=== PATIENT | female | born 1955 | race African-American/Black ===

== ENCOUNTER 2017-07-12 23:35 | Inpatient (IN) | payer OTHER, SELFPAY ==
--- OUTSIDE RECORDS SUMMARY | 2017-07-12 23:37 | XMS REPORT | Clinical Summary ---
:1955 Author Organization [facility] Address [address] [place] [address] Phone Care Team Providers Name Role Phone Unavailable Primary Care Provider Unavailable Allergies Active Allergy Reactions Severity Noted Date Comments Lisinopril High 04/11/2017 Pt with history of lisinopril causing angioedema Current Medications Prescription Sig. Disp. Refills Start End Status Date Date tolterodine (DETROL) 2 Take 2 mg by Active MG tablet mouth 2 (two) times daily. albuterol HFA (VENTOLIN Inhale 1 puff by Active HFA) 90 mcg/actuation mouth via inhaler inhaler every 6 (six) hours as needed for Wheezing. amitriptyline (ELAVIL) Take 10 mg by Active 10 MG tablet mouth nightly. estradiol (ESTRACE) 2 Take 2 mg by Active MG tablet mouth daily. famotidine (PEPCID) 20 Take 20 mg by Active MG tablet mouth daily. cetirizine (ZYRTEC) 5 Take 5 mg by Active MG tablet mouth daily. medroxyPROGESTERone Take 2.5 mg by Active (PROVERA) 2.5 MG tablet mouth 3 (three) times daily. umeclidinium-vilanterol Inhale 1 puff by Active (ANORO ELLIPTA) 62.5-25 mouth via mcg/actuation DsDv inhaler daily. furosemide (LASIX) 40 Take 40 mg by Active MG tablet mouth daily. oxyCODONE (ROXICODONE) Take 30 mg by Active 30 MG immediate release mouth every 6 tablet (six) hours as needed for Pain. predniSONE (DELTASONE) Take 10 mg by Active 10 MG tablet mouth daily. pantoprazole (PROTONIX) Take 40 mg by Active 40 MG tablet mouth daily. aspirin 81 MG EC tablet Take 1 tablet 30 tablet 1 04/18/19 Active (81 mg total) by 18 019 mouth daily. atorvastatin (LIPITOR) Take 1 tablet 30 tablet 0 04/18/19 Active 40 MG tablet (40 mg total) by 18 019 mouth daily. clopidogrel (PLAVIX) 75 Take 1 tablet 30 tablet 0 04/18/19 Active mg tablet (75 mg total) by 18 019 mouth daily. ipratropium-albuterol Take 3 mLs by 300 mL 0 04/17/19 Active (DUO-NEB) 0.5 mg-3 nebulization 18 019 mg(2.5 mg base)/3 mL every 4 (four) nebulizer solution hours as needed for Wheezing or Shortness of Breath for up to 360 days. isosorbide mononitrate Take 1 tablet 30 tablet 0 04/18/19 Active (IMDUR) 30 MG 24 hr (30 mg total) by 18 019 tablet mouth daily. metoprolol (LOPRESSOR) Take 1 tablet 60 tablet 0 04/17/19 Active 25 MG tablet (25 mg total) by 18 019 mouth 2 (two) times daily. nitroglycerin Put 1 pill under 90 tablet 0 04/17/19 Active (NITROSTAT) 0.4 MG SL tongue every 18 019 tablet 5min as needed for chest pain.. amLODIPine (NORVASC) 10 Take 1 tablet 0 04/18/19 Active MG tablet (10 mg total) by 18 019 mouth daily. amLODIPine (NORVASC) 10 Take 10 mg by Discontinued MG tablet mouth daily. 018 Active Problems Problem Noted Date Essential hypertension 04/26/2017 Other hyperlipidemia 04/26/2017 Tobacco use 04/26/2017 COPD (chronic obstructive pulmonary disease) ([facility]) 04/26/2017 MALU on CPAP 04/26/2017 Chronic diastolic CHF (congestive heart failure) ([facility]) 04/26/2017 NSTEMI (non-ST elevated myocardial infarction) ([facility]) 04/12/2017 Resolved Problems Problem Noted Date Resolved Date Chest pain 04/11/2017 04/26/2017 Encounters Date Type Specialty Care Team Description 04/26/2017 Office Visit Cardiology Alexander Olivier NP Tobacco use;MALU on CPAP;Chronic diastolic CHF (congestive heart failure) ([facility]) 04/13/2017 Orders Only General Internal Medicine 04/11/2017 - Hospital Encounter Cardiology Leon, Unstable angina 04/17/2017 joan Barreto ([facility]) (Primary Dx) Chip Davila MD 04/11/2017 Procedure Pass 04/11/2017 Surgery Andrea Sosa L CATH & PCI MD Von after 07/11/2016 Immunizations Name Dates Previously Given Next Due Influenza Three-TIV PF 5+ YR 04/12/2017 Pneumococcal Polysaccharide (Pneumovax) 04/12/2017 Social History Tobacco Use Types Packs/Day Years Used Date Current Every Day Smoker Cigarettes 0.25 40 Started: 04/12/1976 Smokeless Tobacco: Never Used Tobacco Cessation: Ready to Quit: Yes; Counseling Given: Yes Sex Assigned at Date Recorded Not on file Last Filed Vital Signs Vital Sign Reading Time Taken Blood Pressure 132/67 04/26/2017 11:10 AM SKEIN INSPECTOR Pulse 93 04/26/2017 11:10 AM SKEIN INSPECTOR Temperature 36.9 C (98.5 F) 04/17/2017 11:00 AM SKEIN INSPECTOR Respiratory Rate 16 04/26/2017 11:10 AM SKEIN INSPECTOR Oxygen Saturation 91% 04/26/2017 11:10 AM SKEIN INSPECTOR Inhaled Oxygen Concentration - - Weight 96.8 kg (213 lb 4.8 oz) 04/26/2017 11:10 AM SKEIN INSPECTOR Height 162.6 cm (5' 4") 04/26/2017 11:10 AM SKEIN INSPECTOR Body Mass Index 36.61 04/26/2017 11:10 AM SKEIN INSPECTOR Plan of Treatment Health Maintenance Due Date Last Done Comments INFLUENZA VACCINE 01/07/2018 04/12/2017 Procedures Procedure Name Priority Date/Time Associated Diagnosis Comments L CATH & PCI 04/11/2017 8:35 PM SKEIN INSPECTOR stemi after 07/11/2016 Results VASCULAR DIAGRAM -SCAN (05/04/2017 1:57 PM)Only the most recent of3 resultswithin the time period is included.B N P (04/26/2017 12:33 PM)Only the most recent of2 resultswithin the time period is included. Component Value Ref Range BNP 98 0 - 100 pg/mL Specimen Performing Laboratory Blood [facility] [address] [place] [address] Magnesium (04/26/2017 12:33 PM)Only the most recent of2 resultswithin the time period is included. Component Value Ref Range Magnesium 1.8 1.6 - 2.6 mg/dL Specimen Performing Laboratory Blood [address] [address] Basic Metabolic Panel (04/26/2017 12:33 PM)Only the most recent of7 resultswithin the time period is included. Component Value Ref Range Sodium 144 136 - 145 meq/L Potassium 3.7 3.5 - 5.1 meq/L Chloride 105 98 - 107 meq/L CO2 32 (H) 22 - 29 meq/L BUN 8 7 - 21 mg/dL Creatinine 0.72 0.57 - 1.25 mg/dL Glucose 92 70 - 105 mg/dL Calcium 8.9 8.4 - 10.2 mg/dL EGFR 99Comment: ESTIMATED GFR IS NOT ACCURATE mL/min/1.73 sq m CREATININE CLEARANCE IN PREDICTING GLOMERULAR FILTRATION RATE. ESTIMATED GFR IS NOT APPLICABLE FOR DIALYSIS PATIENTS. Specimen Performing Laboratory Blood [address] [address] RHYTHM STRIP - SCAN (04/18/2017 11:10 AM)CBC with platelet count + automated diff (04/17/2017 5:36 AM)Only the most recent of6 resultswithin the time period is included. Component Value Ref Range WBC 4.1 3.5 - 10.5 K/L RBC 6.01 (H) 3.93 - 5.22 M/L Hemoglobin 13.5 11.2 - 15.7 GM/DL Hematocrit 47.0 (H) 34.1 - 44.9 % MCV 78.2 (L) 79.4 - 94.8 fL MCH 22.5 (L) 25.6 - 32.2 pg MCHC 28.7 (L) 32.2 - 35.5 GM/DL RDW 22.9 (H) 11.7 - 14.4 % Platelets 208 150 - 450 K/CU MM MPV 9.1 (L) 9.4 - 12.3 fL nRBC 0 0 - 0 /100 WBC % Neutros 50 % % Lymphs 37 % % Monos 10 % % Eos 1 % % Baso 1 % # Neutros 2.08 1.56 - 6.13 K/L # Lymphs 1.55 1.18 - 3.74 K/L # Monos 0.42 (H) 0.24 - 0.36 K/L # Eos 0.06 0.04 - 0.36 K/L # Baso 0.02 0.01 - 0.08 K/L Immature Granulocytes-Relative 0 0 - 1 % Specimen Performing Laboratory Blood [facility] [address] [address] CBC with platelet count + automated diff (04/17/2017 5:36 AM)Only the most recent of6 resultswithin the time period is included. Specimen Performing Laboratory Blood Narrative The following orders were created for panel order CBC with platelet count + automated diff. Procedure Abnormality Status --------- ------ CBC with platelet count ...[[id number]]AbnormalFinal result Please view results for these tests on the individual orders. ECHOCARDIOGRAM REPORT - SCAN (04/16/2017 3:50 PM)CT chest without IV contrast ( 04/13/2017 9:29 PM) Specimen Performing Laboratory [facility] Narrative FINAL REPORT CT, CHEST, WITHOUT CONTRAST INDICATION: dyspnea, cough COMPARISON: None TECHNIQUE:Noncontrast axially oriented images were obtained from the thoracic inlet through the lung bases.Coronal and sagittal reformats were provided. DOSE REDUCTION: Dose modulation, iterative reconstruction, and/or weight-based adjustment of the mA/kV was utilized to reduce the radiation dose to as low as reasonably achievable. FINDINGS: Lungs and Pleura: Small consolidation in the right base posteriorly. Subsegmental atelectasis noted bilaterally in the bases. No effusion or pneumothorax. Central airways: Patent. Mediastinum: No adenopathy. Heart and pericardium: Normal cardiac size. No pericardial effusion. Great vessels: Normal calibers. Included upper abdomen: Prior partial gastric bypass. Postcholecystectomy. Regional skeletal structures: Intact. Additional findings: None. IMPRESSION: Right basilar consolidation concerning for pneumonia. Signed: JR Suazo Robert MD Report Verified Date/Time:04/13/2017 23:31:59 Reading Location: [facility] C0[facility] CT Body Reading Room Procedure Note Interface, External Ris In - 04/13/2017 11:34 PM SKEIN INSPECTOR FINAL REPORT CT, CHEST, WITHOUT CONTRAST INDICATION: dyspnea, cough COMPARISON: None TECHNIQUE: Noncontrast axially oriented images were obtained from the thoracic inlet through the lung bases. Coronal and sagittal reformats were provided. DOSE REDUCTION: Dose modulation, iterative reconstruction, and/or weight-based adjustment of the mA/kV was utilized to reduce the radiation dose to as low as reasonably achievable. FINDINGS: Lungs and Pleura: Small consolidation in the right base posteriorly. Subsegmental atelectasis noted bilaterally in the bases. No effusion or pneumothorax. Central airways: Patent. Mediastinum: No adenopathy. Heart and pericardium: Normal cardiac size. No pericardial effusion. Great vessels: Normal calibers. Included upper abdomen: Prior partial gastric bypass. Postcholecystectomy. Regional skeletal structures: Intact. Additional findings: None. IMPRESSION: Right basilar consolidation concerning for pneumonia. Signed: JR Suazo Robert MD Report Verified Date/Time: 04/13/2017 23:31:59 Reading Location: [facility] B1 C013Y CT Body Reading Room IAC CATH REPORT - SCAN (04/13/2017 8:30 PM)aPTT (04/13/2017 11:58 AM)Only the most recent of4 resultswithin the time period is included. Component Value Ref Range PTT 53.5 (H) 22.5 - 36.0 seconds Specimen Performing Laboratory Blood - Line, [place] [address] PERIPHERAL VASCULAR REPORT - SCAN (04/13/2017 10:50 AM)Venous doppler legs bilateral (04/13/2017 8:10 AM) Component Value Ref Range Ejection Fraction Specimen Performing Laboratory [facility] ECHO HEARTLAB MKCKESSON CPACS Impressions Right Impression 1. There is no deep venous obstruction in the common femoral, profunda femoral, femoral, popliteal, posterior tibial or peroneal veins. 2. There is no superficial venous obstruction in the great saphenous vein. Left Impression 1. There is no deep venous obstruction in the common femoral, profunda femoral, femoral, popliteal, posterior tibial or peroneal veins. 2. There is no superficial venous obstruction in the great saphenous vein. Conclusions Summary Venous duplex imaging and compression of the bilateral lower extremities were performed. The veins were adequately visualized. The bilateral venous systems were patent and compressible with no evidence of thrombus. The venous Doppler waveforms were phasic with respiration . Signature Velocities are measured in cm/s ; Diameters are measured in cm Narrative [facility] - Lower Extremities DVT Study Demographics Patient Name BARBY, Date of Study2017 LUNA [id number] Age62 Visit Number [id number] Gender Female Accession Number [id number] Date of Birth1955 ReferringChip Davila MD Room [id number] Physician SonographerEnzo GudinoInterpreting Lindsay Ovalles RVTPchel ALLEN, RPVI Procedure Type of Study: Veins: Lower Extremities DVT Study, VENOUS DOPPLER LEG, BILATERAL. Indications for Study:Edema. Patient Status:Routine. Study Location:Vascular Lab. Technical Quality:Adequate visualization. Risk Factors History of Disease +---------+----+ + !Diagnosis!Date!Comments ! +---------+----+ + !Other!!Smoker, Colon Cancer, Heart Cath 05/09/17, Morbid Obesity ! +---------+----+ + Procedure Note Interface, External Ris In - 04/13/2017 10:26 AM SKEIN INSPECTOR PV LAB - Lower Extremities DVT Study Demographics Patient Name BARBY, Date of Study 04/13/2017 LUNA Age 62 Visit Number [id number] Gender Female Accession Number [id number] Date of 1955 Referring Chip Davila MD Room Number [id number] Physician Retail Field Representative Enzo Gudino Interpreting Lindsay Ovalles T Physician , RPVI Procedure Type of Study: Veins: Lower Extremities DVT Study, VENOUS DOPPLER LEG, BILATERAL. Indications for Study:Edema. Patient Status:Routine. Study Location:Vascular Lab. Technical Quality:Adequate visualization. Risk Factors History of Disease +---------+----+ + !Diagnosis!Date!Comments ! +---------+----+ + !Other ! !Smoker, Colon Cancer, Heart Cath 05/09/17, Morbid Obesity ! +---------+----+ + Impressions Right Impression 1. There is no deep venous obstruction in the common femoral, profunda femoral, femoral, popliteal, posterior tibial or peroneal veins. 2. There is no superficial venous obstruction in the great saphenous vein. Left Impression 1. There is no deep venous obstruction in the common femoral, profunda femoral, femoral, popliteal, posterior tibial or peroneal veins. 2. There is no superficial venous obstruction in the great saphenous vein. Conclusions Summary Venous duplex imaging and compression of the bilateral lower extremities were performed. The veins were adequately visualized. The bilateral venous systems were patent and compressible with no evidence of thrombus. The venous Doppler waveforms were phasic with respiration . Signature Velocities are measured in cm/s ; Diameters are measured in cm ECG 12 lead (04/13/2017 7:41 AM) Specimen Performing Laboratory [facility] Narrative Ventricular Rate 77 BPM Atrial Rate 77 BPM P-R Interval 164 ms QRS Duration 82 ms Q-T Interval 400 ms QTC Calculation(Bazett) 452 ms P Mead 58 degrees R Mead 73 degrees T Mead 53 degrees Normal sinus rhythm Normal ECG No previous ECGs available Confirmed by MD JOSE, PITER Scales ([id number]) on 04/14/2017 6:05:11 PM Procedure Note Interface, External Ris In - 04/14/2017 6:05 PM SKEIN INSPECTOR Ventricular Rate 77 BPM Atrial Rate 77 BPM P-R Interval 164 ms QRS Duration 82 ms Q-T Interval 400 ms QTC Calculation(Bazett) 452 ms P Mead 58 degrees R Mead 73 degrees T Mead 53 degrees Normal sinus rhythm Normal ECG No previous ECGs available Confirmed by MD JOSE, PITER Scales ([id number]) on 04/14/2017 6:05:11 PM Troponin I (04/12/2017 9:09 AM)Only the most recent of2 resultswithin the time period is included. Component Value Ref Range Troponin I 2.70 (HH) 0.00 - 0.03 ng/mL Specimen Performing Laboratory Blood - Line, [place] [address] Narrative Troponin I (TnI) levels must be interpreted in the context of the presenting symptoms and the clinical findings. Elevated TnI levels indicate myocardial damage, but are not specific for ischemic heart disease. Elevated TnI levels are seen in patients with other cardiac conditions (including myocarditis and congestive heart failure), and slight TnI elevations occur in patients with other conditions, including sepsis, renal failure, acidosis, acute neurological disease, and persistent tachyarrhythmia. Creatine Kinase (CK), Total and MB (04/12/2017 9:09 AM)Only the most recent of2 resultswithin the time period is included. Component Value Ref Range Total CK 208 (H) 29 - 200 U/L CK-MB 22.0 (H) 0.0 - 6.6 ng/mL MB Relative Index 10.6 % Specimen Performing Laboratory Blood - Line, Venous [address] [address] Narrative CK-MB Reference Range: <6.7Normal 6.7-10.0Borderline >10.0 Abnormal Transthoracic 2D echo w/ doppler (cw/pw/color) (04/12/2017 8:17 AM) Component Value Ref Range Ejection Fraction Specimen Performing Laboratory [facility] ECHO HEARTLAB MKCKESSON CPACS Narrative Transthoracic Echocardiography Report (TTE) Demographics Patient Name BARBY,Date of Study 2017 LUNA [id number] Female Visit Number [id number] Black [id number] Room Number [id number] Number Date of Birth4Referring Physician Evelin De Jesus MD Age62 year(s)Retail Field Representative [facility] AnalystAlex Yolanda Interpreting Soy Kimbrough, Physician Procedure Type of Study TTE procedure:2DECHO W DOPPLER(CW/PW/COLOR) (MARIBEL) Indications:Acute Chest Pain/ Suspected CAD. Clinical History Cancer HGB 14.8 HCT 51.5 % Contrast Medium: Definity. Amount - 3 ml Height: 64 inches Weight: 97.52 kg (215 lbs) BSA: 2.02 m^2 BMI: 36.9 kg/m^2 HR: 71 bpm BP: 109/61 mmHg Summary LV endocardium is adequately visualized with IV ultrasound enhancing agent. The left ventricle is chamber size (by PSLAX dimension) is normal (female - LVIDd 3.8-5.2cm) . No evidence of LV hypertrophy. All of the LV segments contract normally . Global LV systolic function normal . Estimated LVEF by qualitative assessment is normal (55-60%) . Grade 1 diastolic dysfunction (impaired relaxation and low-normal LA pressure). Normal right ventricle structure and function. Estimated peak systolic PA pressure is 30-35 mmHg . The estimated RA pressure by IVC dynamics 5-10mmHg . No evidence of pericardial effusion. Signature Findings Left Ventricle LV endocardium is adequately visualized with IV ultrasound enhancing agent. The left ventricle is chamber size (by PSLAX dimension) is normal (female - LVIDd 3.8-5.2cm) . No evidence of LV hypertrophy. All of the LV segments contract normally . Global LV systolic function normal . Estimated LVEF by qualitative assessment is normal (55-60%) . Grade 1 diastolic dysfunction (impaired relaxation and low-normal LA pressure). Left AtriumLA size is normal . Right VentricleNormal right ventricle structure and function. Right Atrium Normal right atrium. Aortic Valve Normal AoV structure. Mitral Valve Normal MV structure. Tricuspid ValveA trace of tricuspid regurgitation. Estimated peak systolic PA pressure is 30-35 mmHg . Pulmonic Valve Normal PV structure and function by limited views and Doppler. AortaAortic root size (SInus of Valsalva diameter) is normal . PericardiumNo evidence of pericardial effusion. IVC/SVC/PA/PV/PleuralThe estimated RA pressure by IVC dynamics 5-10mmHg . Chambers/Structures Left Atrium LA Dimension: 3.08 cm LA Area: 19.9 cm^2 LA Volume: 53.58 ml LA Vol. Index: 27 ml/m^2 Left Ventricle LVIDd: 4.9 cm LV Septum Diastolic: 1.11 cm LV PW Diastolic: 1.08 cm LVOT Diameter: 2.31 cm Aorta Ao Root S of Abril.: 3.65 cm Doppler/Quantitative Measurements LVOT Peak Velocity: 1.13 m/s Peak Gradient: 5.09 mmHg Mean Velocity: 0.67 m/s Mean Gradient: 2.18 mmHg LVOT Diameter: 2.31 cmLVOT VTI: 21.74 cm LVOT Area: 4.19 cm^2LVOT SV:91.07 ml LVOT CO: 6.47 l/min LVOT CI: 3.2 l/min/m^2 Procedure Note Interface, External Ris In - 04/16/2017 3:03 PM SKEIN INSPECTOR Transthoracic Echocardiography Report (TTE) Demographics Patient Name HUGGINS, Date of Study 04/12/2017 LUNA Gender Female Visit Number [id number] Race Black Room Number 1422 Number Date of 1955 Referring Physician Evelin De Jesus MD Age 62 year(s) Retail Field Representative Vincent Lambert RCS Inspector Repairer [place] Andrez Kimbrough Physician Procedure Type of Study TTE procedure:2DECHO W DOPPLER(CW/PW/COLOR) (MARIBEL) Indications:Acute Chest Pain/ Suspected CAD. Clinical History Cancer HGB 14.8 HCT 51.5 % Contrast Medium: Definity. Amount - 3 ml Height: 64 inches Weight: 97.52 kg (215 lbs) BSA: 2.02 m^2 BMI: 36.9 kg/m^2 HR: 71 bpm BP: 109/61 mmHg Summary LV endocardium is adequately visualized with IV ultrasound enhancing agent. The left ventricle is chamber size (by PSLAX dimension) is normal (female - LVIDd 3.8-5.2cm) . No evidence of LV hypertrophy. All of the LV segments contract normally . Global LV systolic function normal . Estimated LVEF by qualitative assessment is normal (55-60%) . Grade 1 diastolic dysfunction (impaired relaxation and low-normal LA pressure). Normal right ventricle structure and function. Estimated peak systolic PA pressure is 30-35 mmHg . The estimated RA pressure by IVC dynamics 5-10mmHg . No evidence of pericardial effusion. Signature Findings Left Ventricle LV endocardium is adequately visualized with IV ultrasound enhancing agent. The left ventricle is chamber size (by PSLAX dimension) is normal (female - LVIDd 3.8-5.2cm) . No evidence of LV hypertrophy. All of the LV segments contract normally . Global LV systolic function normal . Estimated LVEF by qualitative assessment is normal (55-60%) . Grade 1 diastolic dysfunction (impaired relaxation and low-normal LA pressure). Left Atrium LA size is normal . Right Ventricle Normal right ventricle structure and function. Right Atrium Normal right atrium. Aortic Valve Normal AoV structure. Mitral Valve Normal MV structure. Tricuspid Valve A trace of tricuspid regurgitation. Estimated peak systolic PA pressure is 30-35 mmHg . Pulmonic Valve Normal PV structure and function by limited views and Doppler. Aorta Aortic root size (SInus of Valsalva diameter) is normal . Pericardium No evidence of pericardial effusion. IVC/SVC/PA/PV/Pleural The estimated RA pressure by IVC dynamics 5-10mmHg . Chambers/Structures Left Atrium LA Dimension: 3.08 cm LA Area: 19.9 cm^2 LA Volume: 53.58 ml LA Vol. Index: 27 ml/m^2 Left Ventricle LVIDd: 4.9 cm LV Septum Diastolic: 1.11 cm LV PW Diastolic: 1.08 cm LVOT Diameter: 2.31 cm Aorta Ao Root S of Abril.: 3.65 cm Doppler/Quantitative Measurements LVOT Peak Velocity: 1.13 m/s Peak Gradient: 5.09 mmHg Mean Velocity: 0.67 m/s Mean Gradient: 2.18 mmHg LVOT Diameter: 2.31 cm LVOT VTI: 21.74 cm LVOT Area: 4.19 cm^2 LVOT SV:91.07 ml LVOT CO: 6.47 l/min LVOT CI: 3.2 l/min/m^2 XR chest 1 view portable / bedside (04/12/2017 1:46 AM) Specimen Performing Laboratory [facility] Narrative FINAL REPORT History: Chest pain. Comparison: None. Findings: A single view of the chest is submitted. The cardiomediastinal contours are unremarkable. There are diffuse interstitial opacities, centered on the perihilar lungs and suggest of overt pulmonary edema. Atypical pneumonitis is an alternative consideration. There is no focal consolidation, pneumothorax, large pleural effusion or acute bony abnormality. Signed: Manjit Santiago MD Report Verified Date/Time:04/12/2017 02:30:28 Reading Location: [address] Reading Room Procedure Note Interface, External Ris In - 04/12/2017 2:32 AM SKEIN INSPECTOR FINAL REPORT History: Chest pain. Comparison: None. Findings: A single view of the chest is submitted. The cardiomediastinal contours are unremarkable. There are diffuse interstitial opacities, centered on the perihilar lungs and suggest of overt pulmonary edema. Atypical pneumonitis is an alternative consideration. There is no focal consolidation, pneumothorax, large pleural effusion or acute bony abnormality. Signed: Manjit Santiago MD Report Verified Date/Time: 04/12/2017 02:30:28 Reading Location: [address] Reading Room Prothrombin time/INR (04/12/2017 1:18 AM) Component Value Ref Range Protime 16.7 (H) 11.7 - 14.7 seconds INR 1.4 <=5.9 Specimen Performing Laboratory Blood [address] [address] Narrative RECOMMENDED COUMADIN/WARFARIN INR THERAPY RANGES STANDARD DOSE: 2.0 - 3.0 Includes: PROPHYLAXIS for venous thrombosis, systemic embolization; TREATMENT for venous thrombosis and/or pulmonary embolus. HIGH RISK: Target INR is 2.5-3.5 for patients with mechanical heart valves. D-dimer (04/12/2017 1:18 AM) Component Value Ref Range D-Dimer, Quant <0.27 <0.50 MG/L FEU Specimen Performing Laboratory Blood [address] [address] Narrative Intended Use: The D-Dimer Assay can be used to aid in the diagnosis of Deep Vein Thrombosis (DVT) and Pulmonary Embolism Disease (PED). In patients with low pre-test probability, various studies concerning STA Liatest D-dimer test have reported that with a cutoff value of 0.50 MG/L FEU, the Negative Predictive Value (NPV) regarding the exclusion of thrombosis is within 95-100% range. Phosphorus (04/12/2017 1:18 AM) Component Value Ref Range Phosphorus 3.8 2.3 - 4.7 mg/dL Specimen Performing Laboratory Blood [address] [address] Hepatic function panel (04/12/2017 1:18 AM) Component Value Ref Range Protein, Total 7.0 6.0 - 8.3 gm/dL Albumin 3.6 3.5 - 5.0 g/dL Total Bilirubin 0.5 0.2 - 1.2 mg/dL Bilirubin, Direct 0.2 0.1 - 0.5 mg/dL Alkaline Phosphatase 94 40 - 150 U/L AST 45 (H) 5 - 34 U/L ALT 24 6 - 55 U/L Specimen Performing Laboratory Blood [address] [address] POC ACTIVATED CLOTTING TIME (04/12/2017 12:29 AM)Only the most recent of2 resultswithin the time period is included. Component Value Ref Range Activated Clotting Time 411Comment: TESTED AT [address] sec [address] Specimen Performing Laboratory Blood [facility] [address] [address] after 07/11/2016
--- OUTSIDE RECORDS SUMMARY | 2017-07-12 23:38 | XMS REPORT ---
:1955 [facility] Address [address] [place] [address] Care Team Providers Name Role Phone [facility] Unavailable Unavailable GLADYS ALVARENGA Unavailable Unavailable Problems This patient has no known problems. Allergies, Adverse Reactions, Alerts This patient has no known allergies or adverse reactions. Medications This patient has no known medications. Results Test Description Test Time Test Comments Text Results Atomic Results Result Comments B-TYPE NATRIURETIC FACTOR (BNP) 2017-04-26 13:02:00 Test Item Value Reference Range Comments B-TYPE NATRIURETIC PEPTIDE (BEAKER) (test wnsa=113) 98 pg/mL 0-100 [id number] 12:55:00 Test Item Value Reference Range Comments MAGNESIUM (BEAKER) (test nflu=218) 1.8 mg/dL 1.6-2.6 BASIC METABOLIC [id number] 12:55:00 Test Item Value Reference Range Comments SODIUM (BEAKER) (test 144 meq/L 136-145 tbjz=614) POTASSIUM (BEAKER) (test 3.7 meq/L 3.5-5.1 zyzh=098) CHLORIDE (BEAKER) (test 105 meq/L 98-107 dmfv=855) CO2 (BEAKER) (test 32 meq/L 22-29 tkij=612) BLOOD UREA NITROGEN 8 mg/dL 7-21 (BEAKER) (test ccbd=967) CREATININE (BEAKER) (test 0.72 mg/dL 0.57-1.25 rsyf=137) GLUCOSE RANDOM (BEAKER) 92 mg/dL 70-105 (test dtta=259) CALCIUM (BEAKER) (test 8.9 mg/dL 8.4-10.2 hskp=851) EGFR (BEAKER) (test 99 mL/min/1.73 sq m ESTIMATED GFR IS NOT oxyw=6805) ACCURATE CREATININE CLEARANCE IN PREDICTING GLOMERULAR FILTRATION RATE. ESTIMATED GFR IS NOT APPLICABLE FOR DIALYSIS PATIENTS. CBC W/PLT COUNT & AUTO [id number] 07:45:00 Test Item Value Reference Range Comments WHITE BLOOD CELL COUNT (BEAKER) (test iswt=417) 4.1 K/ L 3.5-10.5 RED BLOOD CELL COUNT (BEAKER) (test urmn=572) 6.01 M/ L 3.93-5.22 HEMOGLOBIN (BEAKER) (test xfqd=180) 13.5 GM/DL 11.2-15.7 HEMATOCRIT (BEAKER) (test dfde=764) 47.0 % 34.1-44.9 MEAN CORPUSCULAR VOLUME (BEAKER) (test vele=381) 78.2 fL 79.4-94.8 MEAN CORPUSCULAR HEMOGLOBIN (BEAKER) (test 22.5 pg 25.6-32.2 ktcf=982) MEAN CORPUSCULAR HEMOGLOBIN CONC (BEAKER) (test 28.7 GM/DL 32.2-35.5 izco=107) RED CELL DISTRIBUTION WIDTH (BEAKER) (test 22.9 % 11.7-14.4 ltrm=206) PLATELET COUNT (BEAKER) (test bmla=038) 208 K/CU MM 150-450 MEAN PLATELET VOLUME (BEAKER) (test ndwy=691) 9.1 fL 9.4-12.3 NUCLEATED RED BLOOD CELLS (BEAKER) (test 0 /100 WBC 0-0 gvbj=558) NEUTROPHILS RELATIVE PERCENT (BEAKER) (test 50 % uvez=974) LYMPHOCYTES RELATIVE PERCENT (BEAKER) (test 37 % htqg=730) MONOCYTES RELATIVE PERCENT (BEAKER) (test 10 % gmfe=430) EOSINOPHILS RELATIVE PERCENT (BEAKER) (test 1 % ulqf=982) BASOPHILS RELATIVE PERCENT (BEAKER) (test 1 % svay=864) NEUTROPHILS ABSOLUTE COUNT (BEAKER) (test 2.08 K/ L 1.56-6.13 pazl=024) LYMPHOCYTES ABSOLUTE COUNT (BEAKER) (test 1.55 K/ L 1.18-3.74 rbwg=691) MONOCYTES ABSOLUTE COUNT (BEAKER) (test 0.42 K/ L 0.24-0.36 zmiv=494) EOSINOPHILS ABSOLUTE COUNT (BEAKER) (test 0.06 K/ L 0.04-0.36 cnkv=783) BASOPHILS ABSOLUTE COUNT (BEAKER) (test 0.02 K/ L 0.01-0.08 mlpt=531) IMMATURE GRANULOCYTES-RELATIVE PERCENT (BEAKER) 0 % 0-1 (test bnyr=7854) BASIC METABOLIC [id number] 07:02:00 Test Item Value Reference Range Comments SODIUM (BEAKER) (test 139 meq/L 136-145 kpqe=598) POTASSIUM (BEAKER) (test 3.9 meq/L 3.5-5.1 asha=397) CHLORIDE (BEAKER) (test 101 meq/L 98-107 bmpw=161) CO2 (BEAKER) (test 33 meq/L 22-29 xcem=891) BLOOD UREA NITROGEN 9 mg/dL 7-21 (BEAKER) (test eevn=958) CREATININE (BEAKER) (test 0.67 mg/dL 0.57-1.25 lunv=357) GLUCOSE RANDOM (BEAKER) 83 mg/dL 70-105 (test hnvp=654) CALCIUM (BEAKER) (test 9.1 mg/dL 8.4-10.2 yxgb=174) EGFR (BEAKER) (test 108 mL/min/1.73 sq m ESTIMATED GFR IS NOT hwsw=3638) ACCURATE CREATININE CLEARANCE IN PREDICTING GLOMERULAR FILTRATION RATE. ESTIMATED GFR IS NOT APPLICABLE FOR DIALYSIS PATIENTS. CBC W/PLT COUNT & AUTO [id number] 05:11:00 Test Item Value Reference Range Comments WHITE BLOOD CELL COUNT (BEAKER) (test gwye=196) 4.7 K/ L 3.5-10.5 RED BLOOD CELL COUNT (BEAKER) (test vyvn=752) 6.26 M/ L 3.93-5.22 HEMOGLOBIN (BEAKER) (test hwac=408) 13.9 GM/DL 11.2-15.7 HEMATOCRIT (BEAKER) (test fdfl=540) 49.0 % 34.1-44.9 MEAN CORPUSCULAR VOLUME (BEAKER) (test gzel=933) 78.3 fL 79.4-94.8 MEAN CORPUSCULAR HEMOGLOBIN (BEAKER) (test 22.2 pg 25.6-32.2 yula=361) MEAN CORPUSCULAR HEMOGLOBIN CONC (BEAKER) (test 28.4 GM/DL 32.2-35.5 fexw=275) RED CELL DISTRIBUTION WIDTH (BEAKER) (test 22.7 % 11.7-14.4 ajci=666) PLATELET COUNT (BEAKER) (test fhlt=466) 218 K/CU MM 150-450 MEAN PLATELET VOLUME (BEAKER) (test isns=858) 8.9 fL 9.4-12.3 NUCLEATED RED BLOOD CELLS (BEAKER) (test 0 /100 WBC 0-0 zpft=588) NEUTROPHILS RELATIVE PERCENT (BEAKER) (test 61 % jnaa=390) LYMPHOCYTES RELATIVE PERCENT (BEAKER) (test 27 % swut=111) MONOCYTES RELATIVE PERCENT (BEAKER) (test 12 % mgep=641) EOSINOPHILS RELATIVE PERCENT (BEAKER) (test 1 % rtkg=025) BASOPHILS RELATIVE PERCENT (BEAKER) (test 0 % lzgw=727) NEUTROPHILS ABSOLUTE COUNT (BEAKER) (test 2.82 K/ L 1.56-6.13 wvno=021) LYMPHOCYTES ABSOLUTE COUNT (BEAKER) (test 1.23 K/ L 1.18-3.74 psat=332) MONOCYTES ABSOLUTE COUNT (BEAKER) (test 0.54 K/ L 0.24-0.36 cvwq=814) EOSINOPHILS ABSOLUTE COUNT (BEAKER) (test 0.04 K/ L 0.04-0.36 ecpu=047) BASOPHILS ABSOLUTE COUNT (BEAKER) (test 0.01 K/ L 0.01-0.08 queh=432) IMMATURE GRANULOCYTES-RELATIVE PERCENT (BEAKER) 0 % 0-1 (test hjsk=5418) BASIC METABOLIC [id number] 12:19:00 Test Item Value Reference Range Comments SODIUM (BEAKER) (test 145 meq/L 136-145 This is a corrected kcei=005) result. Previous result was 142 meq/L on 04/15/2017 at 1015 [employer] POTASSIUM (BEAKER) (test 3.8 meq/L 3.5-5.1 Specimen moderately piys=404) hemolyzedThis is a corrected result. Previous result was 3.7 meq/L on 04/15/2017 at 1015 [employer] CHLORIDE (BEAKER) (test 113 meq/L 98-107 This is a corrected mtmq=826) result. Previous result was 111 meq/L on 04/15/2017 at 1015 R[employer] TE[employer] CO2 (BEAKER) (test 23 meq/L 22-29 psbe=296) BLOOD UREA NITROGEN 8 mg/dL 7-21 (BEAKER) (test dxey=635) CREATININE (BEAKER) 0.51 mg/dL 0.57-1.25 Specimen moderately (test ukrr=003) hemolyzed GLUCOSE RANDOM (BEAKER) 63 mg/dL 70-105 (test vmdu=887) CALCIUM (BEAKER) (test 6.7 mg/dL 8.4-10.2 rhpn=621) EGFR (BEAKER) (test 148 mL/min/1.73 sq ESTIMATED GFR IS NOT wxnd=9510) m ACCURATE CREATININE CLEARANCE IN PREDICTING GLOMERULAR FILTRATION RATE. ESTIMATED GFR IS NOT APPLICABLE FOR DIALYSIS PATIENTS. CBC W/PLT COUNT & AUTO [id number] 08:12:00 Test Item Value Reference Range Comments WHITE BLOOD CELL COUNT (BEAKER) (test hcrh=614) 4.2 K/ L 3.5-10.5 RED BLOOD CELL COUNT (BEAKER) (test yvqu=657) 6.16 M/ L 3.93-5.22 HEMOGLOBIN (BEAKER) (test qevy=879) 13.7 GM/DL 11.2-15.7 HEMATOCRIT (BEAKER) (test yxju=365) 48.6 % 34.1-44.9 MEAN CORPUSCULAR VOLUME (BEAKER) (test mudq=708) 78.9 fL 79.4-94.8 MEAN CORPUSCULAR HEMOGLOBIN (BEAKER) (test 22.2 pg 25.6-32.2 ubmr=007) MEAN CORPUSCULAR HEMOGLOBIN CONC (BEAKER) (test 28.2 GM/DL 32.2-35.5 gfay=933) RED CELL DISTRIBUTION WIDTH (BEAKER) (test 23.3 % 11.7-14.4 dbem=746) PLATELET COUNT (BEAKER) (test fazu=083) 278 K/CU MM 150-450 MEAN PLATELET VOLUME (BEAKER) (test cnpz=795) 9.4 fL 9.4-12.3 NUCLEATED RED BLOOD CELLS (BEAKER) (test 0 /100 WBC 0-0 rcjx=412) NEUTROPHILS RELATIVE PERCENT (BEAKER) (test 56 % dvpg=963) LYMPHOCYTES RELATIVE PERCENT (BEAKER) (test 30 % dxud=030) MONOCYTES RELATIVE PERCENT (BEAKER) (test 13 % edrh=246) EOSINOPHILS RELATIVE PERCENT (BEAKER) (test 1 % imdb=452) BASOPHILS RELATIVE PERCENT (BEAKER) (test 1 % fejd=029) NEUTROPHILS ABSOLUTE COUNT (BEAKER) (test 2.37 K/ L 1.56-6.13 qqdb=793) LYMPHOCYTES ABSOLUTE COUNT (BEAKER) (test 1.26 K/ L 1.18-3.74 fsnj=795) MONOCYTES ABSOLUTE COUNT (BEAKER) (test 0.53 K/ L 0.24-0.36 alwc=365) EOSINOPHILS ABSOLUTE COUNT (BEAKER) (test 0.03 K/ L 0.04-0.36 lupe=953) BASOPHILS ABSOLUTE COUNT (BEAKER) (test 0.02 K/ L 0.01-0.08 tsoa=898) IMMATURE GRANULOCYTES-RELATIVE PERCENT (BEAKER) 0 % 0-1 (test fjud=0886) BASIC METABOLIC [id number] 10:54:00 Test Item Value Reference Range Comments SODIUM (BEAKER) (test 141 meq/L 136-145 ukxw=673) POTASSIUM (BEAKER) (test 3.7 meq/L 3.5-5.1 gulq=379) CHLORIDE (BEAKER) (test 99 meq/L 98-107 wdtq=703) CO2 (BEAKER) (test 36 meq/L 22-29 wipf=572) BLOOD UREA NITROGEN 12 mg/dL 7-21 (BEAKER) (test wsyk=220) CREATININE (BEAKER) (test 0.68 mg/dL 0.57-1.25 vwrs=905) GLUCOSE RANDOM (BEAKER) 96 mg/dL 70-105 (test qryl=685) CALCIUM (BEAKER) (test 8.6 mg/dL 8.4-10.2 eeek=170) EGFR (BEAKER) (test 106 mL/min/1.73 sq m ESTIMATED GFR IS NOT ergy=6437) ACCURATE CREATININE CLEARANCE IN PREDICTING GLOMERULAR FILTRATION RATE. ESTIMATED GFR IS NOT APPLICABLE FOR DIALYSIS PATIENTS. CBC W/PLT COUNT & AUTO [id number] 06:13:00 Test Item Value Reference Range Comments WHITE BLOOD CELL COUNT (BEAKER) (test rrjs=943) 4.5 K/ L 3.5-10.5 RED BLOOD CELL COUNT (BEAKER) (test rfcj=028) 6.02 M/ L 3.93-5.22 HEMOGLOBIN (BEAKER) (test cavo=122) 13.5 GM/DL 11.2-15.7 HEMATOCRIT (BEAKER) (test gxrs=510) 47.6 % 34.1-44.9 MEAN CORPUSCULAR VOLUME (BEAKER) (test yepo=741) 79.1 fL 79.4-94.8 MEAN CORPUSCULAR HEMOGLOBIN (BEAKER) (test 22.4 pg 25.6-32.2 eeaw=886) MEAN CORPUSCULAR HEMOGLOBIN CONC (BEAKER) (test 28.4 GM/DL 32.2-35.5 anox=658) RED CELL DISTRIBUTION WIDTH (BEAKER) (test 23.6 % 11.7-14.4 jsoa=940) PLATELET COUNT (BEAKER) (test fylk=783) 334 K/CU MM 150-450 MEAN PLATELET VOLUME (BEAKER) (test xtnc=424) 9.3 fL 9.4-12.3 NUCLEATED RED BLOOD CELLS (BEAKER) (test 0 /100 WBC 0-0 mpup=642) NEUTROPHILS RELATIVE PERCENT (BEAKER) (test 45 % bcvj=504) LYMPHOCYTES RELATIVE PERCENT (BEAKER) (test 41 % gind=341) MONOCYTES RELATIVE PERCENT (BEAKER) (test 13 % gfgh=723) EOSINOPHILS RELATIVE PERCENT (BEAKER) (test 1 % ciok=540) BASOPHILS RELATIVE PERCENT (BEAKER) (test 0 % jdtn=427) NEUTROPHILS ABSOLUTE COUNT (BEAKER) (test 2.05 K/ L 1.56-6.13 lvtv=870) LYMPHOCYTES ABSOLUTE COUNT (BEAKER) (test 1.85 K/ L 1.18-3.74 dpsx=713) MONOCYTES ABSOLUTE COUNT (BEAKER) (test 0.58 K/ L 0.24-0.36 hruc=850) EOSINOPHILS ABSOLUTE COUNT (BEAKER) (test 0.03 K/ L 0.04-0.36 sbdq=883) BASOPHILS ABSOLUTE COUNT (BEAKER) (test 0.02 K/ L 0.01-0.08 upmq=755) IMMATURE GRANULOCYTES-RELATIVE PERCENT (BEAKER) 0 % 0-1 (test rldp=3494) CT, CHEST, WITHOUT [id number] 23:31:00FINAL REPORT CT, CHEST, WITHOUT CONTRAST INDICATION: dyspnea, cough COMPARISON: None TECHNIQUE: Noncontrast axially oriented images were obtained from the thoracic inlet throughthe lung bases. Coronal and sagittal reformats were provided. DOSE REDUCTION: Dose modulation, iterative reconstruction, and/or weight-based adjustment of the mA/kV was utilized to reduce the radiation dose to as low as reasonably achievable. FINDINGS: Lungs and Pleura: Small consolidation in the right base posteriorly. Subsegmental atelectasis noted bilaterally in the bases. No effusion or pneumothorax.Central airways: Patent.Mediastinum: No adenopathy.Heart and pericardium: Normal cardiac size. No pericardial effusion.Great vessels: Normal calibers. Included upper abdomen: Prior partial gastric bypass. Postcholecystectomy.Regional skeletal structures: Intact. Additional findings: None. IMPRESSION: Right basilar consolidation concerning for pneumonia. Signed: JR Suazo Robert MDReport Verified Date/Time: 04/13/2017 23:31:59 Reading Location: [facility] C013Y CT Body Reading Room [id number] 12:35:00 Test Item Value Reference Range Comments PARTIAL THROMBOPLASTIN TIME (BEAKER) (test 53.5 seconds 22.5-36.0 hcay=562) BASIC METABOLIC [id number] 09:04:00 Test Item Value Reference Range Comments SODIUM (BEAKER) (test 141 meq/L 136-145 bkgk=594) POTASSIUM (BEAKER) (test 4.0 meq/L 3.5-5.1 khxx=290) CHLORIDE (BEAKER) (test 99 meq/L 98-107 ugyp=664) CO2 (BEAKER) (test 36 meq/L 22-29 bzbi=645) BLOOD UREA NITROGEN 15 mg/dL 7-21 (BEAKER) (test czpy=513) CREATININE (BEAKER) (test 0.67 mg/dL 0.57-1.25 nhic=540) GLUCOSE RANDOM (BEAKER) 93 mg/dL 70-105 (test kvbx=390) CALCIUM (BEAKER) (test 8.4 mg/dL 8.4-10.2 ytna=561) EGFR (BEAKER) (test 108 mL/min/1.73 sq m ESTIMATED GFR IS NOT sqre=3102) ACCURATE CREATININE CLEARANCE IN PREDICTING GLOMERULAR FILTRATION RATE. ESTIMATED GFR IS NOT APPLICABLE FOR DIALYSIS PATIENTS. Redraw, morning specimen was hemolizedBASIC METABOLIC [id number] 08:01:00 Test Item Value Reference Range Comments SODIUM (BEAKER) (test 143 meq/L 136-145 hzza=769) POTASSIUM (BEAKER) (test 4.2 meq/L 3.5-5.1 Specimen slightly ctet=746) hemolyzed CHLORIDE (BEAKER) (test 101 meq/L 98-107 azxl=164) CO2 (BEAKER) (test 36 meq/L 22-29 txcu=186) BLOOD UREA NITROGEN 16 mg/dL 7-21 (BEAKER) (test cjpn=005) CREATININE (BEAKER) (test 0.68 mg/dL 0.57-1.25 Specimen slightly ojph=725) hemolyzed GLUCOSE RANDOM (BEAKER) 85 mg/dL 70-105 (test qspn=727) CALCIUM (BEAKER) (test 8.7 mg/dL 8.4-10.2 gvbq=090) EGFR (BEAKER) (test 106 mL/min/1.73 sq m ESTIMATED GFR IS NOT vxga=6065) ACCURATE CREATININE CLEARANCE IN PREDICTING GLOMERULAR FILTRATION RATE. ESTIMATED GFR IS NOT APPLICABLE FOR DIALYSIS PATIENTS. CBC W/PLT COUNT & AUTO [id number] 06:14:00 Test Item Value Reference Range Comments WHITE BLOOD CELL COUNT (BEAKER) (test rfxn=018) 5.0 K/ L 3.5-10.5 RED BLOOD CELL COUNT (BEAKER) (test vbaj=875) 6.01 M/ L 3.93-5.22 HEMOGLOBIN (BEAKER) (test qrtj=231) 13.4 GM/DL 11.2-15.7 HEMATOCRIT (BEAKER) (test ojun=135) 47.7 % 34.1-44.9 MEAN CORPUSCULAR VOLUME (BEAKER) (test vjxj=729) 79.4 fL 79.4-94.8 MEAN CORPUSCULAR HEMOGLOBIN (BEAKER) (test 22.3 pg 25.6-32.2 qcon=471) MEAN CORPUSCULAR HEMOGLOBIN CONC (BEAKER) (test 28.1 GM/DL 32.2-35.5 hdmc=424) RED CELL DISTRIBUTION WIDTH (BEAKER) (test 23.0 % 11.7-14.4 rqhj=265) PLATELET COUNT (BEAKER) (test jlms=595) 259 K/CU MM 150-450 MEAN PLATELET VOLUME (BEAKER) (test fdrj=365) 8.8 fL 9.4-12.3 NUCLEATED RED BLOOD CELLS (BEAKER) (test 0 /100 WBC 0-0 lxcr=031) NEUTROPHILS RELATIVE PERCENT (BEAKER) (test 50 % ooru=794) LYMPHOCYTES RELATIVE PERCENT (BEAKER) (test 36 % zefu=625) MONOCYTES RELATIVE PERCENT (BEAKER) (test 13 % lyow=163) EOSINOPHILS RELATIVE PERCENT (BEAKER) (test 0 % razm=693) BASOPHILS RELATIVE PERCENT (BEAKER) (test 0 % fvts=632) NEUTROPHILS ABSOLUTE COUNT (BEAKER) (test 2.47 K/ L 1.56-6.13 azjq=736) LYMPHOCYTES ABSOLUTE COUNT (BEAKER) (test 1.80 K/ L 1.18-3.74 ofkl=092) MONOCYTES ABSOLUTE COUNT (BEAKER) (test 0.64 K/ L 0.24-0.36 idtm=948) EOSINOPHILS ABSOLUTE COUNT (BEAKER) (test 0.01 K/ L 0.04-0.36 dvkd=829) BASOPHILS ABSOLUTE COUNT (BEAKER) (test 0.02 K/ L 0.01-0.08 qpat=693) IMMATURE GRANULOCYTES-RELATIVE PERCENT (BEAKER) 0 % 0-1 (test cmfu=5873) [id number] 04:50:00 Test Item Value Reference Range Comments PARTIAL THROMBOPLASTIN TIME (BEAKER) (test 42.9 seconds 22.5-36.0 jemt=145) TROPONIN [id number] 10:24:00 Test Item Value Reference Range Comments TROPONIN I (BEAKER) (test tvwq=479) 2.70 ng/mL 0.00-0.03 Troponin I (TnI) levels must be interpreted [...] failure, acidosis, acute neurological disease, and persistent tachyarrhythmia.CREATINE KINASE (CK), TOTAL AND [id number] 10:16:00 Test Item Value Reference Range Comments CREATINE KINASE TOTAL (BEAKER) (test mbda=898) 208 U/L 29-200 CREATINE KINASE-MB (BEAKER) (test utrh=677) 22.0 ng/mL 0.0-6.6 CREATINE KINASE-MB INDEX (BEAKER) (test fqye=718) 10.6 % CK-MB Reference Range:<6.7 Normal6.7-10.0 Borderline>10.0 [id number] 09:44:00 Test Item Value Reference Range Comments PARTIAL THROMBOPLASTIN TIME (BEAKER) (test 24.6 seconds 22.5-36.0 eqpf=482) TROPONIN [id number] 02:33:00 Test Item Value Reference Range Comments TROPONIN I (BEAKER) (test sdwp=444) 1.03 ng/mL 0.00-0.03 Troponin I (TnI) levels must be interpreted [...] failure, acidosis, acute neurological disease, and persistent tachyarrhythmia.RAD, CHEST, 1 VIEW, NON [id number] 02:30:00Reason for exam:->chest painShould this be performed at the bedside?- >YesFINAL REPORT History: Chest pain. Comparison: None. Findings: A single view of the chest is submitted. The cardiomediastinal contours are unremarkable. There are diffuse interstitial opacities, centered on the perihilar lungs and suggest of overt pulmonary edema. Atypical pneumonitis is an alternative consideration. There is no focal consolidation, pneumothorax, large pleural effusion or acute bony abnormality. Signed: Jus Santiago MDReport Verified Date/Time: 04/12/201702:30:28 Reading Location: [address] Reading Room -[id number] 02:14:00 Test Item Value Reference Range Comments D-DIMER QUANTITATIVE (BEAKER) (test mwka=068) < MG/L FEU <0.50 Intended Use: The D-Dimer Assay can be used to aid in the diagnosis of Deep Vein Thrombosis (DVT) and Pulmonary Embolism Disease (PED).In patients with low pre-test probability, various studies concerning STA Liatest D-dimer test have reported that with a cutoff value of 0.50 MG/L FEU, the Negative Predictive Value (NPV) regarding the exclusion of thrombosis is within 95-100% range.[id number] 02:13:00 Test Item Value Reference Range Comments PARTIAL THROMBOPLASTIN TIME (BEAKER) (test > seconds 22.5-36.0 beox=811) CREATINE KINASE (CK), TOTAL AND [id number] 02:12:00 Test Item Value Reference Range Comments CREATINE KINASE TOTAL (BEAKER) (test cfeb=273) 161 U/L 29-200 CREATINE KINASE-MB (BEAKER) (test nybc=850) 17.1 ng/mL 0.0-6.6 CREATINE KINASE-MB INDEX (BEAKER) (test seee=856) 10.6 % CK-MB Reference Range:<6.7 Normal6.7-10.0 Borderline>10.0 AbnormalB-TYPE NATRIURETIC FACTOR (BNP)[id number] 02:09:00 Test Item Value Reference Range Comments B-TYPE NATRIURETIC PEPTIDE (BEAKER) (test glip=557) 88 pg/mL 0-100 CBC W/PLT COUNT & AUTO [id number] 02:08:00 Test Item Value Reference Range Comments WHITE BLOOD CELL COUNT (BEAKER) (test fkrb=762) 3.5 K/ L 3.5-10.5 RED BLOOD CELL COUNT (BEAKER) (test hxgi=957) 6.62 M/ L 3.93-5.22 HEMOGLOBIN (BEAKER) (test mgec=506) 14.8 GM/DL 11.2-15.7 HEMATOCRIT (BEAKER) (test tzdc=540) 51.5 % 34.1-44.9 MEAN CORPUSCULAR VOLUME (BEAKER) (test ootg=913) 77.8 fL 79.4-94.8 MEAN CORPUSCULAR HEMOGLOBIN (BEAKER) (test 22.4 pg 25.6-32.2 ronr=406) MEAN CORPUSCULAR HEMOGLOBIN CONC (BEAKER) (test 28.7 GM/DL 32.2-35.5 vosl=964) RED CELL DISTRIBUTION WIDTH (BEAKER) (test 23.4 % 11.7-14.4 tlkf=421) PLATELET COUNT (BEAKER) (test xgds=288) 242 K/CU MM 150-450 MEAN PLATELET VOLUME (BEAKER) (test aphh=072) 8.5 fL 9.4-12.3 NUCLEATED RED BLOOD CELLS (BEAKER) (test 0 /100 WBC 0-0 auce=373) NEUTROPHILS RELATIVE PERCENT (BEAKER) (test 82 % gryf=899) LYMPHOCYTES RELATIVE PERCENT (BEAKER) (test 15 % awyz=139) MONOCYTES RELATIVE PERCENT (BEAKER) (test 2 % kese=248) EOSINOPHILS RELATIVE PERCENT (BEAKER) (test 0 % wkvq=555) BASOPHILS RELATIVE PERCENT (BEAKER) (test 0 % hteq=527) NEUTROPHILS ABSOLUTE COUNT (BEAKER) (test 2.85 K/ L 1.56-6.13 fjwn=770) LYMPHOCYTES ABSOLUTE COUNT (BEAKER) (test 0.53 K/ L 1.18-3.74 nlaf=709) MONOCYTES ABSOLUTE COUNT (BEAKER) (test 0.08 K/ L 0.24-0.36 ytdb=634) EOSINOPHILS ABSOLUTE COUNT (BEAKER) (test 0.00 K/ L 0.04-0.36 unfy=612) BASOPHILS ABSOLUTE COUNT (BEAKER) (test 0.01 K/ L 0.01-0.08 ztyu=552) IMMATURE GRANULOCYTES-RELATIVE PERCENT (BEAKER) 0 % 0-1 (test qorn=9428) [id number] 02:05:00 Test Item Value Reference Range Comments PHOSPHORUS (BEAKER) (test aamw=639) 3.8 mg/dL 2.3-4.7 [id number] 02:05:00 Test Item Value Reference Range Comments MAGNESIUM (BEAKER) (test itzk=313) 2.3 mg/dL 1.6-2.6 BASIC METABOLIC [id number] 02:05:00 Test Item Value Reference Range Comments SODIUM (BEAKER) (test 136 meq/L 136-145 bjpg=121) POTASSIUM (BEAKER) (test 4.2 meq/L 3.5-5.1 nxwy=274) CHLORIDE (BEAKER) (test 94 meq/L 98-107 imxg=942) CO2 (BEAKER) (test 34 meq/L 22-29 tcqq=259) BLOOD UREA NITROGEN 8 mg/dL 7-21 (BEAKER) (test jwec=780) CREATININE (BEAKER) (test 0.64 mg/dL 0.57-1.25 pdkx=730) GLUCOSE RANDOM (BEAKER) 141 mg/dL 70-105 (test ehio=668) CALCIUM (BEAKER) (test 8.9 mg/dL 8.4-10.2 vlnc=245) EGFR (BEAKER) (test 114 mL/min/1.73 sq m ESTIMATED GFR IS NOT gedy=5240) ACCURATE CREATININE CLEARANCE IN PREDICTING GLOMERULAR FILTRATION RATE. ESTIMATED GFR IS NOT APPLICABLE FOR DIALYSIS PATIENTS. HEPATIC FUNCTION [id number] 02:05:00 Test Item Value Reference Range Comments TOTAL PROTEIN (BEAKER) (test eilk=776) 7.0 gm/dL 6.0-8.3 ALBUMIN (BEAKER) (test rfsb=1782) 3.6 g/dL 3.5-5.0 BILIRUBIN TOTAL (BEAKER) (test vvie=978) 0.5 mg/dL 0.2-1.2 BILIRUBIN DIRECT (BEAKER) (test tmjr=850) 0.2 mg/dL 0.1-0.5 ALKALINE PHOSPHATASE (BEAKER) (test wuei=577) 94 U/L 40-150 AST (SGOT) (BEAKER) (test rlzw=390) 45 U/L 5-34 ALT (SGPT) (BEAKER) (test pyql=056) 24 U/L 6-55 PROTHROMBIN [id number] 01:37:00 Test Item Value Reference Range Comments PROTIME (BEAKER) (test jrkd=790) 16.7 seconds 11.7-14.7 INR (BEAKER) (test qtkl=854) 1.4 <=5.9 RECOMMENDED COUMADIN/WARFARIN INR THERAPY RANGESSTANDARD DOSE: 2.0 - 3.0 Includes: PROPHYLAXIS forvenous thrombosis, systemic embolization; TREATMENT for venous thrombosis and/or pulmonary embolus.HIGH RISK: Target INR is 2.5-3.5 for patients with mechanical heart valves.[id number] 00:57:00 Test Item Value Reference Range Comments ACTIVATED CLOTTING TIME 411 sec TESTED AT [facility] [address] (BEAKER) (test qkce=621) [facility] [id number] 00:57:00 Test Item Value Reference Range Comments ACTIVATED CLOTTING TIME 769 sec TESTED AT [place] [id number] [address]IC[address]) (test fugv=672) [place] [id number]
[2017-07-13 00:56] LABS: Absolute Lymphocytes (CBC) 1.7 K/uL (0.7-4.9); Absolute Monocytes 0.5 K/uL (0.1-1.3); Absolute Neutrophil 3.5 K/uL (1.8-8.0); Basophils % 0.8 % (0-1.3); Eosinophils % 0.4 % (0-4.4); Hematocrit 36.3 % (36.0-45.0); Lymphocytes % 29.2 % (15.3-44.8); MCH 24.7 pg (27.0-35.0); MPV 7.8 fL (7.6-11.3); Monocytes % 9.2 % (3.3-12.3); RBC Red Blood Cell Count 4.54 M/uL (3.86-4.86)
[2017-07-13] MEDS ORDERED: NA CHLORIDE 0.9% 1,000 ML ONE ×2 (00:58→03:13)
[2017-07-13 01:04] LABS: Potassium 3.6 mEq/L (3.6-5.0)
[2017-07-13 01:10] LABS: Albumin 3.2 g/dL (3.2-5.5); Bilirubin Direct 0.1 mg/dL (0-0.2); Bilirubin Total 0.6 mg/dL (0.3-1.2); Protein, Total 5.7 g/dL (6.0-8.3)
[2017-07-13] MEDS ORDERED: FENTANYL CITR 100 MCG/2 ML ONE (01:55)
[2017-07-13] MEDS ORDERED: OCTREOTIDE ACETATE 100 MCG/ML ONE (03:13)
[2017-07-13 03:14] LABS: Protime INR 1.2
[2017-07-13 03:16] LABS: Absolute Lymphocytes (CBC) 1.9 K/uL (0.7-4.9); Absolute Monocytes 0.5 K/uL (0.1-1.3); Absolute Neutrophil 3.1 K/uL (1.8-8.0); Basophils % 0.8 % (0-1.3); Eosinophils % 0.4 % (0-4.4); Hematocrit 30.4 % (36.0-45.0); Lymphocytes % 34.1 % (15.3-44.8); MCH 25.1 pg (27.0-35.0); MCV 80.8 fL (80-100); Monocytes % 9.4 % (3.3-12.3); RBC Red Blood Cell Count 3.77 M/uL (3.86-4.86)
--- NOTE | 2017-07-13 03:36 | ER ---
Nurse's Notes [facility] Name: Iman Huggins Age: 62 yrs Sex: Female : 1955 Arrival Date: 07/12/2017 Time: 23:35 Bed 8 Private MD: Beto Redmond Diagnosis: Gastrointestinal hemorrhage, unspecified Presentation: 07/12 23:47 Presenting complaint: Patient states: Rectal bleeding, bright red that began today, has lp1 colonoscopy by Dr. Wallace on Sunday; mid abdominal pain. Transition of care: patient was not received from another setting of care. Onset of symptoms was July 12, 2017. Care prior to arrival: None. 23:47 Method Of Arrival: Wheelchair lp1 23:47 Acuity: RAD 3 lp1 Historical: - Allergies: 23:55 Lisinopril; lp1 23:55 ARB-Angiotensin Receptor Antagonist; lp1 23:55 ANGEL Inhibitors; lp1 - Home Meds: 23:55 albuterol sulfate 90 mcg/actuation inhalation HFAA 2 puffs three times a day [Active]; lp1 amitriptyline 10 mg Oral tab nightly [Active]; Anoro Ellipta 62.5-25 mcg/actuation inhalation dsdv 1 puff once daily [Active]; Zyrtec 5mg Oral once daily [Active]; estradiol 2 mg Oral tab once daily [Active]; Pepcid 20 mg Oral tab once daily [Active]; Lasix 40 mg Oral tab once daily [Active]; medroxyprogesterone 2.5 mg Oral tab Every 3 days [Active]; oxycodone 30 mg Oral tab every 6 hours for Pain, for back pain [Active]; prednisone 10 mg Oral tab once daily [Active]; Detrol 2 mg Oral tab daily [Active]; Norvasc 10 mg Oral tab 1 tab once daily [Active]; aspirin 81 mg Oral TbEC 1 tab once daily [Active]; Lipitor 40 mg Oral tab 1 tab once daily [Active]; nitroglycerin 0.4 mg SL subl [Active]; - PMHx: 23:55 chronic back pain; COPD; Hypertension; Myocardial infarction; lp1 - PSHx: 23:55 None; lp1 - Immunization history:: Adult Immunizations up to date. - Social history:: Smoking status: Patient uses tobacco products, smokes one-half pack cigarettes per day. Screenin:56 Abuse screen: Denies threats or abuse. Denies injuries from another. Nutritional lp1 screening: No deficits noted. Tuberculosis screening: No symptoms or risk factors identified. 07/13 00:58 Fall Risk IV access (20 points). tl2 Assessment: 07/12 23:50 General: Appears in no apparent distress. uncomfortable, Behavior is calm, cooperative, tl2 appropriate for age. General: Pt reports having a colonoscopy 2 days ago. Pain: Complains of pain in abdomen. Neuro: Level of Consciousness is awake, alert, obeys commands, Oriented to person, place, time, situation. Cardiovascular: Denies chest pain. Respiratory: Airway is patent Respiratory effort is even, unlabored, Respiratory pattern is regular, symmetrical. GI: Bowel sounds present X 4 quads. Abd is soft and non tender Reports bloody stool. : No signs and/or symptoms were reported regarding the genitourinary system. Derm: Skin is normal. 07/13 01:43 Reassessment: Pt had an episode of bright red bloody stool. Denies dizziness but tl2 reports LLQ pain, MD notified. see MAR. 02:31 Reassessment: Patient appears in no apparent distress at this time. Patient and/or tl2 family updated on plan of care and expected duration. Pain level reassessed. Patient is alert, oriented x 3, equal unlabored respirations, skin warm/dry/pink. 03:28 Reassessment: Patient appears in no apparent distress at this time. Patient and/or tl2 family updated on plan of care and expected duration. Pain level reassessed. Patient is alert, oriented x 3, equal unlabored respirations, skin warm/dry/pink. 03:50 Reassessment: Pt c/o heartburn, notified, new order see MAR. tl2 04:10 Reassessment: Reassessment: Pt BP started to decrease, 78/51. ordered to bolus blood tl2 transfusion and to give 2 units now. Will start tap water enema after start of transfusion. Reassessment: See transfusion documentation for vitals. 05:10 Reassessment: 1 Liter tap water enema administered, contents started to clear slightly. tl2 Day surgery called to transport pt. Vital Signs: 07/12 23:48 BP 90 / 59; Pulse 97; Resp 18; Temp 98.3; Pulse Ox 90% on R/A; Weight 95.25 kg; Height tl2 5 ft. 4 in. (162.56 cm); Pain 8; 07/13 00:58 BP 96 / 85; Pulse 81; Resp 18; Pulse Ox 99% on 2 lpm NC; tl2 01:43 BP 105 / 68; Pulse 87; Resp 18; Pulse Ox 97% on 2 lpm NC; tl2 02:31 BP 97 / 61; Pulse 87; Resp 18; Pulse Ox 91% on R/A; tl2 03:28 BP 94 / 67; Pulse 94; Resp 18; Pulse Ox 93% on R/A; tl2 07/12 23:48 Body Mass Index 36.04 (95.25 kg, 162.56 cm) tl2 07/12 23:48 Patient states hx of COPD, normal O2 tl2 ED Course: 23:35 Patient arrived in ED. am2 23:37 Beto Redmond MD is Private Physician. am2 23:41 Mary Merino RN is Primary Nurse. tl2 23:43 Cal Sotelo MD is Attending Physician. gs 23:48 Triage completed. lp1 23:48 Arm band placed on right wrist. lp1 07/13 00:39 Inserted 18 gauge 10 cm midline to left upper basilic vein on first attempt. Line with fc good blood return and flushes well. 00:44 CT Stone Protocol In Process Unspecified. EDMS 00:58 Patient has correct armband on for positive identification. Placed in gown. Bed in low tl2 position. Call light in reach. Side rails up X2. Adult w/ patient. 03:34 Jerel Wallace MD is Hospitalizing Provider. gs 04:40 Inserted 18 gauge 10 cm midline to right upper basilic vein on first attempt. Line with fc good blood return and flushes well. 05:42 No provider procedures requiring assistance completed. Patient admitted, IV remains in tl2 place. Administered Medications: 00:59 Drug: NS 0.9% 1000 ml Route: IV; Rate: 1 bolus; Site: left upper arm; tl2 03:01 Follow up: IV Status: Completed infusion; IV Intake: 1000ml tl2 03:01 Drug: NS 0.9% 1000 ml Route: IV; Rate: 125 ml/hr; Site: left upper arm; tl2 05:40 Follow up: IV Status: Order to discontinue infusion tl2 03:01 Drug: Octreotide 50 mcg Route: IV; Rate: bolus; Infused Over: 3 mins; Site: left upper tl2 arm; 05:40 Follow up: IV Status: Completed infusion tl2 04:50 Drug: CarafATE 1 grams Route: PO; tl2 05:41 Follow up: Response: No adverse reaction tl2 Medication: 04:18 Blood products: PRBCs X 1 unit given. See transfusion record. tl2 05:05 Blood products: PRBCs X 1 unit given. See transfusion record transfusion continued upon tl2 transfer to surgery. Intake: 03:01 IV: 1000ml; Total: 1000ml. tl2 Outcome: 03:35 Decision to Hospitalize by Provider. gs 05:42 Admitted to OR accompanied by nurse, family with patient, via stretcher, with oxygen, tl2 with chart, Report called to URSULA Stevenson RN 05:42 Condition: stable 05:42 Discharge instructions given to patient, family, Instructed on the need for admit. 05:44 Patient left the ED. tl2 Signatures: Dispatcher [employer] EDMS Ashli Molina RN RN Naty Good RN RN lp1 Mary Merino RN RN tl2 Hemalatha Fernandez Gregory, MD MD Corrections: (The following items were deleted from the chart) 07/12 23:50 23:48 Pulse 97bpm; Resp 18bpm; Pulse Ox 90% RA; 95.25 kg; Height 5 ft. 4 in.; BMI: lp1 36.0; Pain 8/10; Patient states hx of COPD, normal O2; lp1 07/13 00:58 07/12 23:50 BP 96 / 85; Pulse 81bpm; Resp 18bpm; Pulse Ox 99% 2 lpm Nasal Cannula; tl2 tl2 07/13 00:59 0405 23:48 BP 90 / 59; Pulse 97bpm; Resp 18bpm; Pulse Ox 90% RA; 95.25 kg; Height 5 tl2 ft. 4 in.; BMI: 36.0; Pain 8/10; Patient states hx of COPD, normal O2; lp1
--- NOTE | 2017-07-13 03:36 | EDPHYS ---
Physician Documentation [facility] Name: Iman Huggins Age: 62 yrs Sex: Female : 1955 Arrival Date: 07/12/2017 Time: 23:35 Bed 8 Private MD: Beto Redmond ED Physician Cal Sotelo HPI: 07/13 03:31 This 62 yrs old Black Female presents to ER via Wheelchair with complaints of Bloody gs Stools. 03:31 The patient presents to the emergency department with rectal bleeding, a moderate gs amount, dark red blood with bowel movement in toilet bowl, 2 times since symptom onset. Onset: The symptoms/episode began/occurred yesterday. Abdominal pain: none is appreciated. Modifying factors: The symptoms are alleviated by nothing, the symptoms are aggravated by nothing. Associated signs and symptoms: Pertinent negatives: chest pain, constipation, fever, syncope. Severity of symptoms: At their worst the symptoms were moderate in the emergency department the symptoms are unchanged. The patient has been recently seen by a physician: Dr. pappas. Historical: - Allergies: 07/12 23:55 Lisinopril; lp1 23:55 ARB-Angiotensin Receptor Antagonist; lp1 23:55 ANGEL Inhibitors; lp1 - Home Meds: 23:55 albuterol sulfate 90 mcg/actuation inhalation HFAA 2 puffs three times a day [Active]; lp1 amitriptyline 10 mg Oral tab nightly [Active]; Anoro Ellipta 62.5-25 mcg/actuation inhalation dsdv 1 puff once daily [Active]; Zyrtec 5mg Oral once daily [Active]; estradiol 2 mg Oral tab once daily [Active]; Pepcid 20 mg Oral tab once daily [Active]; Lasix 40 mg Oral tab once daily [Active]; medroxyprogesterone 2.5 mg Oral tab Every 3 days [Active]; oxycodone 30 mg Oral tab every 6 hours for Pain, for back pain [Active]; prednisone 10 mg Oral tab once daily [Active]; Detrol 2 mg Oral tab daily [Active]; Norvasc 10 mg Oral tab 1 tab once daily [Active]; aspirin 81 mg Oral TbEC 1 tab once daily [Active]; Lipitor 40 mg Oral tab 1 tab once daily [Active]; nitroglycerin 0.4 mg SL subl [Active]; - PMHx: 23:55 chronic back pain; COPD; Hypertension; Myocardial infarction; lp1 - PSHx: 23:55 None; lp1 - Immunization history:: Adult Immunizations up to date. - Social history:: Smoking status: Patient uses tobacco products, smokes one-half pack cigarettes per day. ROS: 07/13 03:31 All other systems are negative. gs Exam: 03:31 Head/Face: Normocephalic, atraumatic. Eyes: Pupils equal round and reactive to light, gs extra-ocular motions intact. Lids and lashes normal. Conjunctiva and sclera are non-icteric and not injected. Cornea within normal limits. Periorbital areas with no swelling, redness, or edema. ENT: Nares patent. No nasal discharge, no septal abnormalities noted. Tympanic membranes are normal and external auditory canals are clear. Oropharynx with no redness, swelling, or masses, exudates, or evidence of obstruction, uvula midline. Mucous membranes moist. Neck: Trachea midline, no thyromegaly or masses palpated, and no cervical lymphadenopathy. Supple, full range of motion without nuchal rigidity, or vertebral point tenderness. No Meningismus. Chest/axilla: Normal chest wall appearance and motion. Nontender with no deformity. No lesions are appreciated. Cardiovascular: Regular rate and rhythm with a normal S1 and S2. No gallops, murmurs, or rubs. Normal PMI, no JVD. No pulse deficits. Respiratory: Lungs have equal breath sounds bilaterally, clear to auscultation and percussion. No rales, rhonchi or wheezes noted. No increased work of breathing, no retractions or nasal flaring. Abdomen/GI: Soft, non-tender, with normal bowel sounds. No distension or tympany. No guarding or rebound. No evidence of tenderness throughout. Skin: Warm, dry with normal turgor. Normal color with no rashes, no lesions, and no evidence of cellulitis. MS/ Extremity: Pulses equal, no cyanosis. Neurovascular intact. Full, normal range of motion. Neuro: Awake and alert, GCS 15, oriented to person, place, time, and situation. Cranial nerves II-XII grossly intact. Motor strength 5/5 in all extremities. Sensory grossly intact. Cerebellar exam normal. Normal gait. 03:31 Constitutional: The patient appears alert, awake. 03:31 ECG was reviewed by the Attending Physician. 03:31 Abdomen/GI: Rectal exam: Stool: grossly bloody. Vital Signs: 07/12 23:48 BP 90 / 59; Pulse 97; Resp 18; Temp 98.3; Pulse Ox 90% on R/A; Weight 95.25 kg; Height tl2 5 ft. 4 in. (162.56 cm); Pain 8/10; 07/13 00:58 BP 96 / 85; Pulse 81; Resp 18; Pulse Ox 99% on 2 lpm NC; tl2 01:43 BP 105 / 68; Pulse 87; Resp 18; Pulse Ox 97% on 2 lpm NC; tl2 02:31 BP 97 / 61; Pulse 87; Resp 18; Pulse Ox 91% on R/A; tl2 03:28 BP 94 / 67; Pulse 94; Resp 18; Pulse Ox 93% on R/A; tl2 07/12 23:48 Body Mass Index 36.04 (95.25 kg, 162.56 cm) tl2 07/12 23:48 Patient states hx of COPD, normal O2 tl2 MDM: 23:56 Patient medically screened. 07/13 03:31 Differential diagnosis: gastritis, diverticulitis, hemorrhoids, hemorrhagic shock. Data reviewed: vital signs, nurses notes. Physician consultation: Jerel Pappas MD regarding need to come to ED to see patient, need to evaluate the patient as soon as possible, and will see patient in ED, in OR. 04 00:01 Order name: Basic Metabolic Panel; Complete Time: 01:28 07/13 00:01 Order name: CBC with Diff 07/13 00:01 Order name: Hepatic Function; Complete Time: 01:28 07/13 00:01 Order name: Lipase; Complete Time: 01:28 07/13 00:01 Order name: Urine Microscopic Only 07/13 00:01 Order name: Type And Screen 07/13 00:01 Order name: CT Stone Protocol 07/13 00:57 Order name: CBC Smear Scan EDWA 07/13 01:40 Order name: PT-INR; Complete Time: 03:35 07/13 02:40 Order name: CBC with Diff; Complete Time: 03:35 07/13 03:16 Order name: Packed RBC Leukored -1 [facility] 07/13 00:01 Order name: IV Saline Lock; Complete Time: 00:37 04 00:01 Order name: Labs collected and sent; Complete Time: 00:37 04 00:01 Order name: Oxygen; Complete Time: 00:36 04 00:39 Order name: EKG; Complete Time: 00:52 04 00:39 Order name: EKG; Complete Time: 00:52 04 00:39 Order name: EKG - Nurse/Tech; Complete Time: 00:59 07/13 05:41 Order name: Misc. Order: Tap water enema until clear before transport to surgery; tl2 Complete Time: 05:41 EC:31 Rate is 74 beats/min. Rhythm is regular. SC interval is normal. QRS interval is normal. gs QT interval is normal. T waves are Normal. No ST changes noted. Clinical impression: Normal ECG. Interpreted by me. Administered Medications: 00:59 Drug: NS 0.9% 1000 ml Route: IV; Rate: 1 bolus; Site: left upper arm; tl2 03:01 Follow up: IV Status: Completed infusion; IV Intake: 1000ml tl2 03:01 Drug: NS 0.9% 1000 ml Route: IV; Rate: 125 ml/hr; Site: left upper arm; tl2 05:40 Follow up: IV Status: Order to discontinue infusion tl2 03:01 Drug: Octreotide 50 mcg Route: IV; Rate: bolus; Infused Over: 3 mins; Site: left upper tl2 arm; 05:40 Follow up: IV Status: Completed infusion tl2 04:50 Drug: CarafATE 1 grams Route: PO; tl2 05:41 Follow up: Response: No adverse reaction tl2 Disposition: 07/13/17 03:35 Hospitalization ordered by Jerel Pappas for Inpatient Admission. Preliminary diagnosis is Gastrointestinal hemorrhage, unspecified. - Bed requested for Intensive Care Unit. - Status is Inpatient Admission. tl2 - Condition is Stable. - Problem is new. - Symptoms have improved. UTI on Admission? No Critical care time excluding procedures: 03:31 Critical care time: Bedside Care: 10 minutes, Consultation: 10 minutes, Family Intervention: 10 minutes. Total time: 30 minutes Signatures: Dispatcher [facility]HoRo[facility] HospitalNaty Dupont RN RN lp1 Mary Merino, RN RN tl2 Cal Sotelo MD MD gs
[2017-07-13 04:13] LABS: Anisocytosis 1+; Blood Morphology Comment NOTED (NOT SEEN); Hypochromasia 2+; Platelet Estimate ADEQ; Target Cells 1+; Urine White Blood Cell Casts OK
[2017-07-13] MEDS ORDERED: NA CHLORIDE 0.9% 250 ML ONE (04:30)
[2017-07-13] MEDS ORDERED: LIDOCAINE 1% MPF 5 ML VIAL ONE ×2 (04:50→05:23)
[2017-07-13] MEDS ORDERED: SUCRALFATE 1GM/10ML UCUP ONE (05:02)
[2017-07-13] MEDS ORDERED: PROPOFOL 200 MG/20 ML VIAL IV ONE (05:23)
[2017-07-13] MEDS: Ringers Lactate 1,000 ML IV ONE ×2 (05:35→06:22)
--- NOTE | 2017-07-13 06:31 | EKG ---
Test Date: 2017-07-13 Test Time: 00:50:25 Health Promotion Educator: JOSE JUAN MEASUREMENT RESULTS: Intervals: Rate: 78 IL: 144 QRSD: 66 QT: 408 QTc: 465 [place]: P: 35 IL: 144 QRS: 67 T: 60 INTERPRETIVE STATEMENTS: Normal sinus rhythm Normal ECG Compared to ECG 04/11/2017 22:31:20 Atrial premature complex(es) no longer present ST (T wave) deviation no longer present Myocardial infarct finding no longer present Electronically Signed On 07-13-17 06:30:49 CDT by Prashanth Jean
[2017-07-13] MEDS ORDERED: NA CHLORIDE 0.9% 500 ML ONE ×2 (06:33→07:08)
--- NOTE | 2017-07-13 06:41 | ENDO RPT ---
[address], [address] COLONOSCOPY PROCEDURE REPORT EXAM DATE: 07/13/2017 PATIENT NAME: Iman Huggins MR #: [id number] BIRTHDATE: 1955 ATTENDING: Jerel Wallace Dr STATUS: outpatient DIRECTOR WORKERS COMPENSATION: Ania Walters RN and Cristel Jones RN INDICATIONS: The patient is a 62 yr old Female here for a colonoscopy due to hematochezia and anemia PROCEDURE PERFORMED: Colonoscopy MEDICATIONS: Per Anesthesia. ESTIMATED BLOOD LOSS: None CONSENT: The patient understands the risks and benefits of the procedure and understands that these risks include, but are not limited to: sedation, allergic reaction, infection, perforation and/or bleeding. Alternative means of evaluation and treatment include, among others: physical exam, x-rays, and/or surgical intervention. The patient elects to proceed with this endoscopic procedure. DESCRIPTION OF PROCEDURE: During intra-op preparation period all mechanical medical equipment was checked for proper function. Hand hygiene and appropriate measures for infection prevention was taken. Procedure, possible complications, alternatives including, but not limited to possibility of bleeding, perforation, tear, infection, sepsis, need for surgery, need for blood transfusion, were explained to the patient. After the risks, benefits and alternatives of the procedure were thoroughly explained, Informed consent was verified, confirmed and timeout was successfully executed by the treatment team. The patient was placed in the left lateral position. A digital rectal exam was performed and revealed external hemorrhoids. After appropriate level of anesthesia, the scope was passed. The [id number] ([id number]) endoscope was introduced through the anus and advanced to the ascending colon. The quality of the prep was poor. The instrument was then slowly withdrawn as the colon was fully examined. Scope withdrawal time was 30 minutes. blood with blood clots throughout the colon. Unable to visualize bleeding site, on ASA qd. Retroflexion was not performed. The scope was then completely withdrawn from the patient and the procedure terminated. ADVERSE EVENTS: There were no complications. IMPRESSIONS: 1. Diverticula in the transverse colon 3. Unable to visualize bleeding site, on ASA qd RECOMMENDATIONS: 1. avoid NSAIDS (no ASA for 2 weeks) 2. transfuse with Platelets now and continue PRBC and other blood products as needed 3. monitor labs 4. ICU monitoring 5. surgery consult RECALL: Return later today and/or tomorrow for Colonoscopy. Jerel Wallace Dr eSigned: Jerel Wallace Dr 07/13/2017 6:40 AM cc: Beto Rdemond CPT CODES: ICD9 CODES: PATIENT NAME: Iman Huggins MR#: [id number]
[2017-07-13] MEDS ORDERED: ALBUMIN HUM 5% 250 ML IV ONE (06:48)
[2017-07-13] MEDS ORDERED: OCTREOTIDE ACETATE 100 MCG/ML IV ONE ×2 (07:08→07:29)
[2017-07-13] MEDS ORDERED: MEPERIDINE HCL 25 MG/0.5 ML ONE (07:28)
[2017-07-13] MEDS ORDERED: NA CHLORIDE 0.9% 1,000 ML IV SCH ×2 (08:00)
[2017-07-13] MEDS ORDERED: OCTREOTIDE 500 MCG in NA CHLORIDE 0.9% 500 ML IV SCH (08:00)
[2017-07-13] MEDS: OCTREOTIDE 500 MCG in NA CHLORIDE 0.9% 500 ML IV SCH ×2 (08:35→18:47)
--- NOTE | 2017-07-13 08:50 | RAD REPORT ---
EXAM DESCRIPTION: CT - Stone Protocol - 07/13/2017 6:13 am CLINICAL HISTORY: Flank pain. COMPARISON: 12/02/2013 TECHNIQUE: Axial images were obtained without oral or IV contrast. Lack of contrast limits solid org an and vascular assessment. The [id number] spans the entirety of the system partially obscuring uppermost abdomen and lung bases. Coronal reformatted images were obtained and reviewed. All CT scans are performed using dose optimization technique as appropriate and may include automated exposure control or mA/KV adjustment according to patient size. FINDINGS: The lower lung vargas are clear. Postsurgical changes about the stomach noted. Cholecystec laquita clips seen. Imaged portions of the liver and spleen show no suspicious findings on non-contrast imaging. The panc reas demonstrates no focal mass or biliary dilatation. Area of nodularity in the right adrenal gland appear stable, likely a benign adenoma. No pathologic lymphadenopathy in the abdomen or pelvis. No urinary tract stones or obstructive uropathy. Bilateral renal cysts are present, largest on the ri ght measuring 5.5 cm. No bowel obstruction, free air, free fluid or abscess. Postsurgical changes are present of a previous right hemicolectomy. No significant bony abnormality. IMPRESSION: No urinary tract stones or obstructive uropathy. Evidence of previous right hemicolectomy.
[2017-07-13] MEDS ORDERED: HYDROMORPHONE HCL 1 MG/ML INJ IV PRN (10:19)
[2017-07-13] MEDS ORDERED: MORPHINE 2 MG/ML SYR IV PRN (10:41)
[2017-07-13] MEDS ORDERED: NA CHLORIDE 0.9% 250 ML IV SCH (11:00)
[2017-07-13] MEDS: Ringers Lactate 1,000 ML IV SCH ×3 (11:00→21:00)
[2017-07-13 11:14] LABS: Absolute Lymphocytes (CBC) 1.9 K/uL (0.7-4.9); Absolute Monocytes 0.6 K/uL (0.1-1.3); Absolute Neutrophil 4.9 K/uL (1.8-8.0); Basophils % 0.2 % (0-1.3); Eosinophils % 0.6 % (0-4.4); Hematocrit 32.9 % (36.0-45.0); Lymphocytes % 25.1 % (15.3-44.8); MCH 26.8 pg (27.0-35.0); MCV 83.9 fL (80-100); MPV 8.1 fL (7.6-11.3); Monocytes % 8.4 % (3.3-12.3); RBC Red Blood Cell Count 3.92 M/uL (3.86-4.86)
[2017-07-13] MEDS: PANTOPRAZOLE 40 MG INJ IVP SCH (11:48)
[2017-07-13] MEDS: SODIUM CHLORIDE 0.9% 10ML INJ IV PRN (11:48)
[2017-07-13] MEDS ORDERED: MORPHINE 4 MG/ML SYR IV PRN (12:38)
--- NOTE | 2017-07-13 14:18 | RAD REPORT ---
EXAM DESCRIPTION: NM - GI Blood Loss Imaging - 07/13/2017 1:37 pm CLINICAL HISTORY: GI bleed. COMPARISON: None. TECHNIQUE: 26.7 millicuries technetium labeled red blood cells were administered intravenously. Imag es of the abdomen and pelvis were obtained for 10 minutes. After this the patient refused to continue with the exam. FINDINGS: No abnormal radiotracer activity is visualized within bowel during the 10 minutes of the e xamination. IMPRESSION: A GI bleed is not visualized within the 10 minutes of this examination. However, the exa mination is considered incomplete as at least 60 minutes of imaging of the abdomen and pelvis was not obtained
[2017-07-13] MEDS ORDERED: OXYCODONE HCL 30 MG PO PRN (14:46)
[2017-07-13] MEDS ORDERED: HOME MED 1 EA UNK (Albuterol Sulfate [Proair Hfa] 2 PUFF) IH PRN (14:46)
--- NOTE | 2017-07-13 14:58 | P.HP ---
Certification for Inpatient Patient admitted to: Inpatient With expected LOS: >2 Midnights Patient will require the following post-hospital care: None Practitioner: I am a practitioner with admitting privileges, knowledge of patient current condition, hospital course, and medical plan of care. Services: Services provided to patient in accordance with Admission requirements found in Title 42 Section 412.3 of the Code of Federal Regulations Patient History Date of Service: 07/13/17 Primary Care Provider: Nyla Reason for admission: Lower GI bleed History of Present Illness: Patient is an office patient of [facility]. She has not been seen in a year. She had a colonoscopy early this week with Dr. Mon. She started have claudia bleeding and abdominal pain. The patient came to the er. She was having claudia blood. She has not had an fevers or chills, no chest pain. She has been having chronic back pain. The patient just got back from a bleeding scan. She refused after 10min due to her back pain. However no signs of active bleeding were shown on the scan we got. She has recieved 1 unit of prbc Allergies ANGEL Inhibitors Allergy (Severe, Verified 07/13/17 08:14) Anaphylaxis lisinopril Adverse Reaction (Severe, Verified 07/13/17 08:14) Anaphylaxis ARB-Angiotensin Receptor Ant Allergy (Uncoded 07/13/17 08:14) Unknown Home Medications: Albuterol Sulfate [Proair Hfa] 2 puff IH BID PRN 05/06/16 Amitriptyline [Elavil*] 10 mg PO BEDTIME 05/06/16 Amlodipine [Norvasc*] 10 mg PO DAILY 05/06/16 Estradiol 2 mg PO DAILY 05/06/16 Medroxyprogesterone Acetate 2.5 mg PO EVERY 3RD DAY 05/06/16 Oxycodone HCl 30 mg PO QID PRN 05/06/16 Solifenacin [Vesicare*] 5 mg PO DAILY 05/06/16 Umeclidinium Brm/Vilanterol Tr [Anoro Ellipta 62.5-25 Mcg INH] 1 puff IH DAILY 05/06/16 Cetirizine HCl [Zyrtec*] 5 mg PO DAILY #30 tablet 05/09/16 Prednisone [Deltasone*] 10 mg PO DAILY #21 tab 07/25/16 Albuterol Sulfate [Albuterol Sulfate 0.083% Neb Soln] 2.5 mg NEB Q6HR PRN Famotidine [Pepcid*] 20 mg PO DAILY 07/13/17 - Past Medical/Surgical History Has patient received pneumonia vaccine in the past: Yes Diabetic: No -: chronic back pain -: copd -: htn -: mi -: 02 at 3l nc prn night time -: GERD -: Cholecystectomy -: Colectomy 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, 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, 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 -: Cancer Sister -: Heart disease, Hypertension, Lung disease, GI disease, Diabetes, Stroke, Kidney disease - Social History Smoking Status: Current every day smoker Alcohol use: No CD- Drugs: No Caffeine use: Yes Place of Residence: Home Review of Systems 10-point ROS is otherwise unremarkable Gastrointestinal: Abdominal Pain, Hematochezia Musculoskeletal: Back Pain Physical Examination - Vital Signs Temperature: 98.5 F Blood Pressure: 113/73 Pulse: 76 Respirations: 16 Pulse Ox (%): 95 - Physical Exam General: Alert, In no apparent distress HEENT: Atraumatic, PERRLA, Mucous membr. moist/pink, EOMI, Sclerae nonicteric Neck: Supple, 2+ carotid pulse no bruit, No LAD, Without JVD or thyroid abnormality Respiratory: Clear to auscultation bilaterally, Normal air movement Cardiovascular: Regular rate/rhythm, Normal S1 S2 Gastrointestinal: Normal bowel sounds, No tenderness Musculoskeletal: No tenderness Integumentary: No rashes Neurological: Normal gait, Normal speech, Normal strength at 5/5 x4 extr, Normal tone, Normal affect Lymphatics: No axilla or inguinal lymphadenopathy - Studies Laboratory Data (last 24 hrs) 07/13/17 02:55: WBC 5.6, Hgb 9.4 L, Hct 30.4 L D, Plt Count 187 07/13/17 00:39: PT 14.2 H, INR 1.20 07/13/17 00:35: WBC 5.8, Hgb 11.2 L, Hct 36.3, Plt Count 199 07/13/17 00:35: Sodium 141, Potassium 3.6, BUN 17, Creatinine 0.98, Glucose 109 , Total Bilirubin 0.6, AST 15, ALT 12, Alkaline Phosphatase 49, Lipase 14 L Assessment and Plan - Problems (Diagnosis) (1) Lower GI bleed Current Visit: Yes Status: Acute Plan: She is currently stable. Will hold the transfusions. Will continue to monitor her hb. (2) COPD (chronic obstructive pulmonary disease) Onset Date: 05/08/16 Current Visit: No Status: Chronic Plan: She is stable. Will continue her home medications. Qualifiers: COPD type: chronic bronchitis Chronic bronchitis type: unspecified Qualified Code(s): J42 - Unspecified chronic bronchitis (3) HTN (hypertension) Onset Date: 05/08/16 Current Visit: No Status: Chronic Plan: Hold bp medications. Will continue to monitor and adjust as necessary Qualifiers: Hypertension type: essential hypertension Discharge Plan: Home Plan to discharge in: Greater than 2 days - Advance Directives Does patient have a Living Will: No Does patient have a Durable POA for Healthcare: No - Code Status/Comfort Care Code Status Assessed: No Code Status: Full Code Physician Review: Patient Assessed, Agree with Above Assessment and Plan Critical Care: No Time Spent Managing Pts Care (In Minutes): 55
[2017-07-13] MEDS: OXYCODONE HCL 5 MG TAB PO PRN ×2 (15:32→20:54)
[2017-07-13 15:45] LABS: Protime INR 1.2
[2017-07-13 17:50] LABS: Urine Appearance CLEAR; Urine Bilirubin NEGATIVE (NEG); Urine Blood 1+ (NEG); Urine Color YELLOW; Urine Glucose NEGATIVE (NEG); Urine Protein NEGATIVE (NEG); Urine Urobilinogen 0.2 mg/dL (0.2-1.0); Urine pH 6.5 (5.0-7.0)
[2017-07-13 17:54] LABS: Urine Microscopic Reflex ORDER UMIC
[2017-07-13 18:15] LABS: Urine Bacteria <20 /HPF (<20)
[2017-07-13 18:16] LABS: Urine Culture Reflex Order NOT NEEDED; Urine Mucus NS /HPF (NONE SEEN)
[2017-07-13] MEDS: AMITRIPTYLINE 10 MG TAB PO SCH (20:54)
[2017-07-14] MEDS: OXYCODONE HCL 5 MG TAB PO PRN ×5 (02:15→22:24)
[2017-07-14] MEDS: Ringers Lactate 1,000 ML IV SCH ×5 (03:19→22:25)
[2017-07-14 05:55] LABS: Absolute Monocytes 0.6 K/uL (0.1-1.3); Absolute Neutrophil 3.3 K/uL (1.8-8.0); Basophils % 0.9 % (0-1.3); Eosinophils % 3.8 % (0-4.4); Hematocrit 33.6 % (36.0-45.0); Lymphocytes % 32.7 % (15.3-44.8); MCH 26.6 pg (27.0-35.0); MCV 84.5 fL (80-100); MPV 7.8 fL (7.6-11.3); Monocytes % 9.5 % (3.3-12.3); RBC Red Blood Cell Count 3.98 M/uL (3.86-4.86)
[2017-07-14] MEDS: OCTREOTIDE 500 MCG in NA CHLORIDE 0.9% 500 ML IV SCH ×2 (06:02→15:28)
[2017-07-14] MEDS ORDERED: HOME MED 1 EA UNK (Umeclidinium Brm/Vilanterol Tr [Anoro Ellipta 62.5-25 Mcg Inh] 1 PUFF) IH SCH (09:00)
[2017-07-14] MEDS: PANTOPRAZOLE 40 MG INJ IVP SCH (09:29)
[2017-07-14] MEDS: CETIRIZINE HCL 5 MG TABLET PO SCH (09:29)
--- NOTE | 2017-07-14 09:35 | P.PN ---
Subjective Date of Service: 07/14/17 Primary Care Provider: Nyla Chief Complaint: Lower GI bleed, hematochezia Subjective: Improving (Decreased hematochezia with only occasional smear noted by RNs overnight. Limited 10 minutes (of 60 minute) bleeding scan yesterday was negative. She feels much better, easily sleeping since restarted on her po Oxycontin (chronic back pain). Tolerated ice chips and sips of water overnight. ) Review of Systems 10-point ROS is otherwise unremarkable Gastrointestinal: Hematochezia (improved) Musculoskeletal: Back Pain (improved on Oxycontin) Physical Examination - Vital Signs Temperature: 98.3 F Blood Pressure: 108/79 Pulse: 80 Respirations: 17 Pulse Ox (%): 100 - Physical Exam General: Alert, In no apparent distress, Oriented x3, Cooperative HEENT: Atraumatic, Normocephalic, PERRLA, EOMI Neck: Supple Respiratory: Normal air movement Cardiovascular: Normal pulses Gastrointestinal: Soft and benign, No tenderness, No rebound, No guarding Neurological: Normal speech Assessment And Plan - Current Problems (Diagnosis) (1) Hematochezia Current Visit: Yes Status: Acute Comment: Improved with much less, only smears as per RNs. Hgb stable overnight. (2) Anemia, posthemorrhagic, acute Current Visit: Yes Status: Acute (3) Hypotension Current Visit: Yes Status: Acute (4) Respiratory distress Onset Date: 05/08/16 Current Visit: No Status: Acute (5) COPD (chronic obstructive pulmonary disease) Onset Date: 05/08/16 Current Visit: No Status: Chronic Qualifiers: COPD type: chronic bronchitis Chronic bronchitis type: unspecified Qualified Code(s): J42 - Unspecified chronic bronchitis (6) Chronic pain disorder Onset Date: 05/08/16 Current Visit: No Status: Chronic (7) GERD (gastroesophageal reflux disease) Onset Date: 05/08/16 Current Visit: No Status: Chronic Qualifiers: Esophagitis presence: esophagitis presence not specified Qualified Code(s) : K21.9 - Gastro-esophageal reflux disease without esophagitis (8) HTN (hypertension) Onset Date: 05/08/16 Current Visit: No Status: Chronic Qualifiers: Hypertension type: essential hypertension (9) History of colon cancer Current Visit: No Status: Chronic (10) Tobacco abuse Onset Date: 01/30/17 Current Visit: No Status: Chronic - Plan REC: 1) continue IVFs, IV Octreotide 2) continue serial H&Hs and transfuse prn 3) colonoscopy tomorrow 4) clear liquids Physician Review: Patient Assessed, Agree with Above Assessment and Plan
[2017-07-14 10:17] LABS: A1c Component 0.44 mg/dL; Hemoglobin A1c 5.7 % (4-6.0)
[2017-07-14] MEDS: METOCLOPRAMIDE 10 MG/2mL INJ IV SCH ×3 (11:02→17:16)
[2017-07-14 11:03] LABS: Hematocrit 31.2 % (36.0-45.0)
--- NOTE | 2017-07-14 11:51 | P.PN ---
Subjective Date of Service: 07/14/17 Primary Care Provider: Nyla Chief Complaint: Lower GI bleed, hematochezia Subjective: No new changes (HB is stable at approx 10 range) Review of Systems 10-point ROS is otherwise unremarkable Musculoskeletal: Back Pain (chronic pain) Physical Examination - Vital Signs Temperature: 98.3 F Blood Pressure: 114/72 Pulse: 78 Respirations: 14 Pulse Ox (%): 99 - Physical Exam General: Alert, In no apparent distress HEENT: Atraumatic, PERRLA, EOMI Neck: Supple, JVD not distended Respiratory: Clear to auscultation bilaterally, Normal air movement Cardiovascular: Regular rate/rhythm, Normal S1 S2 Gastrointestinal: Normal bowel sounds, No tenderness Musculoskeletal: No tenderness Integumentary: No rashes Neurological: Normal speech, Normal tone, Normal affect Lymphatics: No axilla or inguinal lymphadenopathy Assessment & Plan - Problems (Diagnosis) (1) Lower GI bleed Current Visit: Yes Status: Acute Plan: She is stable. Possible scope this admission. If she stays stable we can transfer out of the icu (2) COPD (chronic obstructive pulmonary disease) Onset Date: 05/08/16 Current Visit: No Status: Chronic Plan: She is stable. Will continue her home medications. Qualifiers: COPD type: chronic bronchitis Chronic bronchitis type: unspecified Qualified Code(s): J42 - Unspecified chronic bronchitis (3) HTN (hypertension) Onset Date: 05/08/16 Current Visit: No Status: Chronic Plan: Hold bp medications. Will continue to monitor and adjust as necessary Qualifiers: Hypertension type: essential hypertension Discharge Plan: Home Plan to discharge in: Greater than 2 days - Code Status/Comfort Care Code Status Assessed: No Code Status: Full Code Physician Review: Patient Assessed, Agree with Above Assessment and Plan Critical Care: Yes Time Spent Managing Pts Care (In Minutes): 20
[2017-07-14] MEDS ORDERED: MAGNESIUM CITRATE 300 ML BOT PO SCH (13:00)
[2017-07-14] MEDS ORDERED: GOLYTELY 4000 ML PO SCH (14:00)
[2017-07-14 17:33] LABS: Hematocrit 30.9 % (36.0-45.0)
[2017-07-14] MEDS: AMITRIPTYLINE 10 MG TAB PO SCH (21:02)
[2017-07-15 00:15] LABS: Hematocrit 32.6 % (36.0-45.0)
[2017-07-15] MEDS: Ringers Lactate 1,000 ML IV SCH ×4 (03:00→21:06)
[2017-07-15] MEDS: OCTREOTIDE 500 MCG in NA CHLORIDE 0.9% 500 ML IV SCH ×3 (03:29→20:00)
[2017-07-15 05:37] LABS: Absolute Lymphocytes (CBC) 1.3 K/uL (0.7-4.9); Absolute Monocytes 0.5 K/uL (0.1-1.3); Absolute Neutrophil 3.7 K/uL (1.8-8.0); Basophils % 0.3 % (0-1.3); Eosinophils % 2.6 % (0-4.4); Hematocrit 29.3 % (36.0-45.0); Lymphocytes % 22.3 % (15.3-44.8); MCH 27.1 pg (27.0-35.0); MCV 84.1 fL (80-100); Monocytes % 9.4 % (3.3-12.3); RBC Red Blood Cell Count 3.49 M/uL (3.86-4.86)
[2017-07-15] MEDS: OXYCODONE HCL 5 MG TAB PO PRN ×4 (05:39→23:20)
[2017-07-15 06:02] LABS: Protime INR 1.09
[2017-07-15 06:07] LABS: BUN Blood Urea Nitrogen 6 mg/dL (6-20); Bicarbonate 37 mEq/L (21-31); Glomerular Filtration Rate > 90 mL/min (=/>90); Glucose Level 93 mg/dL (65-120); Magnesium 2.1 mg/dL (1.8-2.5); Phosphorus 2.8 mg/dL (2.5-4.3); Potassium 3.9 mEq/L (3.6-5.0); Sodium Level 139 mEq/L (135-145)
[2017-07-15] MEDS: PANTOPRAZOLE 40 MG INJ IVP SCH (08:12)
[2017-07-15] MEDS: CETIRIZINE HCL 5 MG TABLET PO SCH ×2 (09:00→13:04)
[2017-07-15] MEDS ORDERED: PROPOFOL 200 MG/20 ML VIAL IV ONE ×2 (11:10→12:00)
--- NOTE | 2017-07-15 11:27 | P.PN ---
Subjective Date of Service: 07/15/17 Primary Care Provider: Nyla Chief Complaint: Lower GI bleed, hematochezia Subjective: No new changes (Patient in endoscopy. Had some blood with zeus prep. However HB is stable) Review of Systems 10-point ROS is otherwise unremarkable Physical Examination - Vital Signs Temperature: 98.3 F Blood Pressure: 126/80 Pulse: 71 Respirations: 16 Pulse Ox (%): 90 - Physical Exam General: Alert, In no apparent distress HEENT: Atraumatic, PERRLA, EOMI Neck: Supple, JVD not distended Respiratory: Clear to auscultation bilaterally, Normal air movement Cardiovascular: Regular rate/rhythm, Normal S1 S2 Gastrointestinal: Normal bowel sounds, No tenderness Musculoskeletal: No tenderness Integumentary: No rashes Neurological: Normal speech, Normal tone, Normal affect Lymphatics: No axilla or inguinal lymphadenopathy Assessment & Plan - Problems (Diagnosis) (1) Lower GI bleed Current Visit: Yes Status: Acute Plan: She is stable. Possible scope this admission. If she stays stable we can transfer out of the icu (2) COPD (chronic obstructive pulmonary disease) Onset Date: 05/08/16 Current Visit: No Status: Chronic Plan: She is stable. Will continue her home medications. Qualifiers: COPD type: chronic bronchitis Chronic bronchitis type: unspecified Qualified Code(s): J42 - Unspecified chronic bronchitis (3) HTN (hypertension) Onset Date: 05/08/16 Current Visit: No Status: Chronic Plan: Hold bp medications. Will continue to monitor and adjust as necessary Qualifiers: Hypertension type: essential hypertension Discharge Plan: Home Plan to discharge in: 24 Hours - Code Status/Comfort Care Code Status Assessed: No Code Status: Full Code Physician Review: Patient Assessed, Agree with Above Assessment and Plan Critical Care: No Time Spent Managing Pts Care (In Minutes): 20
--- NOTE | 2017-07-15 12:22 | ENDO RPT ---
[address], [address] COLONOSCOPY PROCEDURE REPORT EXAM DATE: 07/15/2017 PATIENT NAME: Iman Huggins MR #: [id number] BIRTHDATE: 1955 ATTENDING: Jerel Wallace Dr STATUS: inpatient - 7 ETL DATABASE DEVELOPER: Natasha Kendrick RN and Maddison Garg INDICATIONS: The patient is a 62 yr old Female here for a colonoscopy due to hematochezia, anemia, and LLQ abdominal pain PROCEDURE PERFORMED: Colonoscopy for control of bleeding, Colon w/ endoclip, and Colonoscopy with directed submucosal injection(s) any substance MEDICATIONS: Per Anesthesia. ESTIMATED BLOOD LOSS: None CONSENT: The patient understands the risks and benefits of the procedure and understands that these risks include, but are not limited to: sedation, allergic reaction, infection, perforation and/or bleeding. Alternative means of evaluation and treatment include, among others: physical exam, x-rays, and/or surgical intervention. The patient elects to proceed with this endoscopic procedure. DESCRIPTION OF PROCEDURE: During intra-op preparation period all mechanical medical equipment was checked for proper function. Hand hygiene and appropriate measures for infection prevention was taken. Procedure, possible complications, alternatives including, but not limited to possibility of bleeding, perforation, tear, infection, sepsis, need for surgery, need for blood transfusion, were explained to the patient. After the risks, benefits and alternatives of the procedure were thoroughly explained, Informed consent was verified, confirmed and timeout was successfully executed by the treatment team. The patient was placed in the left lateral position. A digital rectal exam was performed and revealed external hemorrhoids. After appropriate level of anesthesia, the scope was passed. The EC-3890Li ([id number]) and EC-3890Li ([id number]) endoscope was introduced through the anus and advanced to the ileum. The quality of the prep was fair. The instrument was then slowly withdrawn as the colon was fully examined. Scope withdrawal time was 12 minutes. COLON FINDINGS: Two oozing post-polypectomy sites measuring 5-7 mm in size were found in the ascending colon. Complete hemostasis was achieved by placing three [place] Resolution hemoclips on the bleeding site(s). Submucosal injection of 4ml of epinephrine 1:10,000 was performed around the bleeding site with complete hemostasis achieved. Moderate patchy fresh heme was present throughout the entire examined colon. Moderate sized internal and external hemorrhoids were found. Retroflexed views revealed medium hemorrhoids. The scope was then completely withdrawn from the patient and the procedure terminated. ADVERSE EVENTS: There were no complications. IMPRESSIONS: 1. Two post-polypectomy sites measuring 5-7 mm in size in the ascending colon; Complete hemostasis was achieved by placing three hemoclips on the bleeding site(s); Submucosal injection of 4ml of epinephrine 1:10,000 was performed around the bleeding sites 2. Moderate patchy fresh heme throughout the entire examined colon 3. Moderate sized internal and external hemorrhoids 4. Intubation to anastomosis in the ascending colon / ileum RECOMMENDATIONS: 1. avoid NSAIDS for 2 weeks 3. Clear liquid diet RECALL: Return in 1 year(s) for Colonoscopy. Jerel Wallace Dr eSigned: Jerel Wallace Dr 07/15/2017 12:22 PM cc: Beto Redmond CPT CODES: ICD9 CODES: 1. 455.5 External hemorrhoids with other complication 2. 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 564.9 Unspecified functional disorder of intestine PATIENT NAME: Iman Huggins MR#: [id number]
[2017-07-15] MEDS ORDERED: EPINEPHRINE/PF 1 MG/ML AMP ONE (12:27)
[2017-07-15 16:48] LABS: Hematocrit 29.9 % (36.0-45.0)
--- NOTE | 2017-07-15 17:18 | CON ---
Date of Consultation: 07/13/2017 Reason For Consultation: Hematochezia with hypotension. History Of Present Illness: The patient is a 62-year-old female with history of cor onary artery disease status post myocardial infarction, hypertension, COPD, chronic back pain, on chr onic pain medication. The patient came to the hospital due to lower GI bleeding with hematochezia. The patient had a colonoscopy on July 05, 2017, had 2 polyps removed at that time from what appears to be the ascending colon. The patient started bleeding and had a call back from the surgery center on July 09, 2017 with no complaints at that time. The patient came to the hospital approximately on July 12 or due to hematochezia. In the emergency room, she was noted to have low blood pressur e as well. The patient was given IV fluids, packed RBCs. Initially, the patient states she may have had an aspirin, though somewhat confused, later said no she did not, asked her , he said he d id not think she had any aspirin since her procedure either. The patient got 1 unit of packed RBCs i n the ER and was sent to the ICU. The patient also reports some lower abdominal pain in the left gre ater than right lower quadrant areas and chronic back pain for which she takes oxycodone, I believe, OxyContin. The patient is somewhat anxious about getting her pain medicine for back pain too though her blood pressure is low. Past Medical History: Significant for coronary artery disease, status post myocardial infarction, hy pertension, COPD, chronic back pain, on chronic opioids, oxycodone or OxyContin. She appears to have obstructive sleep apnea, she is on O2 at night, gastric reflux disease. She had a cholecystectomy a nd partial colectomy colectomy in the past. Social History: , 3 children. Looks like occasional tobacco. Occasional alcohol. Family History: Mother with cancer. Sister with heart disease, hypertension, lung disease, GI disea se, stroke, kidney disease. Social History: Positive for tobacco. No regular alcohol, maybe occasional. Positive caffeine. Li ves at home with . Review of Systems: The patient has hematochezia, hypotension, weakness, lower abdominal pain left lower quadrant and rig ht lower quadrant, chronic back pain. She denies any hematemesis, coffee-grounds emesis, melena, hem optysis, hematuria, dysuria, polyuria, polydipsia, depression, anxiety, chest pain, shortness of janes th, seizure, syncope, muscle aches, joint aches. Physical Examination: Vital Signs: The patient is 5 foot 4, 231 pounds. BMI of 40 kg/m2. She has temperature 98.5 degree s Fahrenheit, pulse at rest 79, respirations 17, blood pressure 131/65, O2 saturation 99% on room air . General: She is an obese female, lying in bed, in mild distress with hematochezia, mildly diaphoreti c. HEENT: Normocephalic, atraumatic. Anicteric. Pupils equal, round, and reactive to light. Extraocu lar movements are clear. Neck: Supple. No masses. Respirations: Clear to auscultations bilaterally. Cardiac: Regular rate and rhythm. No gallops or rubs. Gastrointestinal: Positive bowel sounds. Slightly hyperactive, soft, nondistended, obese. No perit mcgee or Segovia sign. No rebound. Extremities: No clubbing, cyanosis. Some mild lower extremity edema. Neuro: Alert and oriented x3. Able to move all extremities well. Laboratory Data: The patient has a white count of 5.6, hemoglobin 9.4 down from 14.9 yesterday. Hem atocrit of 30.4, MCV of 80.8, platelet count of 187, polys of 55%, lymphocytes 34%, monocytes 9%, eos inophils 0.4%. PT of 14.2, INR of 1.2. PTT 25.6. She has a sodium 141, potassium 3.6, chloride 103 , bicarb 34, BUN of 17, creatinine of 1.0, glucose 109, hemoglobin A1c of 5.7, calcium 8.7, total rhina irubin 0.6, direct bilirubin 0.1, AST 15, ALT of 12, alkaline phosphatase 49, troponin of 0.16, , total protein 5.7, albumin 3.2, triglycerides 156, cholesterol 95, LDL 36, HDL 28. Lipase of 14. UA revealed 1+ blood, 5-10 rbc's, 10-20 squamous epithelial cells, otherwise negative. Chest CT was show mild COPD, otherwise negative. Impression: Hematochezia with hypotension and weakness, presyncope. Colonoscopy on July 05, 2017 w ith colon polyps removed from ascending colon. Initially thought the patient may have been on aspiri n, but upon asking again she and denied any further aspirin or blood thinners of any type tho ugh somewhat unclear. The patient probably has a post polypectomy bleed approximately 8 days out fro m colonoscopy for unclear reasons. Recommendation: 1.Resuscitation with IV fluids and packed RBCs. 2.Platelet transfusion now in light of possible aspirin though history unclear and FFP if needed. 3.Colonoscopy urgently. 4.Start IV octreotide. 5.Serial H and H and transfuse p.r.n. 6.Keep patient n.p.o. ANDREW/ARIELLE Voice ID: [id number] Report ID: [id number]
[2017-07-15 17:37] LABS: Protime INR 1.1
[2017-07-15] MEDS: AMITRIPTYLINE 10 MG TAB PO SCH (21:04)
[2017-07-15 22:08] LABS: Hematocrit 29.4 % (36.0-45.0)
[2017-07-16] MEDS: OCTREOTIDE 500 MCG in NA CHLORIDE 0.9% 500 ML IV SCH ×3 (02:48→16:00)
[2017-07-16 05:09] LABS: Absolute Monocytes 0.6 K/uL (0.1-1.3); Absolute Neutrophil 3.9 K/uL (1.8-8.0); Basophils % 0.4 % (0-1.3); Eosinophils % 2.2 % (0-4.4); Hematocrit 30.2 % (36.0-45.0); Lymphocytes % 17.3 % (15.3-44.8); MCH 26.8 pg (27.0-35.0); MCV 85.2 fL (80-100); MPV 7.8 fL (7.6-11.3); Monocytes % 9.9 % (3.3-12.3); RBC Red Blood Cell Count 3.54 M/uL (3.86-4.86)
[2017-07-16 05:23] LABS: Bicarbonate 37 mEq/L (21-31); Glomerular Filtration Rate > 90 mL/min (=/>90); Glucose Level 105 mg/dL (65-120); Potassium 3.5 mEq/L (3.6-5.0); Sodium Level 140 mEq/L (135-145)
[2017-07-16 05:30] LABS: BUN Blood Urea Nitrogen < 5 mg/dL (6-20)
[2017-07-16] MEDS: OXYCODONE HCL 5 MG TAB PO PRN (05:32)
[2017-07-16 05:37] LABS: Protime INR 1.11
[2017-07-16] MEDS: Ringers Lactate 1,000 ML IV SCH ×3 (05:38→18:14)
[2017-07-16 05:40] VITALS: BMI 39.9
[2017-07-16] MEDS: SODIUM CHLORIDE 0.9% 10ML INJ IV PRN (09:50)
[2017-07-16] MEDS: PANTOPRAZOLE 40 MG INJ IVP SCH (09:50)
[2017-07-16] MEDS: CETIRIZINE HCL 5 MG TABLET PO SCH (09:50)
[2017-07-16] MEDS: OXYCODONE *CR* 20 MG TAB PO SCH ×2 (10:55→23:12)
--- NOTE | 2017-07-16 16:15 | P.PN ---
Subjective Date of Service: 07/16/17 Primary Care Provider: Nyla Chief Complaint: Lower GI bleed, hematochezia Subjective: No new changes Review of Systems 10-point ROS is otherwise unremarkable Gastrointestinal: Melena (coffee ground stools this morning) Physical Examination - Vital Signs Temperature: 98.6 F Blood Pressure: 115/63 Pulse: 73 Respirations: 18 Pulse Ox (%): 94 - Physical Exam General: Alert, In no apparent distress HEENT: Atraumatic, PERRLA, EOMI Neck: Supple, JVD not distended Respiratory: Clear to auscultation bilaterally, Normal air movement Cardiovascular: Regular rate/rhythm, Normal S1 S2 Gastrointestinal: Normal bowel sounds, No tenderness Musculoskeletal: No tenderness Integumentary: No rashes Neurological: Normal speech, Normal tone, Normal affect Lymphatics: No axilla or inguinal lymphadenopathy Assessment & Plan - Problems (Diagnosis) (1) Lower GI bleed Onset Date: 07/16/17 Current Visit: Yes Status: Acute Plan: She is stable.Will monitor her hct. Advance the diet as tolerated. (2) COPD (chronic obstructive pulmonary disease) Onset Date: 05/08/16 Current Visit: No Status: Chronic Plan: She is stable. Will continue her home medications. Qualifiers: COPD type: chronic bronchitis Chronic bronchitis type: unspecified Qualified Code(s): J42 - Unspecified chronic bronchitis (3) HTN (hypertension) Onset Date: 07/16/17 Current Visit: Yes Status: Chronic Plan: Hold bp medications. Will continue to monitor and adjust as necessary Qualifiers: Hypertension type: essential hypertension Discharge Plan: Home Plan to discharge in: 48 Hours - Code Status/Comfort Care Code Status Assessed: No Code Status: Full Code Physician Review: Patient Assessed, Agree with Above Assessment and Plan Critical Care: No Time Spent Managing Pts Care (In Minutes): 25
[2017-07-16] MEDS: AMITRIPTYLINE 10 MG TAB PO SCH (21:02)
[2017-07-16] MEDS: ALBUTEROL 2.5 MG/3 ML NEB SOL NEB PRN (21:40)
[2017-07-17] MEDS ORDERED: OCTREOTIDE ACETATE 500 MCG/ML ONE (02:23)
[2017-07-17] MEDS ORDERED: NA CHLORIDE 0.9% 500 ML ONE (02:27)
[2017-07-17] MEDS: OCTREOTIDE 500 MCG in NA CHLORIDE 0.9% 500 ML IV SCH ×3 (02:43→22:00)
[2017-07-17] MEDS: Ringers Lactate 1,000 ML IV SCH ×4 (02:51→20:42)
[2017-07-17 05:53] LABS: Absolute Lymphocytes (CBC) 1.3 K/uL (0.7-4.9); Absolute Monocytes 0.5 K/uL (0.1-1.3); Absolute Neutrophil 3.5 K/uL (1.8-8.0); Basophils % 0.5 % (0-1.3); Eosinophils % 2.6 % (0-4.4); Hematocrit 28.9 % (36.0-45.0); MCH 26.8 pg (27.0-35.0); MCV 85.3 fL (80-100); MPV 7.8 fL (7.6-11.3); Monocytes % 8.8 % (3.3-12.3); RBC Red Blood Cell Count 3.39 M/uL (3.86-4.86)
[2017-07-17 06:06] LABS: Glomerular Filtration Rate > 90 mL/min (=/>90); Glucose Level 94 mg/dL (65-120); Potassium 3.7 mEq/L (3.6-5.0); Sodium Level 139 mEq/L (135-145)
[2017-07-17 06:08] LABS: BUN Blood Urea Nitrogen < 5 mg/dL (6-20)
[2017-07-17 06:32] LABS: Bicarbonate 37 mEq/L (21-31)
[2017-07-17] MEDS: OXYCODONE *CR* 20 MG TAB PO SCH ×2 (09:55→20:40)
[2017-07-17] MEDS: CETIRIZINE HCL 5 MG TABLET PO SCH (09:55)
[2017-07-17] MEDS: PANTOPRAZOLE 40 MG INJ IVP SCH (09:57)
[2017-07-17] MEDS ORDERED: Ringers Lactate 1,000 ML IV SCH (13:00)
--- NOTE | 2017-07-17 13:03 | P.PN ---
Subjective Date of Service: 07/17/17 Primary Care Provider: Nyla Chief Complaint: Lower GI bleed, hematochezia Subjective: Improving (Improving. No blood noted today, with minimal stool. Her abdominal pain has largely resolved. She is tolerating GI soft diet. Of note ~ 1 liter of blood / fluid suctioned out of colon 2 days ago. Hgb 9.1. Still on IVFs and IV Octreotide.) Review of Systems 10-point ROS is otherwise unremarkable General: Weakness (Improved) Gastrointestinal: Hematochezia (Improved) Physical Examination - Vital Signs Temperature: 98.9 F Blood Pressure: 139/71 Pulse: 81 Respirations: 16 Pulse Ox (%): 94 - Physical Exam General: Alert, In no apparent distress, Oriented x3, Cooperative HEENT: Atraumatic, Normocephalic, PERRLA, EOMI Neck: Supple Respiratory: Normal air movement Cardiovascular: Normal pulses Gastrointestinal: Soft and benign, No tenderness, No rebound, No guarding Neurological: Normal speech, Normal strength at 5/5 x4 extr Assessment And Plan - Current Problems (Diagnosis) (1) Hematochezia Current Visit: Yes Status: Acute Comment: Improved with much less. Hgb stable. (2) Anemia, posthemorrhagic, acute Current Visit: Yes Status: Acute (3) Hypotension Current Visit: Yes Status: Acute (4) Respiratory distress Onset Date: 05/08/16 Current Visit: No Status: Acute (5) COPD (chronic obstructive pulmonary disease) Onset Date: 05/08/16 Current Visit: No Status: Chronic Qualifiers: COPD type: chronic bronchitis Chronic bronchitis type: unspecified Qualified Code(s): J42 - Unspecified chronic bronchitis (6) Chronic pain disorder Onset Date: 05/08/16 Current Visit: No Status: Chronic (7) GERD (gastroesophageal reflux disease) Onset Date: 05/08/16 Current Visit: No Status: Chronic Qualifiers: Esophagitis presence: esophagitis presence not specified Qualified Code(s) : K21.9 - Gastro-esophageal reflux disease without esophagitis (8) HTN (hypertension) Onset Date: 07/16/17 Current Visit: Yes Status: Chronic Qualifiers: Hypertension type: essential hypertension (9) History of colon cancer Current Visit: No Status: Chronic (10) Tobacco abuse Onset Date: 05/08/16 Current Visit: No Status: Chronic - Plan REC: 1) decrease IVFs & start wean-off of IV Octreotide 2) continue serial H&Hs and transfuse prn 3) continue GI soft diet 4) discharge tomorrow Physician Review: Patient Assessed, Agree with Above Assessment and Plan
--- NOTE | 2017-07-17 16:24 | P.PN ---
Subjective Date of Service: 07/17/17 Primary Care Provider: Nyla Chief Complaint: Lower GI bleed, hematochezia Subjective: No new changes Review of Systems 10-point ROS is otherwise unremarkable Physical Examination - Vital Signs Temperature: 98.4 F Blood Pressure: 105/54 Pulse: 80 Respirations: 16 Pulse Ox (%): 95 - Physical Exam General: Alert, In no apparent distress HEENT: Atraumatic, PERRLA, EOMI Neck: Supple, JVD not distended Respiratory: Clear to auscultation bilaterally, Normal air movement Cardiovascular: Regular rate/rhythm, Normal S1 S2 Gastrointestinal: Normal bowel sounds, No tenderness Musculoskeletal: No tenderness Integumentary: No rashes Neurological: Normal speech, Normal tone, Normal affect Lymphatics: No axilla or inguinal lymphadenopathy Assessment & Plan - Problems (Diagnosis) (1) Lower GI bleed Onset Date: 07/16/17 Current Visit: Yes Status: Acute Plan: She is stable.Will monitor her hct. Advance the diet as tolerated. (2) COPD (chronic obstructive pulmonary disease) Onset Date: 05/08/16 Current Visit: No Status: Chronic Plan: She is stable. Will continue her home medications. Qualifiers: COPD type: chronic bronchitis Chronic bronchitis type: unspecified Qualified Code(s): J42 - Unspecified chronic bronchitis (3) HTN (hypertension) Onset Date: 07/16/17 Current Visit: Yes Status: Chronic Plan: Hold bp medications. Will continue to monitor and adjust as necessary Qualifiers: Hypertension type: essential hypertension Discharge Plan: Home Plan to discharge in: 24 Hours - Code Status/Comfort Care Code Status Assessed: No Code Status: Full Code Physician Review: Patient Assessed, Agree with Above Assessment and Plan Critical Care: No Time Spent Managing Pts Care (In Minutes): 25
[2017-07-17] MEDS: AMITRIPTYLINE 10 MG TAB PO SCH (20:40)
[2017-07-17] MEDS: ALBUTEROL 2.5 MG/3 ML NEB SOL NEB PRN ×2 (21:02→21:08)
[2017-07-18 07:22] LABS: BUN Blood Urea Nitrogen 5 mg/dL (6-20); Bicarbonate 40 mEq/L (21-31); Glomerular Filtration Rate > 90 mL/min (=/>90); Glucose Level 109 mg/dL (65-120); Potassium 3.9 mEq/L (3.6-5.0); Sodium Level 140 mEq/L (135-145)
[2017-07-18 07:26] LABS: Absolute Lymphocytes (CBC) 1.2 K/uL (0.7-4.9); Absolute Monocytes 0.5 K/uL (0.1-1.3); Absolute Neutrophil 3.2 K/uL (1.8-8.0); Basophils % 0.4 % (0-1.3); Eosinophils % 3.6 % (0-4.4); Hematocrit 29.6 % (36.0-45.0); Lymphocytes % 22.9 % (15.3-44.8); MCH 26.9 pg (27.0-35.0); MCV 85.9 fL (80-100); Monocytes % 10.2 % (3.3-12.3); RBC Red Blood Cell Count 3.44 M/uL (3.86-4.86)
[2017-07-18] MEDS: OCTREOTIDE 500 MCG in NA CHLORIDE 0.9% 500 ML IV SCH (07:48)
[2017-07-18] MEDS: OXYCODONE *CR* 20 MG TAB PO SCH (08:40)
[2017-07-18] MEDS: CETIRIZINE HCL 5 MG TABLET PO SCH (08:42)
[2017-07-18] MEDS: PANTOPRAZOLE 40 MG INJ IVP SCH (08:42)
--- NOTE | 2017-07-18 08:51 | P.DS ---
Admission Date: 07/13/17 Discharge Date: 07/18/17 Primary Care Provider: Nyla Disposition: ROUTINE DISCHARGE Discharge Condition: GOOD Reason for Admission: Lower GI bleed, hematochezia - Problems (1) Lower GI bleed Onset Date: 07/16/17 Current Visit: Yes Status: Acute (2) COPD (chronic obstructive pulmonary disease) Onset Date: 05/08/16 Current Visit: No Status: Chronic Qualifiers: COPD type: chronic bronchitis Chronic bronchitis type: unspecified Qualified Code(s): J42 - Unspecified chronic bronchitis (3) HTN (hypertension) Onset Date: 07/16/17 Current Visit: Yes Status: Chronic Qualifiers: Hypertension type: essential hypertension Brief History of Present Illness: Patient is an office patient of [employer]. She has not been seen in a year. She had a colonoscopy early this week with Dr. Mon. She started have claudia bleeding and abdominal pain. The patient came to the er. She was having claudia blood. She has not had an fevers or chills, no chest pain. She has been having chronic back pain. The patient just got back from a bleeding scan. She refused after 10min due to her back pain. However no signs of active bleeding were shown on the scan we got. She has recieved 1 unit of prbc Hospital Course: Patient was admitted after a lower gi Bleed. After 1 unit she stopped bleeding. Had some oozing found on colonoscopy. The patient has been doing. well. She has no blood. Hb is remaining stable. Will discharge her home if ok with Dr. Mon Vital Signs/Physical Exam: Temp Pulse Resp BP Pulse Ox 97.9 F 72 18 113/71 97 07/18/17 04:00 07/18/17 04:00 07/18/17 04:00 07/18/17 04:00 07/18/17 04:00 General: Alert, In no apparent distress HEENT: Atraumatic, PERRLA, EOMI Neck: Supple, JVD not distended Respiratory: Clear to auscultation bilaterally, Normal air movement Cardiovascular: Regular rate/rhythm, Normal S1 S2 Gastrointestinal: Normal bowel sounds, No tenderness Musculoskeletal: No tenderness Integumentary: No rashes Neurological: Normal speech, Normal tone, Normal affect Lymphatics: No axilla or inguinal lymphadenopathy Laboratory Data at Discharge: WBC 5.0 K/uL (4.3-10.9) 07/18/17 06:20 Hgb 9.3 g/dL (12.0-15.0) L 07/18/17 06:20 Hct 29.6 % (36.0-45.0) L 07/18/17 06:20 Plt Count 130 K/uL (152-406) L 07/18/17 06:20 PT 13.1 SECONDS (9.5-12.5) H 07/16/17 03:30 INR 1.11 07/16/17 03:30 APTT 28.5 SECONDS (24.3-36.9) 07/16/17 03:30 Sodium 140 mEq/L (135-145) 07/18/17 06:20 Potassium 3.9 mEq/L (3.6-5.0) 07/18/17 06:20 BUN 5 mg/dL (6-20) L 07/18/17 06:20 Creatinine 0.54 mg/dL (0.44-1.00) 07/18/17 06:20 Glucose 109 mg/dL (65-120) 07/18/17 06:20 Phosphorus 2.8 mg/dL (2.5-4.3) 07/15/17 04:30 Magnesium 2.0 mg/dL (1.8-2.5) 07/16/17 03:30 Total Bilirubin 0.6 mg/dL (0.3-1.2) 07/13/17 00:35 AST 15 IU/L (10-42) 07/13/17 00:35 ALT 12 IU/L (10-60) 07/13/17 00:35 Alkaline Phosphatase 49 IU/L (42-121) 07/13/17 00:35 Triglycerides 156 mg/dL (35-160) 07/14/17 05:09 Cholesterol 95 mg/dL (<200) 07/14/17 05:09 HDL Cholesterol 28 mg/dL (29-89) L 07/14/17 05:09 Cholesterol/HDL Ratio 3.39 07/14/17 05:09 Lipase 14 U/L (22-51) L 07/13/17 00:35 Home Medications: Albuterol Sulfate [Proair Hfa] 2 puff IH BID PRN 05/06/16 Amitriptyline [Elavil*] 10 mg PO BEDTIME 05/06/16 Amlodipine [Norvasc*] 10 mg PO DAILY 05/06/16 Estradiol 2 mg PO DAILY 05/06/16 Medroxyprogesterone Acetate 2.5 mg PO EVERY 3RD DAY 05/06/16 Oxycodone HCl 30 mg PO QID PRN 05/06/16 Solifenacin [Vesicare*] 5 mg PO DAILY 05/06/16 Umeclidinium Brm/Vilanterol Tr [Anoro Ellipta 62.5-25 Mcg INH] 1 puff IH DAILY 05/06/16 Cetirizine HCl [Zyrtec*] 5 mg PO DAILY #30 tablet 05/09/16 Albuterol Sulfate [Albuterol Sulfate 0.083% Neb Soln] 2.5 mg NEB Q6HR PRN Famotidine [Pepcid*] 20 mg PO DAILY 07/13/17
[2017-07-18] MEDS: Ringers Lactate 1,000 ML IV SCH (11:00)
--- NOTE | 2017-07-18 11:36 | P.PN ---
Subjective Date of Service: 07/18/17 Primary Care Provider: Nyla Chief Complaint: Lower GI bleed, hematochezia Subjective: Improving (Feels much better. No abdominal pain, hematochezia. Tolerating GI soft diet well. IV Octreotide weaned down.) Review of Systems Unremarkable Physical Examination - Vital Signs Temperature: 98.9 F Blood Pressure: 122/63 Pulse: 72 Respirations: 14 Pulse Ox (%): 99 - Physical Exam General: Alert, In no apparent distress, Oriented x3, Cooperative HEENT: Atraumatic, Normocephalic, PERRLA, EOMI Neck: Supple Respiratory: Normal air movement Cardiovascular: Normal pulses Gastrointestinal: Soft and benign, No tenderness, No rebound, No guarding Neurological: Normal speech, Normal strength at 5/5 x4 extr Assessment And Plan - Current Problems (Diagnosis) (1) Hematochezia Current Visit: Yes Status: Acute Comment: None now. Hgb stable at ~9.3. (2) Anemia, posthemorrhagic, acute Current Visit: Yes Status: Acute (3) Hypotension Current Visit: Yes Status: Acute (4) Respiratory distress Onset Date: 05/08/16 Current Visit: No Status: Acute (5) COPD (chronic obstructive pulmonary disease) Onset Date: 05/08/16 Current Visit: No Status: Chronic Qualifiers: COPD type: chronic bronchitis Chronic bronchitis type: unspecified Qualified Code(s): J42 - Unspecified chronic bronchitis (6) Chronic pain disorder Onset Date: 05/08/16 Current Visit: No Status: Chronic (7) GERD (gastroesophageal reflux disease) Onset Date: 05/08/16 Current Visit: No Status: Chronic Qualifiers: Esophagitis presence: esophagitis presence not specified Qualified Code(s) : K21.9 - Gastro-esophageal reflux disease without esophagitis (8) HTN (hypertension) Onset Date: 07/16/17 Current Visit: Yes Status: Chronic Qualifiers: Hypertension type: essential hypertension (9) History of colon cancer Current Visit: No Status: Chronic (10) Tobacco abuse Onset Date: 05/08/16 Current Visit: No Status: Chronic - Plan REC: 1) wean-off of IV Octreotide 2) continue GI soft diet 3) discharge today 4) GI clinic f/u next week Physician Review: Patient Assessed, Agree with Above Assessment and Plan
[2017-07-18 11:41] VITALS: O2SAT 96
[2017-07-18 12:06] VITALS: BP 130/71; TEMP 98.1
== END 2017-07-18 13:58 | disposition home or self-care (01) | DRG 378 ==
LOC: ER 23:35 → ERHOLD 07-13 03:38 → 3RD-ICU 07-13 07:16 → 4TH 07-16 11:05
PROVIDERS: ADMIT Internal Medicine; ATTEND Internal Medicine
PROC: 0DJD8ZZ Inspection of Lower Intestinal Tract, Via Natural or Artificial Opening Endoscopic (ICD-10-PCS; 2017-07-13)
PROC: 0W3P8ZZ Control Bleeding in Gastrointestinal Tract, Via Natural or Artificial Opening Endoscopic (ICD-10-PCS; principal; 2017-07-15 09:30)
DX: K92.1 Melena (principal); D62 Acute posthemorrhagic anemia; M54.9 Dorsalgia, unspecified; K64.8 Other hemorrhoids; K64.4 Residual hemorrhoidal skin tags; R06.03 Acute respiratory distress; K57.90 Diverticulosis of intestine, part unspecified, without perforation or abscess without bleeding; I95.9 Hypotension, unspecified; J44.9 Chronic obstructive pulmonary disease, unspecified; I10 Essential (primary) hypertension; K21.9 Gastro-esophageal reflux disease without esophagitis; G89.4 Chronic pain syndrome; F17.200 Nicotine dependence, unspecified, uncomplicated
CPT/HCPCS: 36415; 36430; 74176; 76377; 78278; 80048; 80061; 80076; 81003; 81015; 83036; 83690; 83735; 84100; 85014; 85018; 85025; 85610; 85730; 86850; 86900; 86901; 93005; 94640; 96361; 96365; 96366; 99285; A9560; C9113; J0171; J2175; J2354; J2765; J3010; J7030; P9016; P9017; P9035; P9045

== ENCOUNTER 2018-04-13 16:58 | Emergency (ER) | payer OTHER, SELFPAY ==
--- OUTSIDE RECORDS SUMMARY | 2018-04-13 17:01 | XMS REPORT ---
:1955 [facility] Organization [facility] Address [address] [place] [address] Care Team Providers Name Role Phone [facility] Unavailable Unavailable DURGA ALVARENGA Unavailable Unavailable Problems This patient has no known problems. Allergies, Adverse Reactions, Alerts This patient has no known allergies or adverse reactions. Medications This patient has no known medications. Results Test Description Test Time Test Comments Text Results Atomic Results Result Comments B-TYPE NATRIURETIC FACTOR (BNP) 2017-04-26 13:02:00 Test Item Value Reference Range Comments B-TYPE NATRIURETIC PEPTIDE (BEAKER) (test dsag=466) 98 pg/mL 0-100 [id number] 12:55:00 Test Item Value Reference Range Comments MAGNESIUM (BEAKER) (test dqmo=342) 1.8 mg/dL 1.6-2.6 BASIC METABOLIC [id number] 12:55:00 Test Item Value Reference Range Comments SODIUM (BEAKER) (test 144 meq/L 136-145 haau=821) POTASSIUM (BEAKER) (test 3.7 meq/L 3.5-5.1 roev=663) CHLORIDE (BEAKER) (test 105 meq/L 98-107 cade=173) CO2 (BEAKER) (test 32 meq/L 22-29 pnxh=253) BLOOD UREA NITROGEN 8 mg/dL 7-21 (BEAKER) (test jfce=521) CREATININE (BEAKER) (test 0.72 mg/dL 0.57-1.25 zhfw=324) GLUCOSE RANDOM (BEAKER) 92 mg/dL 70-105 (test sgbo=130) CALCIUM (BEAKER) (test 8.9 mg/dL 8.4-10.2 fzim=217) EGFR (BEAKER) (test 99 mL/min/1.73 sq m ESTIMATED GFR IS NOT ctib=2161) ACCURATE CREATININE CLEARANCE IN PREDICTING GLOMERULAR FILTRATION RATE. ESTIMATED GFR IS NOT APPLICABLE FOR DIALYSIS PATIENTS. CBC W/PLT COUNT & AUTO [id number] 07:45:00 Test Item Value Reference Range Comments WHITE BLOOD CELL COUNT (BEAKER) (test lxmf=604) 4.1 K/ L 3.5-10.5 RED BLOOD CELL COUNT (BEAKER) (test zgzt=623) 6.01 M/ L 3.93-5.22 HEMOGLOBIN (BEAKER) (test rnek=412) 13.5 GM/DL 11.2-15.7 HEMATOCRIT (BEAKER) (test zrah=585) 47.0 % 34.1-44.9 MEAN CORPUSCULAR VOLUME (BEAKER) (test iumu=793) 78.2 fL 79.4-94.8 MEAN CORPUSCULAR HEMOGLOBIN (BEAKER) (test 22.5 pg 25.6-32.2 edyi=452) MEAN CORPUSCULAR HEMOGLOBIN CONC (BEAKER) (test 28.7 GM/DL 32.2-35.5 quey=258) RED CELL DISTRIBUTION WIDTH (BEAKER) (test 22.9 % 11.7-14.4 isaj=020) PLATELET COUNT (BEAKER) (test vdsf=890) 208 K/CU MM 150-450 MEAN PLATELET VOLUME (BEAKER) (test gqpz=449) 9.1 fL 9.4-12.3 NUCLEATED RED BLOOD CELLS (BEAKER) (test 0 /100 WBC 0-0 fjvm=840) NEUTROPHILS RELATIVE PERCENT (BEAKER) (test 50 % xcul=167) LYMPHOCYTES RELATIVE PERCENT (BEAKER) (test 37 % kgcg=214) MONOCYTES RELATIVE PERCENT (BEAKER) (test 10 % fjph=827) EOSINOPHILS RELATIVE PERCENT (BEAKER) (test 1 % lqdm=917) BASOPHILS RELATIVE PERCENT (BEAKER) (test 1 % vijd=759) NEUTROPHILS ABSOLUTE COUNT (BEAKER) (test 2.08 K/ L 1.56-6.13 wrtr=239) LYMPHOCYTES ABSOLUTE COUNT (BEAKER) (test 1.55 K/ L 1.18-3.74 qpij=677) MONOCYTES ABSOLUTE COUNT (BEAKER) (test 0.42 K/ L 0.24-0.36 akqg=718) EOSINOPHILS ABSOLUTE COUNT (BEAKER) (test 0.06 K/ L 0.04-0.36 qjet=289) BASOPHILS ABSOLUTE COUNT (BEAKER) (test 0.02 K/ L 0.01-0.08 tobx=297) IMMATURE GRANULOCYTES-RELATIVE PERCENT (BEAKER) 0 % 0-1 (test jclu=4065) BASIC METABOLIC [id number] 07:02:00 Test Item Value Reference Range Comments SODIUM (BEAKER) (test 139 meq/L 136-145 fyuq=566) POTASSIUM (BEAKER) (test 3.9 meq/L 3.5-5.1 jazt=139) CHLORIDE (BEAKER) (test 101 meq/L 98-107 tqza=143) CO2 (BEAKER) (test 33 meq/L 22-29 qbvg=726) BLOOD UREA NITROGEN 9 mg/dL 7-21 (BEAKER) (test eyqt=288) CREATININE (BEAKER) (test 0.67 mg/dL 0.57-1.25 xfhi=667) GLUCOSE RANDOM (BEAKER) 83 mg/dL 70-105 (test jrux=330) CALCIUM (BEAKER) (test 9.1 mg/dL 8.4-10.2 reiw=514) EGFR (BEAKER) (test 108 mL/min/1.73 sq m ESTIMATED GFR IS NOT fnpa=0824) ACCURATE CREATININE CLEARANCE IN PREDICTING GLOMERULAR FILTRATION RATE. ESTIMATED GFR IS NOT APPLICABLE FOR DIALYSIS PATIENTS. CBC W/PLT COUNT & AUTO [id number] 05:11:00 Test Item Value Reference Range Comments WHITE BLOOD CELL COUNT (BEAKER) (test mazj=909) 4.7 K/ L 3.5-10.5 RED BLOOD CELL COUNT (BEAKER) (test trix=233) 6.26 M/ L 3.93-5.22 HEMOGLOBIN (BEAKER) (test ksjj=819) 13.9 GM/DL 11.2-15.7 HEMATOCRIT (BEAKER) (test rota=056) 49.0 % 34.1-44.9 MEAN CORPUSCULAR VOLUME (BEAKER) (test vlec=003) 78.3 fL 79.4-94.8 MEAN CORPUSCULAR HEMOGLOBIN (BEAKER) (test 22.2 pg 25.6-32.2 gcel=402) MEAN CORPUSCULAR HEMOGLOBIN CONC (BEAKER) (test 28.4 GM/DL 32.2-35.5 tnaf=496) RED CELL DISTRIBUTION WIDTH (BEAKER) (test 22.7 % 11.7-14.4 mbca=290) PLATELET COUNT (BEAKER) (test jwxi=109) 218 K/CU MM 150-450 MEAN PLATELET VOLUME (BEAKER) (test uoug=510) 8.9 fL 9.4-12.3 NUCLEATED RED BLOOD CELLS (BEAKER) (test 0 /100 WBC 0-0 cnyy=245) NEUTROPHILS RELATIVE PERCENT (BEAKER) (test 61 % rhlv=467) LYMPHOCYTES RELATIVE PERCENT (BEAKER) (test 27 % ixyh=820) MONOCYTES RELATIVE PERCENT (BEAKER) (test 12 % ucis=585) EOSINOPHILS RELATIVE PERCENT (BEAKER) (test 1 % fkjo=849) BASOPHILS RELATIVE PERCENT (BEAKER) (test 0 % qpfz=772) NEUTROPHILS ABSOLUTE COUNT (BEAKER) (test 2.82 K/ L 1.56-6.13 ixca=538) LYMPHOCYTES ABSOLUTE COUNT (BEAKER) (test 1.23 K/ L 1.18-3.74 ehlf=303) MONOCYTES ABSOLUTE COUNT (BEAKER) (test 0.54 K/ L 0.24-0.36 arxv=737) EOSINOPHILS ABSOLUTE COUNT (BEAKER) (test 0.04 K/ L 0.04-0.36 eatq=972) BASOPHILS ABSOLUTE COUNT (BEAKER) (test 0.01 K/ L 0.01-0.08 dbui=726) IMMATURE GRANULOCYTES-RELATIVE PERCENT (BEAKER) 0 % 0-1 (test iwzl=3132) BASIC METABOLIC [id number] 12:19:00 Test Item Value Reference Range Comments SODIUM (BEAKER) (test 145 meq/L 136-145 This is a corrected bbhr=353) result. Previous result was 142 meq/L on 04/15/2017 at 1015 HOME COORDINATOR POTASSIUM (BEAKER) (test 3.8 meq/L 3.5-5.1 Specimen moderately stne=497) hemolyzedThis is a corrected result. Previous result was 3.7 meq/L on 04/15/2017 at 1015 HOME COORDINATOR CHLORIDE (BEAKER) (test 113 meq/L 98-107 This is a corrected sdee=462) result. Previous result was 111 meq/L on 04/15/2017 at 1015 HOME COORDINATOR CO2 (BEAKER) (test 23 meq/L 22-29 svri=376) BLOOD UREA NITROGEN 8 mg/dL 7-21 (BEAKER) (test qiho=814) CREATININE (BEAKER) 0.51 mg/dL 0.57-1.25 Specimen moderately (test eyrv=750) hemolyzed GLUCOSE RANDOM (BEAKER) 63 mg/dL 70-105 (test zyom=608) CALCIUM (BEAKER) (test 6.7 mg/dL 8.4-10.2 jnej=463) EGFR (BEAKER) (test 148 mL/min/1.73 sq ESTIMATED GFR IS NOT drdp=4764) m ACCURATE CREATININE CLEARANCE IN PREDICTING GLOMERULAR FILTRATION RATE. ESTIMATED GFR IS NOT APPLICABLE FOR DIALYSIS PATIENTS. CBC W/PLT COUNT & AUTO [id number] 08:12:00 Test Item Value Reference Range Comments WHITE BLOOD CELL COUNT (BEAKER) (test adld=249) 4.2 K/ L 3.5-10.5 RED BLOOD CELL COUNT (BEAKER) (test yvse=892) 6.16 M/ L 3.93-5.22 HEMOGLOBIN (BEAKER) (test hswg=516) 13.7 GM/DL 11.2-15.7 HEMATOCRIT (BEAKER) (test jull=263) 48.6 % 34.1-44.9 MEAN CORPUSCULAR VOLUME (BEAKER) (test unfb=834) 78.9 fL 79.4-94.8 MEAN CORPUSCULAR HEMOGLOBIN (BEAKER) (test 22.2 pg 25.6-32.2 ytse=828) MEAN CORPUSCULAR HEMOGLOBIN CONC (BEAKER) (test 28.2 GM/DL 32.2-35.5 iflr=262) RED CELL DISTRIBUTION WIDTH (BEAKER) (test 23.3 % 11.7-14.4 pqvw=796) PLATELET COUNT (BEAKER) (test koog=943) 278 K/CU MM 150-450 MEAN PLATELET VOLUME (BEAKER) (test utzv=462) 9.4 fL 9.4-12.3 NUCLEATED RED BLOOD CELLS (BEAKER) (test 0 /100 WBC 0-0 gssu=713) NEUTROPHILS RELATIVE PERCENT (BEAKER) (test 56 % blru=941) LYMPHOCYTES RELATIVE PERCENT (BEAKER) (test 30 % inhp=578) MONOCYTES RELATIVE PERCENT (BEAKER) (test 13 % gkmt=997) EOSINOPHILS RELATIVE PERCENT (BEAKER) (test 1 % buap=615) BASOPHILS RELATIVE PERCENT (BEAKER) (test 1 % yubw=055) NEUTROPHILS ABSOLUTE COUNT (BEAKER) (test 2.37 K/ L 1.56-6.13 wzme=923) LYMPHOCYTES ABSOLUTE COUNT (BEAKER) (test 1.26 K/ L 1.18-3.74 uatr=943) MONOCYTES ABSOLUTE COUNT (BEAKER) (test 0.53 K/ L 0.24-0.36 rslm=392) EOSINOPHILS ABSOLUTE COUNT (BEAKER) (test 0.03 K/ L 0.04-0.36 vhfv=231) BASOPHILS ABSOLUTE COUNT (BEAKER) (test 0.02 K/ L 0.01-0.08 gvpd=759) IMMATURE GRANULOCYTES-RELATIVE PERCENT (BEAKER) 0 % 0-1 (test dsfw=5034) BASIC METABOLIC [id number] 10:54:00 Test Item Value Reference Range Comments SODIUM (BEAKER) (test 141 meq/L 136-145 szxs=053) POTASSIUM (BEAKER) (test 3.7 meq/L 3.5-5.1 iokv=667) CHLORIDE (BEAKER) (test 99 meq/L 98-107 zddc=968) CO2 (BEAKER) (test 36 meq/L 22-29 algr=232) BLOOD UREA NITROGEN 12 mg/dL 7-21 (BEAKER) (test kqqd=134) CREATININE (BEAKER) (test 0.68 mg/dL 0.57-1.25 pfxp=671) GLUCOSE RANDOM (BEAKER) 96 mg/dL 70-105 (test sfxh=586) CALCIUM (BEAKER) (test 8.6 mg/dL 8.4-10.2 wirc=211) EGFR (BEAKER) (test 106 mL/min/1.73 sq m ESTIMATED GFR IS NOT vgvu=6680) ACCURATE CREATININE CLEARANCE IN PREDICTING GLOMERULAR FILTRATION RATE. ESTIMATED GFR IS NOT APPLICABLE FOR DIALYSIS PATIENTS. CBC W/PLT COUNT & AUTO [id number] 06:13:00 Test Item Value Reference Range Comments WHITE BLOOD CELL COUNT (BEAKER) (test guyn=578) 4.5 K/ L 3.5-10.5 RED BLOOD CELL COUNT (BEAKER) (test uyer=348) 6.02 M/ L 3.93-5.22 HEMOGLOBIN (BEAKER) (test ulyc=548) 13.5 GM/DL 11.2-15.7 HEMATOCRIT (BEAKER) (test mbxg=978) 47.6 % 34.1-44.9 MEAN CORPUSCULAR VOLUME (BEAKER) (test mecf=629) 79.1 fL 79.4-94.8 MEAN CORPUSCULAR HEMOGLOBIN (BEAKER) (test 22.4 pg 25.6-32.2 clvd=253) MEAN CORPUSCULAR HEMOGLOBIN CONC (BEAKER) (test 28.4 GM/DL 32.2-35.5 pbko=114) RED CELL DISTRIBUTION WIDTH (BEAKER) (test 23.6 % 11.7-14.4 axmi=418) PLATELET COUNT (BEAKER) (test vgps=926) 334 K/CU MM 150-450 MEAN PLATELET VOLUME (BEAKER) (test serc=589) 9.3 fL 9.4-12.3 NUCLEATED RED BLOOD CELLS (BEAKER) (test 0 /100 WBC 0-0 rybc=270) NEUTROPHILS RELATIVE PERCENT (BEAKER) (test 45 % blxd=226) LYMPHOCYTES RELATIVE PERCENT (BEAKER) (test 41 % hyjq=100) MONOCYTES RELATIVE PERCENT (BEAKER) (test 13 % wjwb=240) EOSINOPHILS RELATIVE PERCENT (BEAKER) (test 1 % mbjj=861) BASOPHILS RELATIVE PERCENT (BEAKER) (test 0 % ufsh=805) NEUTROPHILS ABSOLUTE COUNT (BEAKER) (test 2.05 K/ L 1.56-6.13 gitt=282) LYMPHOCYTES ABSOLUTE COUNT (BEAKER) (test 1.85 K/ L 1.18-3.74 yxjd=968) MONOCYTES ABSOLUTE COUNT (BEAKER) (test 0.58 K/ L 0.24-0.36 qgxw=464) EOSINOPHILS ABSOLUTE COUNT (BEAKER) (test 0.03 K/ L 0.04-0.36 sjgr=914) BASOPHILS ABSOLUTE COUNT (BEAKER) (test 0.02 K/ L 0.01-0.08 erif=685) IMMATURE GRANULOCYTES-RELATIVE PERCENT (BEAKER) 0 % 0-1 (test ljcu=2312) CT, CHEST, WITHOUT [id number] 23:31:00FINAL REPORT CT, CHEST, WITHOUT CONTRAST INDICATION: [...] MDReport Verified Date/Time: 04/13/2017 23:31:59 Reading Location: [facility] C013Y CT Body Reading Room [id number] 12:35:00 Test Item Value Reference Range Comments PARTIAL THROMBOPLASTIN TIME (BEAKER) (test 53.5 seconds 22.5-36.0 rear=060) BASIC METABOLIC [id number] 09:04:00 Test Item Value Reference Range Comments SODIUM (BEAKER) (test 141 meq/L 136-145 fwol=896) POTASSIUM (BEAKER) (test 4.0 meq/L 3.5-5.1 nmcd=456) CHLORIDE (BEAKER) (test 99 meq/L 98-107 nyho=962) CO2 (BEAKER) (test 36 meq/L 22-29 opxf=524) BLOOD UREA NITROGEN 15 mg/dL 7-21 (BEAKER) (test akbi=938) CREATININE (BEAKER) (test 0.67 mg/dL 0.57-1.25 djxn=866) GLUCOSE RANDOM (BEAKER) 93 mg/dL 70-105 (test dpcz=213) CALCIUM (BEAKER) (test 8.4 mg/dL 8.4-10.2 fjnm=021) EGFR (BEAKER) (test 108 mL/min/1.73 sq m ESTIMATED GFR IS NOT puge=4776) ACCURATE CREATININE CLEARANCE IN PREDICTING GLOMERULAR FILTRATION RATE. ESTIMATED GFR IS NOT APPLICABLE FOR DIALYSIS PATIENTS. Redraw, morning specimen was hemolizedBASIC METABOLIC [id number] 08:01:00 Test Item Value Reference Range Comments SODIUM (BEAKER) (test 143 meq/L 136-145 lnxg=145) POTASSIUM (BEAKER) (test 4.2 meq/L 3.5-5.1 Specimen slightly pjnp=368) hemolyzed CHLORIDE (BEAKER) (test 101 meq/L 98-107 wwqb=148) CO2 (BEAKER) (test 36 meq/L 22-29 kzds=752) BLOOD UREA NITROGEN 16 mg/dL 7-21 (BEAKER) (test ljcr=294) CREATININE (BEAKER) (test 0.68 mg/dL 0.57-1.25 Specimen slightly iooh=291) hemolyzed GLUCOSE RANDOM (BEAKER) 85 mg/dL 70-105 (test ougu=039) CALCIUM (BEAKER) (test 8.7 mg/dL 8.4-10.2 uzll=662) EGFR (BEAKER) (test 106 mL/min/1.73 sq m ESTIMATED GFR IS NOT dxuq=0867) ACCURATE CREATININE CLEARANCE IN PREDICTING GLOMERULAR FILTRATION RATE. ESTIMATED GFR IS NOT APPLICABLE FOR DIALYSIS PATIENTS. CBC W/PLT COUNT & AUTO [id number] 06:14:00 Test Item Value Reference Range Comments WHITE BLOOD CELL COUNT (BEAKER) (test nyni=523) 5.0 K/ L 3.5-10.5 RED BLOOD CELL COUNT (BEAKER) (test jnqn=877) 6.01 M/ L 3.93-5.22 HEMOGLOBIN (BEAKER) (test ilvm=564) 13.4 GM/DL 11.2-15.7 HEMATOCRIT (BEAKER) (test zqqd=717) 47.7 % 34.1-44.9 MEAN CORPUSCULAR VOLUME (BEAKER) (test izwy=221) 79.4 fL 79.4-94.8 MEAN CORPUSCULAR HEMOGLOBIN (BEAKER) (test 22.3 pg 25.6-32.2 mpgh=824) MEAN CORPUSCULAR HEMOGLOBIN CONC (BEAKER) (test 28.1 GM/DL 32.2-35.5 heqe=039) RED CELL DISTRIBUTION WIDTH (BEAKER) (test 23.0 % 11.7-14.4 ldcc=720) PLATELET COUNT (BEAKER) (test trjl=256) 259 K/CU MM 150-450 MEAN PLATELET VOLUME (BEAKER) (test gsap=090) 8.8 fL 9.4-12.3 NUCLEATED RED BLOOD CELLS (BEAKER) (test 0 /100 WBC 0-0 ncgh=260) NEUTROPHILS RELATIVE PERCENT (BEAKER) (test 50 % ikvh=832) LYMPHOCYTES RELATIVE PERCENT (BEAKER) (test 36 % jfyi=541) MONOCYTES RELATIVE PERCENT (BEAKER) (test 13 % dnuv=931) EOSINOPHILS RELATIVE PERCENT (BEAKER) (test 0 % bcsx=533) BASOPHILS RELATIVE PERCENT (BEAKER) (test 0 % zjbr=877) NEUTROPHILS ABSOLUTE COUNT (BEAKER) (test 2.47 K/ L 1.56-6.13 snja=015) LYMPHOCYTES ABSOLUTE COUNT (BEAKER) (test 1.80 K/ L 1.18-3.74 lwjs=905) MONOCYTES ABSOLUTE COUNT (BEAKER) (test 0.64 K/ L 0.24-0.36 edgb=656) EOSINOPHILS ABSOLUTE COUNT (BEAKER) (test 0.01 K/ L 0.04-0.36 looz=345) BASOPHILS ABSOLUTE COUNT (BEAKER) (test 0.02 K/ L 0.01-0.08 ccej=633) IMMATURE GRANULOCYTES-RELATIVE PERCENT (BEAKER) 0 % 0-1 (test eaob=7966) [id number] 04:50:00 Test Item Value Reference Range Comments PARTIAL THROMBOPLASTIN TIME (BEAKER) (test 42.9 seconds 22.5-36.0 pgkf=592) TROPONIN [id number] 10:24:00 Test Item Value Reference Range Comments TROPONIN I (BEAKER) (test ahkh=313) 2.70 ng/mL 0.00-0.03 Troponin I (TnI) levels [...] and persistent tachyarrhythmia.CREATINE KINASE (CK), TOTAL AND [id number] 10:16:00 Test Item Value Reference Range Comments CREATINE KINASE TOTAL (BEAKER) (test yonf=411) 208 U/L 29-200 CREATINE KINASE-MB (BEAKER) (test wxuz=351) 22.0 ng/mL 0.0-6.6 CREATINE KINASE-MB INDEX (BEAKER) (test usne=632) 10.6 % CK-MB Reference Range:<6.7 Normal6.7-10.0 Borderline>10.0 [id number] 09:44:00 Test Item Value Reference Range Comments PARTIAL THROMBOPLASTIN TIME (BEAKER) (test 24.6 seconds 22.5-36.0 yqkg=902) TROPONIN [id number] 02:33:00 Test Item Value Reference Range Comments TROPONIN I (BEAKER) (test skpb=491) 1.03 ng/mL 0.00-0.03 Troponin I (TnI) levels [...] and persistent tachyarrhythmia.RAD, CHEST, 1 VIEW, NON [id number] 02:30:00Reason for exam:->chest painShould this be performed [...] Santiago MDReport Verified Date/Time: 04/12/201702:30:28 Reading Location: [address] Reading Room -[id number] 02:14:00 Test Item Value Reference Range Comments D-DIMER QUANTITATIVE (BEAKER) (test pmyy=072) < MG/L FEU <0.50 Intended Use: The D-Dimer Assay can be used to aid in the diagnosis of Deep Vein Thrombosis (DVT) and Pulmonary Embolism Disease (PED).In patients with low pre-test probability, various studies concerning STA Liatest D-dimer test have reported that with a cutoff value of 0.50 MG/L FEU, the Negative Predictive Value (NPV) regarding the exclusion of thrombosis is within 95-100% range.[id number] 02:13:00 Test Item Value Reference Range Comments PARTIAL THROMBOPLASTIN TIME (BEAKER) (test > seconds 22.5-36.0 exao=032) CREATINE KINASE (CK), TOTAL AND [id number] 02:12:00 Test Item Value Reference Range Comments CREATINE KINASE TOTAL (BEAKER) (test eowb=476) 161 U/L 29-200 CREATINE KINASE-MB (BEAKER) (test yxqu=160) 17.1 ng/mL 0.0-6.6 CREATINE KINASE-MB INDEX (BEAKER) (test diqp=610) 10.6 % CK-MB Reference Range:<6.7 Normal6.7-10.0 Borderline>10.0 AbnormalB-TYPE NATRIURETIC FACTOR (BNP)[id number] 02:09:00 Test Item Value Reference Range Comments B-TYPE NATRIURETIC PEPTIDE (BEAKER) (test ppzx=555) 88 pg/mL 0-100 CBC W/PLT COUNT & AUTO [id number] 02:08:00 Test Item Value Reference Range Comments WHITE BLOOD CELL COUNT (BEAKER) (test ampw=705) 3.5 K/ L 3.5-10.5 RED BLOOD CELL COUNT (BEAKER) (test gzmg=584) 6.62 M/ L 3.93-5.22 HEMOGLOBIN (BEAKER) (test mmez=369) 14.8 GM/DL 11.2-15.7 HEMATOCRIT (BEAKER) (test fgcb=911) 51.5 % 34.1-44.9 MEAN CORPUSCULAR VOLUME (BEAKER) (test tald=938) 77.8 fL 79.4-94.8 MEAN CORPUSCULAR HEMOGLOBIN (BEAKER) (test 22.4 pg 25.6-32.2 neek=167) MEAN CORPUSCULAR HEMOGLOBIN CONC (BEAKER) (test 28.7 GM/DL 32.2-35.5 xube=717) RED CELL DISTRIBUTION WIDTH (BEAKER) (test 23.4 % 11.7-14.4 tphg=817) PLATELET COUNT (BEAKER) (test sfgw=745) 242 K/CU MM 150-450 MEAN PLATELET VOLUME (BEAKER) (test bcug=219) 8.5 fL 9.4-12.3 NUCLEATED RED BLOOD CELLS (BEAKER) (test 0 /100 WBC 0-0 shjk=105) NEUTROPHILS RELATIVE PERCENT (BEAKER) (test 82 % orjd=715) LYMPHOCYTES RELATIVE PERCENT (BEAKER) (test 15 % lgci=809) MONOCYTES RELATIVE PERCENT (BEAKER) (test 2 % fajl=238) EOSINOPHILS RELATIVE PERCENT (BEAKER) (test 0 % gyzh=421) BASOPHILS RELATIVE PERCENT (BEAKER) (test 0 % jiwf=967) NEUTROPHILS ABSOLUTE COUNT (BEAKER) (test 2.85 K/ L 1.56-6.13 ecai=209) LYMPHOCYTES ABSOLUTE COUNT (BEAKER) (test 0.53 K/ L 1.18-3.74 bobk=997) MONOCYTES ABSOLUTE COUNT (BEAKER) (test 0.08 K/ L 0.24-0.36 xpxe=835) EOSINOPHILS ABSOLUTE COUNT (BEAKER) (test 0.00 K/ L 0.04-0.36 nbpy=034) BASOPHILS ABSOLUTE COUNT (BEAKER) (test 0.01 K/ L 0.01-0.08 cset=886) IMMATURE GRANULOCYTES-RELATIVE PERCENT (BEAKER) 0 % 0-1 (test giet=5366) [id number] 02:05:00 Test Item Value Reference Range Comments PHOSPHORUS (BEAKER) (test bmrz=940) 3.8 mg/dL 2.3-4.7 [id number] 02:05:00 Test Item Value Reference Range Comments MAGNESIUM (BEAKER) (test qjtx=382) 2.3 mg/dL 1.6-2.6 BASIC METABOLIC [id number] 02:05:00 Test Item Value Reference Range Comments SODIUM (BEAKER) (test 136 meq/L 136-145 lybv=673) POTASSIUM (BEAKER) (test 4.2 meq/L 3.5-5.1 rkbv=741) CHLORIDE (BEAKER) (test 94 meq/L 98-107 dzga=736) CO2 (BEAKER) (test 34 meq/L 22-29 auan=655) BLOOD UREA NITROGEN 8 mg/dL 7-21 (BEAKER) (test bdyu=153) CREATININE (BEAKER) (test 0.64 mg/dL 0.57-1.25 ahrk=325) GLUCOSE RANDOM (BEAKER) 141 mg/dL 70-105 (test tvtf=121) CALCIUM (BEAKER) (test 8.9 mg/dL 8.4-10.2 owzy=936) EGFR (BEAKER) (test 114 mL/min/1.73 sq m ESTIMATED GFR IS NOT mphs=3544) ACCURATE CREATININE CLEARANCE IN PREDICTING GLOMERULAR FILTRATION RATE. ESTIMATED GFR IS NOT APPLICABLE FOR DIALYSIS PATIENTS. HEPATIC FUNCTION [id number] 02:05:00 Test Item Value Reference Range Comments TOTAL PROTEIN (BEAKER) (test cycm=608) 7.0 gm/dL 6.0-8.3 ALBUMIN (BEAKER) (test kevo=7669) 3.6 g/dL 3.5-5.0 BILIRUBIN TOTAL (BEAKER) (test azny=371) 0.5 mg/dL 0.2-1.2 BILIRUBIN DIRECT (BEAKER) (test mriq=114) 0.2 mg/dL 0.1-0.5 ALKALINE PHOSPHATASE (BEAKER) (test dzzp=146) 94 U/L 40-150 AST (SGOT) (BEAKER) (test vexb=472) 45 U/L 5-34 ALT (SGPT) (BEAKER) (test lggh=823) 24 U/L 6-55 PROTHROMBIN [id number] 01:37:00 Test Item Value Reference Range Comments PROTIME (BEAKER) (test zfpx=082) 16.7 seconds 11.7-14.7 INR (BEAKER) (test ppef=559) 1.4 <=5.9 RECOMMENDED COUMADIN/WARFARIN INR THERAPY RANGESSTANDARD DOSE: 2.0 - 3.0 Includes: PROPHYLAXIS forvenous thrombosis, systemic embolization; TREATMENT for venous thrombosis and/or pulmonary embolus.HIGH RISK: Target INR is 2.5-3.5 for patients with mechanical heart valves.[id number] 00:57:00 Test Item Value Reference Range Comments ACTIVATED CLOTTING TIME 411 sec TESTED AT [facility] [address] (BEAKER) (test sgcn=158) [place] [address] [id number] 00:57:00 Test Item Value Reference Range Comments ACTIVATED CLOTTING TIME 769 sec TESTED AT [place] [address]) (test doet=690) [place] [id number]
--- OUTSIDE RECORDS SUMMARY | 2018-04-13 17:01 | XMS REPORT | Clinical Summary ---
:1955 Author Organization [facility] Address [address] [place] [address] Care Team Providers Name Role Phone Beto Redmond MD Primary Care Provider Allergies Active Allergy Reactions Severity Noted Date Comments Lisinopril High 04/11/2017 Pt with history of lisinopril causing angioedema Medications Medication Sig Dispensed Refills Start End Status Date Date tolterodine (DETROL) 2 Take 2 mg by 0 Active MG tablet mouth 2 (two) times daily. albuterol HFA (VENTOLIN Inhale 1 puff by 0 Active HFA) 90 mcg/actuation mouth via inhaler inhaler every 6 (six) hours as needed for Wheezing. amitriptyline (ELAVIL) Take 10 mg by 0 Active 10 MG tablet mouth nightly. estradiol (ESTRACE) 2 Take 2 mg by 0 Active MG tablet mouth daily. famotidine (PEPCID) 20 Take 20 mg by 0 Active MG tablet mouth daily. cetirizine (ZYRTEC) 5 Take 5 mg by 0 Active MG tablet mouth daily. medroxyPROGESTERone Take 2.5 mg by 0 Active (PROVERA) 2.5 MG tablet mouth 3 (three) times daily. umeclidinium-vilanterol Inhale 1 puff by 0 Active (ANORO ELLIPTA) 62.5-25 mouth via mcg/actuation DsDv inhaler daily. furosemide (LASIX) 40 Take 40 mg by 0 Active MG tablet mouth daily. oxyCODONE (ROXICODONE) Take 30 mg by 0 Active 30 MG immediate release mouth every 6 tablet (six) hours as needed for Pain. predniSONE (DELTASONE) Take 10 mg by 0 Active 10 MG tablet mouth daily. pantoprazole (PROTONIX) Take 40 mg by 0 Active 40 MG tablet mouth daily. aspirin [...] mg total) by 18 019 mouth daily. isosorbide mononitrate Take 1 tablet 30 tablet [...] amLODIPine (NORVASC) 10 Take 10 mg by 0 Discontinued MG tablet mouth daily. 018 ipratropium-albuterol Take 3 mLs by 300 mL 0 04/17/19 (DUO-NEB) 0.5 mg-3 nebulization 18 019 mg(2.5 mg base)/3 mL every 4 (four) nebulizer solution hours as needed for Wheezing or Shortness of Breath for up to 360 days. Active Problems Problem Noted Date Essential hypertension 04/26/2017 Other hyperlipidemia 04/26/2017 Tobacco use 04/26/2017 COPD (chronic obstructive pulmonary disease) 04/26/2017 MALU on CPAP 04/26/2017 Chronic diastolic CHF (congestive heart failure) 04/26/2017 NSTEMI (non-ST elevated myocardial infarction) 04/12/2017 Resolved Problems Problem Noted Date Resolved Date Chest pain 04/11/2017 04/26/2017 Encounters Date Type Specialty Care Team Description 04/26/2017 Office Visit Cardiology Alexander Olivier NP Tobacco use; MALU on CPAP; Chronic diastolic CHF (congestive heart failure) ([facility]) 04/13/2017 Orders Only General Internal Medicine 04/11/2017 - Hospital Encounter Cardiology [place], Unstable angina 04/17/2017 Evelin Silver, pectoris ([facility]) (Primary Dx) Chip Davila MD after 04/12/2017 Immunizations Name Dates Previously Given Next Due Influenza Three-TIV PF 5+ YR 04/12/2017 Pneumococcal Polysaccharide (Pneumovax) 04/12/2017 Social History Tobacco Use Types Packs/Day Years Used Date Current Every Day Smoker Cigarettes 0.25 40 Started: 04/12/1976 Smokeless Tobacco: Never Used Tobacco Cessation: Ready to Quit: Yes; Counseling Given: Yes Sex Assigned at Date Recorded Not on file Job Start Date Occupation Industry Not on file Not on file Not on file Travel History Travel Start Travel End No recent travel history available. Last Filed Vital Signs Vital Sign Reading Time Taken Blood Pressure 132/67 04/26/2017 11:10 AM DIABETES CLINICAL MANAGER Pulse 93 04/26/2017 11:10 AM DIABETES CLINICAL MANAGER Temperature 36.9 C (98.5 F) 04/17/2017 11:00 AM DIABETES CLINICAL MANAGER Respiratory Rate 16 04/26/2017 11:10 AM DIABETES CLINICAL MANAGER Oxygen Saturation 91% 04/26/2017 11:10 AM DIABETES CLINICAL MANAGER Inhaled Oxygen Concentration - - Weight 96.8 kg (213 lb 4.8 oz) 04/26/2017 11:10 AM DIABETES CLINICAL MANAGER Height 162.6 cm (5' 4") 04/26/2017 11:10 AM DIABETES CLINICAL MANAGER Body Mass Index 36.61 04/26/2017 11:10 AM DIABETES CLINICAL MANAGER Plan of Treatment Health Maintenance Due Date Last Done Comments INFLUENZA VACCINE 01/07/2018 04/12/2017 Procedures Procedure Name Priority Date/Time Associated Comments Diagnosis VASCULAR DIAGRAM -SCAN 05/04/2017 1:57 PM DIABETES CLINICAL MANAGER MAGNESIUM Routine 04/26/2017 12:33 Chronic diastolic Results for this PM DIABETES CLINICAL MANAGER CHF (congestive procedure are in heart failure) the results ([facility]) section. B-TYPE NATRIURETIC STAT 04/26/2017 12:33 Chronic diastolic Results for this FACTOR (BNP) PM DIABETES CLINICAL MANAGER CHF (congestive procedure are in heart failure) the results ([facility]) section. BASIC METABOLIC PANEL STAT 04/26/2017 12:33 Chronic diastolic Results for this (7) PM DIABETES CLINICAL MANAGER CHF (congestive procedure are in heart failure) the results (H[facility]) section. VASCULAR DIAGRAM -SCAN 04/20/2017 10:50 AM DIABETES CLINICAL MANAGER RHYTHM STRIP - SCAN 04/18/2017 11:10 AM DIABETES CLINICAL MANAGER VASCULAR DIAGRAM -SCAN 04/18/2017 11:10 AM DIABETES CLINICAL MANAGER CBC W/PLT COUNT & AUTO Routine 04/17/2017 5:36 Results for this DIFFERENTIAL AM DIABETES CLINICAL MANAGER procedure are in the results section. CBC W/PLT COUNT & AUTO Routine 04/17/2017 5:36 Results for this DIFFERENTIAL AM DIABETES CLINICAL MANAGER procedure are in the results section. BASIC METABOLIC PANEL Routine 04/17/2017 5:36 Results for this (7) AM DIABETES CLINICAL MANAGER procedure are in the results section. ECHOCARDIOGRAM REPORT - 04/16/2017 3:50 SCAN PM DIABETES CLINICAL MANAGER CBC W/PLT COUNT & AUTO Routine 04/16/2017 4:39 Results for this DIFFERENTIAL AM DIABETES CLINICAL MANAGER procedure are in the results section. CBC W/PLT COUNT & AUTO Routine 04/16/2017 4:39 Results for this DIFFERENTIAL AM DIABETES CLINICAL MANAGER procedure are in the results section. BASIC METABOLIC PANEL Routine 04/15/2017 7:36 Results for this (7) AM DIABETES CLINICAL MANAGER procedure are in the results section. CBC W/PLT COUNT & AUTO Routine 04/15/2017 6:08 Results for this DIFFERENTIAL AM DIABETES CLINICAL MANAGER procedure are in the results section. CBC W/PLT COUNT & AUTO Routine 04/15/2017 6:08 Results for this DIFFERENTIAL AM DIABETES CLINICAL MANAGER procedure are in the results section. BASIC METABOLIC PANEL Routine 04/14/2017 10:06 Results for this (7) AM DIABETES CLINICAL MANAGER procedure are in the results section. CBC W/PLT COUNT & AUTO Routine 04/14/2017 3:52 Results for this DIFFERENTIAL AM DIABETES CLINICAL MANAGER procedure are in the results section. CBC W/PLT COUNT & AUTO Routine 04/14/2017 3:52 Results for this DIFFERENTIAL AM DIABETES CLINICAL MANAGER procedure are in the results section. CT CHEST WITHOUT IV Routine 04/13/2017 9:29 Results for this CONTRAST PM DIABETES CLINICAL MANAGER procedure are in the results section. CARDIAC CATH REPORT - 04/13/2017 8:30 SCAN PM DIABETES CLINICAL MANAGER APTT Routine 04/13/2017 11:58 Results for this AM DIABETES CLINICAL MANAGER procedure are in the results section. PERIPHERAL VASCULAR 04/13/2017 10:50 REPORT - SCAN AM DIABETES CLINICAL MANAGER BASIC METABOLIC PANEL Routine 04/13/2017 8:25 Results for this (7) AM DIABETES CLINICAL MANAGER procedure are in the results section. VENOUS DOPPLER LEGS Routine 04/13/2017 8:10 Results for this BILATERAL AM DIABETES CLINICAL MANAGER procedure are in the results section. ECG 12-LEAD Routine 04/13/2017 7:41 Results for this AM DIABETES CLINICAL MANAGER procedure are in the results section. ECG 12-LEAD Routine 04/13/2017 7:41 AM DIABETES CLINICAL MANAGER Procedure Note - Interface, External Ris In - 04/13/2017 7:47 AM DIABETES CLINICAL MANAGER Ventricular Rate 77 BPM Atrial Rate 77 BPM P-R Interval 164 ms QRS Duration 82 ms Q-T Interval 400 ms QTC Calculation(Bazett) 452 ms P Portal 58 degrees R Portal 73 degrees T Portal 53 degrees Normal sinus rhythm Normal ECG No previous ECGs available BASIC METABOLIC PANEL (7) Routine 04/13/2017 5:58 AM DIABETES CLINICAL MANAGER CBC W/PLT COUNT & AUTO Routine 04/13/2017 4:15 AM DIABETES CLINICAL MANAGER Results for this DIFFERENTIAL procedure are in the results section. APTT Routine 04/13/2017 4:15 AM DIABETES CLINICAL MANAGER CBC W/PLT COUNT & AUTO Routine 04/13/2017 4:15 AM DIABETES CLINICAL MANAGER Results for this DIFFERENTIAL procedure are in the results section. APTT Routine 04/12/2017 9:09 AM DIABETES CLINICAL MANAGER CREATINE KINASE (CK), TOTAL STAT 04/12/2017 9:09 AM DIABETES CLINICAL MANAGER Results for this AND MB procedure are in the results section. TROPONIN I STAT 04/12/2017 9:09 AM DIABETES CLINICAL MANAGER 2D ECHO W/ DOPPLER MARIBEL 04/12/2017 8:17 AM DIABETES CLINICAL MANAGER Results for this (CW/PW/COLOR) procedure are in the results section. XR CHEST 1 VIEW STAT 04/12/2017 1:46 AM DIABETES CLINICAL MANAGER Results for this PORTABLE/BEDSIDE procedure are in the results section. CBC W/PLT COUNT & AUTO STAT 04/12/2017 1:18 AM DIABETES CLINICAL MANAGER Results for this DIFFERENTIAL procedure are in the results section. D-DIMER STAT 04/12/2017 1:18 AM DIABETES CLINICAL MANAGER PROTHROMBIN TIME/INR STAT 04/12/2017 1:18 AM DIABETES CLINICAL MANAGER APTT STAT 04/12/2017 1:18 AM DIABETES CLINICAL MANAGER CBC W/PLT COUNT & AUTO STAT 04/12/2017 1:18 AM DIABETES CLINICAL MANAGER Results for this DIFFERENTIAL procedure are in the results section. B-TYPE NATRIURETIC FACTOR STAT 04/12/2017 1:18 AM DIABETES CLINICAL MANAGER Results for this (BNP) procedure are in the results section. CREATINE KINASE (CK), TOTAL STAT 04/12/2017 1:18 AM DIABETES CLINICAL MANAGER Results for this AND MB procedure are in the results section. TROPONIN I STAT 04/12/2017 1:18 AM DIABETES CLINICAL MANAGER PHOSPHORUS STAT 04/12/2017 1:18 AM DIABETES CLINICAL MANAGER MAGNESIUM STAT 04/12/2017 1:18 AM DIABETES CLINICAL MANAGER HEPATIC FUNCTION PANEL STAT 04/12/2017 1:18 AM DIABETES CLINICAL MANAGER BASIC METABOLIC PANEL (7) STAT 04/12/2017 1:18 AM DIABETES CLINICAL MANAGER POCT-ACT Routine 04/12/2017 12:29 AM DIABETES CLINICAL MANAGER POCT-ACT Routine 04/12/2017 12:09 AM DIABETES CLINICAL MANAGER after 04/12/2017 Results VASCULAR DIAGRAM -SCAN (05/04/2017 1:57 PM DIABETES CLINICAL MANAGER)Only the most recent of3 resultswithin the time period is included. Narrative Performed At B N P (04/26/2017 12:33 PM DIABETES CLINICAL MANAGER)Only the most recent of2 resultswithin the time period is included. BNP 98 0 - 100 pg/mL [facility] Specimen Blood Performing Organization Address City/[facility] Cent[facility]ode Phone Number [address] [address] [phone] CENTER Magnesium (04/26/2017 12:33 PM DIABETES CLINICAL MANAGER)Only the most recent of2 resultswithin the time period is included. Magnesium 1.8 1.6 - 2.6 mg/dL [facility] Specimen Blood Performing Organization Address City/[facility]/Zipcode Phone Number [address] [address] CENTER Basic Metabolic Panel (04/26/2017 12:33 PM DIABETES CLINICAL MANAGER)Only the most recent of7 resultswithin the time period is included. Sodium 144 136 - 145 meq/L [facility] Potassium 3.7 3.5 - 5.1 meq/L [facility] Chloride 105 98 - 107 meq/L [facility] CO2 32 (H) 22 - 29 meq/L [facility] BUN 8 7 - 21 mg/dL [facility] Creatinine 0.72 0.57 - 1.25 mg/dL [facility] Glucose 92 70 - 105 mg/dL [facility] Calcium 8.9 8.4 - 10.2 mg/dL [facility] EGFR 99Comment: ESTIMATED GFR IS mL/min/1.73 sq m [facility] NOT ACCURATE CREATININE [facility] CLEARANCE IN PREDICTING GLOMERULAR FILTRATION RATE. ESTIMATED GFR IS NOT APPLICABLE FOR DIALYSIS PATIENTS. Specimen Blood Performing Organization Address City/State/Zipcode Phone Number [facility] [address] [place] [address] [phone] CENTER RHYTHM STRIP - SCAN (04/18/2017 11:10 AM DIABETES CLINICAL MANAGER) Narrative Performed At CBC with platelet count + automated diff (04/17/2017 5:36 AM DIABETES CLINICAL MANAGER)Only the most recent of6 resultswithin the time period is included. WBC 4.1 3.5 - 10.5 K/L [facility] RBC 6.01 (H) 3.93 - 5.22 M/L [facility] Hemoglobin 13.5 11.2 - 15.7 GM/DL [facility] Hematocrit 47.0 (H) 34.1 - 44.9 % [facility] MCV 78.2 (L) 79.4 - 94.8 fL [facility] MCH 22.5 (L) 25.6 - 32.2 pg [facility] MCHC 28.7 (L) 32.2 - 35.5 GM/DL [facility] RDW 22.9 (H) 11.7 - 14.4 % [facility] Platelets 208 150 - 450 K/CU MM [facility] MPV 9.1 (L) 9.4 - 12.3 fL [facility] nRBC 0 0 - 0 /100 WBC [facility] % Neutros 50 % [facility] % Lymphs 37 % [facility] % Monos 10 % [facility] % Eos 1 % [facility] % Baso 1 % [facility] # Neutros 2.08 1.56 - 6.13 K/L [facility] # Lymphs 1.55 1.18 - 3.74 K/L [facility] # Monos 0.42 (H) 0.24 - 0.36 K/L [facility] # Eos 0.06 0.04 - 0.36 K/L [facility] # Baso 0.02 0.01 - 0.08 K/L [facility] Immature Granulocytes-Relative 0 0 - 1 % [facility] Specimen Blood Performing Organization Address City/State/Zipcode Phone Number [facility] [address] [place] [address] CENTER ECHOCARDIOGRAM REPORT - SCAN (04/16/2017 3:50 PM DIABETES CLINICAL MANAGER) Narrative Performed At CT chest without IV contrast (04/13/2017 9:29 PM DIABETES CLINICAL MANAGER) Narrative Performed At FINAL REPORT [facility] CT, CHEST, WITHOUT CONTRAST INDICATION: dyspnea, cough [...] MD Report Verified Date/Time:04/13/2017 23:31:59 Reading Location: [address] Body Reading Room Procedure Note Interface, External Ris In - 04/13/2017 11:34 PM DIABETES CLINICAL MANAGER FINAL REPORT CT, CHEST, WITHOUT CONTRAST INDICATION: [...] Report Verified Date/Time: 04/13/2017 23:31:59 Reading Location: [facility] C0[facility] CT Body Reading Room Performing Organization Address City/State/Zipcode Phone Number [place] RIS CARDIAC CATH REPORT - SCAN (04/13/2017 8:30 PM DIABETES CLINICAL MANAGER) Narrative Performed At aPTT (04/13/2017 11:58 AM DIABETES CLINICAL MANAGER)Only the most recent of4 resultswithin the time period is included. PTT 53.5 (H) 22.5 - 36.0 seconds [facility] Specimen Blood - Line, Venous Performing Organization Address City/State/Zipcode Phone Number [facility] [address] [place], [place] [phone] [place] PERIPHERAL VASCULAR REPORT - SCAN (04/13/2017 10:50 AM DIABETES CLINICAL MANAGER) Narrative Performed At Venous doppler legs bilateral (04/13/2017 8:10 AM DIABETES CLINICAL MANAGER) Ejection Fraction [facility] CPACS Impressions Performed At Right Impression [facility] CPACS 1. There is no deep venous obstruction [...] ; Diameters are measured in cm Narrative Performed At PV LAB - Lower Extremities DVT Study [facility] Demographics Patient Name BARBY, Date of Study04/13/2017 LUNA [id number] Age62 Visit Number [id number] Gender Female Accession Number [id number] Date of Birth1955 Jose Rafael Davila MD Room [id number] Physician SonographDelonte Ovalles T PhysicianMD, RPVI Procedure Type of Study: Veins: Lower Extremities DVT Study, VENOUS DOPPLER LEG, BILATERAL. Indications for Study:Edema. Patient Status:Routine. Study Location:Vascular Lab. Technical Quality:Adequate visualization. Risk Factors History of Disease +---------+----+ + !Diagnosis!Date!Comments ! +---------+----+ + !Other!!Smoker, Colon Cancer, Heart Cath 05/09/17, Morbid Obesity ! +---------+----+ + Procedure Note Interface, External Ris In - 04/13/2017 10:26 AM DIABETES CLINICAL MANAGER PV LAB - Lower Extremities DVT Study Demographics Patient Name BARBY, Date of Study 04/13/2017 LUNA Age 62 Visit Number [id number] Gender Female Accession Number [id number] Date of 1955 Referring Chip Davila MD Room Number [id number] Physician President + Publisher Enzo Gudino Interpreting Lindsay Ovalles T Physician [...] cm/s ; Diameters are measured in cm Performing Organization Address City/[facility] Phone Number [facility] CPACS ECG 12 lead (04/13/2017 7:41 AM DIABETES CLINICAL MANAGER) Narrative Performed At Ventricular Rate 77 BPM GE MUSE Atrial Rate 77 BPM P-R Interval 164 ms QRS Duration 82 ms Q-T Interval 400 ms QTC Calculation(Bazett) 452 ms P Portal 58 degrees R Portal 73 degrees T Portal 53 degrees Normal sinus rhythm Normal ECG No previous ECGs available Confirmed by MD GARCIA RICHARD D ([id number]) on 04/14/2017 6:05:11 PM Procedure Note Interface, External Ris In - 04/14/2017 6:05 PM DIABETES CLINICAL MANAGER Ventricular Rate 77 BPM Atrial Rate 77 BPM P-R Interval 164 ms QRS Duration 82 ms Q-T Interval 400 ms QTC Calculation(Bazett) 452 ms P Portal 58 degrees R Portal 73 degrees T Portal 53 degrees Normal sinus rhythm Normal ECG No previous ECGs available Confirmed by MD GARCIA RICHARD D ([id number]) on 04/14/2017 6:05:11 PM Performing Organization Address City/[facility] Phone Number [place] MUSE Troponin I (04/12/2017 9:09 AM DIABETES CLINICAL MANAGER)Only the most recent of2 resultswithin the time period is included. Troponin I 2.70 (HH) 0.00 - 0.03 ng/mL [facility] Specimen Blood - Line, Venous Narrative Performed At [facility] Troponin I (TnI) levels must be interpreted [...] acidosis, acute neurological disease, and persistent tachyarrhythmia. Performing Organization Address City/[facility] Centercode Phone Number [address] [address] [place] Creatine Kinase (CK), Total and MB (04/12/2017 9:09 AM DIABETES CLINICAL MANAGER)Only the most recent of2 resultswithin the time period is included. Total CK 208 (H) 29 - 200 U/L [facility] CK-MB 22.0 (H) 0.0 - 6.6 ng/mL [facility] MB Relative Index 10.6 % [facility] Specimen Blood - Line, Venous Narrative Performed At CK-MB Reference Range: [facility] <6.7Normal 6.7-10.0Borderline >10.0 Abnormal Performing Organization Address [facility] Phone Number [address] [address] [phone] [place] Transthoracic 2D echo w/ doppler (cw/pw/color) (04/12/2017 8:17 AM DIABETES CLINICAL MANAGER) Ejection [facility] Narrative Performed At Transthoracic Echocardiography Report (TTE) [facility] Demographics Patient Name HUGGINS,Date of Study 04/12/2017 LUNA [id number] GenderFemale Visit Number [id number] Black [id number] Room Number 1422 Number Date of Birth4Referring Physician Evelin De Jesus MD Age62 year(s)President + Publisher Vincent Lambert [facility] AnalystAlex Physician ALEJANDRO Gamboa Procedure Type of Study TTE procedure:2DECHO W [...] LV endocardium is adequately visualized with IV ul trasound enhancing agent. The left ventricle is ch brandon size (by PSLAX dimension) is normal (female - LVIDd 3.8-5.2cm) . No evidence of LV hypertrophy. Al l of the LV segments contract normally . Global LV systolic function normal . Estimated LVEF by qu alitative assessment is normal (55-60%) . Grade 1 di astolic dysfunction (impaired relaxation and lo w-normal LA pressure). Left AtriumLA size is normal . Right VentricleNormal right ventricle structure and function. Right Atrium Normal right atrium. Aortic Valve Normal AoV structure. Mitral Valve Normal MV structure. Tricuspid ValveA trace of tricuspid regurgitation. Es timated peak systolic PA pressure is 30-35 mmHg . Pulmonic Valve Normal PV structure and function by limited views an d Doppler. AortaAortic root size (SInus of Valsalva diameter) is no rmal . PericardiumNo evidence of pericardial effusion. IVC/SVC/PA/PV/PleuralThe estimated RA pressure by IVC dynamics 5-10mmHg . Chambers/Structures Left Atrium LA Dimension: 3.08 cm LA Area: 19.9 cm^2 LA Volume: 53.58 ml LA Vol. Index: 27 ml/m^2 Left Ventricle LVIDd: 4.9 cm LV Septum Diastolic: 1.11 cm LV PW Diastolic: 1.08 cm LVOT Diameter: 2.31 cm Aorta Ao Root S of Arbil.: 3.65 cm Doppler/Quantitative Measurements LVOT Peak Velocity: 1.13 m/s Peak Gradient: 5.09 mmHg Mean Velocity: 0.67 m/s Mean Gradient: 2.18 mmHg LVOT Diameter: 2.31 cmLVOT VTI: 21.74 cm LVOT Area: 4.19 cm^2LVOT SV:91.07 ml LVOT CO: 6.47 l/min LVOT CI: 3.2 l/min/m^2 Procedure Note Interface, External Ris In - 04/16/2017 3:03 PM DIABETES CLINICAL MANAGER Transthoracic Echocardiography Report (TTE) Demographics Patient Name BARBY, Date of Study 04/12/2017 LUNA Gender Female Visit Number [id number] Race Black Room Number [facility] Number Date of 1955 Referring Physician Evelin De Jesus MD Age 62 year(s) President + Publisher Vincent Lambert RCS Licensed Occupational Therapist Andrez Guerrero Interpreting Soy Kimbrough Physician Procedure Type of Study TTE [...] CO: 6.47 l/min LVOT CI: 3.2 l/min/m^2 Performing Organization Address City/State/Zipcode Phone Number [facility] XR chest 1 view portable / bedside (04/12/2017 1:46 AM DIABETES CLINICAL MANAGER) Narrative Performed At FINAL REPORT [facility] History: Chest pain. Comparison: None. Findings: A single view of the chest is submitted. The cardiomediastinal contours are unremarkable. There are diffuse interstitial opacities, centered on the perihilar lungs and suggest of overt pulmonary edema. Atypical pneumonitis is an alternative consideration. There is no focal consolidation, pneumothorax, large pleural effusion or acute bony abnormality. Signed: Manjit Russell MD Report Verified Date/Time:04/12/2017 02:30:28 Reading Location: [address] Reading Room Procedure Note Interface, External Ris In - 04/12/2017 2:32 AM DIABETES CLINICAL MANAGER FINAL REPORT History: Chest pain. Comparison: None. Findings: A single view of the chest is submitted. The cardiomediastinal contours are unremarkable. There are diffuse interstitial opacities, centered on the perihilar lungs and suggest of overt pulmonary edema. Atypical pneumonitis is an alternative consideration. There is no focal consolidation, pneumothorax, large pleural effusion or acute bony abnormality. Signed: Manjit Russell MD Report Verified Date/Time: 04/12/2017 02:30:28 Reading Location: [address] Reading Room Performing Organization Address City/[facility]/Zipcode Phone Number [place] RIS Prothrombin time/INR (04/12/2017 1:18 AM DIABETES CLINICAL MANAGER) Protime 16.7 (H) 11.7 - 14.7 seconds [facility] INR 1.4 <=5.9 [facility] Specimen Blood Narrative Performed At [facility] RECOMMENDED COUMADIN/WARFARIN INR THERAPY RANGES STANDARD DOSE: 2.0 - 3.0 Includes: PROPHYLAXIS for venous thrombosis, systemic embolization; TREATMENT for venous thrombosis and/or pulmonary embolus. HIGH RISK: Target INR is 2.5-3.5 for patients with mechanical heart valves. Performing Organization Address [facility] Phone Number [address] [address] CENTER D-dimer (04/12/2017 1:18 AM DIABETES CLINICAL MANAGER) D-Dimer, Quant <0.27 <0.50 MG/L FEU [facility] Specimen Blood Narrative Performed At [facility] Intended Use: The D-Dimer Assay can be used to aid in the diagnosis of Deep Vein Thrombosis (DVT) and Pulmonary Embolism Disease (PED). In patients with low pre-test probability, various studies concerning STA Liatest D-dimer test have reported that with a cutoff value of 0.50 MG/L FEU, the Negative Predictive Value (NPV) regarding the exclusion of thrombosis is within 95-100% range. Performing Organization Address [facility] Phone Number [address] [address] CENTER Phosphorus (04/12/2017 1:18 AM DIABETES CLINICAL MANAGER) Phosphorus 3.8 2.3 - 4.7 mg/dL [facility] Specimen Blood Performing Organization Address [facility]ode Phone Number [address] [address] CENTER Hepatic function panel (04/12/2017 1:18 AM DIABETES CLINICAL MANAGER) Protein, Total 7.0 6.0 - 8.3 gm/dL [facility] Albumin 3.6 3.5 - 5.0 g/dL [facility] Total Bilirubin 0.5 0.2 - 1.2 mg/dL [facility] Bilirubin, Direct 0.2 0.1 - 0.5 mg/dL [facility] Alkaline Phosphatase 94 40 - 150 U/L [facility] AST 45 (H) 5 - 34 U/L [facility] ALT 24 6 - 55 U/L [facility] Specimen Blood Performing Organization Address [facility] Centercooh Phone Number [address] [phone] [place] ACTIVATED CLOTTING TIME (04/12/2017 12:29 AM DIABETES CLINICAL MANAGER)Only the most recent of2 resultswithin the time period is included. Activated Clotting Time 411Comment: TESTED AT sec [address] [address] Specimen Blood Performing Organization Address [facility] Phone Number [address] [address] CENTER after 04/12/2017 Insurance Payer Benefit Plan / Group Subscriber ID Type Phone Address [employer] - [employer] CARE A[employer] HMO POS QPOS xxxxxxxxx HMO/POS (Home) Road [address] [place] [phone] Advance Directives For more information, please contact:[address] [phone] Code Status Date Activated Date Inactivated Comments Full Code 04/11/2017 11:56 PM 04/17/2017 8:35 PM This code status was determined by: Patient
--- OUTSIDE RECORDS SUMMARY | 2018-04-13 17:02 | XMS REPORT ---
:1955 Author Organization eClinicalWorks Care Team Providers Name Role Phone Beto Redmond Provider Role Unavailable Allergies, Adverse Reactions, Alerts Substance Reaction Event Type Russ Inhibitor Info Not Available Drug Allergy Problems Problem Type Condition Code Onset Dates Condition Status Problem Angioedema T78.3XXA Active Problem Leiomyoma of uterus D25.9 Active Problem Urinary incontinence R32 Active Problem Microalbuminuria R80.9 Active Problem Hyperglycemia R73.9 Active Problem COPD (chronic obstructive J44.9 Active pulmonary disease) Problem CHF (congestive heart failure) I50.9 Active Problem Colon cancer C18.9 Active Problem GERD (gastroesophageal reflux K21.9 Active disease) Problem Osteoporosis M81.0 Active Assessment Drug-induced insomnia F19.982 Active Assessment Microalbuminuria R80.9 Active Assessment CHF (congestive heart failure) I50.9 Active Assessment Hyperglycemia R73.9 Active Assessment Osteoporosis M81.0 Active Assessment GERD (gastroesophageal reflux K21.9 Active disease) Problem Idiopathic peripheral neuropathy G60.9 Active Medications Medication Code Code Instructions Start End Status Dosage System Date Date Estradiol ND 72170779003 2 MG Orally Active 1 tablet Daily for Three Weeks, 1 Week off Amitriptyline HCl ND 68724323249 10 MG Active TAKE 1 TABLET AT BEDTIME Detrol LA ND 53278618703 2 MG Active TAKE ONE CAPSULE BY MOUTH EVERY DAY Norvasc [facility] 16102664125 10 MG Active TAKE 1 TABLET BY MOUTH EVERY DAY Cetirizine HCl ND 84853418352 10 MG Active TAKE 1 TABLET BY MOUTH EVERY DAY Estrace ND 12823292782 2 MG Active TAKE 1 TABLET BY MOUTH EVERY 3 DAYS ProAir HFA [facility] 48577901815 108 (90 Base) Active INHALE 2 MCG/ACT PUFF 4 TIMES A DAY Zestoretic ND 29557135904 20-12.5 MG Active 1 tablet Orally Once a day Anoro Ellipta ND 29202390132 62.5-25 MCG/INH Active 1 puff Inhalation Once a day Spironolactone ND 53940650053 25 MG Orally Active 1 tablet Once a day with food Provera [facility] 90882474864 2.5 MG Active TAKE 1 TABLET BY MOUTH EVERY DAY OxyContin [facility] 26982100190 10 MG Orally Active 1 tablet every 12 hrs Furosemide [facility] 20147063962 40 MG Orally Active 1 tablet Once a day Results No Known Results Summary Purpose eClinicalWorks Submission
--- OUTSIDE RECORDS SUMMARY | 2018-04-13 17:02 | XMS REPORT ---
:1955 Author Organization eClinicalWorks Care Team Providers Name Role Phone Beto Redmond Provider Role Unavailable Allergies No Known Allergies Problems Problem Type Condition Code Onset Dates Condition Status Problem Angioedema T78.3XXA Active Problem Leiomyoma of uterus D25.9 Active Problem Urinary incontinence R32 Active Problem Idiopathic peripheral neuropathy G60.9 Active Problem Microalbuminuria R80.9 Active Problem Hyperglycemia R73.9 Active Problem COPD (chronic obstructive J44.9 Active pulmonary disease) Problem CHF (congestive heart failure) I50.9 Active Problem Colon cancer C18.9 Active Problem GERD (gastroesophageal reflux K21.9 Active disease) Problem Osteoporosis M81.0 Active Medications Medication Code System Code Instructions Start End Date Status Dosage Date [facility] 15673402178 10 MG Orally Once Active TAKE 1 a day TABLET BY MOUTH EVERY DAY Results No Known Results Summary Purpose eClinicalWorks Submission
[2018-04-13] MEDS ORDERED: MORPHINE 4 MG/ML SYR ONE (19:31)
--- NOTE | 2018-04-13 19:37 | RAD REPORT ---
EXAM DESCRIPTION: CT - Head C Spine Mpr Wo Con - 04/13/2018 7:16 pm CLINICAL HISTORY: Head and neck injury status post fall. Head and neck pain COMPARISON: None. TECHNIQUE: Computed axial tomography of the head and cervical spine was obtained. Sagittal and coronal reconstruction was performed. All CT scans are performed using dose optimization technique as appropriate and may include automated exposure control or mA/KV adjustment according to patient size. FINDINGS: An intracranial bleed is not seen. The ventricles are normal in caliber. An extra-axial fl uid collection is not noted.Fluid within the visualized sinuses and mastoids is not seen A cervical fracture is not visualized. No dislocation is noted. IMPRESSION: No acute intracranial abnormality is seen. A cervical fracture is not visualized. If the patient continues to have symptoms to suggest intracra nial /spinal cord pathology then MRI would be recommended
--- NOTE | 2018-04-13 20:45 | EDPHYS ---
Physician Documentation [facility] Name: Iman Huggins Age: 63 yrs Sex: Female : 1955 Arrival Date: 04/13/2018 Time: 17:00 Bed 20 Private MD: Gerald Thurston ED Physician Usman Vazquez HPI: 04/13 20:00 This 63 yrs old Black Female presents to ER via Wheelchair with complaints of Headache. pm1 20:00 The patient complains of pain to the forehead. The patient describes the headache as pm1 aching. Onset: The symptoms/episode began/occurred yesterday. Associated signs and symptoms: Pertinent negatives: dizziness, fever, nausea, neck stiffness, paresthesias, rash, vision changes, vomiting, weakness, LOC. Severity of symptoms: in the emergency department the pain is unchanged. The symptoms are alleviated by nothing. the symptoms are aggravated by nothing. The patient has not experienced similar symptoms in the past. Patient was sitting in chair, got up, and then fell forward. she hit her forehead and has some pain to her right side of neck, right hip and right knee. No LOC. No shortness of breath, chest pain, dizziness prior to fall. Patient able to get up and walk after falling. Historical: - Allergies: 17:36 ANGEL INHIBITORS; aj 17:36 ARB-Angiotensin Receptor Antagonist; aj 17:36 Lisinopril; aj - Home Meds: 17:36 albuterol sulfate 90 mcg/actuation Inhl HFAA 2 puffs three times a day [Active]; aj amitriptyline 10 mg Oral tab nightly [Active]; Anoro Ellipta 62.5-25 mcg/actuation inhalation dsdv 1 puff once daily [Active]; aspirin 81 mg Oral TbEC 1 tab once daily [Active]; Detrol 2 mg Oral tab daily [Active]; estradiol 2 mg Oral tab once daily [Active]; Lasix 40 mg Oral tab once daily [Active]; Lipitor 40 mg Oral tab 1 tab once daily [Active]; medroxyprogesterone 2.5 mg Oral tab every 3 days [Active]; Norvasc 10 mg Oral tab 1 tab once daily [Active]; nitroglycerin 0.4 mg SL subl [Active]; oxycodone 30 mg Oral tab every 6 hours for Pain, for back pain [Active]; Pepcid 20 mg Oral tab once daily [Active]; prednisone 10 mg Oral tab once daily [Active]; Zyrtec 5mg Oral once daily [Active]; - PMHx: 17:36 COPD; chronic back pain; Hypertension; Myocardial infarction; aj - PSHx: 17:36 None; aj - Immunization history:: Adult Immunizations up to date. - Social history:: Smoking status: Patient/guardian denies using tobacco. - Ebola Screening: : Patient negative for fever greater than or equal to 101.5 degrees Fahrenheit, and additional compatible Ebola Virus Disease symptoms Patient denies exposure to infectious person Patient denies travel to an Ebola-affected area in the 21 days before illness onset No symptoms or risks identified at this time. ROS: 20:00 Constitutional: Negative for fever, chills, and weight loss, Eyes: Negative for injury, pm1 pain, redness, and discharge, ENT: Negative for injury, pain, and discharge, Cardiovascular: Negative for chest pain, palpitations, and edema, Respiratory: Negative for shortness of breath, cough, wheezing, and pleuritic chest pain. 20:00 Abdomen/GI: Negative for abdominal pain, nausea, vomiting, diarrhea, and constipation, Back: Negative for injury and pain, : Negative for injury, bleeding, discharge, and swelling. 20:00 Skin: Negative for injury, rash, and discoloration, Neuro: Negative for headache, weakness, numbness, tingling, and seizure. 20:00 Neck: Positive for pain to right side of neck, Negative for stiffness, bony tenderness. 20:00 MS/extremity: Positive for right hip and right knee pain, Negative for decreased range of motion, deformity. Exam: 20:00 Constitutional: This is a well developed, well nourished patient who is awake, alert, pm1 and in no acute distress. Head/Face: Normocephalic, atraumatic. Eyes: Pupils equal round and reactive to light, extra-ocular motions intact. Lids and lashes normal. Conjunctiva and sclera are non-icteric and not injected. Cornea within normal limits. Periorbital areas with no swelling, redness, or edema. ENT: Nares patent. No nasal discharge, no septal abnormalities noted. Tympanic membranes are normal and external auditory canals are clear. Oropharynx with no redness, swelling, or masses, exudates, or evidence of obstruction, uvula midline. Mucous membranes moist. Chest/axilla: Normal chest wall appearance and motion. Nontender with no deformity. No lesions are appreciated. Cardiovascular: Regular rate and rhythm with a normal S1 and S2. No gallops, murmurs, or rubs. Normal PMI, no JVD. No pulse deficits. Respiratory: Lungs have equal breath sounds bilaterally, clear to auscultation and percussion. No rales, rhonchi or wheezes noted. No increased work of breathing, no retractions or nasal flaring. Abdomen/GI: Soft, non-tender, with normal bowel sounds. No distension or tympany. No guarding or rebound. No evidence of tenderness throughout. Back: No spinal tenderness. No costovertebral tenderness. Full range of motion. Skin: Warm, dry with normal turgor. Normal color with no rashes, no lesions, and no evidence of cellulitis. 20:00 Neck: External neck: tenderness, of the right trapezius, C-spine: vertebral tenderness, is not appreciated. 20:00 Musculoskeletal/extremity: Extremities: grossly normal except: noted in the right hip and right knee: tenderness, There is no evidence of decreased ROM, deformity. 20:00 Neuro: Orientation: is normal, Motor: is normal, moves all fours, Sensation: is normal, no obvious gross deficits. Vital Signs: 17:36 BP 144 / 73; Pulse 100; Resp 29; Temp 97.5; Pulse Ox 68% on R/A; Weight 99.34 kg; aj Height 5 ft. 4 in. (162.56 cm); 17:36 Pulse Ox 90% on 6 lpm NC; aj 19:10 BP 141 / 81; Pulse 75; Resp 18; Temp 97.8; Pulse Ox 99% on 2 lpm NC; Pain 8/10; rr5 20:00 BP 149 / 81; Pulse 89; Resp 17; Pulse Ox 98% on 2 lpm NC; rr5 17:36 Body Mass Index 37.59 (99.34 kg, 162.56 cm) aj MDM: 18:32 Patient medically screened. [facility] 20:43 Data reviewed: vital signs. Counseling: I had a detailed discussion with the patient pm1 and/or guardian regarding: the historical points, exam findings, and any diagnostic results supporting the discharge/admit diagnosis, radiology results, the need for outpatient follow up, to return to the emergency department if symptoms worsen or persist or if there are any questions or concerns that arise at home. 04/13 19:02 Order name: CT Head C Spine; Complete Time: 20:33 pm1 04/13 19:02 Order name: Hip Right 2 View XRAY; Complete Time: 21:30 pm1 04/13 19:02 Order name: Knee Right 3 View XRAY; Complete Time: 21:30 pm1 Administered Medications: 20:11 Drug: morphine 4 mg Route: IM; Site: right gluteus; rr5 Disposition: 04/13/18 20:44 Discharged to Home. Impression: Superficial injury of head, Other slipping, tripping and stumbling and falls, Contusion of right knee, Pain in right hip. - Condition is Stable. - Discharge Instructions: Contusion, Head Injury, Adult, Knee Pain, Hip Pain. - Prescriptions for Tylenol- Codeine #3 300-30 mg Oral Tablet - take 2 tablets by ORAL route every 6 hours As needed; 20 tablet. - Medication Reconciliation Form, Thank You Letter, Prescription Opioid Use form. - Follow up: Emergency Department; When: As needed; Reason: Worsening of condition. Follow up: Private Physician; When: 2 - 3 days; Reason: Recheck today's complaints, Continuance of care, Re-evaluation by your physician. - Problem is new. - Symptoms have improved. Addendum: 04/17/2018 07:34 Co-signature as Attending Physician, Usman Vazquez MD I agree with the assessment and c tabor plan of care. Signatures: Dispatcher [employer] Hemalatha Pizarro RN RN aj Anderson, Corey, MD MD cha Marinas, Patrick, DRUPAL PHP DEVELOPER DRUPAL PHP DEVELOPER pm1 Naima Kline cc3 Sridhar Ashton RN RN rr5 Corrections: (The following items were deleted from the chart) 04/13 20:46 20:44 04/13/2018 20:44 Discharged to Home. Impression: Headache; Other slipping, pm1 tripping and stumbling and falls; Contusion of right knee; Pain in right hip. Condition is Stable. Forms are Medication Reconciliation Form, Thank You Letter, Antibiotic Education, Prescription Opioid Use. Follow up: Emergency Department; When: As needed; Reason: Worsening of condition. Follow up: Private Physician; When: 2 - 3 days; Reason: Recheck today's complaints, Continuance of care, Re-evaluation by your physician. Problem is new. Symptoms have improved. pm1 21:43 20:46 04/13/2018 20:44 Discharged to Home. Impression: Superficial injury of head; cc3 Other slipping, tripping and stumbling and falls; Contusion of right knee; Pain in right hip. Condition is Stable. Discharge Instructions: Contusion, Head Injury, Adult, Knee Pain, Hip Pain. Forms are Medication Reconciliation Form, Thank You Letter, Antibiotic Education, Prescription Opioid Use. Follow up: Emergency Department; When: As needed; Reason: Worsening of condition. Follow up: Private Physician; When: 2 - 3 days; Reason: Recheck today's complaints, Continuance of care, Re-evaluation by your physician. Problem is new. Symptoms have improved. pm1
--- NOTE | 2018-04-13 20:45 | ER ---
Nurse's Notes [facility] Name: Iman Huggins Age: 63 yrs Sex: Female : 1955 Arrival Date: 04/13/2018 Time: 17:00 Bed 20 Private MD: Gerald Thurston Diagnosis: Other slipping, tripping and stumbling and falls;Contusion of right knee;Pain in right hip;Superficial injury of head Presentation: 04/13 17:32 Presenting complaint: Patient states: Reports headache after fall tomas forehead aj yesterday when ambulating without her oxygen.. Family also reports patient was found sitting on floor without O2 on. Presented to ER without oxygen on. Transition of care: patient was not received from another setting of care. Onset of symptoms was April 12, 2018. Risk Assessment: Do you want to hurt yourself or someone else? Patient reports no desire to harm self or others. Initial Sepsis Screen: Does the patient meet any 2 criteria? No. Patient's initial sepsis screen is negative. Does the patient have a suspected source of infection? No. Patient's initial sepsis screen is negative. Care prior to arrival: None. 17:32 Method Of Arrival: Wheelchair 17:32 Acuity: RAD 2 aj Triage Assessment: 17:36 Headache History: Denies prior headaches. General: Appears in no apparent distress. aj comfortable, Behavior is calm, cooperative. Pain: Complains of pain in face. Neuro: Level of Consciousness is awake, alert, obeys commands, Oriented to person, place, time, situation, Appropriate for age. Respiratory: Airway is patent Respiratory effort is even, unlabored, Respiratory pattern is symmetrical, tachypnea. Derm: Skin is intact, is healthy with good turgor, Skin is pink, warm \T\ dry. normal. Historical: - Allergies: 17:36 ANGEL INHIBITORS; aj 17:36 ARB-Angiotensin Receptor Antagonist; aj 17:36 Lisinopril; aj - Home Meds: 17:36 albuterol sulfate 90 mcg/actuation Inhl HFAA 2 puffs three times a day [Active]; aj amitriptyline 10 mg Oral tab nightly [Active]; Anoro Ellipta 62.5-25 mcg/actuation inhalation dsdv 1 puff once daily [Active]; aspirin 81 mg Oral TbEC 1 tab once daily [Active]; Detrol 2 mg Oral tab daily [Active]; estradiol 2 mg Oral tab once daily [Active]; Lasix 40 mg Oral tab once daily [Active]; Lipitor 40 mg Oral tab 1 tab once daily [Active]; medroxyprogesterone 2.5 mg Oral tab every 3 days [Active]; Norvasc 10 mg Oral tab 1 tab once daily [Active]; nitroglycerin 0.4 mg SL subl [Active]; oxycodone 30 mg Oral tab every 6 hours for Pain, for back pain [Active]; Pepcid 20 mg Oral tab once daily [Active]; prednisone 10 mg Oral tab once daily [Active]; Zyrtec 5mg Oral once daily [Active]; - PMHx: 17:36 COPD; chronic back pain; Hypertension; Myocardial infarction; aj - PSHx: 17:36 None; aj - Immunization history:: Adult Immunizations up to date. - Social history:: Smoking status: Patient/guardian denies using tobacco. - Ebola Screening: : Patient negative for fever greater than or equal to 101.5 degrees Fahrenheit, and additional compatible Ebola Virus Disease symptoms Patient denies exposure to infectious person Patient denies travel to an Ebola-affected area in the 21 days before illness onset No symptoms or risks identified at this time. Screenin:10 Abuse screen: Denies threats or abuse. Denies injuries from another. Nutritional rr5 screening: No deficits noted. Tuberculosis screening: No symptoms or risk factors identified. Fall Risk Fall in past 12 months (25 points). IV access (20 points). Total Og Fall Scale indicates Low Risk Score (25-44 pts). Fall prevention measures have been instituted. Side Rails Up X 2 Placed close to Nursing Station Frequent Obs/Assesments occuring Family Present and informed to notify staff if they need to leave bedside As available Patient and Family Educated on Fall Prevention Program and strategies. Assessment: 19:10 General: Appears in no apparent distress. uncomfortable, Behavior is calm, cooperative, rr5 appropriate for age. Pain: Complains of pain in head Pain does not radiate. Pain currently is 8 out of 10 on a pain scale. Quality of pain is described as aching, Pain began suddenly, Is intermittent, Alleviated by rest, Aggravated by increased activity, repositioning. Neuro: Level of Consciousness is awake, alert, obeys commands, Oriented to person, place, time, situation, Appropriate for age Reports a syncopal episode. Cardiovascular: Capillary refill < 3 seconds Patient's skin is warm and dry. Respiratory: Airway is patent Respiratory effort is even, unlabored, Respiratory pattern is regular, symmetrical. GI: Abdomen is round non-distended. : No signs and/or symptoms were reported regarding the genitourinary system. EENT: No signs and/or symptoms were reported regarding the EENT system. Derm: Skin is intact, Skin temperature is warm. Musculoskeletal: Capillary refill < 3 seconds, Range of motion: intact in all extremities. 19:10 General: sent for Xray. rr5 20:30 Reassessment: Patient appears in no apparent distress at this time. Patient and/or rr5 family updated on plan of care and expected duration. Pain level reassessed. awaiting for CT scan and xray report. no complaints made. 21:30 Reassessment: Patient appears in no apparent distress at this time. Patient and/or rr5 family updated on plan of care and expected duration. Pain level reassessed. discharge instruction and prescription given and explained, without complaints made. Patient states feeling better. Patient states symptoms have improved. Vital Signs: 17:36 BP 144 / 73; Pulse 100; Resp 29; Temp 97.5; Pulse Ox 68% on R/A; Weight 99.34 kg; aj Height 5 ft. 4 in. (162.56 cm); 17:36 Pulse Ox 90% on 6 lpm NC; aj 19:10 BP 141 / 81; Pulse 75; Resp 18; Temp 97.8; Pulse Ox 99% on 2 lpm NC; Pain 8/10; rr5 20:00 BP 149 / 81; Pulse 89; Resp 17; Pulse Ox 98% on 2 lpm NC; rr5 17:36 Body Mass Index 37.59 (99.34 kg, 162.56 cm) ED Course: 17:00 Patient arrived in ED. rg4 17:00 Gerald Thurston DO is Private Physician. rg4 17:35 Triage completed. aj 17:36 Arm band placed on left wrist. Patient placed in waiting room, in a wheelchair, on aj oxygen, Patient notified of wait time. 18:30 Marinas, Avery, BUSINESS TEST ANALYST is PHCP. pm1 18:30 Usman Vazquez MD is Attending Physician. pm1 18:39 Neno Schumacher LVN is Primary Nurse. em 19:10 Patient has correct armband on for positive identification. Placed in gown. Bed in low rr5 position. Call light in reach. Side rails up X2. Pulse ox on. NIBP on. 19:16 CT Head C Spine In Process Unspecified. EDMS 19:48 Hip Right 2 View XRAY In Process Unspecified. EDMS 19:48 Knee Right 3 View XRAY In Process Unspecified. EDMS 21:35 No provider procedures requiring assistance completed. Patient did not have IV access rr5 during this emergency room visit. Administered Medications: 20:11 Drug: morphine 4 mg Route: IM; Site: right gluteus; rr5 Outcome: 20:44 Discharge ordered by . pm1 21:35 Discharged to home ambulatory. rr5 21:35 Condition: stable 21:35 Discharge instructions given to patient, family, Instructed on discharge instructions, follow up and referral plans. medication usage, Demonstrated understanding of instructions, follow-up care, medications, Prescriptions given X 1. 21:43 Patient left the ED. cc3 Signatures: Dispatcher [employer] Hemalatha Pizarro, RN URSULA aj Neno Schumacher LVN LVN em Avery Neves NP BUSINESS TEST ANALYST pm1 Belinda Badillo rg4 Naima Kline cc3 Sridhar Ashton RN RN rr5
--- NOTE | 2018-04-13 21:04 | RAD REPORT ---
EXAM DESCRIPTION: RAD - Hip Right 2 View - 04/13/2018 7:44 pm CLINICAL HISTORY: Right hip pain FINDINGS: No fracture or dislocation is seen. Moderate osteoarthritis involves the right hip. Bones are osteoporotic. If the patient continues have symptoms to suggest an occult fracture MRI woul d be recommended
--- NOTE | 2018-04-13 21:05 | RAD REPORT ---
EXAM DESCRIPTION: RAD - Knee Right 3 View - 04/13/2018 7:43 pm CLINICAL HISTORY: Right knee pain status post fall FINDINGS: No fracture or dislocation is seen. Bones are osteoporotic. Mild osteoarthritis
[2018-04-13 21:49] VITALS: TEMP 97.8
[2018-04-13 21:50] VITALS: BP 149/81; O2SAT 98
== END 2018-04-13 21:43 | disposition home or self-care (01) ==
LOC: ER 16:58
DX: S00.90XA Unspecified superficial injury of unspecified part of head, initial encounter (principal); S80.01XA Contusion of right knee, initial encounter; M25.551 Pain in right hip; W07.XXXA Fall from chair, initial encounter; Y93.89 Activity, other specified; Y92.9 Unspecified place or not applicable; Z79.82 Long term (current) use of aspirin; Z88.8 Allergy status to other drugs, medicaments and biological substances; I10 Essential (primary) hypertension; J44.9 Chronic obstructive pulmonary disease, unspecified; I25.2 Old myocardial infarction
CPT/HCPCS: 70450; 72125; 96372; 99284

== ENCOUNTER 2020-08-24 08:44 | Day surgery (SDC) | payer OTHER ==
[2020-08-24] MEDS ORDERED: Ringers Lactate 1,000 ML IV ONE (09:43)
[2020-08-24] MEDS ORDERED: MIDAZOLAM HCL 2 MG/2 ML INJ ONE (11:53)
[2020-08-24] MEDS ORDERED: propofoL 200 MG/20 ML VIAL IV ONE (11:53)
[2020-08-24] MEDS ORDERED: LIDOCAINE 1% MPF 2 ML AMPULE ONE (11:53)
[2020-08-24] MEDS ORDERED: LIDOCAINE 1% W/EPI 1:100,000 MDV 20 ML VIAL ONE (12:09)
[2020-08-24] MEDS ORDERED: FENTANYL CITR 100 MCG/2 ML ONE (12:47)
[2020-08-24] MEDS: MORPHINE 4 MG/ML SYR ONE ×2 (13:04→13:12)
[2020-08-24] MEDS ORDERED: ONDANSETRON 4 MG/2 ML VIAL ONE (13:20)
[2020-08-24] MEDS: MEPERIDINE HCL 25 MG/ML SYR ONE ×2 (13:21→13:29)
[2020-08-24] MEDS: HYDROMORPHONE HCL 1 MG/ML INJ ONE ×2 (13:52→14:03)
[2020-08-24] MEDS ORDERED: IBUPROFEN 600 MG TAB PO ONE (14:46)
[2020-08-24] MEDS ORDERED: IBUPROFEN 400 MG TAB ONE (14:58)
[2020-08-24] MEDS ORDERED: IBUPROFEN 200 MG TAB PO ONE (14:58)
[2020-08-24 15:19] VITALS: BP 105/81; TEMP 98.3; O2SAT 99
--- NOTE | 2020-08-24 22:47 | OP ---
Date of Procedure: 08/24/2020 Surgeon: Dena Salazar MD Truck Rental Manager: No assistants. Preoperative Diagnosis: Postmenopausal bleeding. Postoperative Diagnosis: Postmenopausal bleeding. Procedure Performed: Hysteroscopy, and D and C. Anesthesia: General with LMA. Specimens: Endometrial curettings (curettes and Pipelle used) Complications: No complications. Drains: No drains. Condition: Stable. Findings: Endometrial cavity with 2 intrauterine adhesions. Cavity unremarkable, slightly erythemat ous. No intracavitary masses. No abnormally obvious thickening and irregularity of the endometrial lining. Scant, but adequate sampling was performed. Indications: The patient is a 65-year-old, presented with postmenopausal bleeding. Dr. Thurston is h primary care provider. She has serious pulmonary problems with COPD. She also has history of UT and hypertension. She has been evaluated with a transvaginal ultrasound, which showed thickened endo metrium. Then, she was brought into the OR for sampling as this would be difficult for the patient w ith all her comorbidities in the office. After being consented, understanding the benefits and risks of the procedure in the office, she was re-consented in the preop area with her at the [facility]. Procedure In Detail: After that, she was brought to the OR, placed in supine fashion on the operatin g table. General anesthesia given, placed in a dorsal lithotomy position. The patient placed in [place]. Pelvic exam performed. Vulva and vagina prepped and draped in a sterile fashion. Specu lum placed to expose the cervix. Anterior lip grasped with 2 Allis clamps. Diagnostic SlimLine hyst eroscope used with a 30-degree lens, normal saline for traversing the cervical canal under direct vis ion into the uterine cavity. Endometrial canal was unremarkable. Slight intrauterine adhesions were seen and slight erythema on the endometrium, but no evidence of any endometrial irregularity or mass noted. The scope was pulled out. Cervix dilated to 16-Lithuanian and a small 0 curette used for curett ings. These were scant. The endometrial Pipelle was used to pass the stent and appears to have scan t endometrial sample, but adequate. All instruments were removed. Instrument, needle, and sponge counts correct at the end of the case. The patient tolerated the procedure well. She will follow up with me in 1 week. All instructions g iven for restarting preoperative meds and has a followup appointment on the . JESSICA/ARIELLE Voice ID: [id number] Report ID: [id number]
== END 2020-08-24 15:20 | disposition home or self-care (01) ==
LOC: OR 08:44
PROVIDERS: ATTEND Obstetrics & Gynecology
PROC: 0UJD8ZZ Inspection of Uterus and Cervix, Via Natural or Artificial Opening Endoscopic (ICD-10-PCS; 2020-08-24)
PROC: 0UDB7ZX Extraction of Endometrium, Via Natural or Artificial Opening, Diagnostic (ICD-10-PCS; principal; 2020-08-24 10:15)
DX: N95.0 Postmenopausal bleeding (principal); Z20.822 Contact with and (suspected) exposure to COVID-19
CPT/HCPCS: 88305; 58558; U0003; J2704; J3010; J2175; J1170; J7120; J2405; J2250

== ENCOUNTER 2021-06-11 01:37 | Inpatient (IN) | payer OTHER ==
--- OUTSIDE RECORDS SUMMARY | 2021-06-11 01:42 | XMS REPORT | Continuity of Care Document ---
:1955 Author Organization [facility] t Address [address] [place] [address] Care Team Providers Name Role Phone Bertrand Attending Clinician Unavailable Vaibhav ALLEN Attending Clinician UNA Attending Clinician Unavailable GLADYS ALVARENGA Attending Clinician Unavailable Bertrand Admitting Clinician Unavailable GLADYS ALVARENGA Admitting Clinician Unavailable Payers Payer Name Policy Type Policy Number Effective Date Expiration Date S ource Problems Condition Condition Condition Status Onset Resolution Last Treating Co mments Source Name Details Category Date Date Treatment Clinician Date 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 00:00: of disease disease 00 Medicin e Anemia of Anemia of Disease Active [facility] chronic chronic 04-17 College disease disease 00:00: of 00 Medicin e Centrilobu Centrilobu Disease Active [facility] 04-17 [facility] emphysema emphysema 00:00: of (HCCode) (HCCode) 00 Medici n e Cervical Cervical Disease Active [facility] spondylosi spondylosi 04-17 [facility] l[facility] s with s with 00:00: of myelopathy myelopathy 00 Me dicin e Chronic Chronic Disease Active [facility] low back low back 04-17 Colleg e pain pain 00:00: of 00 Medicin e Coronary Coronary Disease Active [facility] arterioscl arterioscl 04-17 [facility] erosis erosis 00:00: of 00 Medicin e Disorder Disorder Disease Active [facility] involving involving 1-09 [facility] thrombocyt thrombocyt 00:00: of openia openia 00 Medicin (HCCode) (HCCode) e 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 109 [employer] llege sterolemia sterolemia 00:00: of 00 Medicin e 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 00:00: of emia emia 00 Medicin e 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 09 [employer] llege itis itis 00:00: of 00 Medicin e Localized Localized Disease Active [facility] edema edema 04-17 College 00:00: of 00 Medicin e Microscopi Microscopi Disease Active [facility] c 04-17 [facility] hematuria hematuria 00:00: of 00 Medicin e Neck pain Neck pain Disease Active [facility] 04-17 [facility] 00:00: of 00 Medicin e Overactive Overactive Disease Active [facility] bladder bladder 04-17 College 00:00: of 00 Medicin e Urinary Urinary Disease Active [facility] incontinen incontinen 09 Co llege ce ce 00:00: of 00 Medicin e Chronic Chronic Disease Active [facility] diastolic diastolic 18 [place] [facility] heart heart 00:00: of failure failure 00 Medicin (HCCode) (HCCode) e Chronic Chronic Disease Active [facility] obstructiv obstructiv -18 Co llege e e 00:00: of pulmonary pulmonary 00 Medi ayde disease disease e [facility] Essential Essential Disease Active [facility] hypertensi hypertensi 1-18 Co llege on on 00:00: of 00 Medicin e Obstructiv Obstructiv Disease Active [facility] e sleep e sleep 04-26 College apnea apnea 00:00: of syndrome syndrome 00 Medici n e Other Other Disease Active [facility] hyperlipid hyperlipid 118 Co llege emia emia 00:00: of 00 Medicin e Tobacco Tobacco Disease Active [facility] use use 18 College 00:00: of 00 Medicin e Myocardial Myocardial Disease Active [facility] infarction infarction 1-04 Co llege (HCCode) (HCCode) 00:00: of 00 Medicin e Allergies, Adverse Reactions, Alerts Allergy Allergy Status Severity Reaction(s) Onset Inactive Treating Comm ents Source Name Type Date Date Clinician Lisinopr Propensi Active Other (See Pt with Mg vora il ty to Comments) 1 history Colleg e adverse 00:00: of of reaction 00 lisinopri Medic in s to l causing e drug angioedem aPt with history of lisinopri l causing angioedem a Russ Adverse Active Info Not [facility] Inhibito Reaction Available [facility] Social History Social Habit Start Date Stop Date Quantity Comments Source Tobacco use and 2020-10-08 2020-10-08 Former user [facility] C ollege exposure 00:00:00 00:00:00 of Medicine Alcohol intake 2020-10-08 2020-10-08 Ex-drinker [facility] Col lege 00:00:00 00:00:00 (finding) of Medicine Sex [birth year] [facility] 00:00:00 00:00:00 of Medicine Smoking Status Start Date Stop Date Source Former smoker 2020-10-08 00:00:00 2020-10-08 00:00:00 [facility] C [facility]lege of Medicine Medications Ordered Filled Start Stop Current Ordering Indication Dosage Frequency Signature Comments Components Source Medication Medication Date Date Medication? Clinician (SIG) Name Name pantoprazol Yes 40mg Take 40 mg [facility] e 10-08 by mouth. College (PROTONIX) 15:17: of 40 MG 54 Medicin tablet e predniSONE Yes 10mg Take 10 mg [facility] (DELTASONE) 10-08 by mouth. Col lege 10 MG 15:17: of tablet 54 Medicin e tolterodine Yes 2mg Take 2 mg [facility] (DETROL) 2 10-08 by mouth. [facility] MG tablet 15:17: of 54 Medicin e Umeclidiniu Yes 1{puff} 1 Puff by [facility] m-Vilantero 10-08 Inhalation Co llege l 62.5-25 15:17: route. of MCG/INH 54 Medicin AEPB e famotidine 2021-0 Yes 20mg Take 20 mg [facility] (PEPCID) 20 7-02 by mouth. Col lege MG tablet 15:17: of 53 Medicin e furosemide 0 Yes 40mg Take 40 mg [facility] (LASIX) 40 7-02 by mouth. [facility] MG tablet 15:17: of 53 Medicin e amitriptyli Yes 10mg Take 10 mg Todd ne (ELAVIL) 7-02 by mouth. Col lege 10 MG 15:17: of tablet 52 Medicin e cetirizine Yes 5mg Take 5 mg [facility] (ZYRTEC) 5 7-02 by mouth. [facility] MG tablet 15:17: of 52 Medicin e hydrocodone Yes 1{tbl} Take 1 [facility] -acetaminop 6-28 Tablet by Col lege hen (NORCO) 00:00: mouth. of 10-325 MG 00 Medicin per tablet e tizanidine Yes 4mg Take 4 mg [facility] (ZANAFLEX) 6-28 by mouth. [facility] 4 MG tablet 00:00: of 00 Medicin e escitalopra Yes TAKE 1 [facility] (LEXAPRO) 6-15 TABLET BY Col lege 20 MG 00:00: MOUTH of tablet 00 EVERY DAY Medicin e estradiol Yes TAKE 1/2 [facility] (ESTRACE) 5-28 TABLET BY Colle ge 0.5 MG 00:00: MOUTH of tablet 00 EVERY DAY Medicin FOR 2 3 e WEEKS, THEN STOP NYSTOP Yes two times Todd powder 5-24 daily. College 00:00: of 00 Medicin e atorvastati Yes TAKE ONE [facility] n (LIPITOR) 5-10 TABLET BY Col lege 40 MG 00:00: MOUTH of tablet 00 EVERY Medicin NIGHT AT e BEDTIME amlodipine Yes TAKE 1 [facility] (NORVASC) 4-29 TABLET BY Colle ge 10 MG 00:00: MOUTH of tablet 00 EVERY DAY Medicin e estradiol Yes TAKE 1 [facility] (ESTRACE) 2 4-20 TABLET BY Col lege MG tablet 00:00: MOUTH of 00 EVERY DAY Medicin e medroxyPROG Yes TAKE 1 [facility] ESTERone 4-07 TABLET BY [place] villalobos (PROVERA) 00:00: MOUTH of 2.5 MG 00 EVERY DAY Medicin tablet e cyclobenzap Yes TAKE 1 [facility] rine 3-15 TABLET BY [place] (FLEXERIL) 00:00: MOUTH of 10 MG 00 TWICE A Medicin tablet DAY e NEEDED FOR MUSCLE SPASMS Fluticasone Yes 1{puff} Take 1 [facility] -Umeclidin- 3-15 Puff by Argelia lindsay Vilant 00:00: mouth. of (TRELEGY 00 Medicin ELLIPTA) e 100-62.5-25 MCG/INH AEPB oxybutynin Yes TAKE 1 [facility] (DITROPAN) 2-17 TABLET BY [place] [facility] 5 MG tablet 00:00: MOUTH 3 of 00 TIMES A Medicin DAY e NEEDED FOR OVERACTIVE BLADDER baclofen 2019-04 Yes TAKE 1 [facility] (LIORESAL) 2-17 TABLET BY [place] [facility] 10 MG 00:00: MOUTH of tablet 00 TWICE Medicin DAILY FOR e 14 DAYS albuterol Yes INHALE 2 [facility] 108 (90 4-20 PUFF BY [place] base) 00:00: MOUTH 4 of mcg/act 00 TIMES A Medicin inhaler DAY e theophyllin Yes 200mg Take 200 [facility] e (ITZEL-24) 3-18 mg by [place] 200 MG SR 00:00: mouth. of capsule 00 Medicin e Norvasc Norvasc Yes Beto [facility] Immunizations Ordered Immunization Filled Immunization Date Status Commen ts Source Name Name Pneumococcal 2017-04-12 Completed [facility] Agrelia lindsay Polysaccharide 00:00:00 of Medicin e Vital Signs Vital Name Observation Time Observation Value Comments Source Body height 2020-10-08 20:36:00 162.6 cm [facility] Body weight 2020-10-08 20:36:00 101.606 kg [facility] BMI 2020-10-08 20:36:00 38.45 kg/m2 [facility] Procedures This patient has no known procedures. Plan of Care Planned Activity Planned Date Details Comments Source Future Scheduled 2020-10-08 Screening for [facility] Col [facility]ge Test 15:29:42 malignant neoplasm of Medici ne of colon (procedure) [code = 328473570] Future Scheduled 2020-10-08 Screening for [facility]ge Test 15:29:42 malignant neoplasm of Medici ne of breast (procedure) [code = 787288467] Future Scheduled 2020-10-08 TETANUS SHOT (ADULT) [facility] [employer] Test 15:29:42 [code = TETANUS SHOT of Medi cine (ADULT)] Future Scheduled 2020-10-08 Hepatitis C [facility] Test 15:29:42 screening of Medicine (procedure) [code = 489298945] Future Scheduled 2020-10-08 ZOSTER VACCINE (1 of [place] [facility] [employer] Test 15:29:42 2) [code = ZOSTER of Medicin e VACCINE (1 of 2)] Future Scheduled 2020-10-08 FALL SCREEN [code = [facility] Test 15:29:42 FALL SCREEN] of Medicine Future Scheduled 2020-10-08 Screening for [facility] Col [facility]ge Test 15:29:42 osteoporosis of Medicine (procedure) [code = 444085737] Future Scheduled 2020-10-08 PNEUMOVAX >=65 [facility] Co llege Test 15:29:42 (PPSV23) [code = of Medicine PNEUMOVAX >=65 (PPSV23)] Future Scheduled 2020-10-08 MEDICARE AWV [facility] Test 15:29:42 (Initial) [code = of Medicin e MEDICARE AWV (Initial)] Future Scheduled 2020-10-08 FLU VACCINE > 6 [facility] C [facility]lege Test 15:29:42 MONTHS [code = FLU of Medici ne VACCINE > 6 MONTHS] Future Scheduled 2020-10-08 ORT - XR HIP RIGHT Ordered: [facility] [employer] Test 15:16:12 2V (CHARGE ONLY) 10/08/2020 of Medicine [code = 33763] Encounters Start End Encounter Admission Attending Care Care Encounter Source Date/Time Date/Time Type Type Clinicians Facility Department ID 2021-05-04 Outpatient HARMAN Thurston [facility] [id number] [facility] 13:09:49 Gerald [id number] [facility] 2021-05-[address] [facility] [id number] [facility] 12:58:34 Gerald [id number] [facility] 2020-10-08 2020-10-08 Office VENITA Esposito [id number] [facility] 15:15:31 16:11:37 Visit Barrett AMBULATOR [id number] College Y [id number] of [id number] Medi ayde 600 e 2020-10-08 2020-10-08 Outpatient [facility] [id number] [facility] 15:23:00 15:23:00 Colleg e of Medicin e 2020-09-29 2020-09-29 [facility] [id number] [facility] 2020-09-09 2020-09-09 [facility] [id number] [facility] 2018-03-13 2018-03-13 [facility] [id number] [facility] 11:12:00 11:12:00 [facility] 2017-11-26 2017-11-26 [facility] [id number] 13:30:00 13:30:00 [facility] Clin[facility] Results Test Description Test Time Test Comments Results Result Comments Source B-TYPE NATRIURETIC FACTOR (BNP) 2017-04-26 13:02:00 Test Item Value Reference Range Interpretation Comme nts B-TYPE NATRIURETIC PEPTIDE (BEAKER) (test code = 700) 98 pg/mL 0-100 [id number] 12:55:00 Test Item Value Reference Range Interpretation Comments MAGNESIUM (BEAKER) (test code = 1.8 mg/dL 1.6-2.6 627) BASIC METABOLIC [id number] 12:55:00 Test Item Value Reference Range Interpretation Comments SODIUM (BEAKER) 144 meq/L 136-145 (test code = 381) POTASSIUM (BEAKER) 3.7 meq/L 3.5-5.1 (test code = 379) CHLORIDE (BEAKER) 105 meq/L 98-107 (test code = 382) CO2 (BEAKER) (test 32 meq/L 22-29 H code = 355) BLOOD UREA NITROGEN 8 mg/dL 7-21 (BEAKER) (test code = 354) CREATININE (BEAKER) 0.72 mg/dL 0.57-1.25 (test code = 358) GLUCOSE RANDOM 92 mg/dL 70-105 (BEAKER) (test code = 652) CALCIUM (BEAKER) 8.9 mg/dL 8.4-10.2 (test code = 697) EGFR (BEAKER) (test 99 mL/min/1.73 ESTIMA TATO GFR IS code = 1092) sq m NOT ACCURATE CREATININE CLEARANCE IN PREDICTING GLOMERULAR FILTRATION RATE . ESTIMATED GFR I S NOT APPLICABLE FOR DIALYSIS PATIEN TS. CBC W/PLT COUNT & AUTO [id number] 07:45:00 Test Item Value Reference Range Interpretation Comments WHITE BLOOD CELL COUNT (BEAKER) 4.1 K/ L 3.5-10.5 (test code = 775) RED BLOOD CELL COUNT (BEAKER) 6.01 M/ L 3.93-5.22 H (test code = 761) HEMOGLOBIN (BEAKER) (test code = 13.5 GM/DL 11.2-15.7 410) HEMATOCRIT (BEAKER) (test code = 47.0 % 34.1-44.9 H 411) MEAN CORPUSCULAR VOLUME (BEAKER) 78.2 fL 79.4-94.8 L (test code = 753) MEAN CORPUSCULAR HEMOGLOBIN 22.5 pg 25.6-32.2 L (BEAKER) (test code = 751) MEAN CORPUSCULAR HEMOGLOBIN CONC 28.7 GM/DL 32.2-35.5 L (BEAKER) (test code = 752) RED CELL DISTRIBUTION WIDTH 22.9 % 11.7-14.4 H (BEAKER) (test code = 412) PLATELET COUNT (BEAKER) (test 208 K/CU MM 150-450 code = 756) MEAN PLATELET VOLUME (BEAKER) 9.1 fL 9.4-12.3 L (test code = 754) NUCLEATED RED BLOOD CELLS 0 /100 WBC 0-0 (BEAKER) (test code = 413) NEUTROPHILS RELATIVE PERCENT 50 % (BEAKER) (test code = 429) LYMPHOCYTES RELATIVE PERCENT 37 % (BEAKER) (test code = 430) MONOCYTES RELATIVE PERCENT 10 % (BEAKER) (test code = 431) EOSINOPHILS RELATIVE PERCENT 1 % (BEAKER) (test code = 432) BASOPHILS RELATIVE PERCENT 1 % (BEAKER) (test code = 437) NEUTROPHILS ABSOLUTE COUNT 2.08 K/ L 1.56-6.13 (BEAKER) (test code = 670) LYMPHOCYTES ABSOLUTE COUNT 1.55 K/ L 1.18-3.74 (BEAKER) (test code = 414) MONOCYTES ABSOLUTE COUNT (BEAKER) 0.42 K/ L 0.24-0.36 H (test code = 415) EOSINOPHILS ABSOLUTE COUNT 0.06 K/ L 0.04-0.36 (BEAKER) (test code = 416) BASOPHILS ABSOLUTE COUNT (BEAKER) 0.02 K/ L 0.01-0.08 (test code = 417) IMMATURE GRANULOCYTES-RELATIVE 0 % 0-1 PERCENT (BEAKER) (test code = 2801) BASIC METABOLIC [id number] 07:02:00 Test Item Value Reference Range Interpretation Comments SODIUM (BEAKER) 139 meq/L 136-145 (test code = 381) POTASSIUM (BEAKER) 3.9 meq/L 3.5-5.1 (test code = 379) CHLORIDE (BEAKER) 101 meq/L 98-107 (test code = 382) CO2 (BEAKER) (test 33 meq/L 22-29 H code = 355) BLOOD UREA NITROGEN 9 mg/dL 7-21 (BEAKER) (test code = 354) CREATININE (BEAKER) 0.67 mg/dL 0.57-1.25 (test code = 358) GLUCOSE RANDOM 83 mg/dL 70-105 (BEAKER) (test code = 652) CALCIUM (BEAKER) 9.1 mg/dL 8.4-10.2 (test code = 697) EGFR (BEAKER) (test 108 mL/min/1.73 ESTIM ATED GFR IS code = 1092) sq m NOT ACCURATE CREATININE CLEARANCE IN PREDICTING GLOMERULAR FILTRATION RATE . ESTIMATED GFR I S NOT APPLICABLE FOR DIALYSIS PATIEN TS. CBC W/PLT COUNT & AUTO [id number] 05:11:00 Test Item Value Reference Range Interpretation Comments WHITE BLOOD CELL COUNT (BEAKER) 4.7 K/ L 3.5-10.5 (test code = 775) RED BLOOD CELL COUNT (BEAKER) 6.26 M/ L 3.93-5.22 H (test code = 761) HEMOGLOBIN (BEAKER) (test code = 13.9 GM/DL 11.2-15.7 410) HEMATOCRIT (BEAKER) (test code = 49.0 % 34.1-44.9 H 411) MEAN CORPUSCULAR VOLUME (BEAKER) 78.3 fL 79.4-94.8 L (test code = 753) MEAN CORPUSCULAR HEMOGLOBIN 22.2 pg 25.6-32.2 L (BEAKER) (test code = 751) MEAN CORPUSCULAR HEMOGLOBIN CONC 28.4 GM/DL 32.2-35.5 L (BEAKER) (test code = 752) RED CELL DISTRIBUTION WIDTH 22.7 % 11.7-14.4 H (BEAKER) (test code = 412) PLATELET COUNT (BEAKER) (test 218 K/CU MM 150-450 code = 756) MEAN PLATELET VOLUME (BEAKER) 8.9 fL 9.4-12.3 L (test code = 754) NUCLEATED RED BLOOD CELLS 0 /100 WBC 0-0 (BEAKER) (test code = 413) NEUTROPHILS RELATIVE PERCENT 61 % (BEAKER) (test code = 429) LYMPHOCYTES RELATIVE PERCENT 27 % (BEAKER) (test code = 430) MONOCYTES RELATIVE PERCENT 12 % (BEAKER) (test code = 431) EOSINOPHILS RELATIVE PERCENT 1 % (BEAKER) (test code = 432) BASOPHILS RELATIVE PERCENT 0 % (BEAKER) (test code = 437) NEUTROPHILS ABSOLUTE COUNT 2.82 K/ L 1.56-6.13 (BEAKER) (test code = 670) LYMPHOCYTES ABSOLUTE COUNT 1.23 K/ L 1.18-3.74 (BEAKER) (test code = 414) MONOCYTES ABSOLUTE COUNT (BEAKER) 0.54 K/ L 0.24-0.36 H (test code = 415) EOSINOPHILS ABSOLUTE COUNT 0.04 K/ L 0.04-0.36 (BEAKER) (test code = 416) BASOPHILS ABSOLUTE COUNT (BEAKER) 0.01 K/ L 0.01-0.08 (test code = 417) IMMATURE GRANULOCYTES-RELATIVE 0 % 0-1 PERCENT (BEAKER) (test code = 2801) BASIC METABOLIC [id number] 12:19:00 Test Item Value Reference Range Interpretation Comments SODIUM (BEAKER) 145 meq/L 136-145 This is a co rrected (test code = 381) result. Pr evious result was 142 meq/L on 04/15/2017 at 1015 [employer] POTASSIUM (BEAKER) 3.8 meq/L 3.5-5.1 Specimen moderately (test code = 379) hemolyzedT his is a corrected resul t. Previous result was 3.7 meq/L on 04/15/2017 at 1015 [employer] CHLORIDE (BEAKER) 113 meq/L 98-107 H This is a corrected (test code = 382) result. Pr evious result was 111 meq/L on 04/15/2017 at 1015 [employer] CO2 (BEAKER) (test 23 meq/L 22-29 code = 355) BLOOD UREA NITROGEN 8 mg/dL 7-21 (BEAKER) (test code = 354) CREATININE (BEAKER) 0.51 mg/dL 0.57-1.25 L Specimen moderately (test code = 358) hemolyzed GLUCOSE RANDOM 63 mg/dL 70-105 L (BEAKER) (test code = 652) CALCIUM (BEAKER) 6.7 mg/dL 8.4-10.2 L (test code = 697) EGFR (BEAKER) (test 148 ESTIMATE D GFR IS NOT code = 1092) mL/min/1.73 sq ACCURATE A S m CREATININE MIHIR GEOVANNY IN PREDICTING GLOMERULAR FILT RATION RATE. ESTIMATED GFR IS NOT APPLICAB LE FOR DIALYSIS PATIEN TS. CBC W/PLT COUNT & AUTO [id number] 08:12:00 Test Item Value Reference Range Interpretation Comments WHITE BLOOD CELL COUNT (BEAKER) 4.2 K/ L 3.5-10.5 (test code = 775) RED BLOOD CELL COUNT (BEAKER) 6.16 M/ L 3.93-5.22 H (test code = 761) HEMOGLOBIN (BEAKER) (test code = 13.7 GM/DL 11.2-15.7 410) HEMATOCRIT (BEAKER) (test code = 48.6 % 34.1-44.9 H 411) MEAN CORPUSCULAR VOLUME (BEAKER) 78.9 fL 79.4-94.8 L (test code = 753) MEAN CORPUSCULAR HEMOGLOBIN 22.2 pg 25.6-32.2 L (BEAKER) (test code = 751) MEAN CORPUSCULAR HEMOGLOBIN CONC 28.2 GM/DL 32.2-35.5 L (BEAKER) (test code = 752) RED CELL DISTRIBUTION WIDTH 23.3 % 11.7-14.4 H (BEAKER) (test code = 412) PLATELET COUNT (BEAKER) (test 278 K/CU MM 150-450 code = 756) MEAN PLATELET VOLUME (BEAKER) 9.4 fL 9.4-12.3 (test code = 754) NUCLEATED RED BLOOD CELLS 0 /100 WBC 0-0 (BEAKER) (test code = 413) NEUTROPHILS RELATIVE PERCENT 56 % (BEAKER) (test code = 429) LYMPHOCYTES RELATIVE PERCENT 30 % (BEAKER) (test code = 430) MONOCYTES RELATIVE PERCENT 13 % (BEAKER) (test code = 431) EOSINOPHILS RELATIVE PERCENT 1 % (BEAKER) (test code = 432) BASOPHILS RELATIVE PERCENT 1 % (BEAKER) (test code = 437) NEUTROPHILS ABSOLUTE COUNT 2.37 K/ L 1.56-6.13 (BEAKER) (test code = 670) LYMPHOCYTES ABSOLUTE COUNT 1.26 K/ L 1.18-3.74 (BEAKER) (test code = 414) MONOCYTES ABSOLUTE COUNT (BEAKER) 0.53 K/ L 0.24-0.36 H (test code = 415) EOSINOPHILS ABSOLUTE COUNT 0.03 K/ L 0.04-0.36 L (BEAKER) (test code = 416) BASOPHILS ABSOLUTE COUNT (BEAKER) 0.02 K/ L 0.01-0.08 (test code = 417) IMMATURE GRANULOCYTES-RELATIVE 0 % 0-1 PERCENT (BEAKER) (test code = 2801) BASIC METABOLIC [id number] 10:54:00 Test Item Value Reference Range Interpretation Comments SODIUM (BEAKER) 141 meq/L 136-145 (test code = 381) POTASSIUM (BEAKER) 3.7 meq/L 3.5-5.1 (test code = 379) CHLORIDE (BEAKER) 99 meq/L 98-107 (test code = 382) CO2 (BEAKER) (test 36 meq/L 22-29 H code = 355) BLOOD UREA NITROGEN 12 mg/dL 7-21 (BEAKER) (test code = 354) CREATININE (BEAKER) 0.68 mg/dL 0.57-1.25 (test code = 358) GLUCOSE RANDOM 96 mg/dL 70-105 (BEAKER) (test code = 652) CALCIUM (BEAKER) 8.6 mg/dL 8.4-10.2 (test code = 697) EGFR (BEAKER) (test 106 mL/min/1.73 ESTIM ATED GFR IS code = 1092) sq m NOT ACCURATE CREATININE CLEARANCE IN PREDICTING GLOMERULAR FILTRATION RATE . ESTIMATED GFR I S NOT APPLICABLE FOR DIALYSIS PATIEN TS. CBC W/PLT COUNT & AUTO [id number] 06:13:00 Test Item Value Reference Range Interpretation Comments WHITE BLOOD CELL COUNT (BEAKER) 4.5 K/ L 3.5-10.5 (test code = 775) RED BLOOD CELL COUNT (BEAKER) 6.02 M/ L 3.93-5.22 H (test code = 761) HEMOGLOBIN (BEAKER) (test code = 13.5 GM/DL 11.2-15.7 410) HEMATOCRIT (BEAKER) (test code = 47.6 % 34.1-44.9 H 411) MEAN CORPUSCULAR VOLUME (BEAKER) 79.1 fL 79.4-94.8 L (test code = 753) MEAN CORPUSCULAR HEMOGLOBIN 22.4 pg 25.6-32.2 L (BEAKER) (test code = 751) MEAN CORPUSCULAR HEMOGLOBIN CONC 28.4 GM/DL 32.2-35.5 L (BEAKER) (test code = 752) RED CELL DISTRIBUTION WIDTH 23.6 % 11.7-14.4 H (BEAKER) (test code = 412) PLATELET COUNT (BEAKER) (test 334 K/CU MM 150-450 code = 756) MEAN PLATELET VOLUME (BEAKER) 9.3 fL 9.4-12.3 L (test code = 754) NUCLEATED RED BLOOD CELLS 0 /100 WBC 0-0 (BEAKER) (test code = 413) NEUTROPHILS RELATIVE PERCENT 45 % (BEAKER) (test code = 429) LYMPHOCYTES RELATIVE PERCENT 41 % (BEAKER) (test code = 430) MONOCYTES RELATIVE PERCENT 13 % (BEAKER) (test code = 431) EOSINOPHILS RELATIVE PERCENT 1 % (BEAKER) (test code = 432) BASOPHILS RELATIVE PERCENT 0 % (BEAKER) (test code = 437) NEUTROPHILS ABSOLUTE COUNT 2.05 K/ L 1.56-6.13 (BEAKER) (test code = 670) LYMPHOCYTES ABSOLUTE COUNT 1.85 K/ L 1.18-3.74 (BEAKER) (test code = 414) MONOCYTES ABSOLUTE COUNT (BEAKER) 0.58 K/ L 0.24-0.36 H (test code = 415) EOSINOPHILS ABSOLUTE COUNT 0.03 K/ L 0.04-0.36 L (BEAKER) (test code = 416) BASOPHILS ABSOLUTE COUNT (BEAKER) 0.02 K/ L 0.01-0.08 (test code = 417) IMMATURE GRANULOCYTES-RELATIVE 0 % 0-1 PERCENT (BEAKER) (test code = 2801) CT, CHEST, WITHOUT [id number] 23:31:00FINAL REPORT CT, CHEST, WITHOUT CONTRAST INDICATION: [...] Verified Date/Time: 04/13/2017 23:31:59 Reading Location: [facility] [id number] CT Body Reading Room APTT 2017-04-13 12:35:00 Test Item Value Reference Range Interpretation Comments PARTIAL THROMBOPLASTIN TIME 53.5 seconds 22.5-36.0 H (BEAKER) (test code = 760) BASIC METABOLIC [id number] 09:04:00 Test Item Value Reference Range Interpretation Comments SODIUM (BEAKER) 141 meq/L 136-145 (test code = 381) POTASSIUM (BEAKER) 4.0 meq/L 3.5-5.1 (test code = 379) CHLORIDE (BEAKER) 99 meq/L 98-107 (test code = 382) CO2 (BEAKER) (test 36 meq/L 22-29 H code = 355) BLOOD UREA NITROGEN 15 mg/dL 7-21 (BEAKER) (test code = 354) CREATININE (BEAKER) 0.67 mg/dL 0.57-1.25 (test code = 358) GLUCOSE RANDOM 93 mg/dL 70-105 (BEAKER) (test code = 652) CALCIUM (BEAKER) 8.4 mg/dL 8.4-10.2 (test code = 697) EGFR (BEAKER) (test 108 mL/min/1.73 ESTIM ATED GFR IS code = 1092) sq m NOT ACCURATE CREATININE CLEARANCE IN PREDICTING GLOMERULAR FILTRATION RATE . ESTIMATED GFR I S NOT APPLICABLE FOR DIALYSIS PATIEN TS. Redraw, morning specimen was hemolizedBASIC METABOLIC [id number] 08:01:00 Test Item Value Reference Range Interpretation Comments SODIUM (BEAKER) 143 meq/L 136-145 (test code = 381) POTASSIUM (BEAKER) 4.2 meq/L 3.5-5.1 Specimen slightly (test code = 379) hemolyzed CHLORIDE (BEAKER) 101 meq/L 98-107 (test code = 382) CO2 (BEAKER) (test 36 meq/L 22-29 H code = 355) BLOOD UREA NITROGEN 16 mg/dL 7-21 (BEAKER) (test code = 354) CREATININE (BEAKER) 0.68 mg/dL 0.57-1.25 Specimen slightly (test code = 358) hemolyzed GLUCOSE RANDOM 85 mg/dL 70-105 (BEAKER) (test code = 652) CALCIUM (BEAKER) 8.7 mg/dL 8.4-10.2 (test code = 697) EGFR (BEAKER) (test 106 mL/min/1.73 ESTIM ATED GFR IS code = 1092) sq m NOT ACCURATE CREATININE CLEARANCE IN PREDICTING GLOMERULAR FILTRATION RATE . ESTIMATED GFR I S NOT APPLICABLE FOR DIALYSIS PATIEN TS. CBC W/PLT COUNT & AUTO [id number] 06:14:00 Test Item Value Reference Range Interpretation Comments WHITE BLOOD CELL COUNT (BEAKER) 5.0 K/ L 3.5-10.5 (test code = 775) RED BLOOD CELL COUNT (BEAKER) 6.01 M/ L 3.93-5.22 H (test code = 761) HEMOGLOBIN (BEAKER) (test code = 13.4 GM/DL 11.2-15.7 410) HEMATOCRIT (BEAKER) (test code = 47.7 % 34.1-44.9 H 411) MEAN CORPUSCULAR VOLUME (BEAKER) 79.4 fL 79.4-94.8 (test code = 753) MEAN CORPUSCULAR HEMOGLOBIN 22.3 pg 25.6-32.2 L (BEAKER) (test code = 751) MEAN CORPUSCULAR HEMOGLOBIN CONC 28.1 GM/DL 32.2-35.5 L (BEAKER) (test code = 752) RED CELL DISTRIBUTION WIDTH 23.0 % 11.7-14.4 H (BEAKER) (test code = 412) PLATELET COUNT (BEAKER) (test 259 K/CU MM 150-450 code = 756) MEAN PLATELET VOLUME (BEAKER) 8.8 fL 9.4-12.3 L (test code = 754) NUCLEATED RED BLOOD CELLS 0 /100 WBC 0-0 (BEAKER) (test code = 413) NEUTROPHILS RELATIVE PERCENT 50 % (BEAKER) (test code = 429) LYMPHOCYTES RELATIVE PERCENT 36 % (BEAKER) (test code = 430) MONOCYTES RELATIVE PERCENT 13 % (BEAKER) (test code = 431) EOSINOPHILS RELATIVE PERCENT 0 % (BEAKER) (test code = 432) BASOPHILS RELATIVE PERCENT 0 % (BEAKER) (test code = 437) NEUTROPHILS ABSOLUTE COUNT 2.47 K/ L 1.56-6.13 (BEAKER) (test code = 670) LYMPHOCYTES ABSOLUTE COUNT 1.80 K/ L 1.18-3.74 (BEAKER) (test code = 414) MONOCYTES ABSOLUTE COUNT (BEAKER) 0.64 K/ L 0.24-0.36 H (test code = 415) EOSINOPHILS ABSOLUTE COUNT 0.01 K/ L 0.04-0.36 L (BEAKER) (test code = 416) BASOPHILS ABSOLUTE COUNT (BEAKER) 0.02 K/ L 0.01-0.08 (test code = 417) IMMATURE GRANULOCYTES-RELATIVE 0 % 0-1 PERCENT (BEAKER) (test code = 2801) [id number] 04:50:00 Test Item Value Reference Range Interpretation Comments PARTIAL THROMBOPLASTIN TIME 42.9 seconds 22.5-36.0 H (BEAKER) (test code = 760) TROPONIN [id number] 10:24:00 Test Item Value Reference Range Interpretation Comments TROPONIN I (BEAKER) (test code = 2.70 ng/mL 0.00-0.03 397) Troponin I (TnI) levels must be interpreted [...] and persistent tachyarrhythmia.CREATINE KINASE (CK), TOTAL AND MB 2017-04-12 10:16:00 Test Item Value Reference Range Interpretation Comments CREATINE KINASE TOTAL (BEAKER) 208 U/L 29-200 H (test code = 380) CREATINE KINASE-MB (BEAKER) (test 22.0 ng/mL 0.0-6.6 H code = 750) CREATINE KINASE-MB INDEX (BEAKER) 10.6 % (test code = 395) CK-MB Reference Range:<6.7 Normal6.7-10.0 Borderline>10.0 [id number] 09:44:00 Test Item Value Reference Range Interpretation Comments PARTIAL THROMBOPLASTIN TIME 24.6 seconds 22.5-36.0 (BEAKER) (test code = 760) TROPONIN [id number] 02:33:00 Test Item Value Reference Range Interpretation Comments TROPONIN I (BEAKER) (test code = 1.03 ng/mL 0.00-0.03 397) Troponin I (TnI) levels must be interpreted [...] and persistent tachyarrhythmia.RAD, CHEST, 1 VIEW, NON [id number] 02:30:00Reason for exam:->chest painShould this be performed at the bedside?->YesFINAL REPORT History: Chest pain. Comparison: None. Findings: A single view of the chest is submitted. The cardiomediastinal contours are unremarkable. There are diffuse interstitial opacities, centered on the perihilar lungs and suggest of overt pulmonary edema. Atypical pneumonitis is an alternative consideration. There is no focal consolidation, pneumothorax, large pleural effusion or acute bony abnormality. Signed: Manjit Santiago MDReport Verified Date/Time: 04/12/201702:30:28 Reading Location: [address] Reading Room -[id number] 02:14:00 Test Item Value Reference Range Interpretation Comments D-DIMER QUANTITATIVE (BEAKER) < MG/L FEU <0.50 (test code = 671) Intended Use: The D-Dimer Assay can be used to aid in the diagnosis of Deep Vein Thrombosis (DVT) and Pulmonary Embolism Disease (PED).In patients with low pre- test probability, various studies concerning STA Liatest D-dimer test have reported that with a cutoff value of 0.50 MG/L FEU, the Negative Predictive Value (NPV) regarding the exclusion of thrombosis is within 95-100% range.APTT 2017-04-12 02:13:00 Test Item Value Reference Range Interpretation Comments PARTIAL THROMBOPLASTIN TIME > seconds 22.5-36.0 HH (BEAKER) (test code = 760) CREATINE KINASE (CK), TOTAL AND [id number] 02:12:00 Test Item Value Reference Range Interpretation Comments CREATINE KINASE TOTAL (BEAKER) 161 U/L 29-200 (test code = 380) CREATINE KINASE-MB (BEAKER) (test 17.1 ng/mL 0.0-6.6 H code = 750) CREATINE KINASE-MB INDEX (BEAKER) 10.6 % (test code = 395) CK-MB Reference Range:<6.7 Normal6.7-10.0 Borderline>10.0 AbnormalB-TYPE NATRIURETIC FACTOR (BNP)2017-04-12 02:09:00 Test Item Value Reference Range Interpretation Comments B-TYPE NATRIURETIC PEPTIDE (BEAKER) 88 pg/mL 0-100 (test code = 700) CBC W/PLT COUNT & AUTO [id number] 02:08:00 Test Item Value Reference Range Interpretation Comments WHITE BLOOD CELL COUNT (BEAKER) 3.5 K/ L 3.5-10.5 (test code = 775) RED BLOOD CELL COUNT (BEAKER) 6.62 M/ L 3.93-5.22 H (test code = 761) HEMOGLOBIN (BEAKER) (test code = 14.8 GM/DL 11.2-15.7 410) HEMATOCRIT (BEAKER) (test code = 51.5 % 34.1-44.9 H 411) MEAN CORPUSCULAR VOLUME (BEAKER) 77.8 fL 79.4-94.8 L (test code = 753) MEAN CORPUSCULAR HEMOGLOBIN 22.4 pg 25.6-32.2 L (BEAKER) (test code = 751) MEAN CORPUSCULAR HEMOGLOBIN CONC 28.7 GM/DL 32.2-35.5 L (BEAKER) (test code = 752) RED CELL DISTRIBUTION WIDTH 23.4 % 11.7-14.4 H (BEAKER) (test code = 412) PLATELET COUNT (BEAKER) (test 242 K/CU MM 150-450 code = 756) MEAN PLATELET VOLUME (BEAKER) 8.5 fL 9.4-12.3 L (test code = 754) NUCLEATED RED BLOOD CELLS 0 /100 WBC 0-0 (BEAKER) (test code = 413) NEUTROPHILS RELATIVE PERCENT 82 % (BEAKER) (test code = 429) LYMPHOCYTES RELATIVE PERCENT 15 % (BEAKER) (test code = 430) MONOCYTES RELATIVE PERCENT 2 % (BEAKER) (test code = 431) EOSINOPHILS RELATIVE PERCENT 0 % (BEAKER) (test code = 432) BASOPHILS RELATIVE PERCENT 0 % (BEAKER) (test code = 437) NEUTROPHILS ABSOLUTE COUNT 2.85 K/ L 1.56-6.13 (BEAKER) (test code = 670) LYMPHOCYTES ABSOLUTE COUNT 0.53 K/ L 1.18-3.74 L (BEAKER) (test code = 414) MONOCYTES ABSOLUTE COUNT (BEAKER) 0.08 K/ L 0.24-0.36 L (test code = 415) EOSINOPHILS ABSOLUTE COUNT 0.00 K/ L 0.04-0.36 L (BEAKER) (test code = 416) BASOPHILS ABSOLUTE COUNT (BEAKER) 0.01 K/ L 0.01-0.08 (test code = 417) IMMATURE GRANULOCYTES-RELATIVE 0 % 0-1 PERCENT (BEAKER) (test code = 2801) [id number] 02:05:00 Test Item Value Reference Range Interpretation Comments PHOSPHORUS (BEAKER) (test code = 3.8 mg/dL 2.3-4.7 604) [id number] 02:05:00 Test Item Value Reference Range Interpretation Comments MAGNESIUM (BEAKER) (test code = 2.3 mg/dL 1.6-2.6 627) BASIC METABOLIC [id number] 02:05:00 Test Item Value Reference Range Interpretation Comments SODIUM (BEAKER) 136 meq/L 136-145 (test code = 381) POTASSIUM (BEAKER) 4.2 meq/L 3.5-5.1 (test code = 379) CHLORIDE (BEAKER) 94 meq/L 98-107 L (test code = 382) CO2 (BEAKER) (test 34 meq/L 22-29 H code = 355) BLOOD UREA NITROGEN 8 mg/dL 7-21 (BEAKER) (test code = 354) CREATININE (BEAKER) 0.64 mg/dL 0.57-1.25 (test code = 358) GLUCOSE RANDOM 141 mg/dL 70-105 H (BEAKER) (test code = 652) CALCIUM (BEAKER) 8.9 mg/dL 8.4-10.2 (test code = 697) EGFR (BEAKER) (test 114 mL/min/1.73 ESTIM ATED GFR IS code = 1092) sq m NOT ACCURATE CREATININE CLEARANCE IN PREDICTING GLOMERULAR FILTRATION RATE . ESTIMATED GFR I S NOT APPLICABLE FOR DIALYSIS PATIEN TS. HEPATIC FUNCTION [id number] 02:05:00 Test Item Value Reference Range Interpretation Comments TOTAL PROTEIN (BEAKER) (test code = 7.0 gm/dL 6.0-8.3 770) ALBUMIN (BEAKER) (test code = 1145) 3.6 g/dL 3.5-5.0 BILIRUBIN TOTAL (BEAKER) (test code 0.5 mg/dL 0.2-1.2 = 377) BILIRUBIN DIRECT (BEAKER) (test 0.2 mg/dL 0.1-0.5 code = 706) ALKALINE PHOSPHATASE (BEAKER) (test 94 U/L 40-150 code = 346) AST (SGOT) (BEAKER) (test code = 45 U/L 5-34 H 353) ALT (SGPT) (BEAKER) (test code = 24 U/L 6-55 347) PROTHROMBIN [id number] 01:37:00 Test Item Value Reference Range Interpretation Comments PROTIME (FRANK) (test code = 16.7 seconds 11.7-14.7 H 759) INR (FRANK) (test code = 370) 1.4 <=5.9 RECOMMENDED COUMADIN/WARFARIN INR THERAPY RANGESSTANDARD DOSE: 2.0 - 3.0 Includes: PROPHYLAXIS forvenous thrombosis, systemic embolization; TREATMENT for venous thrombosis and/or pulmonary embolus.HIGH RISK: Target INR is 2.5-3.5 for patients with mechanical heart valves.[id number] 00:57:00 Test Item Value Reference Range Interpretation Comments ACTIVATED CLOTTING TIME 411 sec TEST ED AT [place] [address] ([facility]) (test code = [place] [address]) [id number] 00:57:00 Test Item Value Reference Range Interpretation Comments ACTIVATED CLOTTING TIME 769 sec TEST ED AT [place] [address] ([facility]) (test code = [place] [address]) [id number]
[2021-06-11 02:36] LABS: Absolute Lymphocytes (CBC) 1.2 K/uL (0.7-4.9); Hematocrit 41.3 % (36.0-45.0); Lymphocytes % 18.3 % (15.3-44.8); MPV 7.9 fL (7.6-11.3); RBC Red Blood Cell Count 4.62 M/uL (3.86-4.86)
[2021-06-11 02:42] LABS: Protime INR 0.98
[2021-06-11] MEDS ORDERED: ONDANSETRON 4 MG/2 ML VIAL ONE (02:45)
[2021-06-11] MEDS ORDERED: MORPHINE 4 MG/ML SYR ONE (02:45)
[2021-06-11] MEDS ORDERED: IPRATROPIUM BROM 0.5MG/2.5ML ONE (02:45)
[2021-06-11] MEDS ORDERED: LEVALBUTEROL 1.25 MG/3 ML NEB ONE (02:45)
[2021-06-11] MEDS ORDERED: NA CHLORIDE 0.9% 500 ML ONE ×2 (02:46→04:11)
[2021-06-11 02:57] LABS: ALT/SGPT 18 U/L (12-78); AST/SGOT 11 U/L (15-37); Albumin 3.4 g/dL (3.4-5.0); Alkaline Phosphatase 85 U/L (45-117); BUN Blood Urea Nitrogen 10 mg/dL (7-18); Bicarbonate 37 mmol/L (21-32); Bilirubin Total 0.3 mg/dL (0.2-1.0); Glucose Level 100 mg/dL (74-106); Lipase 134 U/L (73-393); Magnesium 2.3 mg/dL (1.8-2.4); NT PRO-BNP 124 pg/mL (<125); Potassium 3.4 mmol/L (3.5-5.1); Protein, Total 7.4 g/dL (6.4-8.2); Sodium Level 143 mmol/L (136-145)
[2021-06-11 03:02] LABS: Bilirubin Direct < 0.1 mg/dL (0-0.2)
[2021-06-11 03:40] LABS: SARS-COV-2 RT PCR NEGATIVE (NEGATIVE)
[2021-06-11] MEDS ORDERED: MAGNES/ALUMIN/SIMET 30ML UCUP ONE (04:11)
[2021-06-11] MEDS ORDERED: LIDOCAINE VISCOUS 2% SOLN 15 ML UDC ONE (04:11)
[2021-06-11 05:46] LABS: Urine Blood Negative (Negative); Urine Glucose Negative (Negative); Urine Protein Negative (Negative)
[2021-06-11] MEDS ORDERED: METRONIDAZOLE 500mg IVPB 500 MG/100 ML BAG IV ONE (06:53)
[2021-06-11] MEDS ORDERED: CEFTRIAXONE 1000 MG/VIAL ONE (06:53)
--- NOTE | 2021-06-11 07:18 | ER ---
Nurse's Notes [facility] Name: Iman Huggins Age: 66 yrs Sex: Female : 1955 Arrival Date: 06/11/2021 Time: 01:38 Bed 8 Private MD: Diagnosis: COPD/ Chronic obstructive pulmonary disease with (acute) exacerbation;Other pneumonia, unspecified organism;Colitis Presentation: 06/11 01:54 Chief complaint: Patient states: headache, stomach pains and diarrhea starting 4 days lg3 ago. SOB starting 2 days ago. O2 dependent at home \\T\\3L/Min. Coronavirus screen: Client denies travel out of the [place] in the last 14 days. At this time, the client does not indicate any symptoms associated with coronavirus-19. Ebola Screen: No symptoms or risks identified at this time. Initial Sepsis Screen: Does the patient meet any 2 criteria? No. Patient's initial sepsis screen is negative. Does the patient have a suspected source of infection? No. Patient's initial sepsis screen is negative. Risk Assessment: Do you want to hurt yourself or someone else? Patient reports no desire to harm self or others. Onset of symptoms was May 10, 2021. 01:54 Method Of Arrival: Wheelchair lg3 01:54 Acuity: RAD 3 lg3 Triage Assessment: 01:56 General: Appears in no apparent distress. comfortable, Behavior is calm, cooperative. lg3 Pain: Complains of pain in abdomen, right hip (chronic) and headache Pain currently is 8 out of 10 on a pain scale. EENT: No deficits noted. No signs and/or symptoms were reported regarding the EENT system. Neuro: No deficits noted. Level of Consciousness is awake, alert, obeys commands, Oriented to person, place, time, situation. Cardiovascular: No deficits noted. Denies chest pain, nausea, vomiting. Respiratory: Reports shortness of breath Airway is patent Trachea midline Respiratory effort is even, unlabored, Respiratory pattern is regular, symmetrical, Onset: The symptoms/episode began/occurred gradually, the patient has moderate shortness of breath. GI: No deficits noted. Abdomen is round non-distended, Reports lower abdominal pain, diarrhea. : No deficits noted. No signs and/or symptoms were reported regarding the genitourinary system. Derm: No deficits noted. No signs and/or symptoms reported regarding the dermatologic system. Skin is intact, is healthy with good turgor, Skin is dry. Musculoskeletal: No deficits noted. Circulation, motion, and sensation intact. Capillary refill < 3 seconds, Range of motion: intact in all extremities. Historical: - Allergies: 01:56 ANGEL INHIBITORS; lg3 01:56 ARB-Angiotensin Receptor Antagonist; lg3 01:56 Lisinopril; lg3 - Home Meds: 01:56 albuterol sulfate 90 mcg/actuation Inhl HFAA 2 puffs three times a day [Active]; Zoloft lg3 50 mg Oral tab [Active]; amitriptyline 10 mg Oral tab nightly [Active]; Anoro Ellipta 62.5-25 mcg/actuation inhalation dsdv 1 puff once daily [Active]; aspirin 81 mg Oral TbEC 1 tab once daily [Active]; Detrol 2 mg Oral tab daily [Active]; estradiol 2 mg Oral tab once daily [Active]; medroxyprogesterone 2.5 mg Oral tab every 3 days [Active]; nitroglycerin 0.4 mg SL subl [Active]; Norvasc 10 mg Oral tab 1 tab once daily [Active]; oxycodone 30 mg Oral tab every 6 hours for Pain, for back pain [Active]; Pepcid 20 mg Oral tab once daily [Active]; prednisone 10 mg Oral tab once daily [Active]; Lasix 40 mg Oral tab once daily [Active]; Lipitor 40 mg Oral tab 1 tab once daily [Active]; Zyrtec 5mg Oral once daily [Active]; - PMHx: 01:56 chronic back pain; COPD; Hypertension; Myocardial infarction; lg3 - PSHx: 01:56 colon cancer tumor removal; Cholecystectomy; lg3 - Immunization history:: Adult Immunizations up to date, Client reports receiving the 2nd dose of the Covid vaccine, moderna X3. - Social history:: Smoking status: Patient denies any tobacco usage or history of. Patient/guardian denies using alcohol. Screenin:04 Abuse screen: Denies threats or abuse. Denies injuries from another. Nutritional lg3 screening: No deficits noted. Tuberculosis screening: No symptoms or risk factors identified. Fall Risk None identified. Assessment: 02:00 General: Appears in no apparent distress. Behavior is cooperative. Neuro: No deficits sm5 noted. Level of Consciousness is awake, alert, obeys commands, Oriented to person, place, time, situation. Cardiovascular: Capillary refill < 3 seconds Patient's skin is warm and dry. Rhythm is sinus rhythm. Respiratory: Reports shortness of breath Airway is patent Trachea midline Respiratory effort is even, unlabored, Breath sounds are clear bilaterally. GI: Reports lower abdominal pain, diarrhea. 03:03 Reassessment: No changes from previously documented assessment. sm5 04:03 Reassessment: Patient and/or family updated on plan of care and expected duration. Pain sm5 level reassessed. 07:15 Reassessment: Patient and/or family updated on plan of care and expected duration. Pain jh6 level reassessed. pt resting with eye closed when walked into room. Flagyl completed and spouse at bedside. Pt reporting that pain comes and goes but rt now she is not having any pain. 07:15 Pain: Denies pain. 6 Vital Signs: 01:54 BP 141 / 67; Pulse 80; Resp 19 S; Temp 99.2(O); Pulse Ox 99% on 3 lpm NC; Weight 108.86 lg3 kg (R); Height 5 ft. 4 in. (162.56 cm) (R); Pain 8/10; 02:00 BP 144 / 75; Pulse 77; Resp 18; Pulse Ox 100% on 3 lpm NC; st1 02:00 BP 104 / 73; Pulse 88; Resp 16; Pulse Ox 100% on 3 lpm NC; st1 07:15 BP 122 / 61; Pulse 85; Resp 17; Pulse Ox 99% ; Pain 0/10; jh6 01:54 Body Mass Index 41.20 (108.86 kg, 162.56 cm) lg3 ED Course: 01:38 Patient arrived in ED. ja2 01:56 Triage completed. lg3 01:56 Arm band placed on left wrist. lg3 02:04 Josué Hunter MD is Attending Physician. 7 02:19 Inserted saline lock: 22 gauge in right forearm, using aseptic technique. Blood sm5 collected. 02:21 Patient has correct armband on for positive identification. Bed in low position. Call sm5 light in reach. Side rails up X2. 02:21 Troponin HS Sent. sm5 02:21 PT-INR Sent. sm5 02:21 NT PRO-BNP Sent. sm5 02:21 Magnesium Sent. sm5 02:21 LFT's Sent. sm5 02:21 CBC with Diff Sent. sm5 02:21 Basic Metabolic Panel Sent. sm5 02:30 XRAY Chest (1 view) In Process Unspecified. EDMS 02:33 EKG done, by ED staff, reviewed by Josué Hunter MD. lt3 02:37 Chloe Cross, RN is Primary Nurse. st1 02:50 COVID-19/FLU A+B/RSV (Document "Date of Onset" if Symptomatic) Sent. st1 04:50 CT Chest For PE Angio In Process Unspecified. EDMS 04:50 CT Abd/Pelvis - IV Contrast Only In Process Unspecified. EDMS 07:17 Sridhar Wynn MD is Hospitalizing Provider. [facility] Administered Medications: 02:49 Drug: AtroVENT (ipratropium) Aerosol 0.5 mg Route: Inhalation; st1 04:08 Follow up: Response: No adverse reaction sm5 02:50 Drug: NS 0.9% 500 ml Route: IV; Rate: bolus; Site: right antecubital; st1 03:20 Follow up: IV Status: Completed infusion; IV Intake: 500ml sm5 02:50 Drug: morphine 4 mg Route: IVP; Site: right antecubital; st1 04:08 Follow up: Response: Pain is decreased sm5 02:50 Drug: Zofran (Ondansetron) 4 mg Route: IVP; Site: right antecubital; st1 04:08 Follow up: Response: No adverse reaction sm5 02:50 Drug: Xopenex (levalbuterol) 1.25 mg Route: Inhalation; st1 04:08 Follow up: Response: No adverse reaction sm5 04:10 Drug: GI Cocktail without - (Maalox Suspension 30 ml, Lidocaine Liquid 2 % 15 st1 ml) Route: PO; 04:10 Drug: NS 0.9% 500 ml Route: IV; Rate: bolus; Site: right antecubital; st1 06:52 Drug: Rocephin (cefTRIAXone) 1 grams Route: IV; Rate: per protocol; Site: right forearm;5 06:52 Drug: Flagyl (metroNIDAZOLE) 500 mg Volume: 100 ml; Route: IVPB; Rate: 200 ml/hr; sm5 Infused Over: 30 mins; Site: right forearm; 07:34 Follow up: IV Status: Completed infusion [facility] 07:34 Drug: Zithromax (azithromycin) 500 mg Route: IVPB; Infused Over: 1 hrs; Site: right jh6 forearm; Intake: 03:20 IV: 500ml; Total: 500ml. sm5 Outcome: 07:17 Decision to Hospitalize by Provider. [facility] 12:09 Patient left the ED. [facility] Signatures: Dispatcher [employer] EDEdyta Mccaulye, RN RN 3 Josué Hunter MD MD 7 Julia Fernández Jennifer, RN RN 6 Kitty Nascimento RN RN 5 Kelly Bertrand 3 Chloe Cross RN RN st1 Corrections: (The following items were deleted from the chart) 04:02 02:00 GI: Reports upper abdominal pain, diarrhea, sm5 sm5
--- NOTE | 2021-06-11 07:18 | EDPHYS ---
Physician Documentation [facility] Name: Iman Huggins Age: 66 yrs Sex: Female : 1955 Arrival Date: 06/11/2021 Time: 01:38 Bed 8 Private MD: ED Physician Josué Hunter HPI: 06/11 02:33 This 66 yrs old Black Female presents to ER via Wheelchair with complaints of Breathing mh7 Difficulty, Abdominal Pain, Pain All Over, Diarrhea. 02:33 The patient presents with abdominal pain in the left lower quadrant. Onset: The mh7 symptoms/episode began/occurred 4 day(s) ago. The symptoms do not radiate. Associated signs and symptoms: Pertinent positives: diarrhea, shortness of breath, Wheezing, cough x2 days, Pertinent negatives: nausea and vomiting, anorexia, blood in stools, chest pain, constipation, dysuria, fever, headache, hematuria, nausea, palpitations, vaginal discharge, vomiting, vomiting blood. The symptoms are described as intermittent, vague, waxing/waning. Modifying factors: The symptoms are alleviated by nothing, the symptoms are aggravated by nothing. Severity of pain: At its worst the pain was moderate 2 day(s) ago, in the emergency department the pain has improved moderately. Historical: - Allergies: 01:56 ANGEL INHIBITORS; lg3 01:56 ARB-Angiotensin Receptor Antagonist; lg3 01:56 Lisinopril; lg3 - Home Meds: 01:56 albuterol sulfate 90 mcg/actuation Inhl HFAA 2 puffs three times a day [Active]; Zoloft lg3 50 mg Oral tab [Active]; amitriptyline 10 mg Oral tab nightly [Active]; Anoro Ellipta 62.5-25 mcg/actuation inhalation dsdv 1 puff once daily [Active]; aspirin 81 mg Oral TbEC 1 tab once daily [Active]; Detrol 2 mg Oral tab daily [Active]; estradiol 2 mg Oral tab once daily [Active]; medroxyprogesterone 2.5 mg Oral tab every 3 days [Active]; nitroglycerin 0.4 mg SL subl [Active]; Norvasc 10 mg Oral tab 1 tab once daily [Active]; oxycodone 30 mg Oral tab every 6 hours for Pain, for back pain [Active]; Pepcid 20 mg Oral tab once daily [Active]; prednisone 10 mg Oral tab once daily [Active]; Lasix 40 mg Oral tab once daily [Active]; Lipitor 40 mg Oral tab 1 tab once daily [Active]; Zyrtec 5mg Oral once daily [Active]; - PMHx: 01:56 chronic back pain; COPD; Hypertension; Myocardial infarction; lg3 - PSHx: 01:56 colon cancer tumor removal; Cholecystectomy; lg3 - Immunization history:: Adult Immunizations up to date, Client reports receiving the 2nd dose of the Covid vaccine, moderna X3. - Social history:: Smoking status: Patient denies any tobacco usage or history of. Patient/guardian denies using alcohol. ROS: 02:33 Constitutional: Negative for fever, chills, and weight loss, Eyes: Negative for injury, mh7 pain, redness, and discharge, ENT: Negative for injury, pain, and discharge, Neck: Negative for injury, pain, and swelling, Cardiovascular: Negative for chest pain, palpitations, and edema, Back: Negative for injury and pain, : Negative for injury, bleeding, discharge, and swelling, MS/Extremity: Negative for injury and deformity, Skin: Negative for injury, rash, and discoloration, Neuro: Negative for headache, weakness, numbness, tingling, and seizure, Psych: Negative for depression, anxiety, suicide ideation, homicidal ideation, and hallucinations, Allergy/Immunology: Negative for hives, rash, and allergies, Endocrine: Negative for neck swelling, polydipsia, polyuria, polyphagia, and marked weight changes, Hematologic/Lymphatic: Negative for swollen nodes, abnormal bleeding, and unusual bruising. Exam: 02:33 Head/Face: Normocephalic, atraumatic. Eyes: Pupils equal round and reactive to light, mh7 extra-ocular motions intact. Lids and lashes normal. Conjunctiva and sclera are non-icteric and not injected. Cornea within normal limits. Periorbital areas with no swelling, redness, or edema. Neck: Trachea midline, no thyromegaly or masses palpated, and no cervical lymphadenopathy. Supple, full range of motion without nuchal rigidity, or vertebral point tenderness. No Meningismus. Chest/axilla: Normal chest wall appearance and motion. Nontender with no deformity. No lesions are appreciated. Cardiovascular: Regular rate and rhythm with a normal S1 and S2. No gallops, murmurs, or rubs. Normal PMI, no JVD. No pulse deficits. 02:33 Back: No spinal tenderness. No costovertebral tenderness. Full range of motion. Skin: Warm, dry with normal turgor. Normal color with no rashes, no lesions, and no evidence of cellulitis. MS/ Extremity: Pulses equal, no cyanosis. Neurovascular intact. Full, normal range of motion. Neuro: Awake and alert, GCS 15, oriented to person, place, time, and situation. Cranial nerves II-XII grossly intact. Motor strength 5/5 in all extremities. Sensory grossly intact. Cerebellar exam normal. Normal gait. Psych: Awake, alert, with orientation to person, place and time. Behavior, mood, and affect are within normal limits. 02:33 Constitutional: The patient appears in no acute distress, alert, awake, uncomfortable. 02:33 Respiratory: the patient does not display signs of respiratory distress, Respirations: prolonged exhalation, that is mild, Breath sounds: wheezing: expiratory that is mild, is heard diffusely, Respiratory rate: 18 02:33 Abdomen/GI: Inspection: obese Bowel sounds: normal, in all quadrants, Palpation: moderate abdominal tenderness, in the left lower quadrant, mass, is not appreciated, rebound tenderness, is not appreciated, voluntary guarding, is not appreciated, involuntary guarding, is not appreciated, no appreciated organomegaly, Rectal exam: the exam is deferred, because of patient request, Indicators: McBurney's point is not tender, Segovia's sign is negative, Rovsing's sign is negative, Obturator sign is negative, Psoas sign is negative, Liver: no appreciated palpable abnormalities, Hernia: not appreciated. Vital Signs: 01:54 BP 141 / 67; Pulse 80; Resp 19 S; Temp 99.2(O); Pulse Ox 99% on 3 lpm NC; Weight 108.86 lg3 kg (R); Height 5 ft. 4 in. (162.56 cm) (R); Pain 8/10; 02:00 BP 144 / 75; Pulse 77; Resp 18; Pulse Ox 100% on 3 lpm NC; st1 02:00 BP 104 / 73; Pulse 88; Resp 16; Pulse Ox 100% on 3 lpm NC; st1 07:15 BP 122 / 61; Pulse 85; Resp 17; Pulse Ox 99% ; Pain 0/10; jh6 01:54 Body Mass Index 41.20 (108.86 kg, 162.56 cm) lg3 MDM: 07:16 Differential diagnosis: bowel obstruction, coronary artery disease, diverticulitis, mh7 non-specific abd pain, Pyelonephritis, Ureterolithiasis, urinary tract infection. Data reviewed: vital signs, nurses notes, lab test result(s), cardiac enzymes, CBC, electrolytes, urinalysis, EKG, radiologic studies, CT scan, plain films. Data interpreted: Pulse oximetry: on room air is 100 %. Interpretation: normal. Counseling: I had a detailed discussion with the patient and/or guardian regarding: the historical points, exam findings, and any diagnostic results supporting the discharge/admit diagnosis, lab results, radiology results, the need for further work-up and treatment in the hospital. Response to treatment: the patient's symptoms have markedly improved after treatment. 07:17 Patient medically screened. [facility] 06/11 02:16 Order name: Basic Metabolic Panel; Complete Time: 03:04 [facility] 06/11 02:16 Order name: CBC with Diff; Complete Time: 02:44 7 06/11 02:16 Order name: LFT's; Complete Time: 03:46 7 06/11 02:16 Order name: Magnesium; Complete Time: 03:46 7 06/11 02:16 Order name: NT PRO-BNP; Complete Time: 03:46 [facility] 06/11 02:16 Order name: PT-INR; Complete Time: 03:46 7 06/11 02:16 Order name: Troponin HS; Complete Time: 03:46 [facility] 06/11 02:16 Order name: Lipase; Complete Time: 03:46 [facility] 06/11 02:20 Order name: COVID-19/FLU A+B/RSV (Document "Date of Onset" if Symptomatic); Complete [facility] Time: 03:46 06/11 05:46 Order name: Urine Dipstick-Ancillary; Complete Time: 05:53 [facility] 06/11 08:32 Order name: Comprehensive Metabolic Panel [facility] 06/11 08:32 Order name: Comprehensive Metabolic Panel [facility] 06/11 08:32 Order name: Magnesium [facility] 06/11 08:32 Order name: Magnesium [facility] 06/11 02:16 Order name: XRAY Chest (1 view) [facility] 06/11 03:49 Order name: CT Chest For PE Angio [facility] 06/11 03:49 Order name: CT Abd/Pelvis - IV Contrast Only [facility] 06/11 08:33 Order name: CBC with Automated Diff [facility] 06/11 08:33 Order name: CBC with Automated Diff [facility] 06/11 08:33 Order name: Procalcitonin [facility] 06/11 02:16 Order name: EKG; Complete Time: 02:17 [facility] 06/11 02:16 Order name: Cardiac monitoring; Complete Time: 02:34 [facility] 06/11 02:16 Order name: EKG - Nurse/Tech; Complete Time: 02:34 [facility] 06/11 02:16 Order name: IV Saline Lock; Complete Time: 02:21 [facility] 06/11 02:16 Order name: Labs collected and sent; Complete Time: 02:21 [facility] 06/11 02:16 Order name: O2 Per Protocol; Complete Time: 02:21 [facility] 06/11 02:16 Order name: O2 Sat Monitoring; Complete Time: 02:21 [facility] 06/11 02:16 Order name: Urine Dipstick-Ancillary (obtain specimen); Complete Time: 05:45 [facility] 06/11 08:30 Order name: CONS Physician Consult [facility] 06/11 08:32 Order name: Full Liquid [facility] Administered Medications: 02:49 Drug: AtroVENT (ipratropium) Aerosol 0.5 mg Route: Inhalation; st1 04:08 Follow up: Response: No adverse reaction sm5 02:50 Drug: NS 0.9% 500 ml Route: IV; Rate: bolus; Site: right antecubital; st1 03:20 Follow up: IV Status: Completed infusion; IV Intake: 500ml sm5 02:50 Drug: morphine 4 mg Route: IVP; Site: right antecubital; st1 04:08 Follow up: Response: Pain is decreased sm5 02:50 Drug: Zofran (Ondansetron) 4 mg Route: IVP; Site: right antecubital; st1 04:08 Follow up: Response: No adverse reaction sm5 02:50 Drug: Xopenex (levalbuterol) 1.25 mg Route: Inhalation; st1 04:08 Follow up: Response: No adverse reaction sm5 04:10 Drug: GI Cocktail without - (Maalox Suspension 30 ml, Lidocaine Liquid 2 % 15 st1 ml) Route: PO; 04:10 Drug: NS 0.9% 500 ml Route: IV; Rate: bolus; Site: right antecubital; st1 06:52 Drug: Rocephin (cefTRIAXone) 1 grams Route: IV; Rate: per protocol; Site: right forearm;5 06:52 Drug: Flagyl (metroNIDAZOLE) 500 mg Volume: 100 ml; Route: IVPB; Rate: 200 ml/hr; sm5 Infused Over: 30 mins; Site: right forearm; 07:34 Follow up: IV Status: Completed infusion [facility] 07:34 Drug: Zithromax (azithromycin) 500 mg Route: IVPB; Infused Over: 1 hrs; Site: right 6 forearm; Disposition Summary: 06/11/21 07:17 Hospitalization Ordered Hospitalization Status: Inpatient Admission [facility] Provider: Sridhar Wynn [facility] Location: Telemetry/MedSur (Inpatient) [facility] Condition: Stable [facility] Problem: new [facility] Symptoms: have improved [facility] Bed/Room Type: Standard [facility] Room Assignment: 206(06/11/21 11:20) eb Diagnosis - COPD/ Chronic obstructive pulmonary disease with (acute) exacerbation [facility] - Other pneumonia, unspecified organism [facility] - Colitis [facility] Forms: - Medication Reconciliation Form [facility] - SBAR form [facility] Signatures: Dispatcher [employer] EDBrian Trinidad FNP-Joseph LABORER WHARF-Cla1 Steph Ye Lacie, RN RN lg3 Josué Huntre MD MD 7 Sharon Olivia RN RN jh6 Kitty Nascimento RN RN sm5 Chloe Cross, URSULA RN st1 Corrections: (The following items were deleted from the chart) 11:20 07:17 [facility]
[2021-06-11] MEDS ORDERED: AZITHROMYCIN 500 MG INJ IVPB ONE (07:35)
[2021-06-11] MEDS ORDERED: NA CHLORIDE 0.9% 250 ML ONE ×2 (07:35→16:28)
--- NOTE | 2021-06-11 07:59 | RAD REPORT ---
EXAM DESCRIPTION: RAD - Chest Single View - 06/11/2021 2:31 am CLINICAL HISTORY: COPD COMPARISON: Chest Single View dated 04/11/2017; Chest Single View dated 07/23/2016; Chest Single View d ated 05/06/2016; Chest Single View dated 05/06/2016; Chest For Pe Angio dated 06/11/2021; Abdomen Pelvi s W Contrast dated 2Chest Single View dated 04/11/2017; Chest Single View dated 07/23/2016; Chest Single View dated 05/06/2016; Chest Single View dated 05/06/2016; Chest For Pe Angio dated 06/11/2021; A bdomen Pelvis W Contrast dated 06/11/2021; Lung Cancer Screening CT W/O dated 01/20/2019 FINDINGS: Lines: None. Lungs: Increased prominence of the pulmonary interstitium . Pleural: No significant pleural effusions or pneumothorax. Cardiac: Cardiomegaly. Bones: No acute fractures. Other: IMPRESSION: 1. Increased bilateral interstitial markings could reflect vascular congestion and/or m ild multifocal pneumonia. 2. Nodular opacity in the left upper lobe better demonstrated on the same-day chest CT. Three-month f ollow-up chest CT is recommended to ensure resolution.
[2021-06-11] MEDS ORDERED: ONDANSETRON 4 MG/2 ML VIAL IV PRN (08:31)
[2021-06-11] MEDS ORDERED: ACETAMINOPHEN 500 MG TAB PO PRN (08:31)
--- NOTE | 2021-06-11 08:42 | P.HP ---
Certification for Inpatient Patient admitted to: Inpatient With expected LOS: >2 Midnights Practitioner: I am a practitioner with admitting privileges, knowledge of patient current condition, hospital course, and medical plan of care. Services: Services provided to patient in accordance with Admission requirements found in Title 42 Section 412.3 of the Code of Federal Regulations Patient History Date of Service: 06/11/21 Reason for admission: Colitis, COPD exacerbation pneumonia History of Present Illness: 66yo F, PMH: COPD with home oxygen as needed, HTN, prior [place], chronic back pain, GERD Presents to the ED with 2-3 days of worsening shortness of breath, wheeze, requiring more home oxygen, left lower abdominal pain and diarrhea. Patient denies fever at home, but feels like she had chills. Denies any blood in her urine or stool. Denies any dysuria/urinary frequency/other UTI symptoms. Has not had any recent changes in her medications, and has been compliant with her meds. In the ED, her blood work was rather unremarkable, however patient appeared very dyspneic, and had abdominal tenderness. CTA chest and CT abdomen/pelvis revealed bilateral pulmonary opacities concerning for possible pneumonia, and some thickening of her colon concerning for colitis. CT incidentally noted possible filling defect in the left ventricle. Allergies ANGEL Inhibitors Allergy (Severe, Verified 08/24/20 08:25) Anaphylaxis lisinopril Adverse Reaction (Severe, Verified 08/24/20 08:25) Anaphylaxis ARB-Angiotensin Receptor Ant Allergy (Uncoded 08/24/20 08:25) Unknown Home Medications: Albuterol Inhaler [Ventolin Inhaler] 2 puff IH Q6H PRN 08/24/20 Amlodipine [Norvasc] 10 mg PO DAILY 08/24/20 Atorvastatin Calcium [Lipitor] 40 mg PO BEDTIME 08/24/20 Escitalopram Oxalate 20 mg PO DAILY 08/24/20 Fluticasone/Umeclidin/Vilanter [Trelegy Ellipta 100-62.5-25] 1 each IH DAILY 08/24/20 Hydrocodone Bit/Acetaminophen [Hydrocodon-Acetaminophn 10-325] 1 tab PO Q6HP PRN 08/24/20 Medroxyprogesterone Acetate [Provera] 2.5 mg PO DAILY 08/24/20 Oxybutynin Chloride [Ditropan] 5 mg PO TID 08/24/20 Theophylline Anhydrous [Yovanny-24] 200 mg PO DAILY 08/24/20 estradioL [Estradiol] 2 mg PO DAILY 08/24/20 predniSONE [Deltasone] 10 mg PO DAILY 08/24/20 Sertraline [Zoloft] 50 mg PO BEDTIME 06/11/21 - Past Medical/Surgical History Diabetic: No -: chronic back pain -: copd -: htn -: mi -: 02 at 3l nc prn night time -: GERD -: Colon cancer status post resection -: Cholecystectomy -: Colectomy 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, 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, 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 -: Cancer Sister -: Heart disease, Hypertension, Lung disease, GI disease, Diabetes, Stroke, Kidney disease - Social History Smoking Status: Current some day smoker Alcohol use: No CD- Drugs: No Caffeine use: Yes Place of Residence: Home Review of Systems 10-point ROS is otherwise unremarkable Physical Examination - Physical Exam General: Alert, Oriented x3, Mild distress HEENT: Sclerae nonicteric Respiratory: Diminished, Expiratory wheezes Cardiovascular: No edema, Regular rate/rhythm Gastrointestinal: Soft and benign, Non-distended, Tenderness (Left lower quadrant) Musculoskeletal: No erythema Integumentary: No rashes, No significant lesion Neurological: Normal speech, Normal affect - Studies Laboratory Data (last 24 hrs) 06/11/21 02:19: PT 11.3, INR 0.98 06/11/21 02:19: WBC 6.70, Hgb 13.3, Hct 41.3, Plt Count 200 06/11/21 02:19: Sodium 143, Potassium 3.4 L, BUN 10, Creatinine 0.66, Glucose 100, Magnesium 2.3, Total Bilirubin 0.3, AST 11 L, ALT 18, Alkaline Phosphatase 85, Lipase 134 Assessment and Plan - Advance Directives Does patient have a Living Will: No Does patient have a Durable POA for Healthcare: No Physician Review Additional Text: Problem List acute on chronic hypoxemic respiratory distress, secondary to pneumonia, COPD exacerbatio colitis LV filling defect, possible HTN CAD h/o colon cancer s/p resection chronic R hip pain Sepsis ruled out Continue empiric antibiotics, Levaquin and Flagyl to cover for respiratory and abdominal pathogens Gentle IV fluid Full liquid diet, as tolerated Appears to be having COPD exacerbation as well, increase steroids Obtain home medications, continue this appropriate Pulmonology consulted Possible LV filling defect seen on CT, briefly discussed with cardiology, can obtain echocardiogram Sunday Stool studies VTE: lovenox code: full Dispo: home, ~2 days Time Spent Managing Pts Care (In Minutes): 60
[2021-06-11] MEDS: METHYLPREDNISOLONE 125 MG INJ IV SCH ×2 (09:00→20:31)
[2021-06-11] MEDS: Levofloxacin 750mg IV 750 MG/150 ML BAG IV SCH (09:00)
[2021-06-11] MEDS: ENOXAPARIN 40 MG/0.4 ML SQ SCH (09:00)
[2021-06-11] MEDS: METRONIDAZOLE 500mg IVPB 500 MG/100 ML BAG IV SCH ×2 (09:00→16:28)
[2021-06-11] MEDS ORDERED: ENOXAPARIN 40 MG/0.4 ML SQ ONE (09:47)
[2021-06-11] MEDS ORDERED: Levofloxacin 750mg IV 750 MG/150 ML BAG IV ONE (09:47)
[2021-06-11] MEDS ORDERED: METHYLPREDNISOLONE 125 MG INJ ONE (09:47)
[2021-06-11] MEDS: HYDROCODONE/APAP 10/325 TAB PO PRN ×2 (11:51→20:30)
[2021-06-11] MEDS ORDERED: HYDROCODONE/APAP 10/325 TAB ONE (11:57)
--- NOTE | 2021-06-11 12:45 | EKG ---
Test Date: 2021-06-11 Test Time: 02:33:38 Electric Stove Installer: MERVATT MEASUREMENT RESULTS: Intervals: Rate: 74 WI: 156 QRSD: 80 QT: 390 QTc: 432 Dunbar: P: 37 WI: 156 QRS: 62 T: 66 INTERPRETIVE STATEMENTS: Normal sinus rhythm Normal ECG Compared to ECG 07/13/2017 00:50:25 No significant changes Electronically Signed On 06-11-21 12:44:43 [facility] DIRECTOR by Nahid Heller
[2021-06-11] MEDS: IPRATROPIUM BROM 0.5MG/2.5ML NEB SCH ×2 (13:02→20:10)
[2021-06-11] MEDS: ALBUTEROL 2.5 MG/3 ML NEB SOL NEB PRN (13:02)
[2021-06-11] MEDS: MORPHINE 4 MG/ML SYR IV PRN ×2 (16:28→23:35)
[2021-06-11 17:53] VITALS: BMI 41.1
--- NOTE | 2021-06-11 21:54 | CON ---
Date of Consultation: 06/11/2021 Reason For Consultation: Possible LV mass on a CT scan. History Of Present Illness: Ms. Huggins is 66, has a history of hypertension, COPD, obesity, apparen tly had a history of ID in 2018. A catheterization at that time revealed mild coronary artery diseas e. No intervention was done. She did not have any congestive heart failure. She comes in with pneu monia and COPD and was with headache, shortness of breath, and diarrhea and a CT scan showed a fillin g defect in the left ventricular apex, and I was consulted. Past Medical History: As stated above. Allergies: SHE IS ALLERGIC TO ANGEL INHIBITORS AND ARBS. Review of Systems: Negative. Social History: Negative. Family History: Negative. Medications: At home include Norvasc, inhalers, Lipitor, and steroids. Physical Examination: Vital Signs: Stable. She was afebrile HEENT: Negative. Neck: Supple. No bruit. Chest: Reveals rales at both bases. Cardiac: Revealed a regular rhythm and rate. S4, gallops. Abdomen: Benign. Extremities: Revealed no clubbing, cyanosis, or edema. Diagnostic Data: As stated earlier. Impression And Plan: 1.Chronic obstructive pulmonary disease exacerbation with possible pneumonia. Followed by Dr. Brandi cortez and Dr. Thurston. 2.Hypertension, well controlled. 3.History of coronary artery disease with negative catheterization, possible filling defect on the C T scan of the left ventricle. This may be a papillary muscle. I think an echocardiogram should be d one. We can certainly do that as an outpatient. She is hemodynamically stable without any cardiac s ymptoms. ZACHERY/MAXIMUSL Voice ID: [id number] Report ID: [id number]
--- NOTE | 2021-06-11 22:46 | RAD REPORT ---
EXAM DESCRIPTION: CT - Abdomen Pelvis W Contrast - 06/11/2021 6:43 am CLINICAL HISTORY: The patient is 66 years years old, Female; diarrhea;Abd pain TECHNIQUE: Axial computed tomographic angiography images of the chest with MIP reconstructions as we ll as axial computed tomographic images of the abdomen and pelvis with intravenous contrast. Sagitt al and coronal reformatted images were created and reviewed. This CT exam was performed using one o r more of the following dose reduction techniques: automated exposure control, adjustment of the mA and/or kV according to patient size, and/or use of iterative reconstruction technique. MIP reconstructed images were created and reviewed. COMPARISON: No relevant prior studies available. FINDINGS: CHEST: AORTA: No acute findings. No aortic aneurysm. No dissection. PULMONARY ARTERIES: The examination is technically less than ideal for the complete assessment of t he pulmonary arterial vessels. No intraluminal filling defects, i.e. pulmonary emboli, are identifi ed within the main pulmonary arteries, lobar branches and proximal segmental branches; There is subop timal peripheral pulmonary artery opacification with subsequent heterogeneous decreased density of mu ltiple subsegmental pulmonary arterial branches. GREAT VESSELS OF AORTIC ARCH: No acute findings. No dissection. No arterial occlusion or signif icant stenosis. LUNGS: Patchy infiltrates are noted in the left upper lobe and right lower lobe consistent with ate lectasis and or pneumonia as well as some dependent atelectasis bilaterally. There is diffuse centrilobular emphysema, predominantly in the upper lobes. PLEURAL SPACE: No evidence of pleural fluid or pneumothoraces. HEART: There is a questionable filling defect in the left ventricle which appears more prominent th an typically seen in a papillary muscle such that a mass is not excluded. ABDOMEN: LIVER: The liver is normal in size and configuration. A small area of decreased attenuation in the left lobe of the liver may represent an area of focal fatty infiltration. GALLBLADDER AND BILE DUCTS: The gallbladder is absent status post cholecystectomy with surgical cli ps in the gallbladder fossa. There is dilatation of the common hepatic duct up to 1.2 cm. PANCREAS: Unremarkable. No ductal dilation. No mass. SPLEEN: Unremarkable. No splenomegaly. ADRENALS: Unremarkable. No mass. KIDNEYS AND URETERS: There are no acute findings in the kidneys. There is no evidence of solid mass , hydronephrosis or radiopaque nonobstructive intrarenal calculi. Multiple hypodensities consistent w ith cysts are noted in the kidneys, some technically too small to characterize. 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 It measures 6.3 cm x 7.3 cm x 6.3 cm, demonstrates minimal mural calcification and has an attenuation of 8 [place]oun[place] uni ts consistent with a Bosniak II cyst which requires no follow-up. STOMACH AND BOWEL: There are postoperative changes of proximal colectomy was ileocolic reanastomosi s. Fluid-filled colon suggests hypersecretion or poor colonic water resorption as may occur with nons pecific gastroenteritis/enteritis and/or colitis, the latter most likely in this case. There is a segment of mural thickening up to 1.0 cm in the proximal transverse colon with possible ov erhanging edges. As there are areas of mural thickening in portions of the remainder of the colon and rectum consistent with nonspecific coloproctitis, this area could represent an area of colitis. [place] [facility], an infiltrative neoplasm cannot be excluded. Recommend colonoscopy. The stomach is grossly unremarkable. There is a large diverticulum along the descending portion of th e duodenum. The remainder of the small bowel appears grossly unremarkable without evidence of obstruc tion. PELVIS: APPENDIX: See above. BLADDER: Unremarkable. No mass. REPRODUCTIVE: The uterus is enlarged, particularly for a postmenopausal female and measures 11 cm x 5.8 cm x 7.4 cm, containing multiple masses of various sizes consistent with leiomyomata. There is n o evidence of solid or cystic adnexal mass. CHEST, ABDOMEN and PELVIS: INTRAPERITONEAL SPACE: No evidence of free air. No significant fluid collection. BONES/JOINTS: There is no evidence of acute fracture, osseous destruction or osteoblastic changes. There is multilevel thoracic and lumbar spondylosis with vertebral body marginal osteophytosis. Moder ate to severe disc space narrowing at L2-3 with vacuum disc phenomenon SOFT TISSUES: There is laxity of the aponeurosis of the rectus abdominal musculature resulting in v entral herniation of some mesenteric fat and bowel. VASCULATURE: There is three-vessel mild coronary atherosclerosis. No evidence of aortic aneurysm in the chest or abdomen. There is atherosclerosis in the aorta and chip ac branches as well as in branches along the gastroesophageal junction. LYMPH NODES: There is no evidence of hilar, mediastinal, supraclavicular or axillary adenopathy. There is no evidence of mesenteric, retroperitoneal or pelvic adenopathy. IMPRESSION: 1. Technically limited study for the complete assessment of the pulmonary arterial vessels with no pulmonary emboli identified within the main pulmonary arteries, lobar branches and pr oximal segmental branches. There is suboptimal peripheral pulmonary artery opacification with subsequ ent heterogeneous decreased density of multiple subsegmental pulmonary arterial branches, which may b e due to one or more of the following factors: poor enhancement related to contrast bolus dose, subop timal visualization related to image acquisition technique and thickness, and/or motion artifacts. Sm all peripheral pulmonary emboli cannot entirely be excluded. If a pulmonary embolism remains of cl inical concern, a followup cta or an alternative imaging modality such as a vq scan or lower extremit y duplex us is suggested for further assessment. 2. Patchy infiltrates are noted in the left upper lobe and right lower lobe consistent with atelect asis and or pneumonia as well as some dependent atelectasis bilaterally. 3. There is a questionable filling defect in the left ventricle which appears somewhat more promine nt than papillary muscle such that a mass is not excluded. Recommend echocardiography. THIS REPOR T CONTAINS FINDINGS THAT MAY BE CRITICAL TO PATIENT CARE: The findings were verbally discussed via te [place] conference with Dr. Josué Hunter by Dr. Katt Moe on 06/11/2021 6:12 AM [employer] [employer]. T he results were acknowledged and understood. 4. There is three-vessel mild coronary atherosclerosis. 5. Status post cholecystectomy with surgical clips in the gallbladder fossa. Extrahepatic biliary d uctal dilatation may reflect expected sequela of cholecystectomy with a biliary reservoir effect. A d istal common bile duct obstruction, as may occur with choledocholithiasis or benign or malignant stri cture, is a less likely consideration but warrants correlation with liver function tests and MRCP or ERCP if indicated. 6. There are postoperative changes of proximal colectomy was ileocolic reanastomosis. Fluid-filled colon suggests hypersecretion or poor colonic water resorption as may occur with nonspecific gastroen teritis/enteritis and/or colitis, the latter most likely in this case. 7. There is a segment of mural thickening up to 1.0 cm in the proximal transverse colon with possib le overhanging edges. As there are areas of mural thickening in portions of the remainder of the colo n and rectum consistent with nonspecific coloproctitis, this area could represent an area of colitis. However, an infiltrative neoplasm cannot be excluded. Recommend colonoscopy. THIS REPORT CONTAINS FINDINGS THAT MAY BE CRITICAL TO PATIENT CARE: The findings were verbally discussed via telephone loy pichardo with Dr. Josué Hunter by Dr. Katt Moe on 06/11/2021 6:10 AM [facility] [employer] [facility]. The results were acknowledged and understood. Electronically signed by: Katt Moe MD 06/11/2021 6:16 AM [employer] [employer] Due to temporary technical issues with the PACS/Fluency reporting system, reports are being signed by the in house radiologists without review as a courtesy to insure prompt reporting. The interpreting radiologist is fully responsible for the content of the report.
[2021-06-12] MEDS: METRONIDAZOLE 500mg IVPB 500 MG/100 ML BAG IV SCH ×3 (00:11→16:19)
[2021-06-12] MEDS: IPRATROPIUM BROM 0.5MG/2.5ML NEB SCH ×4 (02:10→20:00)
[2021-06-12] MEDS: HYDROCODONE/APAP 10/325 TAB PO PRN ×2 (04:45→16:19)
--- NOTE | 2021-06-12 06:08 | P.PN ---
Date of Service: 06/12/21 Subjective: Feels breathing is slightly better, on 3 L nasal cannula Still feels fairly fatigued, generalized weakness Mild lower abdominal discomfort, 2 episodes of diarrhea ROS: 10 point ROS as noted above, otherwise negative Physical exam GEN: Alert, oriented, NAD HEENT: Normal conjunctiva, sclera anicteric CV: Regular rate and rhythm, no edema Pulm: mild labored respirations on 3L NC ABD: Soft, mild LLQ tenderness Neuro: Normal speech, normal affect Problem List acute on chronic hypoxemic respiratory distress, secondary to pneumonia, COPD exacerbatio colitis LV filling defect, possible HTN CAD h/o colon cancer s/p resection chronic R hip pain Sepsis ruled out Continue empiric antibiotics, Levaquin and Flagyl to cover for respiratory and abdominal pathogens Gentle IV fluid advance diet Appears to be having COPD exacerbation as well, increased steroids on admission Pulmonology consulted Possible LV filling defect seen on CT, briefly discussed with cardiology, can obtain echocardiogram Sunday continues with some diarrhea, not feeling well advance diet, wean O2 as tolerated VTE: lovenox code: full Dispo: home, anticipate tomorrow Time Spent Managing Pts Care (In Minutes): 35
[2021-06-12 06:23] LABS: Absolute Lymphocytes (CBC) 0.5 K/uL (0.7-4.9); Hematocrit 40.3 % (36.0-45.0); Lymphocytes % 10.6 % (15.3-44.8); MPV 7.8 fL (7.6-11.3); RBC Red Blood Cell Count 4.49 M/uL (3.86-4.86)
[2021-06-12 06:28] LABS: ALT/SGPT 16 U/L (12-78); AST/SGOT 9 U/L (15-37); Albumin 3.2 g/dL (3.4-5.0); Alkaline Phosphatase 67 U/L (45-117); BUN Blood Urea Nitrogen 9 mg/dL (7-18); Bicarbonate 34 mmol/L (21-32); Bilirubin Total 0.3 mg/dL (0.2-1.0); Glucose Level 119 mg/dL (74-106); Magnesium 2.4 mg/dL (1.8-2.4); Protein, Total 6.8 g/dL (6.4-8.2); Sodium Level 140 mmol/L (136-145)
[2021-06-12] MEDS: MORPHINE 4 MG/ML SYR IV PRN ×3 (06:34→20:16)
--- NOTE | 2021-06-12 08:21 | RAD REPORT ---
EXAM DESCRIPTION: RAD - Chest Single View - 06/12/2021 8:06 am CLINICAL HISTORY: f/u opacities, hypoxia COMPARISON: CT chest 06/11/2021, portable chest 06/11/2021, portable chest 04/11/2017 TECHNIQUE: AP portable chest image was obtained 06/12/2021 8:06 am . FINDINGS: Subtle increased density left apex noted compared to the right. This is the correlate to t he focal mass or infiltrate seen on CT chest imaging. Increased lung base interstitial opacification noted. Overall lung parenchyma not clearly different from the June 11 imaging. Heart size is upper normal, stable with mild prominence of the central vasculature. Trachea is in mid line. No measurable pleural effusion and no pneumothorax. No acute bony abnormality seen. No acute aortic findings suspected. IMPRESSION: Left apical mass or infiltrate not clearly different from prior imaging. Lung base interstitial opacification not clearly different from prior imaging. The left apex finding is most likely infiltrate in the acute clinical setting. However, there is mass like appearance that needs continued close follow-up. Finding is much more subtle on the plain film t w[place]rop on CT. Follow-up CT chest in 3 months could be performed to allow clearing of any infectious/ inf lammatory process and to assure no underlying lung mass.
[2021-06-12] MEDS ORDERED: MEDROXYPROGESTERONE 2.5 MG PO SCH (09:00)
[2021-06-12] MEDS: ESTRADIOL 2 MG PO SCH (09:00)
[2021-06-12] MEDS ORDERED: THEOPHYLLINE ANHYDROUS 200 MG PO SCH (09:00)
[2021-06-12] MEDS ORDERED: HOME MED 1 EA UNK (Fluticasone/Umeclidin/Vilanter [Trelegy Ellipta 100-62.5-25] Blst.W.Dev IH SCH (09:00)
[2021-06-12] MEDS: ALBUTEROL 2.5 MG/3 ML NEB SOL NEB PRN ×2 (09:08→13:28)
[2021-06-12 09:35] LABS: Platelet Estimate ADEQ; White Blood Cell Scan OK (OK)
[2021-06-12 09:36] LABS: Blood Morphology Comment NOT SEEN (NOT SEEN)
[2021-06-12] MEDS: ENOXAPARIN 40 MG/0.4 ML SQ SCH (09:44)
[2021-06-12] MEDS: METHYLPREDNISOLONE 125 MG INJ IV SCH ×2 (09:44→20:16)
[2021-06-12] MEDS: Levofloxacin 750mg IV 750 MG/150 ML BAG IV SCH (09:45)
[2021-06-12] MEDS: ESCITALOPRAM 20 MG TAB PO SCH (09:45)
[2021-06-12] MEDS: OXYBUTYNIN CHLORIDE 5 MG TAB PO SCH ×3 (09:46→20:15)
--- NOTE | 2021-06-12 10:35 | P.CNS ---
Date of Consult: 06/12/21 Reason for Consult: COPD exacerbation Chief Complaint: Colitis, COPD exacerbation pneumonia History of Present Illness: Patient is 66 years of age metabolic syndrome COPD home oxygen got worse over the past 3 days more shortness of breath abdominal pain diarrhea not feeling well however condition is stable patient does take 10 mg of prednisone at home Denies any productive cough Allergies ANGEL Inhibitors Allergy (Severe, Verified 08/24/20 08:25) Anaphylaxis lisinopril Adverse Reaction (Severe, Verified 08/24/20 08:25) Anaphylaxis ARB-Angiotensin Receptor Ant Allergy (Uncoded 08/24/20 08:25) Unknown Home Medications: Albuterol Inhaler [Ventolin Inhaler] 2 puff IH Q6H PRN 08/24/20 Amlodipine [Norvasc] 10 mg PO DAILY 08/24/20 Atorvastatin Calcium [Lipitor] 40 mg PO BEDTIME 08/24/20 Escitalopram Oxalate 20 mg PO DAILY 08/24/20 Fluticasone/Umeclidin/Vilanter [Trelegy Ellipta 100-62.5-25] 1 each IH DAILY 08/24/20 Hydrocodone Bit/Acetaminophen [Hydrocodon-Acetaminophn 10-325] 1 tab PO Q6HP PRN 08/24/20 Medroxyprogesterone Acetate [Provera] 2.5 mg PO DAILY 08/24/20 Oxybutynin Chloride [Ditropan] 5 mg PO TID 08/24/20 Theophylline Anhydrous [Yovanny-24] 200 mg PO DAILY 08/24/20 estradioL [Estradiol] 2 mg PO DAILY 08/24/20 predniSONE [Deltasone] 10 mg PO DAILY 08/24/20 Sertraline [Zoloft] 50 mg PO BEDTIME 06/11/21 - Past Medical/Surgical History Diabetic: No -: chronic back pain -: copd -: htn -: mi -: 02 at 3l nc prn night time -: GERD -: Colon cancer status post resection -: Cholecystectomy -: Colectomy 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, 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, 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 Medical History: Cancer Sister Medical History: Heart disease, Hypertension, Lung disease, GI disease, Diabetes, Stroke, Kidney disease - Social History Smoking Status: Current every day smoker Alcohol use: No CD- Drugs: No Caffeine use: Yes Place of Residence: Home Review of Systems General: Weakness Respiratory: Cough, Shortness of Breath Gastrointestinal: Diarrhea Physical Examination Temp Pulse Resp BP Pulse Ox 97.3 F 72 18 140/69 97 06/12/21 08:00 06/12/21 08:00 06/12/21 08:00 06/12/21 08:00 06/12/21 08:00 General: Alert, In no apparent distress, Oriented x3 Respiratory: Clear to auscultation bilaterally, Diminished Cardiovascular: No edema, Regular rate/rhythm Gastrointestinal: Normal bowel sounds, Soft and benign Musculoskeletal: No clubbing, No swelling - Problems (1) COPD exacerbation Onset Date: 07/16/17 Current Visit: No Status: Acute Plan: Patient is 66 years of age admitted with acute onset abdominal pain some diarrhea headaches worsening shortness of breath labs chemistries vital signs unremarkable there is an area of left upper lobe opacity patient can be discharged home on levofloxacin for 7 days and is on 10 twice daily continue with her bronchodilators at home follow-up with me in 2 to 4 weeks history of diarrhea possible mild colitis (2) Lung mass Current Visit: Yes Status: Acute Plan: Left upper lobe opacity is follow-up CT in about a month stability of lung cancer small patchy opacity in the right lower lobe. With antibiotics for 7 days
[2021-06-12] MEDS ORDERED: ATORVASTATIN 40 MG TAB PO SCH (21:00)
[2021-06-12] MEDS ORDERED: SERTRALINE HCL 50 MG TAB PO SCH (21:00)
[2021-06-13] MEDS: METRONIDAZOLE 500mg IVPB 500 MG/100 ML BAG IV SCH ×2 (01:03→08:26)
[2021-06-13] MEDS: IPRATROPIUM BROM 0.5MG/2.5ML NEB SCH ×2 (01:05→07:30)
[2021-06-13] MEDS: HYDROCODONE/APAP 10/325 TAB PO PRN ×2 (01:22→10:30)
[2021-06-13] MEDS: MORPHINE 4 MG/ML SYR IV PRN ×2 (02:28→08:24)
[2021-06-13 05:33] LABS: Absolute Lymphocytes (CBC) 0.5 K/uL (0.7-4.9); Hematocrit 38.7 % (36.0-45.0); MPV 7.6 fL (7.6-11.3); RBC Red Blood Cell Count 4.37 M/uL (3.86-4.86)
[2021-06-13 05:56] LABS: ALT/SGPT 17 U/L (12-78); AST/SGOT 13 U/L (15-37); Alkaline Phosphatase 61 U/L (45-117); BUN Blood Urea Nitrogen 14 mg/dL (7-18); Bicarbonate 34 mmol/L (21-32); Bilirubin Total 0.2 mg/dL (0.2-1.0); Glucose Level 131 mg/dL (74-106); Magnesium 2.4 mg/dL (1.8-2.4); Potassium 4.2 mmol/L (3.5-5.1); Protein, Total 6.3 g/dL (6.4-8.2); Sodium Level 140 mmol/L (136-145)
[2021-06-13] MEDS: METHYLPREDNISOLONE 125 MG INJ IV SCH (08:25)
[2021-06-13] MEDS: OXYBUTYNIN CHLORIDE 5 MG TAB PO SCH (08:25)
[2021-06-13] MEDS: Levofloxacin 750mg IV 750 MG/150 ML BAG IV SCH (08:25)
[2021-06-13] MEDS: ESCITALOPRAM 20 MG TAB PO SCH (08:25)
[2021-06-13] MEDS: ENOXAPARIN 40 MG/0.4 ML SQ SCH (08:25)
[2021-06-13] MEDS: ESTRADIOL 2 MG PO SCH (09:00)
[2021-06-13 09:15] VITALS: BP 141/71; TEMP 98
[2021-06-13 11:36] VITALS: O2SAT 96
--- NOTE | 2021-06-13 14:42 | ECHO ---
HEIGHT: 5 ft 4 in WEIGHT: 239 lb 15.923 oz DATE OF STUDY: 06/13/[address]: Sridhar Wynn MD 2-DIMENSIONAL: YES M.MODE: YES DOPPLER: YES COLOR FLOW: YES TDS: NO PORTABLE: NO DEFINITY: NO BUBBLE STUDY: NO DIAGNOSIS: EVALUATE LEFT VENTRICULAR FILLING DEFECT CARDIAC HISTORY: CATHERIZATION: NO SURGERY: NO PROSTHETIC VALVE: NO PACEMAKER: NO MEASUREMENTS (cm) DIASTOLIC (NORMALS) SYSTOLIC (NORMALS) IVSd 1.3 (0.6-1.2) LA Diam 2.4 (1.9-4.0) LVEF 55% LVIDd 4.5 (3.5-5.7) LVIDs 3.2 (2.0-3.5) %FS 29% LVPWd 1.3 (0.6-1.2) Ao Diam 3.0 (2.0-3.7) 2 DIMENSIONAL ASSESSMENT: RIGHT ATRIUM: NORMAL LEFT ATRIUM: NORMAL RIGHT VENTRICLE: NORMAL LEFT VENTRICLE: NORMAL TRICUSPID VALVE: NORMAL MITRAL VALVE: NORMAL PULMONIC VALVE: NORMAL AORTIC VALVE: NORMAL PERICARDIAL EFFUSION: NONE AORTIC ROOT: NORMAL LEFT VENTRICULAR WALL MOTION: NORMAL DOPPLER/COLOR FLOW: COMMENTS: POOR STUDY. LEFT VENTRICULAR EJECTION FRACTION APPEARS NORMAL AT 55-60%. RECOMMEND MARC OR REPEAT ECHO WITH CONTRAST TO EVALUATE LEFT VENTRICULAR FILLING DEFECT BETTER. TECHNOLOGIST: Jessica CHACON
== END 2021-06-13 12:41 | disposition home or self-care (01) | DRG 190 ==
LOC: ER 01:37 → ERHOLD 08:30 → 2ND 11:51
PROVIDERS: ADMIT Hospitalist; ATTEND Hospitalist
DX: J44.0 Chronic obstructive pulmonary disease with (acute) lower respiratory infection (principal); J18.9 Pneumonia, unspecified organism; Q21.0 Ventricular septal defect; R06.03 Acute respiratory distress; R09.02 Hypoxemia; K21.9 Gastro-esophageal reflux disease without esophagitis; J44.1 Chronic obstructive pulmonary disease with (acute) exacerbation; K52.9 Noninfective gastroenteritis and colitis, unspecified; I25.10 Atherosclerotic heart disease of native coronary artery without angina pectoris; I10 Essential (primary) hypertension; M25.551 Pain in right hip; R91.8 Other nonspecific abnormal finding of lung field; Z85.038 Personal history of other malignant neoplasm of large intestine; Z99.81 Dependence on supplemental oxygen; Z90.49 Acquired absence of other specified parts of digestive tract; Z20.822 Contact with and (suspected) exposure to COVID-19
CPT/HCPCS: 0241U; 36415; 71045; 71275; 74177; 80048; 80053; 80076; 81003; 83690; 83735; 83880; 84145; 84484; 85025; 85610; 93005; 93306; 94640; 94760; 99285; J0456; J1650; J2405; J2930; J7040; J7050; Q9967

== ENCOUNTER 2023-07-17 21:12 | Inpatient (IN) | payer OTHER ==
[2023-07-17] MEDS ORDERED: ALBUTEROL 2.5 MG/3 ML NEB SOL ONE (22:16)
[2023-07-17] MEDS ORDERED: IPRATROPIUM BROM 0.5MG/2.5ML ONE (22:16)
[2023-07-17] MEDS ORDERED: methocarbamoL 750 MG TAB ONE (22:16)
[2023-07-17] MEDS ORDERED: METHYLPREDNISOLONE 125 MG INJ ONE (22:16)
[2023-07-17] MEDS ORDERED: ONDANSETRON 4 MG (ODT) TAB ONE (22:17)
[2023-07-17] MEDS ORDERED: HYDROCODONE/APAP 5/325 MG TAB ONE (22:17)
[2023-07-17 22:18] LABS: Arterial Blood Carboxyhemoglob 4.5 % (0-1.5); Blood Gas THB 14.3 g/dl (12-18)
[2023-07-17 22:32] LABS: Absolute Lymphocytes (CBC) 0.9 K/uL (0.7-4.9); Absolute Monocytes 0.3 K/uL (0.1-1.3); Absolute Neutrophil 2.7 K/uL (1.8-8.0); Eosinophils % 0.7 % (0-4.4); Hematocrit 44.7 % (36.0-45.0); Hemoglobin 14.4 g/dL (12.0-15.0); Lymphocytes % 22.7 % (15.3-44.8); MCH 29.1 pg (27.0-35.0); MCHC 32.1 g/dL (32.0-36.0); MCV 90.5 fL (80-100); MPV 7.5 fL (7.6-11.3); Monocytes % 8.2 % (3.3-12.3); Neutrophils % 67.4 % (41.7-73.7); Platelets 184 thou/uL (152-406); RBC Red Blood Cell Count 4.94 M/uL (3.86-4.86); Red Cell Distribution Width 15.7 % (12.1-15.2)
[2023-07-17 22:36] LABS: PT Prothrombin Time 12.4 SECONDS (9.5-12.5); PTT, Activated Partial Thromb 35.6 SECONDS (24.3-36.9); Protime INR 1.13
[2023-07-17 22:44] LABS: Albumin 3.2 g/dL (3.4-5.0); Albumin/Globulin Ratio 0.9 (1.1-1.8); Anion Gap 2.6 mEq/L (5.0-15.0); Bilirubin Direct 0.1 mg/dL (0-0.2); Bilirubin Indirect, Calculated 0.2 mg/dL (0.2-0.8); Bilirubin Total 0.3 mg/dL (0.2-1.0); Globulin 3.6 g/dL (2.3-3.5); Potassium 3.6 mEq/L (3.5-5.1); Protein, Total 6.8 g/dL (6.4-8.2); Troponin High Sensitivity 22.8 pg/mL (<58.9)
[2023-07-18] MEDS ORDERED: ACETAMINOPHEN 500 MG TAB PO PRN (01:38)
--- NOTE | 2023-07-18 01:40 | ER ---
Nurse's Notes [facility] Name: Iman Huggins Age: 68 yrs Sex: Female : 1955 Arrival Date: 07/17/2023 Time: 21:12 Bed 20 Private MD: Diagnosis: COPD/ Chronic obstructive pulmonary disease with (acute) exacerbation Presentation: 07/16 21:31 Chief complaint: Patient states: SOB that started today, and right leg pain5. as6 Coronavirus screen: At this time, the client does not indicate any symptoms associated with coronavirus-19. Ebola Screen: No symptoms or risks identified at this time. Initial Sepsis Screen: Does the patient have a suspected source of infection?. Initial Sepsis Screen: Does the patient meet any 2 criteria? No. Patient's initial sepsis screen is negative. Risk Assessment: Do you want to hurt yourself or someone else? Patient reports no desire to harm self or others. Onset of symptoms was July 17, 2023. 21:31 Method Of Arrival: Wheelchair as6 21:31 Acuity: RAD 2 as6 Historical: - Allergies: 21:32 ANGEL INHIBITORS; as6 21:32 ARB-Angiotensin Receptor Antagonist; as6 21:32 Lisinopril; as6 - PMHx: 21:32 chronic back pain; Myocardial infarction; Hypertension; COPD; as6 - PSHx: 21:32 Cholecystectomy; colon cancer tumor removal; as6 - Immunization history:: Adult Immunizations up to date. - Infectious Disease History:: Denies. - Social history:: Smoking status: Patient denies any tobacco usage or history of. - Family history:: not pertinent. Screenin/10 03:15 [facility] ED Fall Risk Assessment (Adult) History of falling in the last 3 months, jb4 including since admission No falls in past 3 months (0 pts) Confusion or Disorientation No (0 pts) Intoxicated or Sedated No (0 pts) Impaired Gait Yes (1 pt) Mobility Assist Device Used No (0 pt) Altered Elimination No (0 pt) Score/Fall Risk Level 0 - 2 = Low Risk Oriented to surroundings, Maintained a safe environment. Abuse screen: Denies threats or abuse. Nutritional screening: No deficits noted. Tuberculosis screening: No symptoms or risk factors identified. Assessment: 07/16 21:45 General: Appears in no apparent distress. uncomfortable, Behavior is calm, cooperative, jb4 appropriate for age. Pain: Complains of pain in right leg Pain does not radiate. Pain currently is 5 out of 10 on a pain scale. Neuro: Level of Consciousness is awake, alert, obeys commands, Oriented to person, place, time, situation. Cardiovascular: Patient's skin is warm and dry. GI: No signs and/or symptoms were reported involving the gastrointestinal system. : No signs and/or symptoms were reported regarding the genitourinary system. EENT: No signs and/or symptoms were reported regarding the EENT system. Derm: Skin is intact, Skin is dry, Skin is pale, Skin temperature is warm. 21:45 Respiratory: Airway is patent Respiratory effort is even, unlabored, Respiratory jb4 pattern is regular, symmetrical. 23:00 Reassessment: Patient appears in no apparent distress at this time. Patient and/or jb4 family updated on plan of care and expected duration. Pain level reassessed. Patient is alert, oriented x 3, equal unlabored respirations, skin warm/dry/pink. 07/17 00:00 Reassessment: Pt resting in bed with eyes closed, respirations are even and unlabored jb4 with no s/s of pain or distress noted. 01:00 Reassessment: Patient appears in no apparent distress at this time. No changes from jb4 previously documented assessment. Patient and/or family updated on plan of care and expected duration. Pain level reassessed. 02:00 Reassessment: Patient appears in no apparent distress at this time. No changes from jb4 previously documented assessment. Patient and/or family updated on plan of care and expected duration. Pain level reassessed. 03:44 Reassessment: Patient appears in no apparent distress at this time. Patient and/or jb4 family updated on plan of care and expected duration. Pain level reassessed. Patient is alert, oriented x 3, equal unlabored respirations, skin warm/dry/pink. attempted to change pt into hospital gown, pt refused. Vital Signs: 07/16 21:31 BP 101 / 69; Pulse 93; Resp 19 S; Temp 98.5(O); Pulse Ox 91% on 6 lpm NC; Weight 102.06 as6 kg (R); Height 5 ft. 4 in. (R); Pain 8/10; 23:52 BP 121 / 86; Pulse 83; Resp 20; Pulse Ox 96% on 6 lpm NC; jb4 07/17 01:00 BP 143 / 82; Pulse 87; Resp 19; Pulse Ox 97% on 6 lpm NC; jb4 02:00 BP 136 / 78; Pulse 88; Resp 18; Pulse Ox 96% on 6 lpm NC; jb4 03:15 BP 132 / 71; Pulse 88; Resp 19; Pulse Ox 93% on 4 lpm NC; jb4 07/16 21:31 Body Mass Index 38.62 (102.06 kg, 162.56 cm) as6 07/16 21:31 Pain Scale: Adult as6 Wharton Coma Score: 03:08 Eye Response: spontaneous(4). Motor Response: obeys commands(6). Verbal Response: sp4 oriented(5). Total: 15. ED Course: 07/16 21:25 Patient arrived in ED. ra3 21:32 Triage completed. as6 21:33 Arm band placed on. as6 21:48 Sal Ortiz MD is Attending Physician. sp4 22:15 Initial lab(s) drawn, by ak, sent to lab. First set of blood cultures drawn by ak, bc6 Second set of blood cultures drawn by ak. 22:31 Inserted saline lock: 22 gauge in right antecubital area, using aseptic technique. bc6 Blood collected. 22:35 XRAY CXR (1 view) In Process Unspecified. EDMS 22:35 Femur Right XRAY In Process Unspecified. EDMS 22:35 Tib Fib Right XRAY In Process Unspecified. EDMS 23:49 Michoacano Wilson, URSULA is Primary Nurse. jb4 07/17 01:32 Leonardo Herrmann MD is Hospitalizing Provider. sp4 03:15 Patient has correct armband on for positive identification. Bed in low position. Call jb4 light in reach. Side rails up X 1. Provided Education on: Need for admit. 03:15 No provider procedures requiring assistance completed. Patient admitted, IV remains in jb4 place. Administered Medications: 07/16 22:33 Drug: Albuterol Inhalation 2.5 mg Inhalation every 20 minutes x3 Route: Inhalation; jb4 22:33 Drug: Ipratropium Inhalation Aerosol 0.5 mg Inhalation once; Every 20 min for a total jb4 of 3 treatments x3 Route: Inhalation; 22:33 Drug: MethylPrednisoLONE IVP 125 mg IVP once Route: IVP; Site: right antecubital; jb4 22:33 Drug: HYDROcodone-acetaminophen PO 5 mg-325 mg 1 tabs PO once Route: PO; jb4 22:33 Drug: Ondansetron PO 4 mg PO once Route: PO; jb4 22:33 Drug: Methocarbamol PO 750 mg PO once Route: PO; jb4 23:12 Drug: Albuterol Inhalation 2.5 mg Inhalation every 20 minutes x3 Route: Inhalation; jb4 23:12 Drug: Ipratropium Inhalation Aerosol 0.5 mg Inhalation once; Every 20 min for a total jb4 of 3 treatments x3 Route: Inhalation; 07/17 00:16 Drug: Albuterol Inhalation 2.5 mg Inhalation every 20 minutes x3 Route: Inhalation; jb4 00:16 Drug: Ipratropium Inhalation Aerosol 0.5 mg Inhalation once; Every 20 min for a total jb4 of 3 treatments x3 Route: Inhalation; 02:18 Drug: HYDROcodone-acetaminophen PO 5 mg-325 mg 1 tabs PO once Route: PO; jb4 Medication: 03:15 VIS not applicable for this client. jb4 Outcome: 01:40 Decision to Hospitalize by Provider. sp4 03:15 Admitted to ICU accompanied by nurse, via stretcher, room ICU 3, with oxygen, with jb4 chart, Report called to URSULA Baxter 03:15 Condition: stable 03:15 Discharge instructions given to patient, family, Instructed on the need for admit, Demonstrated understanding of instructions, 03:46 Patient left the ED. jb4 Signatures: Dispatcher [employer] EDMS Michoacano Wilson RN RN jb4 Jimmie Coyle RN RN as6 Kellie Lechuga Sergey, MD MD sp4 Alicia Hall ra3 Corrections: (The following items were deleted from the chart) 07/16 23:52 23:50 General: Appears in no apparent distress. uncomfortable, Behavior is calm, jb4 cooperative, appropriate for age, jb4 23:52 23:50 Pain: Complains of pain in right leg Pain does not radiate. Pain currently is 5 jb4 out of 10 on a pain scale. jb4 23:52 23:50 Neuro: Level of Consciousness is awake, alert, obeys commands, Oriented to jb4 person, place, time, situation, jb4 23:50 Cardiovascular: Patient's skin is warm and dry. jb4 jb4 23:50 Respiratory: Airway is patent Respiratory effort is even, unlabored, Respiratory jb4 pattern is regular, symmetrical, jb4 23:50 GI: No signs and/or symptoms were reported involving the gastrointestinal system. jb4 jb4 23:50 : No signs and/or symptoms were reported regarding the genitourinary system. [id number] 23:50 EENT: No signs and/or symptoms were reported regarding the EENT system. jb4 jb4 23:50 Derm: Skin is intact, Skin is dry, Skin is pale, Skin temperature is warm jb4 jb4 07/17 03:46 03:44 Reassessment: Patient appears in no apparent distress at this time. Patient jb4 and/or family updated on plan of care and expected duration. Pain level reassessed. Patient is alert, oriented x 3, equal unlabored respirations, skin warm/dry/pink. jb4
--- NOTE | 2023-07-18 01:40 | EDPHYS ---
Physician Documentation [facility] Name: Iman Huggins Age: 68 yrs Sex: Female : 1955 Arrival Date: 07/17/2023 Time: 21:12 Bed 20 Private MD: ED Physician Sal Ortiz HPI: 07/17 00:27 This 68 yrs old Black Female presents to ER via Wheelchair with complaints of Shortness sp4 Of Breath. 03:08 68-year-old female past medical history of COPD presents for worsening shortness of sp4 breath with associated longstanding right lower leg pain. . 03:11 Positive for hypertension, prior GA, chronic back pain, GERD,. sp4 Historical: - Allergies: 07/16 21:32 ANGEL INHIBITORS; as6 21:32 ARB-Angiotensin Receptor Antagonist; as6 21:32 Lisinopril; as6 - PMHx: 21:32 chronic back pain; Myocardial infarction; Hypertension; COPD; as6 - PSHx: 21:32 Cholecystectomy; colon cancer tumor removal; as6 - Immunization history:: Adult Immunizations up to date. - Infectious Disease History:: Denies. - Social history:: Smoking status: Patient denies any tobacco usage or history of. - Family history:: not pertinent. ROS: 07/17 03:08 Constitutional: Negative for fever, chills, and weight loss, positive shortness of sp4 breath and wheezing, positive right lower extremity pain All other systems are negative, Exam: 03:08 Constitutional: This is a well developed, well nourished patient who is awake, alert, sp4 and in no acute distress. Moderate physical deconditioning. Head/Face: Normocephalic, atraumatic. Eyes: Pupils equal round and reactive to light, extra-ocular motions intact. Lids and lashes normal. Conjunctiva and sclera are not injected. Cornea within normal limits. Periorbital areas with no swelling, redness, or edema. ENT: Nares patent. No nasal discharge, no septal abnormalities noted. Tympanic membranes are normal and external auditory canals are clear. Oropharynx with no redness, swelling, or masses, exudates, or evidence of obstruction, uvula midline. Mucous membranes moist. Neck: Trachea midline, no thyromegaly or masses palpated, and no cervical lymphadenopathy. Supple, full range of motion without nuchal rigidity, or vertebral point tenderness. Chest/axilla: Normal chest wall appearance and motion. Nontender with no deformity. No lesions are appreciated. Cardiovascular: Regular rate and rhythm with a normal S1 and S2. No gallops, murmurs, or rubs. Normal PMI, no JVD. No pulse deficits. Respiratory: Lungs have equal breath sounds bilaterally, clear to auscultation and percussion. No rales, rhonch positive for wheezing no increased work of breathing, no retractions or nasal flaring. Abdomen/GI: Soft, with normal bowel sounds. No distension or tympany. No guarding or rebound. No evidence of tenderness throughout. Back: No spinal tenderness. No costovertebral tenderness. Skin: Warm, dry with normal turgor. Normal color with no rashes, no lesions, and no evidence of cellulitis. MS/ Extremity: Pulses equal, no cyanosis. Neurovascular intact. Full, normal range of motion. Neuro: Awake and alert, GCS 15, oriented to person, place, time, and situation. Cranial nerves II-XII grossly intact. Motor strength 5/5 in all extremities. Sensory grossly intact. Psych: Awake, alert, with orientation to person, place and time. Behavior, mood, and affect are within normal limits 03:11 ECG was reviewed by the Attending Physician. EKG at 2247 reveals normal sinus rhythm at sp4 a rate of 82, rightward axis. Vital Signs: 07/16 21:31 BP 101 / 69; Pulse 93; Resp 19 S; Temp 98.5(O); Pulse Ox 91% on 6 lpm NC; Weight 102.06 as6 kg (R); Height 5 ft. 4 in. (R); Pain 8/10; 23:52 BP 121 / 86; Pulse 83; Resp 20; Pulse Ox 96% on 6 lpm NC; jb4 07/17 01:00 BP 143 / 82; Pulse 87; Resp 19; Pulse Ox 97% on 6 lpm NC; jb4 02:00 BP 136 / 78; Pulse 88; Resp 18; Pulse Ox 96% on 6 lpm NC; jb4 03:15 BP 132 / 71; Pulse 88; Resp 19; Pulse Ox 93% on 4 lpm NC; jb4 07/16 21:31 Body Mass Index 38.62 (102.06 kg, 162.56 cm) as6 07/16 21:31 Pain Scale: Adult as6 [place] Coma Score: 03:08 Eye Response: spontaneous(4). Motor Response: obeys commands(6). Verbal Response: sp4 oriented(5). Total: 15. MDM: 07/16 21:51 Patient medically screened. sp4 07/17 00:28 ED course: CLINICAL HISTORY: COPD. COMPARISON: Chest radiograph from April 25, 2022. sp4 TECHNIQUE: Single viewAP chest radiograph(s). FINDINGS: Minimal hazy opacification in the lung bases versus summation artifact. No pulmonary infiltrate or edema identified. No pleural effusion. No pneumothorax. Aortic calcific atherosclerosis. Borderline cardiac size. No significant osseous abnormality. IMPRESSION: Minimal hazy opacification in the lung bases versus summation artifact.. ED course: PROCEDURE: XR Right Femur, 4 Views CLINICAL INDICATION: The patient is 68 years old and is Female; PAIN Bed Name: 20 TECHNIQUE: Frontal and lateral views of the proximal and distal right femur. COMPARISON: No relevant prior studies available. FINDINGS: BONES/JOINTS: Evaluation of the right hip and hemipelvis is degraded secondary to overlying patient's pannus. Allowing for this, no acute osseous abnormality. Severe degenerative changes of the right hip. Degenerative changes of the right knee, greatest in the lateral compartment as visualized. Large right knee joint effusion. No subluxation or dislocation. SOFT TISSUES: See above IMPRESSION: 1. Allowing for overlying pannus, no acute osseous abnormality of the right femur or visualized right hemipelvis. 2. Large right knee joint effusion. 3. Severe degenerative changes of the right hip and right knee. . 03:08 Differential diagnosis: Anemia Anxiety Reaction Bronchitis CHF exacerbation, Chronic sp4 Obstructive Pulmonary Disease. Data reviewed: vital signs, EMS record, lab test result(s), CBC, electrolytes, EKG, radiologic studies, plain films. Consideration of Admission/Observation Patient was admitted/placed on observation. Escalation of care including admission/observation considered. Management of patient was discussed with the following: Hospitalist: Admitting hospitalist. ED course: Patient warrants admission for management of COPD.. 05:05 ED course: CLINICAL HISTORY: r/o PE COMPARISON: None. TECHNIQUE: CT sp4 CHESTANGIOGRAPHYWITH IV CONTRAST on 07/18/2023 1:37 AM CDT. MIPS reconstructions were generated. This exam was performed according to our departmental dose-optimization program, which includes automated exposure control, adjustment of the mA and/or kV according to patient size and/or use of iterative reconstruction technique. MIP images were generated. FINDINGS: Thoracic aorta is normal in course and caliber without aneurysm or dissection. Main pulmonary artery is dilated measuring 4.0 cm. There are no acute or chronic filling defects. Peripheral pulmonary artery branches are poorly assessed. There is no large or central filling defects. The heart is borderline in size. There is no pericardial effusion. Intrathoracic lymph nodes are not enlarged. There is no pleural effusion, pleural thickening or pneumothorax. Central airways are patent. There is mild patchy right basilar airspace disease. There is mild upper lung centrilobular emphysema. There are no acute abnormalities within the limited images of the upper abdomen. There are no acute osseous findings. No suspicious bony lesions. IMPRESSION: No aortic dissection or aneurysm. No large or central pulmonary embolus. Dilated main pulmonary artery which can be seen in the setting of pulmonary arterial hypertension. Mild right basilar pneumonia.. 07/16 21:48 Order name: BMP; Complete Time: 00:07/16 21:48 Order name: Blood Culture Adult (2) 07/16 21:48 Order name: CBC with Diff; Complete Time: 00:07/16 21:48 Order name: CPK; Complete Time: 00:07/16 21:48 Order name: D-Dimer; Complete Time: 00:07/16 21:48 Order name: Hepatic Function; Complete Time: 00:07/16 21:48 Order name: Lipase; Complete Time: 00:07/16 21:48 Order name: Magnesium; Complete Time: 00:07/16 21:48 Order name: NT PRO-BNP; Complete Time: 00:07/16 21:48 Order name: PT-INR; Complete Time: 00:07/16 21:48 Order name: Ptt, Activated; Complete Time: 00:07/16 21:48 Order name: Troponin HS; Complete Time: 00:07/16 21:48 Order name: ABG; Complete Time: 00:07/16 22:14 Order name: Lactate w/ 2H reflex if indic.; Complete Time: 00:31 cm10 07/17 01:46 Order name: Magnesium EDMS 07/17 01:46 Order name: Urinalysis W/Microscopic EDMS 07/17 01:46 Order name: Thyroid Stimulating Hormone EDMS 07/17 01:46 Order name: CBC with Automated Diff EDMS 07/17 01:46 Order name: CBC with Automated Diff EDMS 07/17 01:46 Order name: Comprehensive Metabolic Panel EDMS 07/17 01:46 Order name: Comprehensive Metabolic Panel EDMS 07/17 01:46 Order name: Troponin High Sensitivity EDMS 07/17 01:46 Order name: Troponin High Sensitivity EDMS 07/17 01:46 Order name: Troponin High Sensitivity EDMS 07/17 01:46 Order name: Troponin High Sensitivity EDMS 07/16 21:48 Order name: XRAY CXR (1 view) 4 07/16 21:49 Order name: Femur Right XRAY sp4 07/16 21:51 Order name: Tib Fib Right XRAY sp4 07/17 01:46 Order name: Chest For Pe Angio EDKS 07/16 21:48 Order name: Call RT; Complete Time: 02:20 sp4 07/16 21:48 Order name: EKG; Complete Time: 21:49 sp4 07/16 21:48 Order name: Cardiac monitoring; Complete Time: 22:12 sp4 07/16 21:48 Order name: EKG - Nurse/Tech; Complete Time: 22:12 sp4 07/16 21:48 Order name: IV Saline Lock; Complete Time: 22:12 sp4 07/16 21:48 Order name: Labs collected and sent; Complete Time: 22:12 sp4 07/16 21:48 Order name: O2 Per Protocol; Complete Time: 22:12 sp4 07/16 21:48 Order name: O2 Sat Monitoring; Complete Time: 22:12 sp4 EC:11 Rate is 82 beats/min. Rhythm is regular, Normal Sinus Rhythm. Right axis deviation sp4 noted. CO interval is normal. QRS interval is normal. QT interval is normal. No Q waves. T waves are Normal. No ST changes noted. Clinical impression: No evidence of ischemia. Interpreted by me. Reviewed by me. Administered Medications: 07/16 22:33 Drug: Albuterol Inhalation 2.5 mg Inhalation every 20 minutes x3 Route: Inhalation; jb4 22:33 Drug: Ipratropium Inhalation Aerosol 0.5 mg Inhalation once; Every 20 min for a total jb4 of 3 treatments x3 Route: Inhalation; 22:33 Drug: MethylPrednisoLONE IVP 125 mg IVP once Route: IVP; Site: right antecubital; jb4 22:33 Drug: HYDROcodone-acetaminophen PO 5 mg-325 mg 1 tabs PO once Route: PO; jb4 22:33 Drug: Ondansetron PO 4 mg PO once Route: PO; jb4 22:33 Drug: Methocarbamol PO 750 mg PO once Route: PO; jb4 23:12 Drug: Albuterol Inhalation 2.5 mg Inhalation every 20 minutes x3 Route: Inhalation; jb4 23:12 Drug: Ipratropium Inhalation Aerosol 0.5 mg Inhalation once; Every 20 min for a total jb4 of 3 treatments x3 Route: Inhalation; 07/17 00:16 Drug: Albuterol Inhalation 2.5 mg Inhalation every 20 minutes x3 Route: Inhalation; jb4 00:16 Drug: Ipratropium Inhalation Aerosol 0.5 mg Inhalation once; Every 20 min for a total jb4 of 3 treatments x3 Route: Inhalation; 02:18 Drug: HYDROcodone-acetaminophen PO 5 mg-325 mg 1 tabs PO once Route: PO; jb4 Disposition Summary: 07/18/23 01:40 Hospitalization Ordered Notes: Hospitalization Status: Inpatient Admission sp4 Provider: Leonardo Herrmann Condition: Stable sp4 Problem: new sp4 Symptoms: have improved sp4 Bed/Room Type: Standard sp4 Location: Intensive Care Unit(07/18/23 02:56) ty Room Assignment: 7-(07/18/23 02:56) ty Diagnosis - COPD/ Chronic obstructive pulmonary disease with (acute) exacerbation sp4 Forms: - Medication Reconciliation Form sp4 - SBAR form sp4 - Leadership Thank You Letter sp4 Signatures: Dispatcher [employer] [place]ano Arreola RN RN jb4 Jimmie Coyle RN RN as6 Sal Ortiz MD MD sp4 Jose Banks Corrections: (The following items were deleted from the chart) 07/16 21:49 21:49 BASIC METABOLIC PANEL+C.LAB.BRZ ordered. EDMS EDMS 21:49 21:49 BLOOD CULTURE*+BA.LAB.BRZ ordered. EDMS EDMS 21:49 21:49 CBC+H.LAB.BRZ ordered. EDMS EDMS 21:49 21:49 CREATINE PHOSPHOKINASE+C.LAB.BRZ ordered. EDMS EDMS 21:49 21:49 D-DIMER+COAG.LAB.BRZ ordered. EDMS EDMS 21:49 21:49 HEPATIC FUNCTION+C.LAB.BRZ ordered. EDMS EDMS 21:49 21:49 LIPASE+C.LAB.BRZ ordered. EDMS EDMS 21:49 21:49 MAGNESIUM+C.LAB.BRZ ordered. EDMS EDMS 21:49 21:49 PROBNP+C.LAB.BRZ ordered. EDMS EDMS 21:49 21:49 PROTIME (+INR)+COAG.LAB.BRZ ordered. EDMS EDMS 21:49 21:49 PTT, ACTIVATED+COAG.LAB.BRZ ordered. EDMS EDMS 21:49 21:49 Troponin High Sensitivity+C.LAB.BRZ ordered. EDMS EDMS 22:31 21:51 Knee Right 3 View+RAD.RAD.BRZ ordered. EDMS EDMS 07/17 02:56 01:40 Telemetry/MedSurg (Inpatient) sp4 ty 02:56 01:40 sp4 ty
[2023-07-18] MEDS ORDERED: MELATONIN 5 MG TABLET PO PRN (01:41)
[2023-07-18] MEDS ORDERED: HYDRALAZINE HCL 20 MG/ML VIAL IV PRN (01:41)
[2023-07-18] MEDS ORDERED: BENZONATATE 100 MG CAP PO PRN (01:42)
--- NOTE | 2023-07-18 01:52 | P.HP ---
Certification for Inpatient Patient admitted to: Observation With expected LOS: <2 Midnights Patient will require the following post-hospital care: None Practitioner: I am a practitioner with admitting privileges, knowledge of patient current condition, hospital course, and medical plan of care. Services: Services provided to patient in accordance with Admission requirements found in Title 42 Section 412.3 of the Code of Federal Regulations Patient History Date of Service: 07/18/23 Reason for admission: Shortness of breath History of Present Illness: 68-year-old female with past medical history of HTN, COPD on home O23 L/min, GERD, colon cancer status postresection and in remission, CAD in the past status post previous PCI; presented today because of worsening shortness of breath since the last 3 days. States shortness of breath associated with intermittent wheezing. She is a poor historian. She states she is unsure how much oxygen she has been using at home now. at bedside state patient has been increasing her oxygen by herself over the last few days due to this worsening shortness of breath. She denies any cough, she denies any chest pain, she denies any nausea or vomiting. She denies any fever or chills. She denies any sputum production. She states her oxygen need has been worsening. She has been requiring more oxygen with minimal activity. She presented to the emergency room because of worsening symptoms. She is also complaining of worsening of her chronic low back pain as well as bilateral knee pains. On arrival in the ED, she was noted to be on 6 L/min oxygen. Chest x-ray shows no acute infiltrate, CBC was unremarkable, ABG shows pH of 7.29, pCO2 of 83 with a pO2 of 103, BMP was unremarkable. D-dimer was elevated at 893 Allergies ANGEL Inhibitors Allergy (Severe, Verified 08/24/20 08:25) Anaphylaxis lisinopril Adverse Reaction (Severe, Verified 08/24/20 08:25) Anaphylaxis ARB-Angiotensin Receptor Ant Allergy (Uncoded 08/24/20 08:25) Unknown Home Medications: Albuterol Inhaler [Ventolin Inhaler*] 2 puff IH Q6H PRN 08/24/20 Amlodipine [Norvasc*] 10 mg PO DAILY 08/24/20 Atorvastatin Calcium [Lipitor] 40 mg PO BEDTIME 08/24/20 Escitalopram Oxalate 20 mg PO DAILY 08/24/20 Fluticasone/Umeclidin/Vilanter [Trelegy Ellipta 100-62.5-25] 1 each IH DAILY 08/24/20 Medroxyprogesterone Acetate [Provera] 2.5 mg PO DAILY 08/24/20 Theophylline Anhydrous [Yovanny-24] 200 mg PO DAILY 08/24/20 estradioL [Estradiol] 2 mg PO DAILY 08/24/20 oxyBUTYnin chloride [Ditropan*] 5 mg PO TID 08/24/20 predniSONE [Deltasone*] 10 mg PO DAILY 08/24/20 Sertraline [Zoloft*] 50 mg PO BEDTIME 06/11/21 Hydrocodone Bit/Acetaminophen [Hydrocodon-Acetaminophn 10-325] 1 tab PO Q8HR PRN 5 Days #15 tab 06/13/21 levoFLOXacin [Levaquin] 750 mg PO DAILY 8 Days #8 tab 06/13/21 metroNIDAZOLE [Flagyl] 500 mg PO Q8H 8 Days #24 tablet 06/13/21 predniSONE [Deltasone*] 10 mg PO BID 7 Days #14 tab 06/13/21 - Past Medical/Surgical History Diabetic: No -: chronic back pain -: copd -: htn -: mi -: 02 at 3l nc prn night time -: GERD -: Colon cancer status post resection -: Cholecystectomy -: Colectomy 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, 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, 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 -: Cancer Sister -: Heart disease, Hypertension, Lung disease, GI disease, Diabetes, Stroke, Kidney disease - Social History Alcohol use: No CD- Drugs: No Caffeine use: Yes Place of Residence: Home Review of Systems 10-point ROS is otherwise unremarkable Respiratory: Cough, Shortness of Breath, Wheezing Musculoskeletal: Other (knee pain) Physical Examination - Physical Exam General: Alert, Oriented x3, Mild distress, Obese HEENT: Atraumatic, Normocephalic, PERRLA Neck: Supple, 2+ carotid pulse no bruit, JVD not distended Respiratory: Diminished, Dull, Expiratory wheezes Cardiovascular: No edema, Normal pulses, Regular rate/rhythm, Normal S1 S2 Gastrointestinal: Normal bowel sounds, Soft and benign Musculoskeletal: No clubbing, No swelling Integumentary: No breakdown Neurological: Normal gait, Normal speech, Normal strength at 5/5 x4 extr External genitalia: Edema (Trace b/l ) - Studies Laboratory Data (last 24 hrs) 07/17/23 07/17/23 07/17/23 22:15 22:15 22:15 WBC 4.10 L Hgb 14.4 Hct 44.7 Plt Count 184 PT 12.4 INR 1.13 APTT 35.6 Sodium 140 Potassium 3.6 BUN 9 Creatinine 0.49 L Glucose 109 H Magnesium 2.0 Total Bilirubin 0.3 AST 8 L ALT 12 L Alkaline Phosphatase 85 Lipase 21 Assessment and Plan - Problems (Diagnosis) (1) COPD exacerbation Onset Date: 07/16/17 Current Visit: No Status: Acute (2) Dyspnea Current Visit: No Status: Acute (3) COPD (chronic obstructive pulmonary disease) Onset Date: 05/08/16 Current Visit: No Status: Chronic Qualifiers: (4) Edema Onset Date: 05/08/16 Current Visit: No Status: Chronic Qualifiers: (5) GERD (gastroesophageal reflux disease) Onset Date: 05/08/16 Current Visit: No Status: Chronic (6) HTN (hypertension) Onset Date: 07/16/17 Current Visit: No Status: Chronic (7) Tobacco abuse Onset Date: 05/08/16 Current Visit: No Status: Chronic - Plan Impression Acute COPD exacerbation Acute hypercapnic respiratory failure Respiratory acidosis Hypertension GERD Chronic tobacco use-resolved Bilateral knee painwith right knee effusion on x-ray Plan Will admit patient to observation status Will place in ICU for close monitoring since elevated pCO2 start Bipap 10/5 to alleviate PC02 DuoNebs every 4 hours Start high-dose methylprednisolone every 6 Gentle IV fluid with normal saline Will start empirical antibiotics with Rocephin Elevated pCO2 of 83 noted, follow repeat ABG to monitor response Currently on 6 L O2, will wean down as tolerated to home level of 3 L/min Elevated D-dimer, obtain CTA to rule out PE Right knee effusion, will consult orthopedics in a.m. for knee tap, pain control Lovenox for DVT prophylaxis Full code - Advance Directives Does patient have a Living Will: No Does patient have a Durable POA for Healthcare: No Time Spent Managing Pts Care (In Minutes): 65
[2023-07-18] MEDS: IPRATROPIUM BROM 0.5MG/2.5ML NEB SCH (02:00)
[2023-07-18] MEDS ORDERED: HYDROCODONE/APAP 5/325 MG TAB ONE (02:14)
[2023-07-18 02:52] LABS: Magnesium 2.1 mg/dL (1.6-2.4); Troponin High Sensitivity 17.5 pg/mL (<58.9)
[2023-07-18] MEDS: ALBUTEROL 2.5 MG/3 ML NEB SOL NEB SCH ×2 (03:00→08:15)
[2023-07-18 04:38] VITALS: BMI 42.7
[2023-07-18] MEDS ORDERED: METHYLPREDNISOLONE 125 MG INJ ONE ×2 (05:13→12:02)
[2023-07-18] MEDS: METHYLPREDNISOLONE 125 MG INJ IV SCH (05:14)
[2023-07-18] MEDS: NA CHLORIDE 0.9% 1,000 ML IV SCH (05:14)
[2023-07-18] MEDS ORDERED: CYCLOBENZAPRINE 10 MG TAB PO PRN (05:29)
[2023-07-18] MEDS ORDERED: BACLOFEN 10 MG TAB PO PRN (05:29)
[2023-07-18] MEDS ORDERED: MORPHINE 2 MG/ML SYR ONE ×2 (05:41→10:07)
[2023-07-18] MEDS: MORPHINE 2 MG/ML SYR IV PRN (05:42)
--- NOTE | 2023-07-18 07:49 | P.PN ---
Date of Service: 07/18/23 Subjective: patient answering in 1-2 word sentences seems confused, but protecting airway was not placed on BIPAP in ER / after admission unable to get much accurate history ROS: unable to be obtained secondary to mentation Physical Exam: GEN: responds to verbal stimuli, answers in 1-2 sentences, then back asleep HEENT: Normal conjunctiva, sclera anicteric, CV: Regular rate and rhythm, trace b/l lower extremity edema Pulm: Nonlabored respirations on 3L NC, diminished at bases b/l, +expiratory wheezes ABD: soft, nontender, nondistended MSK: R knee effusion, mild tenderness Neuro: Normal speech, normal affect Problem List: Acute hypercapnic respiratory failure secondary to pneumonia / acute COPD exacerbation (on ~3L home O2 at baseline) b/l knee pain with right knee joint effusion Hypertension GERD chronic tobacco use hx colon cancer s/p resection; in remission hx CAD s/p PCI Acute hypercapnic respiratory failure secondary to pneumonia / acute COPD exacerbation (on ~3L home O2 at baseline) reports worsening dyspnea, wheeze over the last 3 days. Uses chronic oxygen at home ~3L NC but has been needed increased oxygen supplementation recently. CXR (07/16): minimal hazy opacification in the lung bases vs summation artifact CTA chest (07/17): Mild right basilar pneumonia. dilated main pulm artery which can be seen in setting of pulm arterial hypertension. no aortic dissection / PE. admitted to ICU for close monitoring given hypercapnia. d-dimer elevated. CTA negative for PE / aortic dissection ABG with elevated pCO2 (85) and pO2 (103) repeat ABG pending suspect will need bipap pulm consulted continue duonebs, IV steroids continue empiric rocephin (07/17-) PRN analgesics / antiemetics BiPAP as needed. wean oxygen as tolerated check urinalysis, follow blood cultures pulm consulted b/l knee pain with large right knee joint effusion xray femur (07/16): large right knee joint effusion. no acute osseous abnormality of the right femur / pelvis allowing for overlying pannus. may need to consult ortho pain control Hypertension GERD confirm home meds, restart as appropriate chronic tobacco use cessation advised VTE: Lovenox Code: Full Dispo: Home, 3 days
[2023-07-18] MEDS ORDERED: ALBUTEROL 2.5 MG/3 ML NEB SOL ONE ×3 (08:31→18:01)
[2023-07-18] MEDS ORDERED: IPRATROPIUM BROM 0.5MG/2.5ML ONE ×3 (08:31→18:01)
[2023-07-18] MEDS ORDERED: oxyBUTYnin chloride 5 MG TAB PO SCH (09:00)
[2023-07-18] MEDS ORDERED: TIZANIDINE 4 MG TABLET PO SCH (09:00)
[2023-07-18] MEDS ORDERED: FAMOTIDINE 20 MG TAB ONE (09:19)
[2023-07-18] MEDS ORDERED: DULOXETINE 30 MG CAP PO ONE (09:20)
[2023-07-18] MEDS: AMLODIPINE 10 MG TAB PO SCH (09:44)
[2023-07-18] MEDS: METOPROLOL XL 25 MG TAB PO SCH (09:45)
[2023-07-18] MEDS: FAMOTIDINE 20 MG TAB PO SCH (09:45)
[2023-07-18] MEDS: ENOXAPARIN 40 MG/0.4 ML SQ SCH (09:46)
[2023-07-18] MEDS: CEFTRIAXONE 1,000 MG in NA CHLORIDE 0.9% 50 ML IVPB SCH (09:46)
[2023-07-18] MEDS: SOLIFENACIN SUCCIN 5 MG TAB PO SCH (09:46)
[2023-07-18] MEDS: DULOXETINE 30 MG CAP PO SCH (09:47)
[2023-07-18] MEDS: GUAIFENESIN 600 MG SA TAB PO SCH (10:36)
[2023-07-18 10:39] LABS: Specific Gravity > 1.030 (1.005-1.030); Sqamous Epithelial <5 /HPF (None Seen); Urine Bacteria 20-50 /HPF (<20); Urine Bilirubin NEGATIVE (Negative); Urine Blood 3+ (OVER) (Negative); Urine Clarity Turbid (Clear); Urine Color Yellow (Yellow); Urine Culture Reflex Order REFLEXED; Urine Glucose NEGATIVE (Negative); Urine Ketones TRACE (Negative); Urine Micro Reflex YN NO BILL MICROSCOPIC; Urine Mucus Slight /HPF (None Seen); Urine Nitrite NEGATIVE (Negative); Urine Protein 2+ (Negative); Urine RBC >50 /HPF (None Seen); Urine Urobilinogen Normal (Normal); Urine Yeast (Budding) Few /HPF (None Seen)
[2023-07-18 10:51] LABS: Arterial Blood Carboxyhemoglob 2.8 % (0-1.5); Blood Gas Oxyhemoglobin 87.7 % (94-97); Blood Gas THB 14.5 g/dl (12-18); Blood O2 Saturation 91.9 % (92-98.5)
[2023-07-18] MEDS ORDERED: HYDROCODONE/APAP 10/325 TAB ONE (12:04)
[2023-07-18] MEDS: HYDROCODONE/APAP 10/325 TAB PO PRN (12:06)
--- NOTE | 2023-07-18 12:22 | P.CNS ---
Date of Consult: 07/18/23 Chief Complaint: Respiratory failure History of Present Illness: Patient is 68 years of age with a history of COPD on oxygen therapy 4-day history of increasing shortness of breath found to be in hypoxic hypercapnic respiratory failure pliant with her inhalers at home Allergies ANGEL Inhibitors Allergy (Severe, Verified 08/24/20 08:25) Anaphylaxis lisinopril Adverse Reaction (Severe, Verified 08/24/20 08:25) Anaphylaxis ARB-Angiotensin Receptor Ant Allergy (Uncoded 08/24/20 08:25) Unknown Home Medications: Albuterol Inhaler [Ventolin Inhaler*] 2 puff IH Q6H PRN 08/24/20 Amlodipine [Norvasc*] 10 mg PO DAILY 08/24/20 Atorvastatin Calcium [Lipitor] 40 mg PO BEDTIME 08/24/20 Fluticasone/Umeclidin/Vilanter [Trelegy Ellipta 100-62.5-25] 1 each IH DAILY 08/24/20 Medroxyprogesterone Acetate [Provera] 2.5 mg PO DAILY 08/24/20 Theophylline Anhydrous [Yovanny-24] 200 mg PO DAILY 08/24/20 estradioL [Estradiol] 1 mg PO DAILY 08/24/20 oxyBUTYnin chloride [Ditropan*] 5 mg PO TID 08/24/20 predniSONE [Deltasone*] 10 mg PO DAILY 08/24/20 Hydrocodone Bit/Acetaminophen [Hydrocodon-Acetaminophn 10-325] 1 tab PO Q8HR PRN 5 Days #15 tab 06/13/21 Amitriptyline [Elavil] 10 mg PO BEDTIME 07/18/23 Baclofen [Lioresal] 10 mg PO TIDP PRN 07/18/23 Cyclobenzaprine [Flexeril] 10 mg PO BIDP PRN 07/18/23 Duloxetine HCl [Cymbalta] 60 mg PO DAILY 07/18/23 Metoprolol Succinate [Toprol Xl] 25 mg PO DAILY 07/18/23 Solifenacin [Vesicare] 10 mg PO DAILY 07/18/23 Tizanidine [Zanaflex*] 4 mg PO BID 07/18/23 - Past Medical/Surgical History Diabetic: No -: chronic back pain -: copd -: htn -: mi -: 02 at 3l nc prn night time -: GERD -: Colon cancer status post resection -: Cholecystectomy -: Colectomy 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, 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, 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 Medical History: Cancer Sister Medical History: Heart disease, Hypertension, Lung disease, GI disease, Diabetes, Stroke, Kidney disease - Social History Smoking Status: Current every day smoker Alcohol use: No CD- Drugs: No Caffeine use: Yes Place of Residence: Home Review of Systems 10-point ROS is otherwise unremarkable General: Weakness Respiratory: Shortness of Breath Physical Examination Temp Pulse Resp BP Pulse Ox 98 F 86 19 114/65 92 07/18/23 04:00 07/18/23 10:00 07/18/23 12:06 07/18/23 09:45 07/18/23 12:06 General: Alert, In no apparent distress, Oriented x3 Respiratory: Clear to auscultation bilaterally, Diminished Cardiovascular: No edema, Regular rate/rhythm, Normal S1 S2 Gastrointestinal: Normal bowel sounds, Soft and benign, Non-distended Musculoskeletal: No clubbing, No swelling Laboratory Data (last 24 hrs) 07/17/23 07/17/23 07/17/23 22:15 22:15 22:15 WBC 4.10 L Hgb 14.4 Hct 44.7 Plt Count 184 PT 12.4 INR 1.13 APTT 35.6 Sodium 140 Potassium 3.6 BUN 9 Creatinine 0.49 L Glucose 109 H Magnesium 2.0 Total Bilirubin 0.3 AST 8 L ALT 12 L Alkaline Phosphatase 85 Lipase 21 - Problems (1) Respiratory failure, chronic Current Visit: Yes Status: Acute Plan: Patient is 68 years of age with a history of COPD has chronic stable respiratory failure and is hypercapnic hypoxic failure with an exacerbation of underlying COPD for the past 4 days he has oxygen at home patient is an active smoker and will qualify for noninvasive ventilator to prevent readmissions to the hospital and improve mortality changed to p.o. prednisone DC antibiotics no evidence of any infection chest x-ray labs all reviewed add Diamox may have underlying diastolic dysfunction CT scan no evidence of pulmonary embolism she appears to have dilated pulmonary arteries cardiogram ordered Qualifiers: Respiratory failure complication: hypoxia and hypercapnia Qualified Code(s): J96.11 - Chronic respiratory failure with hypoxia; J96.12 - Chronic respiratory failure with hypercapnia
--- NOTE | 2023-07-18 12:33 | EKG ---
Test Date: 2023-07-17 Test Time: 22:47:54 Web Marketing Coordinator: DEANDRE MEASUREMENT RESULTS: Intervals: Rate: 82 MN: 172 QRSD: 74 QT: 402 QTc: 469 [place]: P: 72 MN: 172 QRS: 101 T: 83 INTERPRETIVE STATEMENTS: Normal sinus rhythm Rightward axis Cannot rule out Anterior infarct, age undetermined Abnormal ECG Compared to ECG 06/11/2021 02:33:38 Right-axis deviation now present Myocardial infarct finding now present Electronically Signed On 07-18-23 12:32:30 CDT by Francisco Melendez
--- NOTE | 2023-07-18 12:39 | RAD REPORT ---
EXAM DESCRIPTION: Single view AP chest radiograph(s) CLINICAL HISTORY: COPD. COMPARISON: Chest radiograph from April 25, 2022. TECHNIQUE: Single view AP chest radiograph(s). FINDINGS: Minimal hazy opacification in the lung bases versus summation artifact. No pulmonary inf iltrate or edema identified. No pleural effusion. No pneumothorax. Aortic calcific atherosclerosis. B orderline cardiac size. No significant osseous abnormality. IMPRESSION: Minimal hazy opacification in the lung bases versus summation artifact. Electronically signed by: Aida Mchugh MD 07/17/2023 11:38 PM CDT Due to temporary technical issues with the PACS/Fluency reporting system, reports are being signed by the in house radiologists without review as a courtesy to insure prompt reporting. The interpreting radiologist is fully responsible for the content of the report.
--- NOTE | 2023-07-18 12:41 | RAD REPORT ---
EXAM DESCRIPTION: XR Right Tibia and Fibula, 4 Views CLINICAL HISTORY: The patient is 68 years old and is Female; PAIN Bed Name: 20 TECHNIQUE: Frontal and lateral views of the proximal and distal right tibia and fibula. COMPARISON: No relevant prior studies available. FINDINGS: BONES/JOINTS: No acute fracture. No suspicious lytic or blastic bone lesions. No subluxa tion or dislocation. Degenerative changes of the right knee, greatest in the lateral compartment. Pes planus configuration of the right foot. Line right suprapatellar knee joint effusion. SOFT TISSUES: Mild diffuse subcutaneous edema within the right lower extremity below the knee. No radiopaque foreign body. No subcutaneous emphysema to suggest a gas-forming infectious pro cess or penetrating injury. IMPRESSION: 1. Mild diffuse subcutaneous edema within the right lower extremity below the knee. 2. Degenerative changes of the right knee with no acute osseous abnormality. Electronically signed by: Elias Mendez MD 07/18/2023 02:16 AM CDT Due to temporary technical issues with the PACS/Fluency reporting system, reports are being signed by the in house radiologists without review as a courtesy to insure prompt reporting. The interpreting radiologist is fully responsible for the content of the report.
[2023-07-18] MEDS ORDERED: acetaZOLAMIDE 250 MG TAB ONE (12:51)
--- NOTE | 2023-07-18 12:52 | RAD REPORT ---
EXAM DESCRIPTION: XR Right Femur, 4 Views CLINICAL HISTORY: The patient is 68 years old and is Female; PAIN Bed Name: 20 TECHNIQUE: Frontal and lateral views of the proximal and distal right femur. COMPARISON: No relevant prior studies available. FINDINGS: BONES/JOINTS: Evaluation of the right hip and hemipelvis is degraded secondary to overly ing patient's pannus. Allowing for this, no acute osseous abnormality. Severe degenerative changes of the right hip. Degenerative changes of the right knee, greatest in the lateral compartment as visualized. Large right knee joint effusion. No subluxation or dislocation. SOFT TISSUES: See above IMPRESSION: 1. Allowing for overlying pannus, no acute osseous abnormality of the right femur or v isualized right hemipelvis. 2. Large right knee joint effusion. 3. Severe degenerative changes of the right hip and right knee. Electronically signed by: Elias Mendez MD 07/17/2023 11:44 PM CDT Due to temporary technical issues with the PACS/Fluency reporting system, reports are being signed by the in house radiologists without review as a courtesy to insure prompt reporting. The interpreting radiologist is fully responsible for the content of the report.
[2023-07-18] MEDS: acetaZOLAMIDE 250 MG TAB PO SCH (13:01)
--- NOTE | 2023-07-18 14:48 | RAD REPORT ---
EXAM DESCRIPTION: CT CHEST ANGIOGRAPHY WITH IV CONTRAST CLINICAL HISTORY: R/o PE COMPARISON: None. TECHNIQUE: CT CHEST ANGIOGRAPHY WITH IV CONTRAST on 07/18/2023 1:37 AM CDT. MIPS reconstructions were generated. This exam was performed according to our departmental dose-optimization program, which includes autom ated exposure control, adjustment of the mA and/or kV according to patient size and/or use of iterati ve reconstruction technique. MIP images were generated. FINDINGS: Thoracic aorta is normal in course and caliber without aneurysm or dissection. Main pulmon marissa artery is dilated measuring 4.0 cm. There are no acute or chronic filling defects. Peripheral pul monary artery branches are poorly assessed. There is no large or central filling defects. The heart is borderline in size. There is no pericardial effusion. Intrathoracic lymph nodes are not enlarged. There is no pleural effusion, pleural thickening or pneumothorax. Central airways are patent. There i s mild patchy right basilar airspace disease. There is mild upper lung centrilobular emphysema. There are no acute abnormalities within the limited images of the upper abdomen. There are no acute osseous findings. No suspicious bony lesions. IMPRESSION: No aortic dissection or aneurysm. No large or central pulmonary embolus. Dilated main pulmonary artery which can be seen in the setting of pulmonary arterial hypertension. Mild right basilar pneumonia. Electronically signed by: Rogerio Méndez MD 07/18/2023 04:57 AM CDT Due to temporary technical issues with the PACS/Fluency reporting system, reports are being signed by the in house radiologists without review as a courtesy to insure prompt reporting. The interpreting radiologist is fully responsible for the content of the report.
[2023-07-18] MEDS ORDERED: NA CHLORIDE 0.9% 1,000 ML ONE (17:15)
[2023-07-18] MEDS ORDERED: predniSONE 20 MG TAB ONE (20:51)
[2023-07-18] MEDS: ATORVASTATIN 40 MG TAB PO SCH (21:10)
[2023-07-18] MEDS: predniSONE 20 MG TAB PO SCH (21:10)
[2023-07-18] MEDS: AMITRIPTYLINE 10 MG TAB PO SCH (21:11)
[2023-07-19] MEDS ORDERED: HYDROCODONE/APAP 10/325 TAB ONE (01:57)
[2023-07-19 05:21] LABS: Absolute Lymphocytes (CBC) 0.6 K/uL (0.7-4.9); Absolute Monocytes 0.4 K/uL (0.1-1.3); Absolute Neutrophil 5.2 K/uL (1.8-8.0); Basophils % 0.5 % (0-1.3); Eosinophils % 0.1 % (0-4.4); Hematocrit 40.2 % (36.0-45.0); MCHC 32.2 g/dL (32.0-36.0); MCV 89.9 fL (80-100); MPV 8.2 fL (7.6-11.3); Monocytes % 6.4 % (3.3-12.3); Nucleated Red Blood Cells % 0.2 % (0-0); Platelets 184 thou/uL (152-406); RBC Red Blood Cell Count 4.48 M/uL (3.86-4.86)
[2023-07-19 05:37] LABS: Albumin 2.8 g/dL (3.4-5.0); Albumin/Globulin Ratio 0.8 (1.1-1.8); Anion Gap 3.2 mEq/L (5.0-15.0); Bilirubin Total 0.2 mg/dL (0.2-1.0); Globulin 3.3 g/dL (2.3-3.5); Potassium 4.2 mEq/L (3.5-5.1); Protein, Total 6.1 g/dL (6.4-8.2)
[2023-07-19] MEDS ORDERED: IPRATROPIUM BROM 0.5MG/2.5ML ONE (07:27)
[2023-07-19] MEDS ORDERED: ALBUTEROL 2.5 MG/3 ML NEB SOL ONE (07:27)
--- NOTE | 2023-07-19 08:00 | RAD REPORT ---
EXAM DESCRIPTION: RAD - Chest Single View - 07/19/2023 7:39 am CLINICAL HISTORY: f/u opacities, copd, pna COMPARISON: Chest Single View dated 07/17/2023; Chest Single View dated 06/12/2021; Chest Single View da jennifer 06/11/2021; Chest Single View dated 04/11/2017; Chest For Pe Angio dated 07/18/2023 FINDINGS: Lines: None. Lungs: Diffuse prominence of the pulmonary interstitium. This is similar to prior. Similar mild opaci ties in lung bases, right greater than left. Pleural: No significant pleural effusions or pneumothorax. Cardiac: Cardiomegaly. Mediastinum: Within normal limits. Bones: No acute fractures. Other: None IMPRESSION: Mild basilar airspace disease similar to the chest CT from 07/18/2023 and chest radiogra ph from 07/17/2023. This could reflect atelectasis, pneumonia, or pneumonitis.
[2023-07-19] MEDS ORDERED: DULOXETINE 30 MG CAP PO ONE (08:04)
[2023-07-19] MEDS ORDERED: predniSONE 20 MG TAB ONE (08:04)
--- NOTE | 2023-07-19 08:26 | ECHO ---
HEIGHT: 5 ft 4 in WEIGHT: 248 lb 14.43 oz DATE OF STUDY: 07/18/[address]: Jayden José MD 2-DIMENSIONAL: YES M.MODE: YES DOPPLER: YES COLOR FLOW: YES TDS: NO PORTABLE: YES DEFINITY: NO BUBBLE STUDY: NO DIAGNOSIS: POSSIBLE PULMONARY HYPERTENSION CARDIAC HISTORY: CATHERIZATION: YES SURGERY: NO PROSTHETIC VALVE: NO PACEMAKER: NO MEASUREMENTS (cm) DIASTOLIC (NORMALS) SYSTOLIC (NORMALS) IVSd 1.1 (0.6-1.2) LA Diam 2.5 (1.9-4.0) LVEF 55-60% LVIDd 5.2 (3.5-5.7) LVIDs 4.0 (2.0-3.5) %FS 24% LVPWd 1.2 (0.6-1.2) Ao Diam 3.6 (2.0-3.7) 2 DIMENSIONAL ASSESSMENT: RIGHT ATRIUM: NORMAL LEFT ATRIUM: NORMAL RIGHT VENTRICLE: NORMAL LEFT VENTRICLE: NORMAL TRICUSPID VALVE: NORMAL MITRAL VALVE: TRACE OF MITRAL REGURGITATION PULMONIC VALVE: NORMAL AORTIC VALVE: TRACE OF AORTIC INSUFFICIENCY PERICARDIAL EFFUSION: NONE AORTIC ROOT: NORMAL LEFT VENTRICULAR WALL MOTION: NORMAL. DOPPLER/COLOR FLOW: SEE BELOW. COMMENTS: 1. NORMAL LEFT VENTRICULAR EJECTION FRACTION 55-60% 2. NORMAL WALL MOTION 3. GRADE I DIASTOLIC DYSFUNCTION 4. TRACE (MITRAL REGURGITATION/ AORTIC INSUFFICIENCY) 5. NO TRICUSPID REGURGITATION IS PRESENT TO EVALUATE THE RIGHT VENTRICULAR SYSTOLIC PRESSURE TECHNOLOGIST: SALVATORE CHACON
[2023-07-19] MEDS: CEFTRIAXONE 1,000 MG in NA CHLORIDE 0.9% 50 ML IVPB SCH (08:38)
[2023-07-19] MEDS: THEOPHYLLINE ANHYDROUS 200 MG PO SCH (08:40)
--- NOTE | 2023-07-19 09:45 | P.PN ---
Date of Service: 07/19/23 Subjective: more clear of mind today. mentation improving tolerated BiPAP for ~3 hrs overnight feels no significant improvement in breathing, states still very short of breath, even at rest reports was sudden development day prior to admission reports right knee pain for ~1 week; felt stretched when getting off toilet; denies fall ROS: 10 point ROS as noted above, otherwise negative Physical Exam: GEN: orientedx3, NAD HEENT: Normal conjunctiva, sclera anicteric, CV: Regular rate and rhythm, trace b/l lower extremity edema Pulm: Nonlabored respirations on 3L NC, diminished at bases b/l with +expiratory wheeze ABD: soft, nontender, nondistended MSK: moderate R knee effusion, mild tenderness; no overlying skin changes Neuro: Normal speech, normal affect Problem List: Acute hypercapnic respiratory failure secondary to pneumonia / acute COPD exacerbation (on ~3L home O2 at baseline) Gram negative bacteriuria b/l knee pain with right knee joint effusion Hypertension GERD chronic tobacco use hx colon cancer s/p resection; in remission hx CAD s/p PCI Acute hypercapnic respiratory failure secondary to pneumonia / acute COPD exacerbation (on ~3L home O2 at baseline) reports worsening dyspnea, wheeze over the last 3 days. Uses chronic oxygen at home ~3L NC but has been needed increased oxygen supplementation recently. CXR (07/16): minimal hazy opacification in the lung bases vs summation artifact CTA chest (07/17): Mild right basilar pneumonia. dilated main pulm artery which can be seen in setting of pulm arterial hypertension. no aortic dissection / PE. Echo (07/17): 55-60%EF, grade 1 diastolic dysfunction, trace MR/AI, no tricuspid regurgitation to eval right ventricular systolic pressure admitted to ICU for close monitoring given hypercapnia and need for BIPAP d-dimer elevated. CTA negative for PE ABG with elevated pCO2 (85) and pO2 (103) tolerated BiPAP for ~[address] José, pulm consulted IV steroids deescalated to PO prednisone (07/17) added diamox for possible underlying diastolic dysfunction (07/17) ordered NIV for home continue empiric rocephin (07/17-) for pneumonia, and covers GNR bacteruria duonebs PRN analgesics / antiemetics BiPAP as needed. wean oxygen as tolerated Gram negative bacteriuria will f/u with patient if having symptoms, on initial presentation, could not give accurate history urinalysis in ED concerning for UTI urine cx (07/17): prelim 4+ GNR on empiric rocephin (07/17-) R knee pain with large right knee joint effusion reports knee pain for ~1 week; felt stretched when getting off toilet xray femur (07/16): large right knee joint effusion. no acute osseous abnormality of the right femur / pelvis allowing for overlying pannus. appears smaller on exam, less tender pain control PRN Hypertension GERD confirm home meds, restart as appropriate chronic tobacco use cessation advised VTE: Lovenox Code: Full Dispo: Home, 2 days downgrade from ICU today
--- NOTE | 2023-07-19 12:04 | P.PN ---
Subjective Date of Service: 07/19/23 Chief Complaint: Respiratory failure Subjective: Improving (Patient is doing well no new complaints tolerating BiPAP) Review of Systems Unremarkable General: Weakness Respiratory: Shortness of Breath Physical Examination - Vital Signs Temperature: 98.2 F Blood Pressure: 129/77 Pulse: 74 Respirations: 22 Pulse Ox (%): 94 - Physical Exam General: Alert, In no apparent distress, Oriented x3 Respiratory: Clear to auscultation bilaterally, Diminished Cardiovascular: No edema, Regular rate/rhythm, Normal S1 S2 Assessment And Plan - Current Problems (Diagnosis) (1) Respiratory failure, chronic Current Visit: Yes Status: Acute Plan: Patient is 68 years of age admitted with chronic respiratory failure hypoxic hypercarbic secondary to COPD and will benefit from a noninvasive ventilator to reduce hospital admissions and mortality urine culture shows 4+ gram-negative rods medication list reviewed no change oxygenation satisfactory and IV requested still continues to smoke heavily Qualifiers: Respiratory failure complication: hypoxia and hypercapnia Qualified Code(s): J96.11 - Chronic respiratory failure with hypoxia; J96.12 - Chronic respiratory failure with hypercapnia
[2023-07-19] MEDS: THEOPHYLLINE SR 100 MG TAB PO SCH (12:44)
[2023-07-19] MEDS: IPRATROPIUM BROM 0.5MG/2.5ML NEB SCH (13:00)
[2023-07-20 07:40] LABS: Absolute Lymphocytes (CBC) 0.6 K/uL (0.7-4.9); Absolute Monocytes 0.3 K/uL (0.1-1.3); Absolute Neutrophil 4.5 K/uL (1.8-8.0); Basophils % 0.5 % (0-1.3); Hematocrit 42.5 % (36.0-45.0); Hemoglobin 13.4 g/dL (12.0-15.0); Lymphocytes % 11.3 % (15.3-44.8); MCH 28.6 pg (27.0-35.0); MCHC 31.4 g/dL (32.0-36.0); MPV 8.1 fL (7.6-11.3); Neutrophils % 82.2 % (41.7-73.7); Nucleated Red Blood Cells % 0.1 % (0-0); Platelets 182 thou/uL (152-406); RBC Red Blood Cell Count 4.67 M/uL (3.86-4.86); Red Cell Distribution Width 15.7 % (12.1-15.2)
[2023-07-20 07:58] LABS: Albumin 3.1 g/dL (3.4-5.0); Albumin/Globulin Ratio 0.9 (1.1-1.8); Anion Gap 2.1 mEq/L (5.0-15.0); Bilirubin Total 0.2 mg/dL (0.2-1.0); Globulin 3.3 g/dL (2.3-3.5); Magnesium 2.3 mg/dL (1.6-2.4); Potassium 4.1 mEq/L (3.5-5.1); Protein, Total 6.4 g/dL (6.4-8.2)
[2023-07-20] MEDS: HOME MED 1 EA UNK (Fluticasone/Umeclidin/Vilanter [Trelegy Ellipta 100-62.5-25] Blst.W.Dev IH SCH (08:43)
--- NOTE | 2023-07-20 09:41 | P.PN ---
Date of Service: 07/20/23 Subjective: Feeling better today knee pain/swelling improving answers yes when asked if having UTI symptoms. Didn't elaborate further ambulated with PT yesterday. afebrile ROS: 10 point ROS as noted above, otherwise negative Physical Exam: GEN: orientedx3, NAD HEENT: Normal conjunctiva, sclera anicteric, CV: Regular rate and rhythm, trace b/l lower extremity edema Pulm: Nonlabored respirations on 3L NC, diminished at bases b/l with +expiratory wheeze ABD: soft, nontender, nondistended MSK: mild R knee effusion, mild tenderness; no overlying skin changes Neuro: Normal speech, normal affect Problem List: Acute hypercapnic respiratory failure secondary to pneumonia / acute COPD exacerbation (on ~3L home O2 at baseline) Gram negative bacteriuria b/l knee pain with right knee joint effusion Hypertension GERD chronic tobacco use hx colon cancer s/p resection; in remission hx CAD s/p PCI Acute hypercapnic respiratory failure secondary to pneumonia / acute COPD exacerbation (on ~3L home O2 at baseline) reports worsening dyspnea, wheeze over the last 3 days. Uses chronic oxygen at home ~3L NC but has been needed increased oxygen supplementation recently. CXR (07/16): minimal hazy opacification in the lung bases vs summation artifact CTA chest (07/17): Mild right basilar pneumonia. dilated main pulm artery which can be seen in setting of pulm arterial hypertension. no aortic dissection / PE. Echo (07/17): 55-60%EF, grade 1 diastolic dysfunction, trace MR/AI, no tricuspid regurgitation to eval right ventricular systolic pressure admitted to ICU for close monitoring given hypercapnia and need for BIPAP d-dimer elevated. CTA negative for PE Dr. José, pulm consulted IV steroids deescalated to PO prednisone (07/17) added diamox for possible underlying diastolic dysfunction (07/17) ordered NIV for home duonebs PRN analgesics / antiemetics BiPAP as needed. wean oxygen as tolerated UTI, E. coli, Strep Agalactiae grp B will f/u with patient if having symptoms, on initial presentation, could not give accurate history urinalysis in ED concerning for UTI urine cx (07/17): prelim 4+ GNR on empiric rocephin (07/17-)07/19, switch to levaquin R knee pain with large right knee joint effusion reports knee pain for ~1 week; felt stretched when getting off toilet xray femur (07/16): large right knee joint effusion. no acute osseous abnormality of the right femur / pelvis allowing for overlying pannus. appears smaller on exam, less tender pain control PRN Hypertension GERD confirm home meds, restart as appropriate chronic tobacco use cessation advised VTE: Lovenox Code: Full Dispo: Home, tomorrow
[2023-07-20] MEDS ORDERED: IPRATROPIUM BROM 0.5MG/2.5ML NEB PRN (13:04)
[2023-07-20] MEDS ORDERED: ALBUTEROL 2.5 MG/3 ML NEB SOL NEB PRN (13:04)
[2023-07-20] MEDS: levoFLOXacin 750 MG TAB PO ONE (14:51)
[2023-07-21 07:14] LABS: Anion Gap 3.3 mEq/L (5.0-15.0); Magnesium 2.3 mg/dL (1.6-2.4); Potassium 4.3 mEq/L (3.5-5.1)
[2023-07-21 09:06] VITALS: O2SAT 100
[2023-07-21] MEDS: levoFLOXacin 750 MG TAB PO SCH (09:25)
[2023-07-21 09:43] VITALS: BP 138/74; TEMP 98.1
--- NOTE | 2023-07-21 10:31 | P.DS ---
Admission Date: 07/18/23 Discharge Date: 07/21/23 Disposition: DC HOME/HOME HEALTH CARE Reason for Admission: Respiratory failure Consultations: Pulmonology - Dr. José Brief History of Present Illness: 68 yo F, PMH: HTN, COPD on home O23 L/min, GERD, colon cancer status postresection and in remission, CAD in the past status post previous PCI; Patientpresented today because of worsening shortness of breath since the last 3 days. States shortness of breath associated with intermittent wheezing. She is a poor historian. She states she is unsure how much oxygen she has been using at home now. at bedside state patient has been increasing her oxygen by herself over the last few days due to this worsening shortness of breath. She denies any cough, she denies any chest pain, she denies any nausea or vomiting. She denies any fever or chills. She denies any sputum production. She states her oxygen need has been worsening. She has been requiring more oxygen with minimal activity. She presented to the emergency room because of worsening symptoms. She is also complaining of worsening of her chronic low back pain as well as bilateral knee pains.On arrival in the ED, she was noted to be on 6 L/min oxygen . Chest x-ray shows no acute infiltrate, CBC was unremarkable, ABG shows pH of 7.29, pCO2 of 83 with a pO2 of 103, BMP was unremarkable. D-dimer was elevated at 893 Hospital Course: Problem List: Acute hypercapnic respiratory failure secondary to pneumonia / acute COPD exacerbation (on ~3L home O2 at baseline) Gram negative bacteriuria b/l knee pain with right knee joint effusion Hypertension GERD chronic tobacco use hx colon cancer s/p resection; in remission hx CAD s/p PCI Patient presented with worsening dyspnea, wheeze x3 days and was found to have suspected mild pneumonia complicated by acute COPD exacerbation / UTI. CTA chest noted mild right basilar pneumonia, dilated main pulmonary artery, otherwise negative. No PE. Echo with 55-60%EF, grade 1 diastolic dysfunction, trace MR/AI (unable to eval RVsP given no Tricuspid regurgitation) Patient was admitted into the ICU for close monitoring and started on BiPAP therapy. Patient received IV steroids, duonebs, along with antibiotics and had improvement of her symptoms. Blood cultures without growth since 07/16. Urine culture grew E. coli and Strep Agalactiae grp B. Antibiotics were switched to levaquin given culture sensitivities and patient continue to improve. Patient is to complete 7 more days of levaquin on discharge. Dr José, door to door selling agent, was consulted and recommended adding diamox for underlying diastolic dysfunction, and also started the process to setup home NIV machine as patient would likely benefit to reduce risk factors / recurrent episodes. Patient was feeling better, breathing more comfortably on her home oxygen settings, afebrile without leukocytosis, and was deemed stable for discharge with home health. Patient approved for NIV and to be delivered after discharge. Advised to use NIV at night while sleeping as much as possible. If unable to tolerate NIV for whatever reason at night, try to wear it for a few hours throughout the day while awake. Patient reported ~1 week of knee pain prior to hospitalization. xray on admission noted a large right knee join effusion, otherwise no acute osseous abnormalities of the right femur/pelvis. Patient received analgesics as needed for pain while hospitalized to attain good pain control. Knee pain/swelling slowly improved with time. No surgical intervention warranted this hospitalization. Advised to follow up with PCP for further management. If you notice knee pain/swelling worsens over the next few weeks, consider following up with ortho as outpatient to further evaluate. Medications: levaquin x7 days Diamox (acetazolamide) 250 mg daily Prednisone 20 mg twice daily for 3 days. Can resume home Prednisone (10mg daily) after completion. norco 10/325 15 tabs prescribed as needed for pain until you can follow up with PCP/pain doc as patient reported she had run out of her home regimen. PNP reviewed, last filled prescription ~1 month ago. Follow up: PCP 3-5 days Pulmonology 1-2 weeks Please call to schedule / confirm appointments Physical Exam: GEN: orientedx3, NAD HEENT: Normal conjunctiva, sclera anicteric, CV: Regular rate and rhythm, no edema Pulm: Nonlabored respirations on 3L NC (~baseline), minimal expiratory wheeze ABD: soft, nontender, nondistended MSK: mild R knee effusion, mild tenderness; no overlying skin changes Neuro: Normal speech, normal affect Vital Signs/Physical Exam: Temp Pulse Resp BP Pulse Ox 98.1 F 70 16 138/74 97 07/21/23 08:00 07/21/23 08:00 07/21/23 08:00 07/21/23 08:00 07/21/23 08:00 Laboratory Data at Discharge: WBC 5.40 thou/uL (4.3-10.9) 07/20/23 07:22 Hgb 13.4 g/dL (12.0-15.0) 07/20/23 07:22 Hct 42.5 % (36.0-45.0) 07/20/23 07:22 Plt Count 182 thou/uL (152-406) 07/20/23 07:22 PT 12.4 SECONDS (9.5-12.5) 07/17/23 22:15 INR 1.13 07/17/23 22:15 APTT 35.6 SECONDS (24.3-36.9) 07/17/23 22:15 Sodium 140 mEq/L (136-145) 07/21/23 06:23 Potassium 4.3 mEq/L (3.5-5.1) 07/21/23 06:23 BUN 16 mg/dL (7-18) 07/21/23 06:23 Creatinine 0.48 mg/dL (0.55-1.02) L 07/21/23 06:23 Glucose 109 mg/dL (74-106) H 07/21/23 06:23 Magnesium 2.3 mg/dL (1.6-2.4) 07/21/23 06:23 Total Bilirubin 0.2 mg/dL (0.2-1.0) 07/20/23 07:22 AST 21 U/L (15-37) 07/20/23 07:22 ALT 34 U/L (13-56) 07/20/23 07:22 Alkaline Phosphatase 74 U/L (45-117) 07/20/23 07:22 Lipase 21 U/L (13-75) 07/17/23 22:15 Home Medications: Albuterol Inhaler [Ventolin Inhaler*] 2 puff IH Q6H PRN 08/24/20 Amlodipine [Norvasc*] 10 mg PO DAILY 08/24/20 Atorvastatin Calcium [Lipitor] 40 mg PO BEDTIME 08/24/20 Fluticasone/Umeclidin/Vilanter [Trelegy Ellipta 100-62.5-25] 1 each IH DAILY 08/24/20 Medroxyprogesterone Acetate [Provera] 2.5 mg PO DAILY 08/24/20 Theophylline Anhydrous [Yovanny-24] 200 mg PO DAILY 08/24/20 estradioL [Estradiol] 1 mg PO DAILY 08/24/20 oxyBUTYnin chloride [Ditropan*] 5 mg PO TID 08/24/20 predniSONE [Deltasone*] 10 mg PO DAILY 08/24/20 Hydrocodone Bit/Acetaminophen [Hydrocodon-Acetaminophn 10-325] 1 tab PO Q8HR PRN 5 Days #15 tab 06/13/21 Amitriptyline [Elavil*] 10 mg PO BEDTIME 07/18/23 Baclofen [Lioresal] 10 mg PO TIDP PRN 07/18/23 Cyclobenzaprine [Flexeril] 10 mg PO BIDP PRN 07/18/23 Duloxetine HCl [Cymbalta] 60 mg PO DAILY 07/18/23 Metoprolol Succinate [Toprol Xl*] 25 mg PO DAILY 07/18/23 Solifenacin [Vesicare*] 10 mg PO DAILY 07/18/23 Tizanidine [Zanaflex*] 4 mg PO BID 07/18/23 Hydrocodone 10/APAP 325 [[place] 10/325] 1 tab PO Q8H PRN #15 tab 07/21/23 acetaZOLAMIDE [Diamox] 250 mg PO DAILY 30 Days #30 tab 07/21/23 levoFLOXacin [Levaquin*] 750 mg PO DAILY 7 Days #7 tab 07/21/23 predniSONE [Prednisone] 20 mg PO BID 3 Days #6 tab 07/21/23 New Medications: acetaZOLAMIDE [Diamox] 250 mg PO DAILY 30 Days #30 tab levoFLOXacin [Levaquin*] 750 mg PO DAILY 7 Days #7 tab Hydrocodone 10/APAP 325 [[place] 10/325] 1 tab PO Q8H PRN #15 tab PRN Reason: Pain predniSONE [Prednisone] 20 mg PO BID 3 Days #6 tab Physician Discharge Instructions: Physician discharge instructions: Patient presented with worsening dyspnea, wheeze x3 days and was found to have suspected mild pneumonia complicated by acute COPD exacerbation / UTI. CTA chest noted mild right basilar pneumonia, dilated main pulmonary artery, otherwise negative. No PE. Echo with 55-60%EF, grade 1 diastolic dysfunction, trace MR/AI (unable to eval RVsP given no Tricuspid regurgitation) Patient was admitted into the ICU for close monitoring and started on BiPAP therapy. Patient received IV steroids, duonebs, along with antibiotics and had improvement of her symptoms. Blood cultures without growth since 07/16. Urine culture grew E. coli and Strep Agalactiae grp B. Antibiotics were switched to levaquin given culture sensitivities and patient continue to improve. Patient is to complete 7 more days of levaquin on discharge. Dr José, door to door selling agent, was consulted and recommended adding diamox for underlying diastolic dysfunction, and also started the process to setup home NIV machine as patient would likely benefit to reduce risk factors / recurrent episodes. Patient was feeling better, breathing more comfortably on her home oxygen settings, afebrile without leukocytosis, and was deemed stable for discharge with home health. Patient approved for NIV and to be delivered after discharge. Advised to use NIV at night while sleeping. If unable to tolerate NIV for whatever reason at night, try to wear it for a few hours throughout the day while awake. Patient reported ~1 week of knee pain prior to hospitalization. xray on admission noted a large right knee join effusion, otherwise no acute osseous abnormalities of the right femur/pelvis. Patient received analgesics as needed for pain while hospitalized to attain good pain control. Knee pain/swelling slowly improved with time. No surgical intervention warranted this hospitalization. Advised to follow up with PCP for further management. If you notice knee pain/swelling worsens over the next few weeks, consider following up with ortho as outpatient to further evaluate. Medications: levaquin x7 days Diamox (acetazolamide) 250 mg daily Prednisone 20 mg twice daily for 3 days. Can resume home Prednisone (10mg daily) after completion. norco 10/325 15 tabs prescribed as needed for pain until you can follow up with PCP/pain doc as patient reported she had run out of her home regimen. PNP reviewed, last filled prescription ~1 month ago. Follow up: PCP 3-5 days Pulmonology 1-2 weeks Please call to schedule / confirm appointments HOME HEALTH HAS BEEN ARRANGED THROUGH: [facility] [facility] ([facility]) P:[phone] NON-INVASIVE VENTILATOR HAS BEEN ARRANGED THROUGH: ViNellie Aviles, Respiratory Therapist P: [phone] Followup: Gerald Thurston DO [Primary Care Provider] - Time spent managing pt's care (in minutes): 45
--- NOTE | 2023-07-21 11:18 | P.PN ---
Subjective Date of Service: 07/21/23 Chief Complaint: Respiratory failure Subjective: Improving (Still continues to remain short of breath although there is some improvement using BiPAP) Review of Systems General: Weakness Respiratory: Shortness of Breath Physical Examination - Vital Signs Temperature: 98.1 F Blood Pressure: 138/74 Pulse: 70 Respirations: 16 Pulse Ox (%): 97 - Physical Exam General: Alert, In no apparent distress, Oriented x3 Neck: Supple Respiratory: Clear to auscultation bilaterally, Diminished Cardiovascular: No edema, Normal S1 S2 Assessment And Plan - Current Problems (Diagnosis) (1) Respiratory failure, chronic Current Visit: Yes Status: Acute Plan: Patient admitted with acute on chronic respiratory failure condition stable noninvasive ventilator order for home labs chemistries reviewed possible urinary tract infection on levofloxacin use dose of prednisone to 10 twice a day add spironolactone titrate sat to 90% ambulate discharge planning Qualifiers: Respiratory failure complication: hypoxia and hypercapnia Qualified Code(s): J96.11 - Chronic respiratory failure with hypoxia; J96.12 - Chronic respiratory failure with hypercapnia
[2023-07-21] MEDS ORDERED: SPIRONOLACTONE 25 MG TABLET PO SCH (11:30)
[2023-07-21] MEDS ORDERED: predniSONE 10 MG TAB PO SCH (21:00)
== END 2023-07-21 11:55 | disposition home health service (06) | DRG 193 ==
LOC: ER 21:12 → ERHOLD 07-18 01:38 → 3RD-ICU 07-18 03:14 → 4TH 07-19 13:32
PROVIDERS: ADMIT Internal Medicine; ATTEND Hospitalist
PROC: 4A033R1 Measurement of Arterial Saturation, Peripheral, Percutaneous Approach (ICD-10-PCS; principal; 2023-07-17)
PROC: 5A09457 Assistance with Respiratory Ventilation, 24-96 Consecutive Hours, Continuous Positive Airway Pressure (ICD-10-PCS; 2023-07-18)
DX: J18.9 Pneumonia, unspecified organism (principal); J96.02 Acute respiratory failure with hypercapnia; J44.0 Chronic obstructive pulmonary disease with (acute) lower respiratory infection; J44.1 Chronic obstructive pulmonary disease with (acute) exacerbation; Z68.41 Body mass index [BMI] 40.0-44.9, adult; E87.29 Other acidosis; N39.0 Urinary tract infection, site not specified; E66.01 Morbid (severe) obesity due to excess calories; I10 Essential (primary) hypertension; M25.461 Effusion, right knee; G89.29 Other chronic pain; M54.9 Dorsalgia, unspecified; I27.21 Secondary pulmonary arterial hypertension; K21.9 Gastro-esophageal reflux disease without esophagitis; J44.9 Chronic obstructive pulmonary disease, unspecified; I25.2 Old myocardial infarction; I25.10 Atherosclerotic heart disease of native coronary artery without angina pectoris; F17.210 Nicotine dependence, cigarettes, uncomplicated; B95.1 Streptococcus, group B, as the cause of diseases classified elsewhere; B96.20 Unspecified Escherichia coli [E. coli] as the cause of diseases classified elsewhere; R60.9 Edema, unspecified; Z88.8 Allergy status to other drugs, medicaments and biological substances; Z99.81 Dependence on supplemental oxygen; Z79.52 Long term (current) use of systemic steroids; Z90.49 Acquired absence of other specified parts of digestive tract; Z85.038 Personal history of other malignant neoplasm of large intestine; Z79.899 Other long term (current) drug therapy
CPT/HCPCS: 36415; 36600; 71045; 71275; 80048; 80053; 80076; 81001; 82550; 82805; 83605; 83690; 83735; 83880; 84443; 84484; 85025; 85379; 85610; 85730; 87040; 87077; 87086; 87088; 87186; 93005; 93306; 94640; 94660; 96374; 97116; 97161; 97530; 99285; J0696; J1650; J2270; J2930; J7030; J7512; J7613; J7644; Q0162; Q9967

== ENCOUNTER 2024-07-04 17:02 | Inpatient (IN) | payer OTHER ==
[2024-07-04] MEDS ORDERED: ALBUTEROL 2.5 MG/3 ML NEB SOL ONE (18:14)
[2024-07-04] MEDS ORDERED: IPRATROPIUM BROM 0.5MG/2.5ML ONE (18:14)
[2024-07-04] MEDS ORDERED: METHYLPREDNISOLONE 125 MG INJ ONE (18:14)
--- NOTE | 2024-07-04 18:36 | RAD REPORT ---
EXAM: Chest Single View HISTORY: 69 years Female SOB COMPARISON: 09/09/23 FINDINGS: LUNGS/PLEURA: The lungs are clear. No pleural effusions or pneumothorax. No pulmonary edema. CARDIAC/MEDIASTINUM: Mild cardiomegaly UPPER ABDOMEN: No significant abnormality. BONES: No acute abnormality. LINES/TUBES/OTHER: N/A IMPRESSION: No evidence of acute cardiopulmonary disease. No significant change from prior.
[2024-07-04 18:44] LABS: Absolute Lymphocytes (CBC) 0.6 K/uL (0.7-4.9); Absolute Monocytes 0.4 K/uL (0.1-1.3); Basophils % 0.9 % (0-1.3); Eosinophils % 0.6 % (0-4.4); Hematocrit 45.1 % (36.0-45.0); Hemoglobin 14.2 g/dL (12.0-15.0); Lymphocytes % 11.1 % (15.3-44.8); MCH 28.9 pg (27.0-35.0); MCHC 31.5 g/dL (32.0-36.0); MCV 91.7 fL (80-100); MPV 7.9 fL (7.6-11.3); Monocytes % 8.5 % (3.3-12.3); Neutrophils % 78.9 % (41.7-73.7); Nucleated RBC Absolute Count 0.1 (0-0); Nucleated Red Blood Cells % 0.9 % (0-0); Platelets 168 thou/uL (152-406); RBC Red Blood Cell Count 4.92 M/uL (3.86-4.86); Red Cell Distribution Width 16.2 % (12.1-15.2)
[2024-07-04 18:51] LABS: PT Prothrombin Time 13.1 SECONDS (10-13.0); PTT, Activated Partial Thromb 33.5 SECONDS (27.2-37.4); Protime INR 1.16
[2024-07-04 18:59] LABS: Influenza A Ag Negative; Influenza B Ag Negative; SARS-CoV-2 Antigen Rapid Res Negative (Negative)
[2024-07-04 19:01] LABS: Albumin 3.1 g/dL (3.4-5.0); Albumin/Globulin Ratio 0.8 (1.1-1.8); Alkaline Phosphatase 117 U/L (45-117); Anion Gap 4.4 mEq/L (5.0-15.0); BUN Blood Urea Nitrogen 12 mg/dL (7-18); Bicarbonate 39 mEq/L (21-32); Bilirubin Total 0.2 mg/dL (0.2-1.0); Globulin 3.7 g/dL (2.3-3.5); Glomerular Filtration Rate 101 ml/min (=/>90); Glucose Level 118 mg/dL (74-106); NT PRO-BNP 721 pg/mL (<125); Potassium 3.4 mEq/L (3.5-5.1); Protein, Total 6.8 g/dL (6.4-8.2); Sodium Level 142 mEq/L (136-145); Troponin High Sensitivity 18.5 pg/mL (<58.9)
[2024-07-04 19:03] LABS: ALT/SGPT < 14 U/L (13-56); AST/SGOT < 10 U/L (15-37)
--- NOTE | 2024-07-04 20:12 | RAD REPORT ---
EXAMINATION: CTA CHEST PE CLINICAL INDICATION: Female, 69 years old. SOB TECHNIQUE: This examination was performed according to an angiographic protocol with 3D post-processi ng. This involves 3D reconstructions, MIPs, volume rendered images and/or shaded surface rendering. One or more of the following dose reduction techniques were used: Automated exposure control, adjustm ent of the mA and/or kV according to patient size, and/or iterative reconstruction. Unless otherwise specified, incidental findings do not require dedicated imaging follow-up. [id number]. COMPARISON: 07/18/2023 FINDINGS: LOWER NECK: Visualized thyroid gland and soft tissues are normal. LUNGS AND AIRWAYS: Overall low lung volumes. Mild dependent opacities in the lung bases likely reflec ting atelectasis or scarring and has been present on prior. Bronchial wall thickening is present.Motion artifact limits evaluation for pulmonary nodule detection. PLEURA: No pleural effusion. No pneumothorax. Hemidiaphragms are normally positioned. MEDIASTINUM AND LYMPH NODES: Likely reactive mediastinal lymph nodes. THORACIC AORTA: No thoracic aortic aneurysm. PULMONARY ARTERIES: Enlarged main pulmonary arteries could indicate pulmonary artery hypertension. No pulmonary emboli identified. HEART: Mild cardiomegaly. Coronary arterial calcifications are present.No significant pericardial eff usion. OSSEOUS STRUCTURES AND CHEST WALL: Multilevel degenerative changes. No acute fracture. UPPER ABDOMEN: No acute abnormalities.Postprocedural changes at the stomach. IMPRESSION: No evidence of pulmonary embolism. Chronic dilatation of the main pulmonary artery suggesting pulmona ry hypertension. Mild dependent airspace disease bilaterally may be chronic or could reflect some atelectasis. Bronchial wall thickening which may be a manifestation of heart failure or bronchitis.
--- NOTE | 2024-07-04 20:19 | RAD REPORT ---
EXAMINATION: Abdomen Pelvis W Contrast CLINICAL INDICATION: Female, 69 years old.ABD PAIN TECHNIQUE: CT abdomen and pelvis was performed, after the administration of IV contrast, [facility]. Axial, sagittal and coronal reconstructions were obtained. One or more of the following dose reduction techniques were used: Automated exposure control, adjustment of the mA and/o r kV according to patient size, and/or iterative reconstruction. Unless otherwise specified, incidental findings do not require dedicated imaging follow-up. [id number]. COMPARISON: 06/11/2021 FINDINGS: LOWER CHEST: See separate report UPPER GI: Surgical changes at the stomach. Duodenal diverticulum. Question gastric wall thickening. T here is an abnormal course of the proximal duodenum. This is appears similar to prior. Endoscopy could better evaluate these findings if clinically indicated. LIVER: Hepatic steatosis, but otherwise unremarkable. GALLBLADDER/BILE DUCTS: Cholecystectomy. Moderate extrahepatic biliary ductal dilatation. This could be secondary to the post-cholecystectomy state. Recommend correlation with LFT's. If abnormal, consider MRCP for further evaluation. ? PANCREAS: Atrophy but no acute findings. SPLEEN: Unremarkable. ADRENALS: No adrenal masses. KIDNEYS AND URETERS: No hydronephrosis.Low density and/or too small to characterize renal lesions whi ch are statistically benign.Nonobstructing renal calculi. ABDOMINAL AORTA AND OTHER VESSELS: Normal caliber aorta and IVC. PERITONEUM: No abnormal free fluid. No free air. LYMPH NODES: No pathologic lymphadenopathy. ABDOMINAL WALL: Sebaceous cyst in the left inguinal region. SMALL BOWEL/COLON: Small bowel has normal course and caliber. No colonic wall thickening or pericolon ic inflammatory changes.Appendix absent. Mild diverticulosis without diverticulitis. Moderate formed stool burden. URINARY BLADDER: Underdistended but grossly unremarkable. REPRODUCTIVE ORGANS: Uterine fibroids. MUSCULOSKELETAL: Multilevel degenerative changes in the spine. No acute fracture. Intramedullary carmen in the right femur ADDITIONAL FINDINGS: None. IMPRESSION: No acute findings within the abdomen or pelvis. Incidental findings as noted above.
--- NOTE | 2024-07-04 20:40 | ER ---
Nurse's Notes [facility] Name: Iman Huggins Age: 69 yrs Sex: Female : 1955 Arrival Date: 07/04/2024 Time: 17:02 Bed 3 Private MD: Diagnosis: Respiratory failure, unspecified with hypercapnia Presentation: 07/04 17:37 Chief complaint: Patient states: she was having low oxygen readings at home. patient ap3 was on transportable oxygen on arrival to triage. Patient ws 58% Spo2 in triage. patient was placed on non-rebreather when taken into patient room, and her Sp02 recovered to 97%. Provider at bedside. Patient was having intermittent confusion initially during triage, but then was A/O X's 4 after non-rebreather was placed and oxygen level recovered. Coronavirus screen: At this time, the client does not indicate any symptoms associated with coronavirus-19. Ebola Screen: No symptoms or risks identified at this time. Risk Assessment: Do you want to hurt yourself or someone else? Patient reports no desire to harm self or others. Onset of symptoms was July 03, 2024. 17:37 Method Of Arrival: Wheelchair ap3 17:37 Acuity: RAD 2 ap3 Triage Assessment: 17:43 General: Appears distressed, Behavior is cooperative, appropriate for age. Pain: Denies ap3 pain. Neuro: Level of Consciousness is awake, alert, obeys commands, Oriented to person, place, time. Cardiovascular: Patient's skin is warm and dry. Respiratory: Airway is patent Respiratory effort is labored, Respiratory pattern is regular, symmetrical. Historical: - Allergies: 17:42 Lisinopril; ap3 17:42 ARB-Angiotensin Receptor Antagonist; ap3 17:42 ANGEL INHIBITORS; ap3 - PMHx: 17:42 chronic back pain; COPD; Hypertension; Myocardial infarction; ap3 - PSHx: 17:42 Cholecystectomy; colon cancer tumor removal; ap3 - Social history:: Smoking status: Patient reports the use of cigarette tobacco products. Screenin:44 Abuse screen: Denies threats or abuse. Nutritional screening: No deficits noted. ap3 Tuberculosis screening: No symptoms or risk factors identified. 19:20 [facility] ED Fall Risk Assessment (Adult) History of falling in the last 3 months, jb4 including since admission No falls in past 3 months (0 pts) Confusion or Disorientation No (0 pts) Intoxicated or Sedated No (0 pts) Impaired Gait No (0 pts) Mobility Assist Device Used No (0 pt) Altered Elimination No (0 pt) Score/Fall Risk Level 0 - 2 = Low Risk Oriented to surroundings, Maintained a safe environment. Assessment: 19:20 General: Appears distressed, uncomfortable, ill, obese, Behavior is cooperative, jb4 drowsy. Pain: Complains of pain in abdomen Pain does not radiate. Pain currently is 4 out of 10 on a pain scale. Neuro: Level of Consciousness is awake, obeys commands, lethargic, Oriented to person, place, time, situation. Cardiovascular: Patient's skin is warm and dry. Respiratory: Airway is patent Respiratory effort is even, labored, Respiratory pattern is regular, symmetrical. GI: Abdomen is obese, Reports lower abdominal pain, upper abdominal pain. Derm: Skin is intact, Skin is dry, Skin is pale, Skin temperature is warm. Musculoskeletal: Circulation, motion, and sensation intact. Range of motion: intact in all extremities. 20:15 Reassessment: Pt is more rousable and alert. respirations are more even and unlabored. jb4 21:00 Reassessment: Patient appears in no apparent distress at this time. Patient and/or jb4 family updated on plan of care and expected duration. Pain level reassessed. Patient is alert, oriented x 3, equal unlabored respirations, skin warm/dry/pink. 22:02 Reassessment: Patient appears in no apparent distress at this time. Patient and/or jb4 family updated on plan of care and expected duration. Pain level reassessed. Patient is alert, oriented x 3, equal unlabored respirations, skin warm/dry/pink. 23:20 Reassessment: Patient appears in no apparent distress at this time. Patient and/or jb4 family updated on plan of care and expected duration. Pain level reassessed. Patient is alert, oriented x 3, equal unlabored respirations, skin warm/dry/pink. Vital Signs: 17:30 Pulse Ox 58% on 6 lpm home transportation [place]; ap3 17:37 BP 156 / 72; Pulse 98; Resp 21; Pulse Ox 97% on Non-rebreather mask; Weight 102.06 kg; ap3 19:15 BP 150 / 80; Pulse 92; Resp 18; Pulse Ox 100% on BiPAP; cp4 20:29 BP 146 / 75; Pulse 89; Resp 19; Pulse Ox 95% ; cp4 22:00 BP 120 / 71; Pulse 89; Resp 20; Pulse Ox 100% on BiPAP; FiO2 40 %; jb4 23:00 BP 129 / 79; Pulse 86; Resp 20; Temp 97.8(TE); Pulse Ox 97% on 15 lpm Non-rebreather jb4 mask; ED Course: 17:10 Patient arrived in ED. al6 17:15 Usman Barnes PA is PHCP. cp 17:15 Domenic Wynn MD is Attending Physician. cp 17:41 Triage completed. ap3 17:44 Arm band placed on right wrist. ap3 17:44 Client placed on continuous cardiac and pulse oximetry monitoring. NIBP monitoring ap3 applied. case monitor on. Pulse ox on. NIBP on. 18:28 Chest Single View XRAY In Process Unspecified. EDMS 18:30 Inserted saline lock: 22 gauge in right hand, using aseptic technique. Blood collected. jb4 18:37 BNP Sent. jb4 18:37 Troponin High Sensitivity Sent. jb4 18:37 COVID-19 Ag + Flu A+B Ag Sent. jb4 18:37 Blood Culture Adult (2) Sent. jb4 18:37 CBC with Diff Sent. jb4 18:37 CMP Sent. jb4 18:37 Ptt, Activated Sent. jb4 18:37 Protime (+inr) Sent. jb4 18:38 Lactate w/ 2H reflex if indic. Sent. jb4 19:19 Michoacano Wilson, RN is Primary Nurse. jb4 19:20 Patient has correct armband on for positive identification. Bed in low position. Call jb4 light in reach. Side rails up X 1. Provided Education on: plan of care. 19:20 No provider procedures requiring assistance completed. jb4 19:41 Inserted saline lock: 22 gauge in left forearm, using aseptic technique. lg3 19:58 CT Chest For PE Angio In Process Unspecified. EDMS 19:58 CT Abd/Pelvis - IV Contrast Only In Process Unspecified. EDMS 20:11 Usman Vazquez MD is Attending Physician. cp 20:40 Prince Goddard MD is Hospitalizing Provider. cp 23:20 Inserted saline lock: 22 gauge in right hand, using aseptic technique. Patient jb4 admitted, IV remains in place. IV discontinued, intact, bleeding controlled, No redness/swelling at site. Pressure dressing applied, 22g to LFA no longer working. Administered Medications: 18:42 Drug: DuoNeb Nebulize (2.5 mg - 0.5 mg) 3 ml Nebulizer once Route: Nebulizer; jb4 20:46 Follow up: Response: No adverse reaction cp4 18:43 Drug: MethylPrednisoLONE IVP 125 mg IVP once Route: IVP; Site: right hand; jb4 20:46 Follow up: Response: No adverse reaction cp4 20:46 Drug: LevaQUIN IVPB 750 mg IVPB once Route: IVPB; Site: left forearm; cp4 22:02 Drug: Potassium PO Effervescent Tablet 25 mEq PO once; dissolve in 4 ounces of water or jb4 juice Route: PO; Medication: 19:20 VIS not applicable for this client. jb4 Outcome: 20:39 Discharge ordered by MD. cp 20:41 Decision to Hospitalize by Provider. cp 23:21 Admitted to ICU accompanied by nurse, via stretcher, room 7, with oxygen, on monitor, jb4 with chart, Report called to URSULA Delong 23:21 Condition: stable 23:21 Discharge instructions given to patient, family, Instructed on the need for admit, Demonstrated understanding of instructions, 23:22 Patient left the ED. jb4 Signatures: Dispatcher [employer] EDMS Usman Barnes PA PA cp Bryson, James, RN RN jb4 Hemalatha Cedeño RN RN ap3 Edyta Hinojosa RN RN lg3 Aracelis Johnson cp4 Michelle Majano6 Corrections: (The following items were deleted from the chart) 22:09 20:15 BP 120 / 71; Pulse 89bpm; Resp 20bpm; Pulse Ox 100% BiPAP FiO2 40%; jb4 jb4
--- NOTE | 2024-07-04 20:40 | EDPHYS ---
Physician Documentation [facility] Name: Iman Huggins Age: 69 yrs Sex: Female : 1955 Arrival Date: 07/04/2024 Time: 17:02 Bed 3 Private MD: ED Physician Usman Vazquez HPI: 07/04 17:40 This 69 yrs old Black Female presents to ER via Unassigned with complaints of Abdominal cp Pain, low o2. 17:40 The patient has shortness of breath at rest. cp 17:40 Onset: The symptoms/episode began/occurred today. cp 17:40 Duration: The symptoms are continuous, and are steadily getting worse. Associated signs cp and symptoms: Pertinent positives: abdominal pain, Pertinent negatives: chest pain, fever, vomiting. Severity of symptoms: in the emergency department the symptoms are unchanged despite home interventions. Historical: - Allergies: 17:42 Lisinopril; ap3 17:42 ARB-Angiotensin Receptor Antagonist; ap3 17:42 ANGEL INHIBITORS; ap3 - PMHx: 17:42 chronic back pain; COPD; Hypertension; Myocardial infarction; ap3 - PSHx: 17:42 Cholecystectomy; colon cancer tumor removal; ap3 - Social history:: Smoking status: Patient reports the use of cigarette tobacco products. ROS: 17:45 Constitutional: Negative for body aches, chills, fever, poor PO intake, cp 17:45 Cardiovascular: Negative for chest pain, edema, palpitations, cp 17:45 Respiratory: Positive for cough, shortness of breath, at rest. Negative for wheezing, 17:45 Abdomen/GI: Positive for abdominal pain, 17:45 Eyes: Negative for injury, pain, redness, and discharge, cp 17:45 ENT: Negative for drainage from ear(s), ear pain, sore throat, difficulty swallowing, difficulty handling secretions, 17:45 Neuro: Negative for altered mental status, dizziness, headache, weakness, 17:45 All other systems are negative, cp Exam: 17:50 Constitutional: The patient appears in no acute distress, alert, awake, cp non-diaphoretic, non-toxic, well developed, well nourished, obese, 17:50 Head/Face: Normocephalic, atraumatic. cp 17:50 Eyes: Periorbital structures: appear normal, Conjunctiva: normal, no exudate, no injection, Sclera: no appreciated abnormality, Lids and lashes: appear normal, bilaterally, 17:50 ENT: External ear(s): are unremarkable, Nose: is normal, Mouth: Lips: moist, Oral mucosa: pink and intact, moist, Posterior pharynx: Airway: no evidence of obstruction, patent, 17:50 Neck: ROM/movement: is normal, is supple, without pain, no range of motions limitations, 17:50 Chest/axilla: Inspection: normal, Palpation: is normal, no crepitus, no tenderness, 17:50 Cardiovascular: Rate: normal, Rhythm: regular, 17:50 Respiratory: the patient does not display signs of respiratory distress, Respirations: labored breathing, is not present, shallow respirations, that is mild, Breath sounds: decreased breath sounds, that are moderate, throughout, stridor, is not appreciated, wheezing: is not appreciated, 17:50 Abdomen/GI: Inspection: obese Bowel sounds: active, all quadrants, Palpation: soft, in all quadrants, mild abdominal tenderness, in all quadrants, 17:50 Back: pain, is absent, ROM is normal, 17:50 Neuro: Orientation: to person, situation, Mentation: able to follow commands, Motor: moves all fours, no focal deficits, 17:52 ECG was reviewed by the Attending Physician. Vital Signs: 17:30 Pulse Ox 58% on 6 lpm home transportation [place]; ap3 17:37 BP 156 / 72; Pulse 98; Resp 21; Pulse Ox 97% on Non-rebreather mask; Weight 102.06 kg; ap3 19:15 BP 150 / 80; Pulse 92; Resp 18; Pulse Ox 100% on BiPAP; cp4 20:29 BP 146 / 75; Pulse 89; Resp 19; Pulse Ox 95% ; cp4 22:00 BP 120 / 71; Pulse 89; Resp 20; Pulse Ox 100% on BiPAP; FiO2 40 %; jb4 23:00 BP 129 / 79; Pulse 86; Resp 20; Temp 97.8(TE); Pulse Ox 97% on 15 lpm Non-rebreather jb4 mask; MDM: 17:27 Medical Screening Exam initiated cp 20:40 Data reviewed: vital signs, nurses notes, lab test result(s), EKG, radiologic studies, cp CT scan, plain films, and as a result, I will admit patient. 20:40 Differential diagnosis: CHF exacerbation, Chronic Obstructive Pulmonary Disease cp Myocardial Infarction pneumonia, Pneumothorax pulmonary edema, Pulmonary Embolism Sepsis. Consideration of Admission/Observation Patient was admitted/placed on observation. Management of patient was discussed with the following: Hospitalist: DR Seo will admit after discussion. I considered the following discharge prescriptions or medication management in the emergency department Medications were administered in the Emergency Department. See MAR. Independent interpretation of the following test(s) in the Emergency Department EKG: See my EKG interpretation above. Counseling: I had a detailed discussion with the patient and/or guardian regarding the historical points, exam findings, and any diagnostic results supporting the discharge/admit diagnosis, lab results, radiology results. Response to treatment: the patient's symptoms have markedly improved after treatment. 07/04 17:42 Order name: Blood Culture Adult (2) 07/04 17:42 Order name: CBC with Diff; Complete Time: 19:52 cp 07/04 19:52 Interpretation: Normal except: RBC 4.92; HCT 45.1; MCHC 31.5; RDW 16.2; LONG% 78.9; LYM% cp 11.1; LYMA 0.6. 07/04 17:42 Order name: CMP; Complete Time: 19:52 cp 07/04 19:52 Interpretation: Normal except: K 3.4; CO2 39; ANION GAP 4.4; GLUC 118; CRE 0.49; AST < cp 10; CA 8.4; ALB 3.1; GLOB 3.7; A/G 0.8. 07/04 17:42 Order name: Lactate w/ 2H reflex if indic.; Complete Time: 19:52 cp 07/04 17:42 Order name: Protime (+inr); Complete Time: 19:52 cp 07/04 17:42 Order name: Ptt, Activated; Complete Time: 19:52 cp 07/04 17:42 Order name: Urinalysis w/ reflexes cp 07/04 17:42 Order name: Troponin High Sensitivity; Complete Time: 19:52 cp 07/04 17:42 Order name: BNP; Complete Time: 19:52 cp 07/04 17:42 Order name: COVID-19 Ag + Flu A+B Ag; Complete Time: 19:52 cp 07/04 20:49 Order name: Urinalysis w/ reflexes EDMS 07/04 20:49 Order name: Basic Metabolic Panel EDMS 07/04 20:49 Order name: Basic Metabolic Panel EDVA 07/04 20:49 Order name: CBC with Automated Diff EDMS 07/04 20:49 Order name: CBC with Automated Diff EDMS 07/04 20:49 Order name: NT PRO-BNP EDMS 07/04 20:49 Order name: NT PRO-BNP EDVA 07/04 20:49 Order name: Troponin High Sensitivity EDVA 07/04 17:42 Order name: Chest Single View XRAY; Complete Time: 18:43 cp 07/04 18:43 Interpretation: Report review. cp 07/04 18:44 Order name: CT Chest For PE Angio; Complete Time: 20:29 cp 07/04 18:44 Order name: CT Abd/Pelvis - IV Contrast Only; Complete Time: 20:29 cp 07/04 20:30 Interpretation: Report reviewed, Report reviewed. cp 07/04 17:42 Order name: EKG; Complete Time: 17:43 cp 07/04 17:42 Order name: Accucheck; Complete Time: 19:03 cp 07/04 17:42 Order name: Cardiac monitoring; Complete Time: 18:37 cp 07/04 17:42 Order name: EKG - Nurse/Tech; Complete Time: 18:37 cp 07/04 17:42 Order name: IV Saline Lock - Large Bore; Complete Time: 18:37 cp 07/04 17:42 Order name: Labs collected and sent; Complete Time: 18:37 cp 07/04 17:42 Order name: O2 Per Protocol; Complete Time: 18:37 cp 07/04 17:42 Order name: O2 Sat Monitoring; Complete Time: 18:37 cp 07/04 17:42 Order name: Vital Signs; Complete Time: 18:37 cp EC:52 Rate is 95 beats/min. Rhythm is regular. DC interval is normal. QRS interval is normal. cp QT interval is normal. T waves are Inverted. Interpreted by me. Reviewed by me. Administered Medications: 18:42 Drug: DuoNeb Nebulize (2.5 mg - 0.5 mg) 3 ml Nebulizer once Route: Nebulizer; jb4 20:46 Follow up: Response: No adverse reaction cp4 18:43 Drug: MethylPrednisoLONE IVP 125 mg IVP once Route: IVP; Site: right hand; jb4 20:46 Follow up: Response: No adverse reaction cp4 20:46 Drug: LevaQUIN IVPB 750 mg IVPB once Route: IVPB; Site: left forearm; cp4 22:02 Drug: Potassium PO Effervescent Tablet 25 mEq PO once; dissolve in 4 ounces of water or jb4 juice Route: PO; Disposition Summary: 07/04/24 20:41 Hospitalization Ordered Notes: Hospitalization Status: Inpatient Admission cp Provider: Prince nimco Goddard Location: Intensive Care Unit(07/04/24 20:41) cp Condition: Fair(07/04/24 20:41) cp Problem: new cp Symptoms: have improved cp Bed/Room Type: Standard cp Room Assignment: 7-(07/04/24 21:41) jb4 Diagnosis - Respiratory failure, unspecified with hypercapnia(07/04/24 20:41) cp Forms: - Medication Reconciliation Form cp - SBAR form cp - Leadership Thank You Letter cp Addendum: 07/08/2024 15:39 Co-signature as Attending Physician, Usman Vazquez MD I agree with the assessment and c tabor plan of care. Signatures: Dispatcher [employer] EDUsman Lao MD MD cha Page, Corey, PA PA cp Michoacano Wilson RN RN jb4 Hemalatha Cedeño RN RN ap3 Aracelis Johnson cp4 Corrections: (The following items were deleted from the chart) 07/04 20:40 20:39 Home cp cp 20:40 20:39 Fair cp cp 20:40 20:39 Acute and chronic respiratory failure with hypercapnia cp cp 20:40 20:40 Respiratory failure, unspecified with hypercapnia cp cp 21:41 20:41 cp jb4
[2024-07-04] MEDS ORDERED: Levofloxacin 750mg IV 750 MG/150 ML BAG IV ONE (20:42)
[2024-07-04] MEDS ORDERED: ALBUTEROL 2.5 MG/3 ML NEB SOL NEB PRN (20:44)
[2024-07-04] MEDS ORDERED: IPRATROPIUM BROM 0.5MG/2.5ML NEB PRN (20:44)
[2024-07-04] MEDS ORDERED: ONDANSETRON 4 MG/2 ML VIAL IV PRN (20:44)
--- NOTE | 2024-07-04 21:12 | P.HP ---
Certification for Inpatient Patient admitted to: Inpatient With expected LOS: >2 Midnights Practitioner: I am a practitioner with admitting privileges, knowledge of patient current condition, hospital course, and medical plan of care. Services: Services provided to patient in accordance with Admission requirements found in Title 42 Section 412.3 of the Code of Federal Regulations Patient History Date of Service: 07/04/24 Reason for admission: Shortness of breath History of Present Illness: Patient is a 69-year-old -F[place]ian female who is being hyperlipidemia, COPD on chronic respiratory failure currently on 2 to 3 L of oxygen at home. She also has a history of coronary disease status post PCI and colon cancer. She presented to the ER complaining of worsening shortness of breath. Patient is currently on BiPAP during my evaluation. at bedside states that she has been in her usual state of health until today. Denies lower extremity edema. Her symptoms are mainly shortness of breath. Upon arrival in the ER, patient was satting 66% on 6 L of oxygen. She is currently on a BiPAP. She is being admitted for COPD exacerbation. Allergies ANGEL Inhibitors Allergy (Severe, Verified 08/24/20 08:25) Anaphylaxis lisinopril Adverse Reaction (Severe, Verified 09/09/23 05:44) Anaphylaxis ARB-Angiotensin Receptor Ant Allergy (Uncoded 08/24/20 08:25) Unknown Home Medications: Albuterol Inhaler [Ventolin Inhaler*] 2 puff IH Q6H PRN 08/24/20 Amlodipine [Norvasc*] 10 mg PO DAILY 08/24/20 Atorvastatin Calcium [Lipitor] 40 mg PO BEDTIME 08/24/20 Fluticasone/Umeclidin/Vilanter [Trelegy Ellipta 100-62.5-25] 1 each IH DAILY 08/24/20 Medroxyprogesterone Acetate [Provera] 2.5 mg PO DAILY 08/24/20 oxyBUTYnin chloride [Ditropan*] 5 mg PO TID 08/24/20 Amitriptyline [Elavil*] 10 mg PO BEDTIME 07/18/23 Baclofen [Lioresal*] 10 mg PO TIDP PRN 07/18/23 Duloxetine HCl [Cymbalta] 60 mg PO DAILY 07/18/23 Metoprolol Succinate [Toprol Xl*] 25 mg PO DAILY 07/18/23 Tizanidine [Zanaflex*] 4 mg PO BID 07/18/23 Hydrocodone 10/APAP 325 [[place] 10/325*] 1 tab PO Q8H PRN #15 tab 07/21/23 acetaZOLAMIDE [Diamox*] 250 mg PO DAILY 30 Days #30 tab 07/21/23 Estradiol [Estrace] 1 mg PO DAILY 09/09/23 Solifenacin Succinate [Vesicare] 10 mg PO DAILY 09/09/23 Theophylline Anhydrous [Theophylline ER] 400 mg PO DAILY 09/09/23 - Past Medical/Surgical History Diabetic: No -: chronic back pain -: copd -: htn -: mi -: 02 at 3l nc prn night time -: GERD -: Colon cancer status post resection -: Cholecystectomy -: Colectomy 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, 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, 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 -: Cancer Sister -: Heart disease, Hypertension, Lung disease, GI disease, Diabetes, Stroke, Kidney disease - Social History Alcohol use: No CD- Drugs: No Caffeine use: Yes Physical Examination - Vital Signs Pulse: 98 Pulse Ox (%): 99 - Physical Exam General: Acute distress, Obese HEENT: Atraumatic, Normocephalic Respiratory: Diminished Cardiovascular: No edema, Normal pulses, Regular rate/rhythm, Normal S1 S2 - Studies Laboratory Data (last 24 hrs) 07/04/24 07/04/24 07/04/24 18:30 18:30 18:30 WBC 5.10 Hgb 14.2 Hct 45.1 H Plt Count 168 PT 13.1 H INR 1.16 APTT 33.5 Sodium 142 Potassium 3.4 L BUN 12 Creatinine 0.49 L Glucose 118 H Total Bilirubin 0.2 AST < 10 L ALT < 14 Alkaline Phosphatase 117 Assessment and Plan - Problems (Diagnosis) (1) Acute and chronic respiratory failure Current Visit: Yes Status: Acute (2) COPD exacerbation Onset Date: 07/16/17 Current Visit: No Status: Acute (3) Diastolic CHF Current Visit: No Status: Acute Qualifiers: (4) GERD (gastroesophageal reflux disease) Onset Date: 05/08/16 Current Visit: No Status: Chronic (5) HTN (hypertension) Onset Date: 07/16/17 Current Visit: No Status: Chronic (6) Tobacco abuse Onset Date: 05/08/16 Current Visit: No Status: Chronic - Plan Assessment This is a 69-year-old Fijian female who is being admitted for COPD exacerbation complicated by respiratory failure. Patient has been in her usual state of health until today. She is still smoking intermittently. CT chest ruled out PE pneumonia Acute on chronic respiratory failure COPD exacerbation Hypokalemia Diastolic CHF Coronary disease status post PCI Hypertension Tobacco smoking Plan: Will admit inpatient with telemetry Continue scheduled Solu-Medrol, IV levofloxacin and as needed Yehuda Will also add Dulera to her regimen Pulmonary consult Replace potassium Check mag and Phos Resume rest of home medications upon reconciliation - Advance Directives Does patient have a Living Will: No Does patient have a Durable POA for Healthcare: No
[2024-07-04] MEDS ORDERED: POTASSIUM 25 MEQ EFFERV TAB ONE (21:44)
[2024-07-04] MEDS ORDERED: POTASSIUM CL 40 MEQ in NA CHLORIDE 0.9% 500 ML IV SCH (22:00)
[2024-07-04] MEDS: Levofloxacin 750mg IV 750 MG/150 ML BAG IV SCH (22:00)
[2024-07-04] MEDS: NA CHLORIDE 0.9% 100 ML ONE (23:29)
[2024-07-04] MEDS: DULERA 200/5 (MOMETASONE/FORMOTEROL) INHALER IH SCH (23:39)
[2024-07-04] MEDS: ACETAMINOPHEN 500 MG TAB PO PRN (23:39)
[2024-07-04] MEDS: KCL 20 MEQ/100 ML IV SCH (23:39)
[2024-07-05 00:04] VITALS: BMI 35.2
[2024-07-05] MEDS: METHYLPREDNISOLONE 40 MG INJ IV SCH (00:30)
[2024-07-05] MEDS: HYDROCODONE/APAP 10/325 TAB PO PRN (00:56)
[2024-07-05 05:58] LABS: Sqamous Epithelial <5 /HPF (None Seen); Urine Bacteria None Seen /HPF (<20); Urine Bilirubin NEGATIVE (Negative); Urine Blood 2+ (Negative); Urine Clarity Clear (Clear); Urine Color Yellow (Yellow); Urine Culture Reflex Order NOT NEEDED; Urine Glucose NEGATIVE (Negative); Urine Ketones NEGATIVE (Negative); Urine Microscopic Reflex YN ORDER UMIC; Urine Nitrite NEGATIVE (Negative); Urine Protein 2+ (Negative); Urine Urobilinogen Normal (Normal); Urine WBC <5 /HPF (<5); Urine pH 6.5 (5.0-7.0)
[2024-07-05 05:59] LABS: Absolute Lymphocytes (CBC) 0.4 K/uL (0.7-4.9); Absolute Monocytes 0.1 K/uL (0.1-1.3); Absolute Neutrophil 3.8 K/uL (1.8-8.0); Basophils % 0.3 % (0-1.3); Eosinophils % 0.1 % (0-4.4); Hematocrit 44.1 % (36.0-45.0); Hemoglobin 14.3 g/dL (12.0-15.0); MCH 29.3 pg (27.0-35.0); MCHC 32.4 g/dL (32.0-36.0); MCV 90.6 fL (80-100); MPV 7.8 fL (7.6-11.3); Monocytes % 1.2 % (3.3-12.3); Neutrophils % 89.4 % (41.7-73.7); Nucleated RBC Absolute Count 0.1 (0-0); Nucleated Red Blood Cells % 1.8 % (0-0); Platelets 152 thou/uL (152-406); RBC Red Blood Cell Count 4.87 M/uL (3.86-4.86); Red Cell Distribution Width 16.4 % (12.1-15.2)
[2024-07-05 06:03] LABS: Specific Gravity > 1.030 (1.005-1.030)
[2024-07-05 06:03] LABS: Anion Gap 6.7 mEq/L (5.0-15.0); Potassium 4.7 mEq/L (3.5-5.1)
[2024-07-05 06:45] LABS: Magnesium 2.1 mg/dL (1.6-2.4); Phosphorus 3.5 mg/dL (2.5-4.9)
--- NOTE | 2024-07-05 07:15 | P.PN ---
Date of Service: 07/05/24 Subjective: tired, somnolent, but answering questions appropriately off BIPAP/non-rebreather overnight; placed on 3L NC at some point overnight afebrile Physical Exam: GEN: Tired, somnolent but nods yes/no to answers CV: Regular rate and rhythm, trace edema Pulm: Nonlabored respirations on 3L NC, bilateral wheeze, diminished ABD: soft, nontender, nondistended Neuro: somnolent, awakens to voice, nods yes/no, Problem List: Acute on chronic hypoxic respiratory failure secondary to acute on chronic COPD exacerbation (On 2-3L Home O2) Pulmonary Hypertension Chronic diastolic CHF Chronic neck pain Hypertension Hyperlipidemia GERD Anxiety/Depression chronic tobacco use hx colon cancer s/p resection hx CAD s/p PCI Acute on chronic hypoxic respiratory failure secondary to acute on chronic COPD exacerbation (On 2-3L Home O2) Pulmonary Hypertension on admission, presents with worsening SOB. SPO2 66% on 6L upon ER arrival. Denies lower extremity edema. CTA chest (07/04): No PE. Pulmonary Hypertension. Bronchial wall thickening. Mild dependant opacities in lung bases bilaterally likely atelectasis - seen on prior CTA 07/18/2023 CT abdomen/pelvis (07/04): No acute findings but did incidentally note uterine fibriods, Moderate formed stool burden, Serbaceous cyst left inguinal region, hepatic steatosis, Diverticulosis. Questionable gastric wall thickening. 07/04 - Given IV levaquin, IV steroids, duonebs in ED. Placed on non-rebreather and admitted to ICU. Weaned to 3L NC after a few hours. Check UA, follow blood cultures. Covid/Flu negative. Pulm consult. 07/05 - Continue IV steroids, duonebs Empiric levaquin (07/05-) wean oxygen as tolerated. On 2-3L NC at home. switch duonebs to scheduled per pulm check ABG Chronic diastolic CHF Chronic neck pain Hypertension Hyperlipidemia GERD Anxiety/Depression chronic tobacco use hx colon cancer s/p resection hx CAD s/p PCI confirm home meds, restart as appropriate VTE: Lovenox Code: Full Dispo: Home, ~2-3 days Pending further improvement, pulm recs Time Spent Managing Pts Care (In Minutes): 55
[2024-07-05] MEDS: ENOXAPARIN 40 MG/0.4 ML SQ SCH (07:32)
[2024-07-05 08:46] LABS: Band Neutrophils 1 % (0-1); Differential Total Cells Count 100; Lymphocytes 12 % (15-42); Metamyelocytes 1 % (0-0); Monocytes 1 % (0-10); Segmented Neutrophils 85 % (40-80)
[2024-07-05 08:47] LABS: Anisocytosis 1+; Basophilic Stippling 1+; Blood Morphology Comment NOTED (NOT SEEN); Macrocytosis 1+; Nucleated Red Blood Cells 2 /100WBC; Platelet Estimate ADEQ; Toxic Granulation 1+
--- NOTE | 2024-07-05 11:36 | P.CNS ---
Date of Consult: 07/05/24 Reason for Consult: COPD exacerbation Chief Complaint: Shortness of breath History of Present Illness: Is 69 years of age with a history of COPD chronic respiratory failure on home O2 the emergency room worsening dyspnea hypoxemia low saturations currently patient is doing better very stable on ICU unresponsive at the bedside vital signs all stable Allergies ANGEL Inhibitors Allergy (Severe, Verified 08/24/20 08:25) Anaphylaxis lisinopril Adverse Reaction (Severe, Verified 09/09/23 05:44) Anaphylaxis ARB-Angiotensin Receptor Ant Allergy (Uncoded 08/24/20 08:25) Unknown Home Medications: Albuterol Inhaler [Ventolin Inhaler*] 2 puff IH Q6H PRN 08/24/20 Amlodipine [Norvasc*] 10 mg PO DAILY 08/24/20 Atorvastatin Calcium [Lipitor] 40 mg PO BEDTIME 08/24/20 Fluticasone/Umeclidin/Vilanter [Trelegy Ellipta 100-62.5-25] 1 each IH DAILY 08/24/20 Medroxyprogesterone Acetate [Provera] 2.5 mg PO DAILY 08/24/20 oxyBUTYnin chloride [Ditropan*] 10 mg PO TID 08/24/20 Amitriptyline [Elavil*] 10 mg PO BEDTIME 07/18/23 Baclofen [Lioresal*] 10 mg PO TIDP PRN 07/18/23 Duloxetine HCl [Cymbalta] 60 mg PO DAILY 07/18/23 Metoprolol Succinate [Toprol Xl*] 25 mg PO DAILY 07/18/23 Tizanidine [Zanaflex*] 4 mg PO BID 07/18/23 Hydrocodone 10/APAP 325 [[place] 10/325*] 1 tab PO Q8H PRN #15 tab 07/21/23 acetaZOLAMIDE [Diamox*] 250 mg PO DAILY 30 Days #30 tab 07/21/23 Estradiol [Estrace] 1 mg PO DAILY 09/09/23 Solifenacin Succinate [Vesicare] 10 mg PO DAILY 09/09/23 Theophylline Anhydrous [Theophylline ER] 400 mg PO DAILY 09/09/23 - Past Medical/Surgical History Diabetic: No -: chronic back pain -: copd -: htn -: mi -: 02 at 3l nc prn night time -: GERD -: Colon cancer status post resection -: Cholecystectomy -: Colectomy 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, 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, 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 Medical History: Cancer Sister Medical History: Heart disease, Hypertension, Lung disease, GI disease, Diabetes, Stroke, Kidney disease - Social History Smoking Status: Current every day smoker Alcohol use: No CD- Drugs: No Caffeine use: Yes Place of Residence: Home Review of Systems is unable to be obtained Physical Examination Temp Pulse Resp BP Pulse Ox 97.8 F 84 21 H 110/74 97 07/05/24 08:00 07/05/24 11:00 07/05/24 11:00 07/05/24 11:00 07/05/24 11:00 General: Unresponsive Respiratory: Clear to auscultation bilaterally, Diminished, Expiratory wheezes Cardiovascular: No edema, Regular rate/rhythm, Normal S1 S2, Abnormal S3 Laboratory Data (last 24 hrs) 07/04/24 07/04/24 07/04/24 18:30 18:30 18:30 WBC 5.10 Hgb 14.2 Hct 45.1 H Plt Count 168 PT 13.1 H INR 1.16 APTT 33.5 Sodium 142 Potassium 3.4 L BUN 12 Creatinine 0.49 L Glucose 118 H Total Bilirubin 0.2 AST < 10 L ALT < 14 Alkaline Phosphatase 117 - Problems (1) COPD exacerbation Onset Date: 07/16/17 Current Visit: No Status: Acute Plan: Patient is 69 years of age history of terminal COPD admitted with an exacerbation still continues to smoke currently stable labs and medications all reviewed CT scan is negative there is no evidence of pneumonia his bicarbonate is elevated most likely she has CO2 retention ordered ABG titrate sat to 90% will need scheduled bronchodilators
[2024-07-05] MEDS: ALBUTEROL 2.5 MG/3 ML NEB SOL NEB SCH (12:11)
[2024-07-05] MEDS: IPRATROPIUM BROM 0.5MG/2.5ML NEB SCH (12:11)
[2024-07-05 12:25] LABS: Arterial Blood Carboxyhemoglob 2.3 % (0-1.5); Blood Gas Oxyhemoglobin 91.7 % (94-97); Blood O2 Saturation 95.9 % (92-98.5)
[2024-07-05] MEDS: Levofloxacin 750mg IV 750 MG/150 ML BAG IV SCH (19:35)
[2024-07-06] MEDS: MORPHINE 2 MG/ML SYR IV ONE (00:37)
[2024-07-06 05:20] LABS: Absolute Lymphocytes (CBC) 0.3 K/uL (0.7-4.9); Absolute Monocytes 0.2 K/uL (0.1-1.3); Absolute Neutrophil 3.1 K/uL (1.8-8.0); Basophils % 0.2 % (0-1.3); Eosinophils % 0.2 % (0-4.4); Hematocrit 41.1 % (36.0-45.0); Hemoglobin 13.2 g/dL (12.0-15.0); Lymphocytes % 9.3 % (15.3-44.8); MCH 29.1 pg (27.0-35.0); MCHC 32.1 g/dL (32.0-36.0); MCV 90.6 fL (80-100); MPV 8.4 fL (7.6-11.3); Monocytes % 4.6 % (3.3-12.3); Nucleated Red Blood Cells % 0.8 % (0-0); Platelets 168 thou/uL (152-406); RBC Red Blood Cell Count 4.54 M/uL (3.86-4.86); Red Cell Distribution Width 16.2 % (12.1-15.2)
[2024-07-06 05:21] LABS: Neutrophils % 85.7 % (41.7-73.7)
[2024-07-06 05:35] LABS: Magnesium 2.4 mg/dL (1.6-2.4); Phosphorus 3.2 mg/dL (2.5-4.9)
[2024-07-06] MEDS: KETOROLAC 30 MG/ML INJ IV ONE (06:23)
[2024-07-06] MEDS: HYDROCODONE/APAP 10/325 TAB PO SCH (09:00)
[2024-07-06 10:37] LABS: Arterial Blood Carboxyhemoglob 1.4 % (0-1.5); Blood Gas Oxyhemoglobin 89.7 % (94-97); Blood Gas THB 13.6 g/dl (12-18)
--- NOTE | 2024-07-06 11:22 | P.PN ---
Date of Service: 07/06/24 Subjective: feels breathing is a little easier today reports flare up of chronic back/leg pain. otherwise doing okay afebrile Physical Exam: GEN: awake, alert, NAD CV: Regular rate and rhythm, trace edema Pulm: Nonlabored respirations on 3L NC, bilateral wheeze, diminished ABD: soft, nontender, nondistended Neuro: normal speech, normal affect Problem List: Acute on chronic COPD exacerbation (On 2-3L Home O2) Acute on chronic hypoxic and hypercapinic respiratory failure secondary to above Pulmonary Hypertension Chronic diastolic CHF Chronic pain syndrome Hypertension Hyperlipidemia GERD Anxiety/Depression chronic tobacco use hx colon cancer s/p resection hx CAD s/p PCI Acute on chronic COPD exacerbation (On 2-3L Home O2) Acute on chronic hypoxic and hypercapinic respiratory failure secondary to above Pulmonary Hypertension on admission, presents with worsening SOB. SPO2 66% on 6L upon ER arrival. Denies lower extremity edema. CTA chest (07/04): No PE. Pulmonary Hypertension. Bronchial wall thickening. Mild dependant opacities in lung bases bilaterally likely atelectasis - seen on prior CTA 07/18/2023 CT abdomen/pelvis (07/04): No acute findings but did incidentally note uterine fibriods, Moderate formed stool burden, Serbaceous cyst left inguinal region, hepatic steatosis, Diverticulosis. Questionable gastric wall thickening. 07/04 - Given IV levaquin, IV steroids, duonebs in ED. Placed on non-rebreather and admitted to ICU. Weaned to 3L NC after a few hours. Check UA, follow blood cultures. Covid/Flu negative. Pulm consult. 07/05 - Continue IV steroids, duonebs Empiric levaquin (07/05-) wean oxygen as tolerated. On 2-3L NC at home. switch duonebs to scheduled per pulm ABG with elevated PCO2, HCO3 07/06 - Feels improvement in breathing. Repeat ABG with improvement of PCO2, HCO3 04/12 blood cultures growing Staph CoNS - Possible contaminant. reportedly has CPAP and O2 at home Chronic diastolic CHF Chronic pain syndrome Hypertension Hyperlipidemia GERD Anxiety/Depression chronic tobacco use hx colon cancer s/p resection hx CAD s/p PCI confirm home meds, restart as appropriate 07/06 - reports flare up of her chronic pain given Morphine x1 and toradol x1 overnight [place] 10/325 increased to QID from TID resume home baclofen, amitriptyline, tizanidine, statin VTE: Lovenox Code: Full Dispo: Home, ~2-3 days Pending further improvement, pulm recs Time Spent Managing Pts Care (In Minutes): 55
[2024-07-06] MEDS: ATORVASTATIN 40 MG TAB PO SCH (20:07)
[2024-07-06] MEDS: predniSONE 20 MG TAB PO SCH (20:07)
[2024-07-06] MEDS: AMITRIPTYLINE 10 MG TAB PO SCH (20:07)
[2024-07-06] MEDS: TIZANIDINE 4 MG TABLET PO SCH (20:07)
[2024-07-07 05:56] LABS: Hematocrit 41.7 % (36.0-45.0); Hemoglobin 13.2 g/dL (12.0-15.0); MCH 28.9 pg (27.0-35.0); MCHC 31.7 g/dL (32.0-36.0); MCV 91.1 fL (80-100); MPV 8.1 fL (7.6-11.3); Platelets 180 thou/uL (152-406); RBC Red Blood Cell Count 4.58 M/uL (3.86-4.86); Red Cell Distribution Width 16.4 % (12.1-15.2)
[2024-07-07 06:05] LABS: Anion Gap 5.1 mEq/L (5.0-15.0); Magnesium 2.3 mg/dL (1.6-2.4); Potassium 4.1 mEq/L (3.5-5.1)
[2024-07-07] MEDS: BACLOFEN 10 MG TAB PO PRN (08:13)
[2024-07-07] MEDS: HOME MED 1 EA UNK (Fluticasone/Umeclidin/Vilanter [Trelegy Ellipta 100-62.5-25] Blst.W.Dev IH SCH (09:00)
--- NOTE | 2024-07-07 10:59 | P.PN ---
Date of Service: 07/07/24 Subjective: feeling better overall no acute events overnight Tolerating CPAP/BiPAP at night. vitals stable, afebrile Physical Exam: GEN: awake, alert, NAD CV: Regular rate and rhythm, trace edema Pulm: Nonlabored respirations on 4L NC, bilateral wheeze, diminished ABD: soft, nontender, nondistended Neuro: normal speech, normal affect Problem List: Acute on chronic COPD exacerbation (On 2-3L Home O2) Acute on chronic hypoxic and hypercapinic respiratory failure secondary to above Pulmonary Hypertension Chronic diastolic CHF Chronic pain syndrome Hypertension Hyperlipidemia GERD Anxiety/Depression chronic tobacco use hx colon cancer s/p resection hx CAD s/p PCI Acute on chronic COPD exacerbation (On 2-3L Home O2) Acute on chronic hypoxic and hypercapinic respiratory failure secondary to above Pulmonary Hypertension on admission, presents with worsening SOB. SPO2 66% on 6L upon ER arrival. Denies lower extremity edema. CTA chest (07/04): No PE. Pulmonary Hypertension. Bronchial wall thickening. Mild dependant opacities in lung bases bilaterally likely atelectasis - seen on prior CTA 07/18/2023 CT abdomen/pelvis (07/04): No acute findings but did incidentally note uterine fibriods, Moderate formed stool burden, Serbaceous cyst left inguinal region, hepatic steatosis, Diverticulosis. Questionable gastric wall thickening. 07/04 - Given IV levaquin, IV steroids, duonebs in ED. Placed on non-rebreather and admitted to ICU. Weaned to 3L NC after a few hours. Check UA, follow blood cultures. Covid/Flu negative. Pulm consult. 07/05 - Continue IV steroids, duonebs Empiric levaquin (07/05-) wean oxygen as tolerated. Has CPAP and O2 at home ABG with elevated PCO2, HCO3 07/06 - Repeat ABG with improvement of PCO2, HCO3 IV steroids deescalated to oral prednisone 04/12 blood cultures growing Staph CoNS - Possible contaminant. PT consult 07/07 - Feeling better overall, breathing improving. Tolerating CPAP/BiPAP at night. Resume home trelegy may need BIPAP/NIV, pulm to eval/review Chronic diastolic CHF Chronic pain syndrome Hypertension Hyperlipidemia GERD Anxiety/Depression chronic tobacco use hx colon cancer s/p resection hx CAD s/p PCI confirm home meds, restart as appropriate 07/06 - reports flare up of her chronic pain given Morphine x1 and toradol x1 overnight [place] 10/ increased to QID from TID resume home baclofen, amitriptyline, tizanidine, statin VTE: Lovenox Code: Full Dispo: Home, ~1-2 days Pending further improvement, pulm recs downgrade to floor later today Time Spent Managing Pts Care (In Minutes): 55
--- NOTE | 2024-07-07 11:27 | EKG ---
Test Date: 2024-07-04 Test Time: 17:45:59 Laundrette Owner: MUSTAPHA MEASUREMENT RESULTS: Intervals: Rate: 95 NJ: 156 QRSD: 86 QT: 386 QTc: 485 [place]: P: 74 NJ: 156 QRS: 81 T: 76 INTERPRETIVE STATEMENTS: Normal sinus rhythm Normal ECG Compared to ECG 09/09/2023 01:02:14 T-wave abnormality no longer present Electronically Signed On 07-07-24 11:21:46 CDT by Esequiel Dale
--- NOTE | 2024-07-07 12:48 | P.PN ---
Subjective Date of Service: 07/07/24 Chief Complaint: Respiratory failure Subjective: Improving (Patient is improving doing much better today apparently she ran out of her inhalers became worse responsive ended up in the emergency room she is doing much better now) Review of Systems General: Weakness Respiratory: Shortness of Breath Physical Examination - Vital Signs Temperature: 98.0 F Blood Pressure: 127/108 Pulse: 97 Respirations: 18 Pulse Ox (%): 99 - Physical Exam General: Alert, Oriented x3 Respiratory: Clear to auscultation bilaterally, Diminished Cardiovascular: No edema, Regular rate/rhythm, Normal S1 S2 Assessment And Plan - Current Problems (Diagnosis) (1) COPD exacerbation Onset Date: 07/16/17 Current Visit: No Status: Acute Plan: Patient is 69 years of age he ran out of her inhalers ended up in the hospital with an exacerbation of her COPD hypercapnic respiratory failure she is back to her baseline now more alert responsive cooperative labs chemistries reviewed no evidence of pulmonary embolism probably has secondary pulmonary hypertension back to her baseline stable for discharge
[2024-07-08 06:11] LABS: Hematocrit 41.9 % (36.0-45.0); Hemoglobin 13.4 g/dL (12.0-15.0); MCH 28.9 pg (27.0-35.0); MCHC 31.8 g/dL (32.0-36.0); MCV 90.7 fL (80-100); MPV 7.4 fL (7.6-11.3); Platelets 141 thou/uL (152-406); RBC Red Blood Cell Count 4.62 M/uL (3.86-4.86); Red Cell Distribution Width 16.4 % (12.1-15.2)
[2024-07-08 06:22] LABS: Albumin 2.7 g/dL (3.4-5.0); Albumin/Globulin Ratio 0.8 (1.1-1.8); Anion Gap 7.8 mEq/L (5.0-15.0); Bilirubin Total 0.3 mg/dL (0.2-1.0); Globulin 3.3 g/dL (2.3-3.5); Magnesium 2.3 mg/dL (1.6-2.4); Phosphorus 3.3 mg/dL (2.5-4.9); Potassium 4.8 mEq/L (3.5-5.1)
--- NOTE | 2024-07-08 14:40 | P.PN ---
Subjective Date of Service: 07/08/24 Chief Complaint: Respiratory failure Patient reports significant improvement in her shortness of breath. No issues overnight. Oxygen saturation has been stable on 2 to 3 L of oxygen by nasal cannula. Physical Examination - Vital Signs Temperature: 98.9 F Blood Pressure: 139/80 Pulse: 87 Respirations: 14 Pulse Ox (%): 95 Assessment And Plan - Plan Physical examination General: Alert and oriented x3, NAD, HEENT: Conjunctiva not pale, anicteric sclera Neck: Supple, no elevated JVD Heart: Heart sounds 1 and 2 normal, regular rhythm, normal rate, no pedal edema Lungs: Mild scattered rhonchi, no crackles, adequate breath sounds bilaterally. Abdomen: Soft, nondistended, nontender, normal bowel sounds. Extremities: No tenderness, no deformity Skin: Normal skin turgor, no rash, no nodules or ulcers. Neuro: No focal motor deficit. Normal speech. Psychiatry: Normal mood, no agitation. Problem List: Acute on chronic COPD exacerbation (On 2-3L Home O2) Acute on chronic hypoxic and hypercapinic respiratory failure secondary to above Pulmonary Hypertension Chronic diastolic CHF Chronic pain syndrome Hypertension Hyperlipidemia GERD Anxiety/Depression chronic tobacco use hx colon cancer s/p resection hx CAD s/p PCI Acute on chronic COPD exacerbation (On 2-3L Home O2) Acute on chronic hypoxic and hypercapinic respiratory failure secondary to above Pulmonary Hypertension on admission, presents with worsening SOB. SPO2 66% on 6L upon ER arrival. Denies lower extremity edema. CTA chest (07/04): No PE. Pulmonary Hypertension. Bronchial wall thickening. Mild dependant opacities in lung bases bilaterally likely atelectasis - seen on prior CTA 07/18/2023 CT abdomen/pelvis (07/04): No acute findings but did incidentally note uterine fibriods, Moderate formed stool burden, Serbaceous cyst left inguinal region, hepatic steatosis, Diverticulosis. Questionable gastric wall thickening. 07/04 - Given IV levaquin, IV steroids, duonebs in ED. Placed on non-rebreather and admitted to ICU. Weaned to 3L NC after a few hours. Check UA, follow blood cultures. Covid/Flu negative. Pulm consult. 07/05 - Continue IV steroids, duonebs Empiric levaquin (07/05-) wean oxygen as tolerated. Has CPAP and O2 at home ABG with elevated PCO2, HCO3 07/06 - Repeat ABG with improvement of PCO2, HCO3 IV steroids deescalated to oral prednisone 04/12 blood cultures growing Staph CoNS - Possible contaminant. PT consult 07/07 - Feeling better overall, breathing improving. Tolerating CPAP/BiPAP at night. Resume home trelegy may need BIPAP/NIV, pulm to eval/review Chronic diastolic CHF Chronic pain syndrome Hypertension Hyperlipidemia GERD Anxiety/Depression chronic tobacco use hx colon cancer s/p resection hx CAD s/p PCI Continue home medications. 07/08 Patient stable on baseline oxygen 2 to 3 L by nasal cannula. She is also tolerating CPAP/BiPAP at night Continue home bronchodilators Status post IV steroids, now on oral prednisone Continue oral Levaquin. Coagulase-negative staph isolated in the blood is likely a skin contaminant. Blood culture repeated. Follow results Continue PT. VTE: Lovenox Code: Full Dispo: Home with home health
[2024-07-09 04:51] LABS: Absolute Lymphocytes (CBC) 0.6 K/uL (0.7-4.9); Absolute Monocytes 0.3 K/uL (0.1-1.3); Absolute Neutrophil 3.3 K/uL (1.8-8.0); Basophils % 0.2 % (0-1.3); Hematocrit 42.7 % (36.0-45.0); Lymphocytes % 14.2 % (15.3-44.8); MCH 29.3 pg (27.0-35.0); MCHC 32.8 g/dL (32.0-36.0); MCV 89.3 fL (80-100); MPV 8.1 fL (7.6-11.3); Neutrophils % 77.6 % (41.7-73.7); Platelets 152 thou/uL (152-406); RBC Red Blood Cell Count 4.79 M/uL (3.86-4.86)
[2024-07-09 04:59] LABS: Anion Gap 6.5 mEq/L (5.0-15.0); Potassium 4.5 mEq/L (3.5-5.1)
[2024-07-09 09:50] VITALS: O2SAT 91
[2024-07-09 12:22] VITALS: TEMP 98.4
--- NOTE | 2024-07-09 13:14 | P.DS ---
Admission Date: 07/04/24 Discharge Date: 07/09/24 Reason for Admission: Respiratory failure Brief History of Present Illness: Patient is a 69-year-old -Hung[place] female with a history of hyperlipidemia, COPD on chronic respiratory failure currently on 2 to 3 L of oxygen at home. She also has a history of coronary disease status post PCI and colon cancer. She presented to the ER complaining of worsening shortness of breath. Patient was on BiPAP during evaluation. Her symptoms are mainly shortness of breath. Upon arrival in the ER, patient was satting 66% on 6 L of oxygen. Patient was admitted for COPD exacerbation. Hospital Course: Problem List: Acute on chronic COPD exacerbation (On 2-3L Home O2) Acute on chronic hypoxic and hypercapinic respiratory failure secondary to above Pulmonary Hypertension Chronic diastolic CHF Chronic pain syndrome Hypertension Hyperlipidemia GERD Anxiety/Depression chronic tobacco use hx colon cancer s/p resection hx CAD s/p PCI Patient admitted to the medical floor and the following medical problems addressed Acute on chronic COPD exacerbation (On 2-3L Home O2) Acute on chronic hypoxic and hypercapinic respiratory failure secondary to above Pulmonary Hypertension on admission, presents with worsening SOB. SPO2 66% on 6L upon ER arrival. Denies lower extremity edema. CTA chest (07/04): No PE. Pulmonary Hypertension. Bronchial wall thickening. Mild dependant opacities in lung bases bilaterally likely atelectasis - seen on prior CTA 07/18/2023 CT abdomen/pelvis (07/04): No acute findings but did incidentally note uterine fibriods, Moderate formed stool burden, Serbaceous cyst left inguinal region, hepatic steatosis, Diverticulosis. Questionable gastric wall thickening. Patient treated with IV levaquin, IV steroids, duonebs in ED. Patient initially placed on nonrebreather and admitted to the ICU. She was weaned to oxygen by nasal cannula within a few hours Patient was seen and evaluated by pulm. Dr. José. Patient was downgraded to the medical floor and her respiratory condition continued to improve. IV steroid de-escalated to oral prednisone. / blood cultures growing Staph CoNS - Possible contaminant. Repeat blood culture was negative. Patient is currently at baseline and deemed stable for discharge. Chronic diastolic CHF Chronic pain syndrome Hypertension Hyperlipidemia GERD Anxiety/Depression chronic tobacco use hx colon cancer s/p resection hx CAD s/p PCI Continued home medications. Vital Signs/Physical Exam: Temp Pulse Resp BP Pulse Ox 98.4 F 93 H 20 132/66 92 07/09/24 12:00 07/09/24 12:00 07/09/24 12:00 07/09/24 12:00 07/09/24 12:00 General: Alert, In no apparent distress, Oriented x3 HEENT: Mucous membr. moist/pink Neck: JVD not distended Respiratory: Clear to auscultation bilaterally, Normal air movement Cardiovascular: No edema, Regular rate/rhythm, Normal S1 S2 Gastrointestinal: Soft and benign, Non-distended Musculoskeletal: No swelling Integumentary: No rashes, No cyanosis Neurological: Normal strength at 5/5 x4 extr Laboratory Data at Discharge: WBC 4.20 thou/uL (4.3-10.9) L 07/09/24 03:58 Hgb 14.0 g/dL (12.0-15.0) 07/09/24 03:58 Hct 42.7 % (36.0-45.0) 07/09/24 03:58 Plt Count 152 thou/uL (152-406) 07/09/24 03:58 PT 13.1 SECONDS (10-13.0) H 07/04/24 18:30 INR 1.16 07/04/24 18:30 APTT 33.5 SECONDS (27.2-37.4) 07/04/24 18:30 Sodium 138 mEq/L (136-145) 07/09/24 03:58 Potassium 4.5 mEq/L (3.5-5.1) 07/09/24 03:58 BUN 11 mg/dL (7-18) 07/09/24 03:58 Creatinine 0.42 mg/dL (0.55-1.02) L 07/09/24 03:58 Glucose 134 mg/dL (74-106) H 07/09/24 03:58 Phosphorus 3.3 mg/dL (2.5-4.9) 07/08/24 05:17 Magnesium 2.3 mg/dL (1.6-2.4) 07/08/24 05:17 Total Bilirubin 0.3 mg/dL (0.2-1.0) 07/08/24 05:17 AST 27 U/L (15-37) 07/08/24 05:17 ALT 37 U/L (13-56) 07/08/24 05:17 Alkaline Phosphatase 89 U/L (45-117) 07/08/24 05:17 Home Medications: Albuterol Inhaler [Ventolin Inhaler*] 2 puff IH Q6H PRN 08/24/20 Amlodipine [Norvasc*] 10 mg PO DAILY 08/24/20 Atorvastatin Calcium [Lipitor] 40 mg PO BEDTIME 08/24/20 Fluticasone/Umeclidin/Vilanter [Trelegy Ellipta 100-62.5-25] 1 each IH DAILY 08/24/20 Medroxyprogesterone Acetate [Provera] 2.5 mg PO DAILY 08/24/20 oxyBUTYnin chloride [Ditropan*] 10 mg PO TID 08/24/20 Amitriptyline [Elavil*] 10 mg PO BEDTIME 07/18/23 Baclofen [Lioresal*] 10 mg PO TIDP PRN 07/18/23 Duloxetine HCl [Cymbalta] 60 mg PO DAILY 07/18/23 Metoprolol Succinate [Toprol Xl*] 25 mg PO DAILY 07/18/23 Tizanidine [Zanaflex*] 4 mg PO BID 07/18/23 Hydrocodone 10/APAP 325 [[place] 10/325*] 1 tab PO Q8H PRN #15 tab 07/21/23 acetaZOLAMIDE [Diamox*] 250 mg PO DAILY 30 Days #30 tab 07/21/23 Estradiol [Estrace] 1 mg PO DAILY 09/09/23 Solifenacin Succinate [Vesicare] 10 mg PO DAILY 09/09/23 Theophylline Anhydrous [Theophylline ER] 400 mg PO DAILY 09/09/23 Ipratropium/Albuterol Sulfate [Iprat-Albut 0.5-3(2.5) mg/3 ml] 3 ml IH Q6H PRN #120 amp 07/09/24 Mometasone/Formoterol [Dulera 200 Mcg/5 Mcg Inhaler] 2 puff IH BID #1 inhaler 07/09/24 Nebulizer 1 each MC QID PRN #1 ea 07/09/24 predniSONE [Prednisone*] 20 mg PO BID #10 tab 07/09/24 New Medications: Mometasone/Formoterol [Dulera 200 Mcg/5 Mcg Inhaler] 2 puff IH BID #1 inhaler Ipratropium/Albuterol Sulfate [Iprat-Albut 0.5-3(2.5) mg/3 ml] 3 ml IH Q6H PRN #120 amp PRN Reason: Shortness Of Breath Nebulizer 1 each MC QID PRN #1 ea PRN Reason: Shortness Of Breath predniSONE [Prednisone*] 20 mg PO BID #10 tab Followup: Jayden José MD [ACTIVE - CAN ADMIT] - 1-2 Weeks NONE,NONE [Primary Care Provider] - 1-2 Weeks Time spent managing pt's care (in minutes): 36
[2024-07-09 16:43] VITALS: BP 139/67
== END 2024-07-09 16:47 | disposition home health service (06) | DRG 189 ==
LOC: ER 17:02 → ERHOLD 20:44 → 3RD-ICU 22:21 → 2ND 07-08 18:50
PROVIDERS: ADMIT Internal Medicine; ATTEND Internal Medicine
PROC: 5A09357 Assistance with Respiratory Ventilation, Less than 24 Consecutive Hours, Continuous Positive Airway Pressure (ICD-10-PCS; 2024-07-04)
PROC: 4A133R1 Monitoring of Arterial Saturation, Peripheral, Percutaneous Approach (ICD-10-PCS; principal; 2024-07-05)
DX: J96.21 Acute and chronic respiratory failure with hypoxia (principal); J44.1 Chronic obstructive pulmonary disease with (acute) exacerbation; I50.32 Chronic diastolic (congestive) heart failure; I27.20 Pulmonary hypertension, unspecified; I11.0 Hypertensive heart disease with heart failure; J96.22 Acute and chronic respiratory failure with hypercapnia; F17.210 Nicotine dependence, cigarettes, uncomplicated; K21.9 Gastro-esophageal reflux disease without esophagitis; E87.6 Hypokalemia; I25.10 Atherosclerotic heart disease of native coronary artery without angina pectoris; E78.5 Hyperlipidemia, unspecified; F41.8 Other specified anxiety disorders; M54.2 Cervicalgia; G89.4 Chronic pain syndrome; I25.2 Old myocardial infarction; Z85.038 Personal history of other malignant neoplasm of large intestine; Z99.81 Dependence on supplemental oxygen; Z11.52 Encounter for screening for COVID-19; Z95.5 Presence of coronary angioplasty implant and graft
CPT/HCPCS: 36415; 36600; 71045; 71275; 74177; 80048; 80053; 81001; 82805; 82947; 83605; 83735; 83880; 84100; 84484; 85025; 85027; 85610; 85730; 87040; 87205; 87428; 93005; 94640; 94660; 94760; 97110; 97116; 97161; 97530; 99285; J1650; J2270; J2919; J3480; J3535; J7512; J7613; J7644; Q9967

== ENCOUNTER 2024-07-14 20:11 | Inpatient (IN) | payer OTHER ==
[2024-07-14] MEDS ORDERED: ALBUTEROL 2.5 MG/3 ML NEB SOL ONE (20:30)
[2024-07-14] MEDS ORDERED: IPRATROPIUM BROM 0.5MG/2.5ML ONE (20:30)
[2024-07-14] MEDS ORDERED: METHYLPREDNISOLONE 125 MG INJ ONE (20:34)
[2024-07-14 20:58] LABS: Absolute Basophils 0.1 K/uL (0-0.5); Absolute Lymphocytes (CBC) 1.5 K/uL (0.7-4.9); Absolute Monocytes 0.5 K/uL (0.1-1.3); Absolute Neutrophil 5.1 K/uL (1.8-8.0); D-Dimer 0.49 FEUug/mL (0-0.500); Eosinophils % 0.3 % (0-4.4); Hematocrit 44.2 % (36.0-45.0); Lymphocytes % 20.8 % (15.3-44.8); MCH 28.6 pg (27.0-35.0); MCHC 31.7 g/dL (32.0-36.0); MCV 90.3 fL (80-100); MPV 7.9 fL (7.6-11.3); Monocytes % 6.6 % (3.3-12.3); Neutrophils % 71.3 % (41.7-73.7); Nucleated RBC Absolute Count 0.1 (0-0); Nucleated Red Blood Cells % 0.8 % (0-0); PT Prothrombin Time 12.8 SECONDS (10-13.0); PTT, Activated Partial Thromb 29.2 SECONDS (27.2-37.4); Platelets 214 thou/uL (152-406); Protime INR 1.13; Red Cell Distribution Width 16.5 % (12.1-15.2)
--- NOTE | 2024-07-14 21:00 | RAD REPORT ---
EXAMINATION: ONE VIEW CHEST XR CLINICAL INDICATION: CHEST PAIN TECHNIQUE: Frontal chest projection is submitted. Examination is limited by patient positioning and t echnique. COMPARISON: 07/04/2024 FINDINGS: Moderate bilateral pulmonary opacities likely pulmonary edema. The heart is moderately enlarged in si ze. No displaced fractures identified. IMPRESSION: Moderate CHF versus volume overload.
[2024-07-14 21:06] LABS: ALT/SGPT 18 U/L (13-56); Albumin 2.9 g/dL (3.4-5.0); Albumin/Globulin Ratio 0.8 (1.1-1.8); Alkaline Phosphatase 100 U/L (45-117); BUN Blood Urea Nitrogen 12 mg/dL (7-18); Bicarbonate 35 mEq/L (21-32); Bilirubin Total 0.2 mg/dL (0.2-1.0); Creatine Phosphokinase 29 U/L (26-192); Globulin 3.8 g/dL (2.3-3.5); Glomerular Filtration Rate 99 ml/min (=/>90); Glucose Level 124 mg/dL (74-106); Lipase 16 U/L (13-75); Magnesium 2.3 mg/dL (1.6-2.4); NT PRO-BNP 891 pg/mL (<125); Protein, Total 6.7 g/dL (6.4-8.2); Sodium Level 137 mEq/L (136-145)
[2024-07-14 21:07] LABS: AST/SGOT < 10 U/L (15-37); Bilirubin Direct < 0.2 mg/dL (0-0.2)
[2024-07-14] MEDS ORDERED: CEFTRIAXONE 1000 MG/VIAL ONE (21:09)
[2024-07-14] MEDS ORDERED: AZITHROMYCIN 500 MG INJ IVPB ONE (21:10)
[2024-07-14] MEDS ORDERED: NA CHLORIDE 0.9% 250 ML ONE (21:10)
[2024-07-14] MEDS ORDERED: NA CHLORIDE 0.9% 50 ML ONE (21:10)
[2024-07-14] MEDS ORDERED: FUROSEMIDE 40 MG/4 ML VIAL ONE (21:10)
[2024-07-14 21:21] LABS: Influenza A Ag Negative; Influenza B Ag Negative; SARS-CoV-2 Antigen Rapid Res Negative (Negative)
[2024-07-14 21:22] LABS: Specific Gravity 1.027 (1.005-1.030); Sqamous Epithelial <5 /HPF (None Seen); Urine Bacteria None Seen /HPF (<20); Urine Bilirubin NEGATIVE (Negative); Urine Blood Trace (Negative); Urine Clarity Turbid (Clear); Urine Color Yellow (Yellow); Urine Crystals Unidentified Few /HPF (None Seen); Urine Culture Reflex Order NOT NEEDED; Urine Glucose NEGATIVE (Negative); Urine Ketones NEGATIVE (Negative); Urine Micro Reflex YN NO BILL MICROSCOPIC; Urine Mucus 4+ /HPF (None Seen); Urine Nitrite NEGATIVE (Negative); Urine Protein 1+ (Negative); Urine Urobilinogen 1+ (Normal); Urine WBC <5 /HPF (<5); Urine pH 5.5 (5.0-7.0)
--- NOTE | 2024-07-14 21:39 | P.HP ---
Certification for Inpatient Patient admitted to: Inpatient With expected LOS: >2 Midnights Practitioner: I am a practitioner with admitting privileges, knowledge of patient current condition, hospital course, and medical plan of care. Services: Services provided to patient in accordance with Admission requirements found in Title 42 Section 412.3 of the Code of Federal Regulations Patient History Date of Service: 07/15/24 Reason for admission: SOB History of Present Illness: 69-year-old female with a past medical history of hypertension, hyperlipidemia, COPD on chronic respiratory failure currently on 2 to 3 L of oxygen at home Chronic diastolic CHF hypoxic hypercapnic respiratory failure, hyperlipidemia, GERD, pulmonary hypertension, chronic pain syndrome, anxiety, depression, chronic tobacco usage, history of colon cancer status postresection and history of CAD status post PCI brought to ER with worsening shortness of breath. Patient reports she admitted here recently for similar episodes . Postadmission she has not been taking her medications regularly. Patient's symptoms got worsened over the last few days and started having shortness of breath. No fever or chills. No nausea vomiting or diarrhea. Patient was assessed in the ER and was admitted for COPD exacerbation and was admitted for further management Allergies ANGEL Inhibitors Allergy (Severe, Verified 08/24/20 08:25) Anaphylaxis lisinopril Adverse Reaction (Severe, Verified 09/09/23 05:44) Anaphylaxis ARB-Angiotensin Receptor Ant Allergy (Uncoded 08/24/20 08:25) Unknown Home medications list reviewed: Yes Home Medications: Albuterol Inhaler [Ventolin Inhaler*] 2 puff IH Q6H PRN 08/24/20 Amlodipine [Norvasc*] 10 mg PO DAILY 08/24/20 Atorvastatin Calcium [Lipitor] 40 mg PO BEDTIME 08/24/20 Fluticasone/Umeclidin/Vilanter [Trelegy Ellipta 100-62.5-25] 1 each IH DAILY 08/24/20 Medroxyprogesterone Acetate [Provera] 2.5 mg PO DAILY 08/24/20 oxyBUTYnin chloride [Ditropan*] 10 mg PO TID 08/24/20 Amitriptyline [Elavil*] 10 mg PO BEDTIME 07/18/23 Baclofen [Lioresal*] 10 mg PO TIDP PRN 07/18/23 Duloxetine HCl [Cymbalta] 60 mg PO DAILY 07/18/23 Metoprolol Succinate [Toprol Xl*] 25 mg PO DAILY 07/18/23 Tizanidine [Zanaflex*] 4 mg PO BID 07/18/23 Hydrocodone 10/APAP 325 [[place] 10/325*] 1 tab PO Q8H PRN #15 tab 07/21/23 acetaZOLAMIDE [Diamox*] 250 mg PO DAILY 30 Days #30 tab 07/21/23 Estradiol [Estrace] 1 mg PO DAILY 09/09/23 Solifenacin Succinate [Vesicare] 10 mg PO DAILY 09/09/23 Theophylline Anhydrous [Theophylline ER] 400 mg PO DAILY 09/09/23 Ipratropium/Albuterol Sulfate [Iprat-Albut 0.5-3(2.5) mg/3 ml] 3 ml IH Q6H PRN #120 amp 07/09/24 Mometasone/Formoterol [Dulera 200 Mcg/5 Mcg Inhaler] 2 puff IH BID #1 inhaler 07/09/24 Nebulizer 1 each MC QID PRN #1 ea 07/09/24 predniSONE [Prednisone*] 20 mg PO BID #10 tab 07/09/24 - Past Medical/Surgical History Diabetic: No Past Medical History: Reviewed- Non-Contributory -: chronic back pain -: copd -: htn -: mi -: 02 at 3l nc prn night time -: GERD -: Colon cancer status post resection Past Surgical History: Reviewed- Non-Contributory -: Cholecystectomy -: Colectomy 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, 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, 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 -: Cancer Sister -: Heart disease, Hypertension, Lung disease, GI disease, Diabetes, Stroke, Kidney disease - Social History Smoking Status: Current some day smoker Alcohol use: No CD- Drugs: No Caffeine use: Yes Review of Systems is unable to be obtained Physical Examination - Vital Signs Temperature: 97.9 F Blood Pressure: 143/79 Pulse: 92 Respirations: 24 Pulse Ox (%): 94 - Physical Exam General: Alert, Oriented x3, Moderate distress HEENT: Atraumatic, Normocephalic Neck: Supple Respiratory: Diminished, Crackles/rales, Expiratory wheezes Cardiovascular: Regular rate/rhythm, Normal S1 S2 Capillary refill: <2 Seconds Gastrointestinal: Soft and benign, W/out hepatosplenomegaly Musculoskeletal: No clubbing Integumentary: No rashes, No breakdown Neurological: Other (Alert, Awake , Non focal ) Lymphatics: No axilla or inguinal lymphadenopathy - Studies Laboratory Data (last 24 hrs) 07/14/24 07/14/24 07/14/24 20:37 20:37 20:37 WBC 7.20 Hgb 14.0 Hct 44.2 Plt Count 214 PT 12.8 INR 1.13 APTT 29.2 Sodium 137 Potassium 4.0 BUN 12 Creatinine 0.54 L Glucose 124 H Magnesium 2.3 Total Bilirubin 0.2 AST < 10 L ALT 18 Alkaline Phosphatase 100 Lipase 16 Assessment and Plan - Plan Acute on chronic COPD exacerbation Monitor closely on telemetry Started on bronchodilators Oxygen supplementation Steroids added ABG findings noted Chest x-ray findings noted Pulmonology consult Acute on chronic hypoxic and hypercapinic respiratory failure secondary to COPD Placed on BiPAP ABG noted Admit to ICU Monitor closely under telemetry Pulmonology consulted Acute on chronic CHF possibly diastolic Monitor closely on telemetry Started on aggressive diuresis X-ray findings consistent with CHF Cardiology consult H/o Pulmonary Hypertension Continue home medications and titrate as needed Chronic pain syndrome Pain control Hypertension Antihypertensives titrated Continue home medications and titrate as needed Hyperlipidemia Continue statin GERD Anxiety/Depression hx colon cancer s/p resection hx CAD s/p PCI Continue home medications and supportive management chronic tobacco use Advised cessation Smoking GI/DVT prophylaxis Advanced directive full code Discharge Plan: Home Plan to discharge in: 48 Hours - Advance Directives Does patient have a Living Will: Yes Does patient have a Durable POA for Healthcare: No - Code Status/Comfort Care Code Status: Full Code Time Spent Managing Pts Care (In Minutes): 48
[2024-07-14] MEDS ORDERED: ONDANSETRON 4 MG/2 ML VIAL IV PRN (21:44)
[2024-07-14] MEDS ORDERED: ALBUTEROL 2.5 MG/3 ML NEB SOL NEB PRN (21:44)
--- NOTE | 2024-07-14 22:47 | ER ---
Nurse's Notes [facility] Name: Iman Huggins Age: 69 yrs Sex: Female : 1955 Arrival Date: 07/14/2024 Time: 20:11 Bed 3 Private MD: Diagnosis: Acute pulmonary edema;Acute respiratory failure with hypercapnia;Combined systolic (congestive) and diastolic (congestive) heart failure;COPD/ Chronic obstructive pulmonary disease with (acute) exacerbation Presentation: 07/14 20:14 Chief complaint: Patient states: I am feeling short of breath. I was just discharged kd3 recently (on Sunday) from this hospital for COPD exacerbation and I was on a BiPAP. Coronavirus screen: Vaccine status: Patient reports being unvaccinated. Ebola Screen: No symptoms or risks identified at this time. Initial Sepsis Screen: Does the patient meet any 2 criteria? RR > 20 per min. HR > 90 bpm. Yes Does the patient have a suspected source of infection? No. Patient's initial sepsis screen is negative. Risk Assessment: Do you want to hurt yourself or someone else? Patient reports no desire to harm self or others. Onset of symptoms was July 14, 2024. 20:14 Method Of Arrival: Wheelchair kd3 20:14 Acuity: RAD 2 kd3 Triage Assessment: 20:17 General: Appears uncomfortable, ill, Behavior is calm, cooperative. Pain: Denies pain. kd3 Respiratory: Reports shortness of breath at rest Onset: The symptoms/episode began/occurred today, the patient has severe shortness of breath. Historical: - Allergies: 20:17 ANGEL INHIBITORS; kd3 20:17 ARB-Angiotensin Receptor Antagonist; kd3 20:17 Lisinopril; kd3 - PMHx: 20:17 chronic back pain; COPD; Myocardial infarction; Hypertension; kd3 - PSHx: 20:17 Cholecystectomy; colon cancer tumor removal; kd3 - Immunization history:: Adult Immunizations up to date. - Infectious Disease History:: Denies. - Social history:: Smoking status: Patient denies any tobacco usage or history of. - Family history:: not pertinent. Screenin:18 [facility] ED Fall Risk Assessment (Adult) History of falling in the last 3 months, kd3 including since admission No falls in past 3 months (0 pts) Confusion or Disorientation No (0 pts) Intoxicated or Sedated No (0 pts) Impaired Gait No (0 pts) Mobility Assist Device Used No (0 pt) Altered Elimination No (0 pt) Score/Fall Risk Level 0 - 2 = Low Risk Oriented to surroundings. Abuse screen: Denies threats or abuse. Denies injuries from another. Nutritional screening: No deficits noted. Tuberculosis screening: No symptoms or risk factors identified. Assessment: 20:18 Cardiovascular: Rhythm is regular. Respiratory: Airway is patent Respiratory effort is kd3 labored, Breath sounds with wheezes bilaterally. 22:44 General: Appears in no apparent distress. Behavior is drowsy, quiet. Neuro: Level of kd3 Consciousness is obeys commands, Oriented to person, place, time, situation. Vital Signs: 20:14 BP 143 / 79; Pulse 92; Resp 24 S; Temp 97.9(A); Pulse Ox 77% on 6 lpm NC; Weight 103 kd3 kg; Height 5 ft. 4 in. ; 21:06 BP 129 / 74; Pulse 85; Resp 19; Pulse Ox 96% on BiPAP; FiO2 50 %; kd3 22:38 BP 122 / 71; Pulse 82; Resp 19; Pulse Ox 96% on BiPAP; kd3 20:14 Body Mass Index 38.98 (103.00 kg, 162.56 cm) kd3 [place] Coma Score: 20:40 Eye Response: spontaneous(4). Motor Response: obeys commands(6). Verbal Response: sp4 oriented(5). Total: 15. ED Course: 20:14 Patient arrived in ED. kd3 20:17 Triage completed. kd3 20:17 Sal Ortiz MD is Attending Physician. sp4 20:17 Arm band placed on right wrist. EKG completed in triage. Results shown to . kd3 20:19 Talita Arita, RN is Primary Nurse. kd3 20:19 Patient has correct armband on for positive identification. Provided Education on: kd3 bipap. 20:42 BMP Sent. kd3 20:42 Blood Culture Adult (2) Sent. kd3 20:42 CBC with Diff Sent. kd3 20:42 CPK Sent. kd3 20:42 D-Dimer Sent. kd3 20:42 Hepatic Function Sent. kd3 20:42 Lipase Sent. kd3 20:42 Magnesium Sent. kd3 20:42 NT PRO-BNP Sent. kd3 20:42 PT-INR Sent. kd3 20:42 Ptt, Activated Sent. kd3 20:42 Troponin HS Sent. kd3 20:42 CRP Sent. kd3 20:42 Inserted saline lock: 20 gauge in left forearm, using aseptic technique. Blood kd3 collected. 20:44 Lactate w/ 2H reflex if indic. Sent. kd3 20:54 XRAY CXR (1 view) In Process Unspecified. EDMS 21:04 Troponin HS Sent. kd3 21:04 NT PRO-BNP Sent. kd3 21:04 Magnesium Sent. kd3 21:04 Hepatic Function Sent. kd3 21:04 CPK Sent. kd3 21:04 Blood Culture Adult (2) Sent. kd3 21:04 BMP Sent. kd3 21:04 Urinalysis W/Microscopic Sent. kd3 21:04 CRP Sent. kd3 21:05 COVID-19 Ag + Flu A+B Ag Sent. kd3 21:05 Lactate w/ 2H reflex if indic. Sent. kd3 21:05 [place] cath inserted, using sterile technique, 16 Fr., by ia, balloon inflated, to kd3 gravity drainage, urine specimen collected. 22:45 William Villarreal MD is Hospitalizing Provider. sp4 23:37 No provider procedures requiring assistance completed. Patient admitted, IV remains in kd3 place. Administered Medications: 20:38 Drug: MethylPrednisoLONE IVP 125 mg IVP once Route: IVP; Site: left antecubital; jb4 21:00 Follow up: Response: No adverse reaction; Marked relief of symptoms ha1 20:42 Drug: Albuterol Inhalation 2.5 mg Inhalation every 20 minutes x3 {Note: administered by jb4 RT.} Route: Inhalation; 20:42 Drug: Albuterol Inhalation 2.5 mg Inhalation every 20 minutes x3 {Note: administered by jb4 RT.} Route: Inhalation; 20:42 Drug: Ipratropium Inhalation Aerosol 0.5 mg Inhalation once; Every 20 min for a total jb4 of 3 treatments x3 {Note: administered by RT.} Route: Inhalation; 20:42 Drug: Ipratropium Inhalation Aerosol 0.5 mg Inhalation once; Every 20 min for a total jb4 of 3 treatments x3 {Note: administered by Rt.} Route: Inhalation; 21:19 Drug: Rocephin - Rocephin (cefTRIAXone) IVPB 1 grams IVPB once over 30 mins; (mix in 50 kd3 mL NS) Route: IVPB; Infused Over: 30 mins; Site: right hand; 21:45 Follow up: Response: No adverse reaction; IV Status: Completed infusion ha1 21:19 Drug: Zithromax IVPB 500 mg IVPB once over 1 hrs; mix in 250 mL NS Route: IVPB; Infused kd3 Over: 1 hrs; Site: left antecubital; 23:00 Follow up: Response: No adverse reaction; IV Status: Completed infusion ha1 21:19 Drug: Furosemide IVP 40 mg IVP once; give over 2 minutes Route: IVP; Site: left kd3 antecubital; 22:00 Follow up: Response: No adverse reaction ha1 22:05 Drug: Albuterol Inhalation 2.5 mg Inhalation every 20 minutes x3 {Note: given by RT .} kd3 Route: Inhalation; 22:05 Drug: Ipratropium Inhalation Aerosol 0.5 mg Inhalation once; Every 20 min for a total kd3 of 3 treatments x3 {Note: given by Rt .} Route: Inhalation; 22:20 Follow up: Response: No adverse reaction; Marked relief of symptoms ha1 Medication: 20:19 VIS not applicable for this client. kd3 Output: 22:42 Urine: 900ml ([place]); Total: 900ml. kd3 Outcome: 22:47 Decision to Hospitalize by Provider. sp4 23:37 Admitted to ICU accompanied by nurse, via stretcher, with oxygen, on monitor, Report kd3 called to Vee 23:37 Condition: stable 23:37 Discharge instructions given to family, Instructed on the need for admit, 23:38 Patient left the ED. kd3 Signatures: Dispatcher [employer] EDMS [place]ano Wilson RN RN jb4 Talita Arita RN RN kd3 Natacha Goyal RN RN ha1 Sal Ortiz MD MD sp4 Corrections: (The following items were deleted from the chart) 20:18 20:14 Chief complaint: Patient states: I am feeling short of breath. I was just kd3 discharged recently from this hospital for COPD exacerbation and i was on a bipap. kd3 20:43 20:42 Albuterol Inhalation 2.5 mg Inhalation jb4 jb4 20:45 20:14 Chief complaint: Patient states: I am feeling short of breath. I was just kd3 discharged recently (on Sunday) from this hospital for COPD exacerbation and I was on a BiPAP. kd3
--- NOTE | 2024-07-14 22:47 | EDPHYS ---
Physician Documentation [facility] Name: Iman Huggins Age: 69 yrs Sex: Female : 1955 Arrival Date: 07/14/2024 Time: 20:11 Bed 3 Private MD: ED Physician Sal Ortiz HPI: 07/14 20:25 This 69 yrs old Black Female presents to ER via Wheelchair with complaints of Shortness sp4 Of Breath. 20:25 Patient reports worsening dyspnea in the last 24 hours associated with bilateral lower sp4 extremity swelling and episodic fever.. 20:29 Last admission records 07/04/2024 through 07/09/2024. Patient was admitted for acute sp4 COPD exacerbation, hypoxic hypercapnic respiratory failure, pulmonary hypertension, chronic diastolic CHF, chronic pain syndrome, hypertension, hyperlipidemia, GERD, anxiety, depression, chronic tobacco use, colon cancer status postresection, history of coronary artery disease with PCI. Patient's home medications include albuterol inhaler as needed, amlodipine 10 mg daily, atorvastatin 40 mg bedtime, Trelegy Ellipta 1 inhalation daily, medroxyprogesterone Provera 2.5 mg p.o. daily, oxybutynin 10 mg 3 times daily, amitriptyline 10 mg bedtime, baclofen 10 mg 3 times daily, duloxetine 60 mg daily, metoprolol succinate 25 mg daily, Zanaflex 4 mg twice daily, hydrocodone 10 every 8 hours as needed, acetazolamide to 60 mg daily, Estrace 1 mg daily, Diamox, estradiol daily, Vesicare 10 mg daily, theophylline 4 mg daily, ipratropium as needed, Dulera 2 puffs twice daily, prednisone 20 mg p.o. twice daily.. Historical: - Allergies: 20:17 ANGEL INHIBITORS; kd3 20:17 ARB-Angiotensin Receptor Antagonist; kd3 20:17 Lisinopril; kd3 - PMHx: 20:17 chronic back pain; COPD; Myocardial infarction; Hypertension; kd3 - PSHx: 20:17 Cholecystectomy; colon cancer tumor removal; kd3 - Immunization history:: Adult Immunizations up to date. - Infectious Disease History:: Denies. - Social history:: Smoking status: Patient denies any tobacco usage or history of. - Family history:: not pertinent. ROS: 20:40 Constitutional: Negative for chills, and weight loss, positive for dyspnea positive sp4 for reported episode of fever 20:40 All other systems are negative, Exam: 20:40 Constitutional: Patient is physically deconditioned and frail elderly female acutely sp4 dyspneic pale ill-appearing, hypoxemic on arrival, hypertensive on arrival. Head/Face: Normocephalic, atraumatic. Eyes: Pupils equal round and reactive to light, extra-ocular motions intact. Lids and lashes normal. Conjunctiva and sclera are not injected. Cornea within normal limits. Periorbital areas with no swelling, redness, or edema. ENT: Nares patent. No nasal discharge, no septal abnormalities noted. Tympanic membranes are normal and external auditory canals are clear. Oropharynx with no redness, swelling, or masses, exudates, or evidence of obstruction, uvula midline. Mucous membranes moist. Neck: Trachea midline, no thyromegaly or masses palpated, and no cervical lymphadenopathy. Supple, full range of motion without nuchal rigidity, or vertebral point tenderness. Chest/axilla: Normal chest wall appearance and motion. Nontender with no deformity. No lesions are appreciated. Cardiovascular: Regular rate and rhythm with a normal S1 and S2. No gallops, murmurs, or rubs. Normal PMI, No pulse deficits. Bilateral lower extremity edema with pitting. Respiratory: Lungs have equal breath sounds bilaterally, generalized pallor, dyspnea, tachypnea, bilateral wheezes and crackles. Abdomen/GI: Soft, with normal bowel sounds. No distension or tympany. No guarding or rebound. No evidence of tenderness throughout. Back: No spinal tenderness. No costovertebral tenderness. Skin: Warm, dry with normal turgor. no rashes, no lesions, and no evidence of cellulitis. Pale in appearance MS/ Extremity: Pulses equal, no cyanosis. Neurovascular intact. Full, normal range of motion. Neuro: Awake and alert, GCS 15, oriented to person, place, time, and situation. Cranial nerves II-XII grossly intact. Motor strength 5/5 in all extremities. Sensory grossly intact. Psych: Awake, alert, with orientation to person, place and time. Behavior, mood, and affect are within normal limits 20:48 ECG was reviewed by the Attending Physician. EKG at 2021 normal sinus rhythm, rate 92. sp4 PACs Vital Signs: 20:14 BP 143 / 79; Pulse 92; Resp 24 S; Temp 97.9(A); Pulse Ox 77% on 6 lpm NC; Weight 103 kd3 kg; Height 5 ft. 4 in. ; 21:06 BP 129 / 74; Pulse 85; Resp 19; Pulse Ox 96% on BiPAP; FiO2 50 %; kd3 22:38 BP 122 / 71; Pulse 82; Resp 19; Pulse Ox 96% on BiPAP; kd3 20:14 Body Mass Index 38.98 (103.00 kg, 162.56 cm) kd3 [place] Coma Score: 20:40 Eye Response: spontaneous(4). Motor Response: obeys commands(6). Verbal Response: sp4 oriented(5). Total: 15. MDM: 20:18 Medical Screening Exam initiated sp4 22:43 Differential diagnosis: Anemia Anxiety Reaction asthma, Bronchitis CHF exacerbation, sp4 Chronic Obstructive Pulmonary Disease pneumonia, Pneumothorax Psychogenic. Data reviewed: vital signs, nurses notes, old medical records, lab test result(s), EKG, radiologic studies. Consideration of Admission/Observation Patient was admitted/placed on observation. Escalation of care including admission/observation considered. Management of patient was discussed with the following: Hospitalist: Phil Holm 07/14 20:17 Order name: BMP; Complete Time: : [facility] 07/14 20:17 Order name: Blood Culture Adult (2) [facility] 07/14 20:17 Order name: CBC with Diff; Complete Time: : [facility] 07/14 20:17 Order name: CPK; Complete Time: : [facility] 07/14 20:17 Order name: D-Dimer; Complete Time: : [facility] 07/14 20:17 Order name: Hepatic Function; Complete Time: : [facility] 07/14 20:17 Order name: Lipase; Complete Time: : [facility] 07/14 20:17 Order name: Magnesium; Complete Time: : [facility] 07/14 20:17 Order name: NT PRO-BNP; Complete Time: : [facility] 07/14 20:17 Order name: PT-INR; Complete Time: : [facility] 07/14 20:17 Order name: Ptt, Activated; Complete Time: : [facility] 07/14 20:17 Order name: Troponin HS; Complete Time: 21:29 sp4 07/14 20:17 Order name: ABG sp4 07/14 20:17 Order name: Urinalysis W/Microscopic; Complete Time: 21:29 sp4 07/14 20:17 Order name: CRP; Complete Time: 21:29 sp4 07/14 20:26 Order name: COVID-19 Ag + Flu A+B Ag; Complete Time: 21:29 sp4 07/14 20:40 Order name: Lactate w/ 2H reflex if indic.; Complete Time: 22:49 sp4 07/14 21:50 Order name: Urinalysis w/ reflexes EDMS 07/14 21:50 Order name: CBC with Automated Diff EDMS 07/14 21:50 Order name: CBC with Automated Diff EDMS 07/14 21:50 Order name: Comprehensive Metabolic Panel EDMS 07/14 21:50 Order name: Comprehensive Metabolic Panel EDMS 07/14 21:50 Order name: Magnesium EDMS 07/14 21:50 Order name: Magnesium EDMS 07/14 21:50 Order name: Phosphorus EDMS 07/14 21:50 Order name: Phosphorus EDMS 07/14 21:50 Order name: Troponin High Sensitivity EDMS 07/14 21:50 Order name: Troponin High Sensitivity EDMS 07/14 21:50 Order name: Troponin High Sensitivity EDMS 07/14 21:50 Order name: Troponin High Sensitivity EDMS 07/14 20:17 Order name: XRAY CXR (1 view); Complete Time: 21:29 4 07/14 20:17 Order name: BIPAP 4 07/14 20:17 Order name: Call RT; Complete Time: 20:22 [facility] 07/14 20:17 Order name: EKG; Complete Time: 20:18 4 07/14 20:17 Order name: Cardiac monitoring; Complete Time: 20:22 4 07/14 20:17 Order name: EKG - Nurse/Tech; Complete Time: 20:22 4 07/14 20:17 Order name: [place]; Complete Time: 21:04 4 07/14 20:17 Order name: IV Saline Lock; Complete Time: 20:42 4 07/14 20:17 Order name: Labs collected and sent; Complete Time: 20:42 [facility] 07/14 20:17 Order name: O2 Per Protocol; Complete Time: 20: sp4 07/14 20:17 Order name: O2 Sat Monitoring; Complete Time: : sp4 EC: Rate is 92 beats/min. Rhythm is irregular, Normal Sinus Rhythm with PACs. QRS [place] is sp4 Normal. VT interval is normal. QRS interval is normal. QT interval is normal. No Q waves. T waves are Normal. No ST changes noted. Clinical impression: No evidence of ischemia. Interpreted by me. Reviewed by me. Administered Medications: 20:38 Drug: MethylPrednisoLONE IVP 125 mg IVP once Route: IVP; Site: left antecubital; jb4 21:00 Follow up: Response: No adverse reaction; Marked relief of symptoms ha1 20:42 Drug: Albuterol Inhalation 2.5 mg Inhalation every 20 minutes x3 {Note: administered by jb4 RT.} Route: Inhalation; 20:42 Drug: Albuterol Inhalation 2.5 mg Inhalation every 20 minutes x3 {Note: administered by jb4 RT.} Route: Inhalation; 20:42 Drug: Ipratropium Inhalation Aerosol 0.5 mg Inhalation once; Every 20 min for a total jb4 of 3 treatments x3 {Note: administered by RT.} Route: Inhalation; 20:42 Drug: Ipratropium Inhalation Aerosol 0.5 mg Inhalation once; Every 20 min for a total jb4 of 3 treatments x3 {Note: administered by Rt.} Route: Inhalation; 21:19 Drug: Rocephin - Rocephin (cefTRIAXone) IVPB 1 grams IVPB once over 30 mins; (mix in 50 kd3 mL NS) Route: IVPB; Infused Over: 30 mins; Site: right hand; 21:45 Follow up: Response: No adverse reaction; IV Status: Completed infusion ha1 21:19 Drug: Zithromax IVPB 500 mg IVPB once over 1 hrs; mix in 250 mL NS Route: IVPB; Infused kd3 Over: 1 hrs; Site: left antecubital; 23:00 Follow up: Response: No adverse reaction; IV Status: Completed infusion ha1 21:19 Drug: Furosemide IVP 40 mg IVP once; give over 2 minutes Route: IVP; Site: left kd3 antecubital; 22:00 Follow up: Response: No adverse reaction ha1 22:05 Drug: Albuterol Inhalation 2.5 mg Inhalation every 20 minutes x3 {Note: given by RT .} kd3 Route: Inhalation; 22:05 Drug: Ipratropium Inhalation Aerosol 0.5 mg Inhalation once; Every 20 min for a total kd3 of 3 treatments x3 {Note: given by Rt .} Route: Inhalation; 22:20 Follow up: Response: No adverse reaction; Marked relief of symptoms ha1 Disposition: 22:43 Critical Care: not applicable. sp4 Disposition Summary: 07/14/24 22:47 Hospitalization Ordered Notes: Hospitalization Status: Inpatient Admission sp4 Provider: William Villarreal sp4 Location: Intensive Care Unit sp4 Condition: Serious sp4 Problem: new sp4 Symptoms: have improved sp4 Bed/Room Type: Standard sp4 Room Assignment: 5-(07/14/24 22:51) kl Diagnosis - Acute pulmonary edema sp4 - Acute respiratory failure with hypercapnia sp4 - Combined systolic (congestive) and diastolic (congestive) heart failure sp4 - COPD/ Chronic obstructive pulmonary disease with (acute) exacerbation sp4 Forms: - Medication Reconciliation Form sp4 - SBAR form sp4 - Leadership Thank You Letter sp4 Critical care time excluding procedures: 22:43 Critical care time: Bedside Care: 36 minutes, Consultation: 12 minutes, Family sp4 Intervention: 12 minutes. Total time: 60 minutes Signatures: Dispatcher [employer] Jessica Marie RN RN kl Bryson, James, RN RN jbTalita Burton RN RN kd3 Sal Ortiz MD MD sp4 Natacha Goyal RN ha1 Corrections: (The following items were deleted from the chart) 22:50 22:47 sp4 kl 22:51 22:50 5- kl kl 22:51 22:51 1- kl kl
[2024-07-14 23:11] LABS: Blood O2 Saturation 94.6 % (92-98.5)
[2024-07-14 23:12] LABS: Arterial Blood Carboxyhemoglob 7.2 % (0-1.5); Blood Gas Oxyhemoglobin 86.7 % (94-97); Blood Gas THB 14.5 g/dl (12-18)
[2024-07-15] MEDS: ALBUTEROL 2.5 MG/3 ML NEB SOL NEB SCH (00:44)
[2024-07-15] MEDS: IPRATROPIUM BROM 0.5MG/2.5ML NEB SCH (00:44)
[2024-07-15] MEDS: METHYLPREDNISOLONE 40 MG INJ IV SCH (01:52)
[2024-07-15] MEDS: FUROSEMIDE 40 MG/4 ML VIAL IV SCH (01:52)
[2024-07-15 05:42] LABS: Absolute Lymphocytes (CBC) 0.5 K/uL (0.7-4.9); Absolute Neutrophil 5.9 K/uL (1.8-8.0); Basophils % 0.4 % (0-1.3); Hematocrit 44.4 % (36.0-45.0); Hemoglobin 14.3 g/dL (12.0-15.0); Lymphocytes % 7.5 % (15.3-44.8); MCH 29.1 pg (27.0-35.0); MCHC 32.3 g/dL (32.0-36.0); Monocytes % 0.7 % (3.3-12.3); Neutrophils % 91.4 % (41.7-73.7); Nucleated RBC Absolute Count 0.1 (0-0); Platelets 210 thou/uL (152-406); RBC Red Blood Cell Count 4.93 M/uL (3.86-4.86); Red Cell Distribution Width 17.1 % (12.1-15.2)
[2024-07-15] MEDS ORDERED: BACLOFEN 10 MG TAB PO PRN (05:54)
[2024-07-15 05:57] LABS: ALT/SGPT 19 U/L (13-56); Albumin/Globulin Ratio 0.8 (1.1-1.8); Alkaline Phosphatase 110 U/L (45-117); Anion Gap 5.2 mEq/L (5.0-15.0); BUN Blood Urea Nitrogen 10 mg/dL (7-18); Bicarbonate 36 mEq/L (21-32); Bilirubin Total 0.2 mg/dL (0.2-1.0); Globulin 3.9 g/dL (2.3-3.5); Glomerular Filtration Rate 104 ml/min (=/>90); Glucose Level 150 mg/dL (74-106); Magnesium 2.2 mg/dL (1.6-2.4); Phosphorus 4.1 mg/dL (2.5-4.9); Potassium 4.2 mEq/L (3.5-5.1); Protein, Total 6.9 g/dL (6.4-8.2); Sodium Level 136 mEq/L (136-145); Troponin High Sensitivity 13.9 pg/mL (<58.9)
[2024-07-15 06:01] LABS: AST/SGOT < 10 U/L (15-37)
[2024-07-15] MEDS: FLU (Fluarix Triv) TS24-25(6MOS UP)/PF 45 MCG/0.5 ML Syringe IM ONE (07:30)
[2024-07-15 07:35] LABS: Band Neutrophils 1 % (0-1); Differential Total Cells Count 100; Lymphocytes 9 % (15-42); Monocytes 1 % (0-10); Segmented Neutrophils 89 % (40-80)
[2024-07-15 07:36] LABS: Blood Morphology Comment NOTED (NOT SEEN); Nucleated Red Blood Cells 3 /100WBC; Platelet Estimate ADEQ; Platelets Clumped FEW PRESENT; Polychromasia SLIGHT
[2024-07-15] MEDS: DULOXETINE 30 MG CAP PO SCH (07:46)
[2024-07-15] MEDS: ENOXAPARIN 40 MG/0.4 ML SQ SCH (07:46)
[2024-07-15] MEDS: acetaZOLAMIDE 250 MG TAB PO SCH (07:46)
[2024-07-15] MEDS: METOPROLOL XL 25 MG TAB PO SCH (07:47)
[2024-07-15] MEDS: AMLODIPINE 10 MG TAB PO SCH (07:47)
[2024-07-15] MEDS: oxyBUTYnin chloride 5 MG TAB PO SCH (07:54)
[2024-07-15] MEDS: PNEUMOCOCCAL VACCINE 0.5 ML IMVAC ONE (08:00)
--- NOTE | 2024-07-15 09:16 | P.PN ---
Subjective Date of Service: 07/15/24 Chief Complaint: SOB 69-year-old female with history of COPD on BiPAP, hypertension, hyperlipidemia presented with acute hypoxemic respiratory failure with complaints of shortness of breath. Her BiPAP has been restarted. admitted overnight bipap restarted resting comfortably Review of Systems 10-point ROS is otherwise unremarkable Respiratory: Shortness of Breath Physical Examination - Vital Signs Temperature: 97.9 F Blood Pressure: 121/70 Pulse: 71 Respirations: 20 Pulse Ox (%): 96 - Physical Exam General: In no apparent distress HEENT: Atraumatic, Normocephalic Respiratory: Diminished Cardiovascular: Regular rate/rhythm, Normal S1 S2 Gastrointestinal: Soft and benign, Non-distended - Studies Laboratory Data (last 24 hrs) 07/14/24 07/14/24 07/14/24 20:37 20:37 20:37 WBC 7.20 Hgb 14.0 Hct 44.2 Plt Count 214 PT 12.8 INR 1.13 APTT 29.2 Sodium 137 Potassium 4.0 BUN 12 Creatinine 0.54 L Glucose 124 H Magnesium 2.3 Total Bilirubin 0.2 AST < 10 L ALT 18 Alkaline Phosphatase 100 Lipase 16 Assessment And Plan - Current Problems (Diagnosis) (1) Hypoxia Current Visit: No Status: Active (2) Acute and chronic respiratory failure Current Visit: No Status: Acute (3) COPD exacerbation Onset Date: 07/16/17 Current Visit: No Status: Acute - Plan Acute on chronic hypercapnic respiratory failure COPD exacerbation Possible noncompliance to BiPAP --o2, pulm consult --nebs --bipap -- to have Leukocytosis -- On steroids, will monitor for sputum production, fevers noted of elevated CRP briefly discussed with pulmonary about starting antibiotics Acute on chronic acute on chronic CHF possibly systolic/diastolic Monitor closely on telemetry X-ray findings consistent with CHF Oxygen supplementation Will try to wean down oxygen requirement Continue home medications Titrate as needed Hypertension Chronic pain Hyperlipidemia GERD History of colon cancer History of CAD status post PCI Tobacco use --Resume home medication
--- NOTE | 2024-07-15 10:39 | P.CNS ---
Date of Consult: 07/15/24 Chief Complaint: SOB History of Present Illness: Patient with PMH of COPD on home oxygen, obesity, hyperventilation, diastolic heart failure, HTN, presented with worsening SOB, CO2 retention, she has not been using her BiPAP machine at home, she denies chest pain, no palpitations, no syncope. Allergies ANGEL Inhibitors Allergy (Severe, Verified 08/24/20 08:25) Anaphylaxis lisinopril Adverse Reaction (Severe, Verified 09/09/23 05:44) Anaphylaxis ARB-Angiotensin Receptor Ant Allergy (Uncoded 08/24/20 08:25) Unknown Home medications list reviewed: Yes Home Medications: Albuterol Inhaler [Ventolin Inhaler*] 2 puff IH Q6H PRN 08/24/20 Amlodipine [Norvasc*] 10 mg PO DAILY 08/24/20 Atorvastatin Calcium [Lipitor] 40 mg PO BEDTIME 08/24/20 Fluticasone/Umeclidin/Vilanter [Trelegy Ellipta 100-62.5-25] 1 each IH DAILY 08/24/20 Medroxyprogesterone Acetate [Provera] 2.5 mg PO DAILY 08/24/20 oxyBUTYnin chloride [Ditropan*] 10 mg PO TID 08/24/20 Amitriptyline [Elavil*] 10 mg PO BEDTIME 07/18/23 Baclofen [Lioresal*] 10 mg PO TIDP PRN 07/18/23 Duloxetine HCl [Cymbalta] 60 mg PO DAILY 07/18/23 Metoprolol Succinate [Toprol Xl*] 25 mg PO DAILY 07/18/23 Tizanidine [Zanaflex*] 4 mg PO BID 07/18/23 Hydrocodone 10/APAP 325 [[place] 10/325*] 1 tab PO Q8H PRN #15 tab 07/21/23 acetaZOLAMIDE [Diamox*] 250 mg PO DAILY 30 Days #30 tab 07/21/23 Estradiol [Estrace] 1 mg PO DAILY 09/09/23 Solifenacin Succinate [Vesicare] 10 mg PO DAILY 09/09/23 Theophylline Anhydrous [Theophylline ER] 400 mg PO DAILY 09/09/23 Ipratropium/Albuterol Sulfate [Iprat-Albut 0.5-3(2.5) mg/3 ml] 3 ml IH Q6H PRN #120 amp 07/09/24 Mometasone/Formoterol [Dulera 200 Mcg/5 Mcg Inhaler] 2 puff IH BID #1 inhaler 07/09/24 Nebulizer 1 each MC QID PRN #1 ea 07/09/24 predniSONE [Prednisone*] 20 mg PO BID #10 tab 07/09/24 - Past Medical/Surgical History Diabetic: No -: chronic back pain -: copd -: htn -: mi -: 02 at 3l nc prn night time -: GERD -: Colon cancer status post resection -: Cholecystectomy -: Colectomy 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 moist/pink, EOMI, Sclerae nonicteric Neck: Supple, 2+ carotid pulse no bruit, No LAD, Without JVD or thyroid abnormality Respiratory: Clear to auscultation bilaterally, Normal air movement Cardiovascular: Regular rate/rhythm, Normal S1 S2 Gastrointestinal: Normal bowel sounds, No tenderness Musculoskeletal: No tenderness Integumentary: No rashes Neurological: Normal gait, Normal speech, Normal tone, Normal affect Lymphatics: No axilla or inguinal lymphadenopathy Laboratory Data (last 24 hrs) 07/14/24 07/14/24 07/14/24 20:37 20:37 20:37 WBC 7.20 Hgb 14.0 Hct 44.2 Plt Count 214 PT 12.8 INR 1.13 APTT 29.2 Sodium 137 Potassium 4.0 BUN 12 Creatinine 0.54 L Glucose 124 H Magnesium 2.3 Total Bilirubin 0.2 AST < 10 L ALT 18 Alkaline Phosphatase 100 Lipase 16 - Problems (1) Acute on chronic diastolic heart failure Current Visit: Yes Status: Acute Plan: continue Lasix 40 mg IV Q8 hours continue Toprol XL 25 mg daily add Aldactone 25 mg daily will try patient on Entresto 24 mg po BID after aggressive diuresis also patient will benefit from Farxiga 10 mg daily on discharge. Patient got CO2 retention secondary to Obesity and non complaince with her Bipap MACHINE continue to monitor input and output and electrolytes
--- NOTE | 2024-07-15 10:56 | EKG ---
Test Date: 2024-07-14 Test Time: 20:22:36 [place] Operator: JANAE MEASUREMENT RESULTS: Intervals: Rate: 92 FL: 164 QRSD: 82 QT: 372 QTc: 460 [place]: P: 71 FL: 164 QRS: 86 T: 74 INTERPRETIVE STATEMENTS: Sinus rhythm with premature atrial complexes Anterior infarct, age undetermined Abnormal ECG Compared to ECG 07/04/2024 17:45:59 Atrial premature complex(es) now present Myocardial infarct finding now present Electronically Signed On 07-15-24 10:54:43 CDT by Esequiel Dale
--- NOTE | 2024-07-15 12:23 | P.CNS ---
Date of Consult: 07/15/24 Chief Complaint: SOB History of Present Illness: Patient is 69 years of age well-known to [facility] recent hospital admission with respiratory failure came back again apparently is not using her BiPAP at home compliant with her inhalers semiresponsive Allergies ANGEL Inhibitors Allergy (Severe, Verified 08/24/20 08:25) Anaphylaxis lisinopril Adverse Reaction (Severe, Verified 09/09/23 05:44) Anaphylaxis ARB-Angiotensin Receptor Ant Allergy (Uncoded 08/24/20 08:25) Unknown Home Medications: Albuterol Inhaler [Ventolin Inhaler*] 2 puff IH Q6H PRN 08/24/20 Amlodipine [Norvasc*] 10 mg PO DAILY 08/24/20 Atorvastatin Calcium [Lipitor] 40 mg PO BEDTIME 08/24/20 Fluticasone/Umeclidin/Vilanter [Trelegy Ellipta 100-62.5-25] 1 each IH DAILY 08/24/20 Medroxyprogesterone Acetate [Provera] 2.5 mg PO DAILY 08/24/20 oxyBUTYnin chloride [Ditropan*] 10 mg PO TID 08/24/20 Amitriptyline [Elavil*] 10 mg PO BEDTIME 07/18/23 Baclofen [Lioresal*] 10 mg PO TIDP PRN 07/18/23 Duloxetine HCl [Cymbalta] 60 mg PO DAILY 07/18/23 Metoprolol Succinate [Toprol Xl*] 25 mg PO DAILY 07/18/23 Tizanidine [Zanaflex*] 4 mg PO BID 07/18/23 Hydrocodone 10/APAP 325 [[place] 10/325*] 1 tab PO Q8H PRN #15 tab 07/21/23 acetaZOLAMIDE [Diamox*] 250 mg PO DAILY 30 Days #30 tab 07/21/23 Estradiol [Estrace] 1 mg PO DAILY 09/09/23 Solifenacin Succinate [Vesicare] 10 mg PO DAILY 09/09/23 Theophylline Anhydrous [Theophylline ER] 400 mg PO DAILY 09/09/23 Ipratropium/Albuterol Sulfate [Iprat-Albut 0.5-3(2.5) mg/3 ml] 3 ml IH Q6H PRN #120 amp 07/09/24 Mometasone/Formoterol [Dulera 200 Mcg/5 Mcg Inhaler] 2 puff IH BID #1 inhaler 07/09/24 Nebulizer 1 each MC QID PRN #1 ea 07/09/24 predniSONE [Prednisone*] 20 mg PO BID #10 tab 07/09/24 - Past Medical/Surgical History Diabetic: No -: chronic back pain -: copd -: htn -: mi -: 02 at 3[facility] nc prn night time -: GERD -: Colon cancer status post resection -: Cholecystectomy -: Colectomy 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, 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, 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 Medical History: Cancer Sister Medical History: Heart disease, Hypertension, Lung disease, GI disease, Diabetes, Stroke, Kidney disease - Social History Smoking Status: Current every day smoker Alcohol use: No CD- Drugs: No Caffeine use: Yes Place of Residence: Home Review of Systems is unable to be obtained Physical Examination Temp Pulse Resp BP Pulse Ox 97.5 F 67 20 124/68 96 07/15/24 11:00 07/15/24 12:00 07/15/24 12:00 07/15/24 12:00 07/15/24 12:00 General: Unresponsive Respiratory: Clear to auscultation bilaterally Cardiovascular: No edema, Normal S1 S2, Abnormal S3 Gastrointestinal: Normal bowel sounds, Soft and benign, W/out succussion splash Musculoskeletal: No clubbing, No swelling Laboratory Data (last 24 hrs) 07/14/24 07/14/24 07/14/24 20:37 20:37 20:37 WBC 7.20 Hgb 14.0 Hct 44.2 Plt Count 214 PT 12.8 INR 1.13 APTT 29.2 Sodium 137 Potassium 4.0 BUN 12 Creatinine 0.54 L Glucose 124 H Magnesium 2.3 Total Bilirubin 0.2 AST < 10 L ALT 18 Alkaline Phosphatase 100 Lipase 16 - Problems (1) Chronic respiratory failure Current Visit: Yes Status: Acute Plan: Patient is 69 years of age with a history of severe COPD admitted with hypercapnia patient has hypercapnic respiratory failure according to the does not really use her BiPAP at home she is compliant with her inhalers will need to review settings with the [facility] labs reviewed BNP is elevatedViemed no evidence of sepsis chest x-ray shows some chronic interstitial changes titrate sat to 90% reduce the dose of steroid patient also has underlying diastolic dysfunction DC Lasix add spironolactone Qualifiers: Respiratory failure complication: hypoxia and hypercapnia Qualified Code(s): J96.11 - Chronic respiratory failure with hypoxia; J96.12 - Chronic respiratory failure with hypercapnia
[2024-07-15] MEDS: SPIRONOLACTONE 25 MG TABLET PO SCH (13:18)
[2024-07-15] MEDS: AMITRIPTYLINE 10 MG TAB PO SCH (20:20)
[2024-07-15] MEDS: ATORVASTATIN 40 MG TAB PO SCH (20:20)
[2024-07-15] MEDS: predniSONE 20 MG TAB PO SCH (20:20)
[2024-07-16] MEDS: HYDROCODONE/APAP 10/325 TAB PO PRN (05:17)
[2024-07-16 05:34] VITALS: BMI 38.0
[2024-07-16] MEDS: ACETAMINOPHEN 325 MG TABLET PO PRN (08:45)
--- NOTE | 2024-07-16 09:05 | P.PN ---
Subjective Date of Service: 07/16/24 Chief Complaint: SOB 69-year-old female with history of COPD on BiPAP, hypertension, hyperlipidemia presented with acute hypoxemic respiratory failure with complaints of shortness of breath. Her BiPAP has been restarted. more awake tolerated bipap overnight blood gasses done this AM Review of Systems 10-point ROS is otherwise unremarkable Respiratory: Shortness of Breath Physical Examination - Vital Signs Temperature: 97.0 F Blood Pressure: 116/58 Pulse: 71 Respirations: 15 Pulse Ox (%): 97 - Physical Exam General: Oriented x3 HEENT: Atraumatic, Normocephalic Respiratory: Clear to auscultation bilaterally, Normal air movement Cardiovascular: Normal pulses, Regular rate/rhythm Gastrointestinal: Soft and benign, Non-distended Integumentary: No rashes, No breakdown Assessment And Plan - Current Problems (Diagnosis) (1) Hypoxia Current Visit: No Status: Active (2) Acute and chronic respiratory failure Current Visit: No Status: Acute (3) COPD exacerbation Onset Date: 07/16/17 Current Visit: No Status: Acute - Plan Acute on chronic hypercapnic respiratory failure COPD exacerbation Possible noncompliance to BiPAP --o2, pulm consult --nebs --bipap while asleep -- to have cpap checked at home --transfer to floor Leukocytosis -- On steroids Acute on chronic acute on chronic CHF possibly systolic/diastolic Monitor closely on telemetry X-ray findings consistent with CHF Oxygen supplementation wean down oxygen requirement Continue home medications Titrate as needed Hypertension Chronic pain Hyperlipidemia GERD History of colon cancer History of CAD status post PCI Tobacco use --cardiology consulted spironolactone added iv lasix monitor I/O echo done
--- NOTE | 2024-07-16 10:17 | P.PN ---
Subjective Date of Service: 07/16/24 Chief Complaint: SOB Subjective: No new changes, No C/O voiced, Tolerating diet, Ambulating, Improving Review of Systems 10-point ROS is otherwise unremarkable Physical Examination - Vital Signs Temperature: 97.0 F Blood Pressure: 103/63 Pulse: 90 Respirations: 15 Pulse Ox (%): 95 - Physical Exam General: Alert, In no apparent distress HEENT: Atraumatic, PERRLA, EOMI Neck: Supple, JVD not distended Respiratory: Clear to auscultation bilaterally, Normal air movement Cardiovascular: Regular rate/rhythm, Normal S1 S2 Gastrointestinal: Normal bowel sounds, No tenderness Musculoskeletal: No tenderness Integumentary: No rashes Neurological: Normal speech, Normal tone, Normal affect Lymphatics: No axilla or inguinal lymphadenopathy - Studies Medications List Reviewed: Yes Assessment And Plan - Current Problems (Diagnosis) (1) Acute on chronic diastolic heart failure Current Visit: Yes Status: Acute Plan: Lasix was D/C by pulmonary team, patient breathing is better today. continue Toprol XL 25 mg daily continue Aldactone 25 mg daily start Entresto 24 mg po BID also patient will benefit from Farxiga 10 mg daily on discharge. Patient got CO2 retention secondary to Obesity and non complaince with her Bipap MACHINE continue to monitor input and output and electrolytes
[2024-07-16 10:49] LABS: Blood O2 Saturation 95.2 % (92-98.5)
[2024-07-16 10:50] LABS: Arterial Blood Carboxyhemoglob 1.6 % (0-1.5); Blood Gas Oxyhemoglobin 92.6 % (94-97)
[2024-07-16 10:51] LABS: Blood Gas THB 14.1 g/dl (12-18)
--- NOTE | 2024-07-16 12:52 | P.PN ---
Subjective Date of Service: 07/16/24 Chief Complaint: Chronic respiratory failure Subjective: Improving (Patient is improving doing well transferred to the floor apparently there is a problem with her BiPAP) Review of Systems General: Weakness Respiratory: Shortness of Breath Physical Examination - Vital Signs Temperature: 99.4 F Blood Pressure: 116/54 Pulse: 77 Respirations: 22 Pulse Ox (%): 91 - Physical Exam General: Alert, Oriented x3 Respiratory: Clear to auscultation bilaterally, Diminished - Studies Medications List Reviewed: Yes Assessment And Plan - Current Problems (Diagnosis) (1) Chronic respiratory failure Current Visit: Yes Status: Acute Plan: Patient has chronic respiratory failure to bring her BiPAP patient to try the BiPAP while she is in the hospital may need to adjust the settings contacted [facility] otherwise no change in present treatment physical therapy discharge planning Qualifiers: Respiratory failure complication: hypoxia and hypercapnia Qualified Code(s): J96.11 - Chronic respiratory failure with hypoxia; J96.12 - Chronic respiratory failure with hypercapnia
[2024-07-16 14:29] LABS: Specific Gravity 1.022 (1.005-1.030); Sqamous Epithelial <5 /HPF (None Seen); Urine Bacteria <20 /HPF (<20); Urine Bilirubin NEGATIVE (Negative); Urine Blood Negative (Negative); Urine Clarity Extremely Turbid (Clear); Urine Color Light-Yellow (Yellow); Urine Crystals Unidentified Few /HPF (None Seen); Urine Culture Reflex Order NOT NEEDED; Urine Glucose NEGATIVE (Negative); Urine Ketones NEGATIVE (Negative); Urine Microscopic Reflex YN ORDER UMIC; Urine Mucus Slight /HPF (None Seen); Urine Nitrite NEGATIVE (Negative); Urine Protein TRACE (Negative); Urine RBC <5 /HPF (None Seen); Urine Urobilinogen 1+ (Normal); Urine WBC <5 /HPF (<5); Urine pH 8.5 (5.0-7.0)
[2024-07-16] MEDS ORDERED: ALBUTEROL 2.5 MG/3 ML NEB SOL NEB PRN (17:45)
[2024-07-16] MEDS: predniSONE 10 MG TAB PO SCH (20:08)
[2024-07-16] MEDS: DULERA 200/5 (MOMETASONE/FORMOTEROL) INHALER IH SCH (21:00)
[2024-07-17 05:33] LABS: Absolute Monocytes 0.7 K/uL (0.1-1.3); Absolute Neutrophil 4.6 K/uL (1.8-8.0); Basophils % 0.3 % (0-1.3); Eosinophils % 0.1 % (0-4.4); Hematocrit 42.8 % (36.0-45.0); Hemoglobin 13.7 g/dL (12.0-15.0); Lymphocytes % 15.8 % (15.3-44.8); MCH 28.9 pg (27.0-35.0); MCHC 31.9 g/dL (32.0-36.0); MCV 90.4 fL (80-100); MPV 8.1 fL (7.6-11.3); Monocytes % 11.2 % (3.3-12.3); Neutrophils % 72.6 % (41.7-73.7); Nucleated RBC Absolute Count 0.1 (0-0); Nucleated Red Blood Cells % 1.1 % (0-0); Platelets 231 thou/uL (152-406); RBC Red Blood Cell Count 4.73 M/uL (3.86-4.86)
[2024-07-17 05:34] LABS: Albumin 2.6 g/dL (3.4-5.0); Albumin/Globulin Ratio 0.7 (1.1-1.8); Anion Gap 4.3 mEq/L (5.0-15.0); Bilirubin Total 0.2 mg/dL (0.2-1.0); Globulin 3.6 g/dL (2.3-3.5); Potassium 4.3 mEq/L (3.5-5.1); Protein, Total 6.2 g/dL (6.4-8.2)
[2024-07-17 06:04] LABS: Arterial Blood Carboxyhemoglob 1.1 % (0-1.5); Blood Gas Oxyhemoglobin 92.3 % (94-97); Blood Gas THB 14.3 g/dl (12-18); Blood O2 Saturation 95.3 % (92-98.5)
[2024-07-17 06:52] LABS: Anisocytosis 1+; Blood Morphology Comment NOTED (NOT SEEN); Differential Total Cells Count 100; Lymphocytes 17 % (15-42); Monocytes 15 % (0-10); Nucleated Red Blood Cells 1 /100WBC; Platelet Estimate ADEQ; Polychromasia 1+; Segmented Neutrophils 68 % (40-80)
[2024-07-17] MEDS: Fluticasone/Umeclidin/Vilanter [Trelegy Ellipta 100-62.5-25] Blst.W.Dev *PT OWN MED IH SCH (09:00)
--- NOTE | 2024-07-17 11:12 | P.PN ---
Subjective Date of Service: 07/17/24 Chief Complaint: Chronic respiratory failure Subjective: No new changes, No C/O voiced, Tolerating diet, Ambulating, Improving Review of Systems 10-point ROS is otherwise unremarkable Physical Examination - Vital Signs Temperature: 98.7 F Blood Pressure: 142/66 Pulse: 69 Respirations: 23 Pulse Ox (%): 95 - Physical Exam General: Alert, In no apparent distress HEENT: Atraumatic, PERRLA, EOMI Neck: Supple, JVD not distended Respiratory: Clear to auscultation bilaterally, Normal air movement Cardiovascular: Regular rate/rhythm, Normal S1 S2 Gastrointestinal: Normal bowel sounds, No tenderness Musculoskeletal: No tenderness Integumentary: No rashes Neurological: Normal speech, Normal tone, Normal affect Lymphatics: No axilla or inguinal lymphadenopathy - Studies Medications List Reviewed: Yes Assessment And Plan - Current Problems (Diagnosis) (1) Acute on chronic diastolic heart failure Current Visit: Yes Status: Acute Plan: off lasix. continue Toprol XL 25 mg daily continue Aldactone 25 mg daily start Entresto 24 mg po BID also patient will benefit from Farxiga 10 mg daily on discharge. Patient got CO2 retention secondary to Obesity and non complaince with her Bipap MACHINE continue to monitor input and output and electrolytes
--- NOTE | 2024-07-17 17:13 | P.PN ---
Date of Service: 07/17/24 Subjective: feeling better overall, no acute events overnight tolerated bIPAP overnight, however was off bipap for few hours prior to ABG Physical Exam: GEN: awake, alert, NAD CV: Regular rate and rhythm, trace edema Pulm: Nonlabored respirations on 4L NC, diminished ABD: soft, nontender, nondistended Neuro: normal speech, normal affect Problem List: Acute on chronic hypoxic and hypercapinic respiratory failure secondary to obesity hypoventilation syndrome and chronic COPD Pulmonary Hypertension Chronic diastolic CHF Chronic pain syndrome Hypertension Hyperlipidemia GERD Anxiety/Depression chronic tobacco use hx colon cancer s/p resection hx CAD s/p PCI Acute on chronic hypoxic and hypercapinic respiratory failure secondary to obesity hypoventilation syndrome and chronic COPD Pulmonary Hypertension wean O2 as tolerated needs BIPAP at night familyb rought home bipap to see if working bipap rep expected to come today and help pulm and cardio following Chronic diastolic CHF Chronic pain syndrome Hypertension Hyperlipidemia GERD Anxiety/Depression chronic tobacco use hx colon cancer s/p resection hx CAD s/p PCI continue home meds VTE: Lovenox Code: Full Dispo: Home once home bipap machine tested / working Time Spent Managing Pts Care (In Minutes): 55
[2024-07-18 05:21] LABS: Absolute Monocytes 0.5 K/uL (0.1-1.3); Absolute Neutrophil 3.4 K/uL (1.8-8.0); Basophils % 0.3 % (0-1.3); Eosinophils % 0.1 % (0-4.4); Hematocrit 44.1 % (36.0-45.0); Lymphocytes % 20.4 % (15.3-44.8); MCH 28.3 pg (27.0-35.0); MCHC 31.7 g/dL (32.0-36.0); MCV 89.4 fL (80-100); Monocytes % 10.3 % (3.3-12.3); Neutrophils % 68.9 % (41.7-73.7); Nucleated Red Blood Cells % 0.9 % (0-0); Platelets 235 thou/uL (152-406); RBC Red Blood Cell Count 4.93 M/uL (3.86-4.86); Red Cell Distribution Width 16.3 % (12.1-15.2)
[2024-07-18 05:39] LABS: Anion Gap 6.5 mEq/L (5.0-15.0); Magnesium 2.2 mg/dL (1.6-2.4); Potassium 4.5 mEq/L (3.5-5.1)
[2024-07-18] MEDS: Fluticasone/Umeclidin/Vilanter [Trelegy Ellipta 100-62.5-25] Blst.W.Dev *PT OWN MED IH SCH (09:32)
[2024-07-18] MEDS: ALBUTEROL INHALER 200 PUFF/6.7 GM IH PRN (09:34)
--- NOTE | 2024-07-18 14:02 | P.PN ---
Date of Service: 07/18/24 Subjective: feeling better overall, no acute events overnight rep for her home BIPAP came by last night and adjusted settings feels ok, still somewhat tired/groggy working with PT, needing rest stops every 10ft or so Physical Exam: GEN: awake, alert, NAD sitting up at bedside CV: Regular rate and rhythm, trace edema Pulm: Nonlabored respirations on 4L NC, diminished Neuro: normal speech, normal affect Problem List: Acute on chronic hypoxic and hypercapinic respiratory failure secondary to obesity hypoventilation syndrome and chronic COPD Pulmonary Hypertension Chronic diastolic CHF Chronic pain syndrome Hypertension Hyperlipidemia GERD Anxiety/Depression chronic tobacco use hx colon cancer s/p resection hx CAD s/p PCI Acute on chronic hypoxic and hypercapinic respiratory failure secondary to obesity hypoventilation syndrome and chronic COPD Pulmonary Hypertension wean O2 as tolerated needs BIPAP at night family brought home bipap to see if working bipap rep came by last night, adjusted settings mentioned she may not be as compliant with machine pt feels improvement each day, but worried since she came back to hospital shortly after discharge pulm and cardio following Chronic diastolic CHF Chronic pain syndrome Hypertension Hyperlipidemia GERD Anxiety/Depression chronic tobacco use hx colon cancer s/p resection hx CAD s/p PCI continue home meds VTE: Lovenox Code: Full Dispo: Home once home bipap machine tested / working, increased physical tolerance, pending pulm possibly tomorrow Time Spent Managing Pts Care (In Minutes): 45
[2024-07-19 08:20] VITALS: BP 120/60; TEMP 98.4
[2024-07-19 09:57] VITALS: O2SAT 97
--- NOTE | 2024-07-19 15:22 | P.DS ---
Admission Date: 07/14/24 Discharge Date: 07/19/24 Disposition: ROUTINE DISCHARGE Discharge Condition: GOOD Reason for Admission: Chronic respiratory failure - Problems (1) Chronic respiratory failure Status: Acute Qualifiers: Respiratory failure complication: hypoxia and hypercapnia Qualified Code(s): J96.11 - Chronic respiratory failure with hypoxia; J96.12 - Chronic respiratory failure with hypercapnia Brief History of Present Illness: Patient is 69 years of age well-known to me recent hospital admission with resp iratory failure came back again apparently is not using her BiPAP at home compliant with her inhalers semiresponsive Hospital Course: Patient is 69 years of age admitted with acute exacerbation of COPD hypoxic hypercapnic respiratory failure apparently there was some problem with her noninvasive ventilator patient was admitted remained stable no problems during the course of his stay infected [facility] rep came here and had a look at the noninvasive ventilator not sure what adjustments were made patient did tolerated last night patient has baseline hypercapnia on examination alert oriented responsive cooperative vital signs stable at the bedside chest diminished air entry cardiovascular system heart sounds normal patient agreed to be discharged home stable on resume all her current medications no changes were made to follow-up with me in a couple of weeks Vital Signs/Physical Exam: Temp Pulse Resp BP Pulse Ox 98.4 F 71 16 120/60 95 07/19/24 08:00 07/19/24 08:00 07/19/24 08:00 07/19/24 08:00 07/19/24 08:00 Laboratory Data at Discharge: WBC 4.90 thou/uL (4.3-10.9) 07/18/24 04:38 Hgb 14.0 g/dL (12.0-15.0) 07/18/24 04:38 Hct 44.1 % (36.0-45.0) 07/18/24 04:38 Plt Count 235 thou/uL (152-406) 07/18/24 04:38 PT 12.8 SECONDS (10-13.0) 07/14/24 20:37 INR 1.13 07/14/24 20:37 APTT 29.2 SECONDS (27.2-37.4) 07/14/24 20:37 Sodium 139 mEq/L (136-145) 07/18/24 04:38 Potassium 4.5 mEq/L (3.5-5.1) 07/18/24 04:38 BUN 18 mg/dL (7-18) 07/18/24 04:38 Creatinine 0.56 mg/dL (0.55-1.02) 07/18/24 04:38 Glucose 114 mg/dL (74-106) H 07/18/24 04:38 Phosphorus 4.1 mg/dL (2.5-4.9) 07/15/24 05:10 Magnesium 2.2 mg/dL (1.6-2.4) 07/18/24 04:38 Total Bilirubin 0.2 mg/dL (0.2-1.0) 07/17/24 04:58 AST 13 U/L (15-37) L 07/17/24 04:58 ALT 19 U/L (13-56) 07/17/24 04:58 Alkaline Phosphatase 101 U/L (45-117) 07/17/24 04:58 Lipase 16 U/L (13-75) 07/14/24 20:37 Home Medications: Albuterol Inhaler [Ventolin Inhaler*] 2 puff IH Q6H PRN 08/24/20 Amlodipine [Norvasc*] 10 mg PO DAILY 08/24/20 Atorvastatin Calcium [Lipitor] 40 mg PO BEDTIME 08/24/20 Fluticasone/Umeclidin/Vilanter [Trelegy Ellipta 100-62.5-25] 1 each IH DAILY 08/24/20 Medroxyprogesterone Acetate [Provera] 2.5 mg PO DAILY 08/24/20 oxyBUTYnin chloride [Ditropan*] 10 mg PO TID 08/24/20 Amitriptyline [Elavil*] 10 mg PO BEDTIME 07/18/23 Baclofen [Lioresal*] 10 mg PO TIDP PRN 07/18/23 Duloxetine HCl [Cymbalta] 60 mg PO DAILY 07/18/23 Metoprolol Succinate [Toprol Xl*] 25 mg PO DAILY 07/18/23 Tizanidine [Zanaflex*] 4 mg PO BID 07/18/23 Hydrocodone 10/APAP 325 [[place] 10/325*] 1 tab PO Q8H PRN #15 tab 07/21/23 acetaZOLAMIDE [Diamox*] 250 mg PO DAILY 30 Days #30 tab 07/21/23 Estradiol [Estrace] 1 mg PO DAILY 09/09/23 Solifenacin Succinate [Vesicare] 10 mg PO DAILY 09/09/23 Theophylline Anhydrous [Theophylline ER] 400 mg PO DAILY 09/09/23 Ipratropium/Albuterol Sulfate [Iprat-Albut 0.5-3(2.5) mg/3 ml] 3 ml IH Q6H PRN #120 amp 07/09/24 Nebulizer 1 each MC QID PRN #1 ea 07/09/24 predniSONE [Deltasone*] 10 mg PO DAILY 30 Days #30 tab 07/19/24 New Medications: predniSONE [Deltasone*] 10 mg PO DAILY 30 Days #30 tab Followup: NONE,NONE [Primary Care Provider] -
== END 2024-07-19 13:49 | disposition home or self-care (01) | DRG 291 ==
LOC: ER 20:11 → ERHOLD 21:44 → 3RD-ICU 23:12 → 2ND 07-16 11:45
PROVIDERS: ADMIT Family Medicine; ATTEND Internal Medicine Sleep Medicine
PROC: 5A09557 Assistance with Respiratory Ventilation, Greater than 96 Consecutive Hours, Continuous Positive Airway Pressure (ICD-10-PCS; principal; 2024-07-14)
PROC: 4A033R1 Measurement of Arterial Saturation, Peripheral, Percutaneous Approach (ICD-10-PCS; 2024-07-14)
PROC: 0T9B70Z Drainage of Bladder with Drainage Device, Via Natural or Artificial Opening (ICD-10-PCS; 2024-07-14)
DX: I11.0 Hypertensive heart disease with heart failure (principal); I50.33 Acute on chronic diastolic (congestive) heart failure; J96.21 Acute and chronic respiratory failure with hypoxia; J96.22 Acute and chronic respiratory failure with hypercapnia; J44.1 Chronic obstructive pulmonary disease with (acute) exacerbation; E66.2 Morbid (severe) obesity with alveolar hypoventilation; E78.00 Pure hypercholesterolemia, unspecified; F32.A Depression, unspecified; F41.9 Anxiety disorder, unspecified; G89.4 Chronic pain syndrome; I27.20 Pulmonary hypertension, unspecified; K21.9 Gastro-esophageal reflux disease without esophagitis; I25.10 Atherosclerotic heart disease of native coronary artery without angina pectoris; I25.2 Old myocardial infarction; F17.200 Nicotine dependence, unspecified, uncomplicated; Z95.1 Presence of aortocoronary bypass graft; Z88.8 Allergy status to other drugs, medicaments and biological substances; Z68.37 Body mass index [BMI] 37.0-37.9, adult; Z11.52 Encounter for screening for COVID-19; Z79.52 Long term (current) use of systemic steroids; Z99.81 Dependence on supplemental oxygen; Z90.49 Acquired absence of other specified parts of digestive tract; Z85.038 Personal history of other malignant neoplasm of large intestine; Z79.899 Other long term (current) drug therapy; Z91.199 Patient's noncompliance with other medical treatment and regimen due to unspecified reason
CPT/HCPCS: 36415; 36600; 51702; 71045; 80048; 80053; 80076; 81001; 82550; 82805; 82947; 83605; 83690; 83735; 83880; 84100; 84484; 85025; 85379; 85610; 85730; 86140; 87040; 87428; 93005; 94640; 94660; 94760; 97116; 97161; 97530; 99285; J0696; J1650; J1938; J2919; J7050; J7512; J7613; J7644

== ENCOUNTER 2025-01-19 02:22 | Inpatient (IN) | payer OTHER ==
[2025-01-19] MEDS ORDERED: IPRATROPIUM BROM 0.5MG/2.5ML ONE (02:55)
[2025-01-19] MEDS ORDERED: LEVALBUTEROL 1.25 MG/3 ML NEB ONE (02:55)
[2025-01-19 03:08] LABS: Absolute Lymphocytes (CBC) 1.0 K/uL (0.7-4.9); Hematocrit 47.6 % (36.0-45.0); Hemoglobin 15.1 g/dL (12.0-15.0); MCH 28.4 pg (27.0-35.0); MCHC 31.6 g/dL (32.0-36.0); MCV 89.8 fL (80-100); MPV 7.6 fL (7.6-11.3); Nucleated RBC Absolute Count 0.0 (0-0); Nucleated Red Blood Cells % 0.4 % (0-0); RBC Red Blood Cell Count 5.30 M/uL (3.86-4.86); White Blood Count 4.20 thou/uL (4.3-10.9)
[2025-01-19 03:27] LABS: Influenza A Ag Negative; Influenza B Ag Negative; SARS-CoV-2 Antigen Rapid Res Negative (Negative)
[2025-01-19] MEDS ORDERED: HYDROCODONE/APAP 10/325 TAB ONE ×2 (04:06→08:40)
[2025-01-19] MEDS ORDERED: KETOROLAC 30 MG/ML INJ ONE (04:06)
[2025-01-19 04:19] LABS: PT Prothrombin Time 13.7 SECONDS (10-13.0); Protime INR 1.22
[2025-01-19 04:32] LABS: AST/SGOT 12 U/L (15-37); Albumin 3.5 g/dL (3.4-5.0); Albumin/Globulin Ratio 1.0 (1.1-1.8); Alkaline Phosphatase 82 U/L (45-117); Anion Gap 5.5 mEq/L (5.0-15.0); BUN Blood Urea Nitrogen 8 mg/dL (7-18); Bilirubin Indirect, Calculated 0.3 mg/dL (0.2-0.8); Globulin 3.6 g/dL (2.3-3.5); Glucose Level 86 mg/dL (74-106); Magnesium 2.1 mg/dL (1.6-2.4); NT PRO-BNP 344 pg/mL (<125); Potassium 3.5 mEq/L (3.5-5.1); Troponin High Sensitivity 21.6 pg/mL (<58.9)
[2025-01-19 04:37] LABS: ALT/SGPT < 14 U/L (13-56)
[2025-01-19] MEDS ORDERED: METHYLPREDNISOLONE 125 MG INJ ONE (05:14)
[2025-01-19] MEDS ORDERED: NA CHLORIDE 0.9% 500 ML ONE (05:14)
[2025-01-19] MEDS ORDERED: FENTANYL CITR 100 MCG/2 ML ONE (05:27)
--- NOTE | 2025-01-19 05:31 | EDPHYS ---
Physician Documentation [facility] Name: Iman Huggins Age: 69 yrs Sex: Female : 1955 Arrival Date: 01/19/2025 Time: 02:22 Bed 5 Private MD: ED Physician Usman Vazquez HPI: 01/19 02:45 This 69 yrs old Black Female presents to ER via Wheelchair with complaints of Shortness cp Of Breath. 02:45 The patient has shortness of breath at rest. Onset: The symptoms/episode began/occurred cp 3 day(s) ago. 02:45 Associated signs and symptoms: Pertinent positives: non-productive cough, body aches, cp diarrhea. 02:45 Duration: The symptoms are continuous, and are steadily getting worse. Severity of cp symptoms: in the emergency department the symptoms are unchanged despite home interventions. Historical: - Allergies: 02:36 ANGEL INHIBITORS; br2 02:36 ARB-Angiotensin Receptor Antagonist; br2 02:36 Lisinopril; br2 - PMHx: 02:36 chronic back pain; COPD; Hypertension; Myocardial infarction; br2 - PSHx: 02:36 Cholecystectomy; colon cancer tumor removal; colon cancer tumor removal; RT HIP SX (ca);br2 - Immunization history:: Adult Immunizations not up to date. - Infectious Disease History:: Denies. - Social history:: Smoking status: Patient/guardian denies using tobacco, Patient/guardian denies using alcohol, street drugs. ROS: 02:50 Constitutional: Negative for fever, poor PO intake, cp 02:50 Cardiovascular: Negative for chest pain, edema, palpitations, cp 02:50 Respiratory: Positive for cough, "sounds productive", shortness of breath, at rest. Negative for wheezing, 02:50 Abdomen/GI: Negative for abdominal pain, vomiting, diarrhea, constipation, 02:50 Eyes: Negative for injury, pain, redness, and discharge, cp 02:50 ENT: Negative for drainage from ear(s), ear pain, difficulty swallowing, difficulty cp handling secretions, 02:50 Neuro: Negative for altered mental status, dizziness, headache, syncope, 02:50 All other systems are negative, Exam: 02:55 Constitutional: The patient appears in no acute distress, alert, awake, cp non-diaphoretic, non-toxic, well developed, well nourished, uncomfortable, speaking in shortened sentences 02:55 Head/Face: Normocephalic, atraumatic. cp 02:55 Eyes: Periorbital structures: appear normal, Conjunctiva: normal, no exudate, no injection, Sclera: no appreciated abnormality, Lids and lashes: appear normal, bilaterally, 02:55 ENT: External ear(s): are unremarkable, Nose: is normal, Mouth: Lips: moist, Oral mucosa: moist, Posterior pharynx: Airway: no evidence of obstruction, patent, erythema, is not appreciated, exudate, is not appreciated, 02:55 Neck: ROM/movement: is normal, is supple, without pain, no range of motions limitations, 02:55 Chest/axilla: Inspection: normal, Palpation: crepitus, is not appreciated, tenderness, is not appreciated, 02:55 Cardiovascular: Rate: normal, Rhythm: regular, Edema: is not appreciated, JVD: is not appreciated, 02:55 Respiratory: mild respiratory distress is noted, Respirations: labored breathing, intercostal retractions, are absent, shallow respirations, Breath sounds: decreased breath sounds, that are moderate, throughout, stridor, is not appreciated, wheezing: that is mild, is heard diffusely, 02:55 Abdomen/GI: Inspection: abdomen appears normal, Bowel sounds: active, all quadrants, Palpation: soft, in all quadrants, mild abdominal tenderness, in all quadrants, 02:55 Back: CVA tenderness, is absent, 02:55 Skin: cellulitis, is not appreciated, no rash present. 02:55 Neuro: Orientation: to person, place \\T\\ time. Mentation: able to follow commands, Motor: moves all fours, strength is normal, Sensation: is normal, 03:20 ECG was reviewed by the Attending Physician. [facility] Vital Signs: 02:34 BP 132 / 84; Pulse 88; Resp 18; Pulse Ox 94% on 3 lpm NC; Weight 96.62 kg; Height 5 ft. br2 4 in. ; Pain 10/10; 04:14 BP 99 / 56; Pulse 80; Resp 16; Temp 98.2; Pulse Ox 94% on 2 lpm NC; Pain 7/10; bm8 05:51 BP 133 / 72; Pulse 86; Resp 18; Temp 98.2; Pulse Ox 96% on 2 lpm NC; Pain 7/10; bm8 06:40 BP 170 / 99; Pulse 80; Resp 18; Pulse Ox 95% on 2 lpm NC; vc1 08:00 BP 155 / 73; Pulse 81; Resp 20 S; Pulse Ox 96% on R/A; Pain 6/10; ar8 09:00 BP 168 / 73; Pulse 95; Resp 16; Pulse Ox 95% ; db 10:00 BP 155 / 87; Pulse 90; Resp 20 S; Pulse Ox 93% on 4 lpm NC; Pain 0/10; ar8 02:34 Body Mass Index 36.56 (96.62 kg, 162.56 cm) br2 02:34 Pain Scale: Adult br2 04:14 Pain Scale: Adult bm8 05:51 Pain Scale: Adult bm8 08:00 Pain Scale: Adult ar8 10:00 Pain Scale: Adult ar8 Kp Coma Score: 04:14 Eye Response: spontaneous(4). Motor Response: obeys commands(6). Verbal Response: bm8 oriented(5). Total: 15. 05:51 Eye Response: spontaneous(4). Motor Response: obeys commands(6). Verbal Response: bm8 oriented(5). Total: 15. MDM: 02:26 Medical Screening Exam initiated cp 04:00 Differential diagnosis: CHF exacerbation, Chronic Obstructive Pulmonary Disease cp Myocardial Infarction pneumonia, Pneumothorax pulmonary edema, Pulmonary Embolism Sepsis Unstable Angina. 06:10 Data reviewed: vital signs, nurses notes, lab test result(s), EKG, radiologic studies, cp plain films, and as a result, I will admit patient. 06:10 Management of patient was discussed with the following: Hospitalist: DR Huff who will cp admit after discussion. I considered the following discharge prescriptions or medication management in the emergency department Medications were administered in the Emergency Department. See MAR. Care significantly affected by the following chronic conditions: Hypertension, Chronic Obstructive Pulmonary Disease. Counseling: I had a detailed discussion with the patient and/or guardian regarding the historical points, exam findings, and any diagnostic results supporting the discharge/admit diagnosis, lab results, radiology results, the need for further work-up and treatment in the hospital. Response to treatment: the patient's symptoms have mildly improved after treatment. 01/19 02:38 Order name: COVID-19 Ag + Flu A+B Ag; Complete Time: 04:01 cp 01/19 02:38 Order name: Group A Streptococcus Rapid; Complete Time: 04:01 cp 01/19 02:38 Order name: UA Rfx Melquiades Cult if indicated cp 01/19 02:38 Order name: Basic Metabolic Panel; Complete Time: 05:03 cp 01/19 05:03 Interpretation: Normal except: CL 97; CO2 43; CRE 0.46. cp 01/19 02:38 Order name: CBC with Diff; Complete Time: 04:01 cp 01/19 04:02 Interpretation: Normal except: WBC 4.20; RBC 5.30; HGB 15.1; HCT 47.6; MCHC 31.6; PLT cp 149; RDW 15.9. 01/19 02:38 Order name: LFT's; Complete Time: 05:03 cp 01/19 05:03 Interpretation: Normal except: AST 12; GLOB 3.6; A/G 1.0. cp 01/19 02:38 Order name: Magnesium; Complete Time: 05:03 cp 01/19 02:38 Order name: NT PRO-BNP; Complete Time: 05:03 cp 01/19 02:38 Order name: PT-INR; Complete Time: 04:28 cp 01/19 04:28 Interpretation: Reviewed. cp 01/19 02:38 Order name: Troponin HS; Complete Time: 05:03 cp 01/19 02:38 Order name: Lactate w/ 2H reflex if indic.; Complete Time: 05:03 cp 01/19 03:28 Order name: Throat Culture EDMS 01/19 05:34 Order name: ABG cp 01/19 09:05 Order name: Protime (+INR) EDMS 01/19 09:05 Order name: CBC with Automated Diff EDMS 01/19 09:05 Order name: CBC with Automated Diff EDMS 01/19 09:05 Order name: CBC with Automated Diff EDMS 01/19 09:05 Order name: Comprehensive Metabolic Panel EDMS 01/19 09:05 Order name: Comprehensive Metabolic Panel EDMS 01/19 09:05 Order name: Comprehensive Metabolic Panel EDMS 01/19 02:38 Order name: XRAY Chest (1 view) cp 01/19 06:06 Order name: BIPAP cp 01/19 07:23 Order name: BIPAP hb 01/19 02:38 Order name: EKG; Complete Time: 02:38 cp 01/19 09:05 Order name: Physical Therapy Consult EDMS 01/19 02:38 Order name: Cardiac monitoring; Complete Time: 03:08 cp 01/19 02:38 Order name: EKG - Nurse/Tech; Complete Time: 03:08 cp 01/19 02:38 Order name: IV Saline Lock; Complete Time: 03:08 cp 01/19 02:38 Order name: Labs collected and sent; Complete Time: 03:08 cp 01/19 02:38 Order name: O2 Per Protocol; Complete Time: 03:08 cp 01/19 02:38 Order name: O2 Sat Monitoring; Complete Time: 03:08 cp EC:20 Rate is 89 beats/min. Rhythm is regular. QRS [place] is Normal. NM interval is normal. QRS [place] interval is normal. QT interval is normal. No Q waves. T waves are Normal. No ST changes noted. Clinical impression: NSR w/ Non-specific ST/T Changes and No evidence of ischemia. Interpreted by me. Reviewed by me. Administered Medications: 03:08 Drug: Levalbuterol Inhalation 1.25 mg Inhalation once Route: Inhalation; vc1 05:51 Follow up: Response: No adverse reaction bm8 03:08 Drug: Ipratropium Inhalation Aerosol 0.5 mg Inhalation once Route: Inhalation; vc1 05:51 Follow up: Response: No adverse reaction bm8 04:12 Drug: HYDROcodone-acetaminophen PO 10 mg-325 mg 1 tabs PO once Route: PO; bm8 05:50 Follow up: Response: No adverse reaction bm8 04:13 Drug: Ketorolac IVP 15 mg IVP once Route: IVP; Site: left forearm; bm8 05:50 Follow up: Response: No adverse reaction bm8 05:18 Drug: NS 0.9% IV 500 ml 500 ml IV at 1 bolus once; to be given as a bolus over 60 bm8 minutes Volume: 500 ml; Route: IV; Rate: 1 bolus; Site: left forearm; 05:50 Follow up: Response: No adverse reaction; IV Status: Completed infusion bm8 05:18 Drug: MethylPrednisoLONE IVP 125 mg IVP once Route: IVP; Site: left forearm; bm8 05:50 Follow up: Response: No adverse reaction bm8 05:50 Drug: Magnesium Sulfate IVPB 1 grams IVPB once over 1 hrs Route: IVPB; Infused Over: 1 bm8 hrs; Site: left forearm; 07:00 Follow up: Response: No adverse reaction; IV Status: Completed infusion ar8 08:43 Drug: [place] PO 10 mg-325 mg 1 tabs PO once Route: PO; ar8 09:30 Follow up: Response: No adverse reaction; Pain is decreased ar8 Disposition Summary: 01/19/25 05:31 Hospitalization Ordered Notes: Hospitalization Status: Inpatient Admission cp Location: Telemetry/MedSurg (Inpatient) cp Condition: Stable cp Problem: an acute exacerbation cp Symptoms: have improved cp Bed/Room Type: Standard cp Provider: Sridhar Wynn(01/19/25 05:57) cp Room Assignment: [facility](01/19/25 09:01) Diagnosis - Acute and chronic respiratory failure with hypercapnia cp Forms: - Medication Reconciliation Form cp - SBAR form cp - Leadership Thank You Letter cp Addendum: 01/21/2025 06:52 Co-signature as Attending Physician, Usman Vazquez MD I agree with the assessment and c tabor plan of care. Signatures: Dispatcher [employer] EDLalita Meneses Corey, MD MD cha Page, Corey, PA-C PA-C Cordelia Burt, RN RN Marquita Andrews RN RN vc1 Everett Peace, RN RN bm8 Patito Cotton RN RN br2 Britton Barker, RN RN ar8 Corrections: (The following items were deleted from the chart) 01/19 02:38 02:38 COVID-19 Ag + Flu A+B Ag+I.LAB.BRZ ordered. EDMS EDMS 02:38 02:38 Group A Streptococcus Rapid Sc+I.LAB.BRZ ordered. EDMS EDMS 02:38 02:38 UA Rfx Melquiades Cult if indicated+U.LAB.BRZ ordered. EDMS EDMS 02:38 02:38 BASIC METABOLIC PANEL+C.LAB.BRZ ordered. EDMS EDMS 02:38 02:38 CBC+H.LAB.BRZ ordered. EDMS EDMS 02:38 02:38 HEPATIC FUNCTION+C.LAB.BRZ ordered. EDMS EDMS 02:38 02:38 MAGNESIUM+C.LAB.BRZ ordered. EDMS EDMS 02:38 02:38 PROBNP+C.LAB.BRZ ordered. EDMS EDMS 02:38 02:38 PROTIME (+INR)+COAG.LAB.BRZ ordered. EDMS EDMS 02:38 02:38 Troponin High Sensitivity+C.LAB.BRZ ordered. EDMS EDMS 02:38 02:38 LACTATE+C.LAB.BRZ ordered. EDMS EDMS 03:24 02:35 This 69 yrs old Black Female presents to ER via Wheelchair with complaints of cp Shortness Of Breath. cp 05:57 05:31 Reuben Brunson cp cp 09:01 05:31 cp bd
--- NOTE | 2025-01-19 05:31 | ER ---
Nurse's Notes [facility] Name: Iman Huggins Age: 69 yrs Sex: Female : 1955 Arrival Date: 01/19/2025 Time: 02:22 Bed 5 Private MD: Diagnosis: Acute and chronic respiratory failure with hypercapnia Presentation: 01/19 02:34 Chief complaint: Patient states: C/O NAUSEA/DIARRHEA/BODYACHES AND SOB MORE THAN NORMAL br2 ...PT IS 02 DEPENDANT. Coronavirus screen: Client denies travel out of the [place] in the last 14 days. Ebola Screen: Patient denies exposure to infectious person. Initial Sepsis Screen: Does the patient meet any 2 criteria? No. Patient's initial sepsis screen is negative. Does the patient have a suspected source of infection? No. Patient's initial sepsis screen is negative. Risk Assessment: Do you want to hurt yourself or someone else? Patient reports no desire to harm self or others. Onset of symptoms was January 16, 2025. 02:34 Method Of Arrival: Wheelchair br2 02:34 Acuity: RAD 3 br2 Triage Assessment: 02:36 General: Appears in no apparent distress. comfortable, Behavior is calm, cooperative. br2 Pain: Complains of pain in chest, abdomen, pelvis, right arm, left arm, right leg and left leg Pain currently is 10 out of 10 on a pain scale. Respiratory: Reports shortness of breath at rest on exertion cough that is productive, Onset: The symptoms/episode began/occurred 10TH, the patient has mild shortness of breath. GI: Reports diarrhea, nausea. Historical: - Allergies: 02:36 ANGEL INHIBITORS; br2 02:36 ARB-Angiotensin Receptor Antagonist; br2 02:36 Lisinopril; br2 - PMHx: 02:36 chronic back pain; COPD; Hypertension; Myocardial infarction; br2 - PSHx: 02:36 Cholecystectomy; colon cancer tumor removal; colon cancer tumor removal; RT HIP SX (ca);br2 - Immunization history:: Adult Immunizations not up to date. - Infectious Disease History:: Denies. - Social history:: Smoking status: Patient/guardian denies using tobacco, Patient/guardian denies using alcohol, street drugs. Screenin:38 [facility] ED Fall Risk Assessment (Adult) History of falling in the last 3 months, br2 including since admission No falls in past 3 months (0 pts) Confusion or Disorientation No (0 pts) Intoxicated or Sedated No (0 pts) Impaired Gait No (0 pts) Mobility Assist Device Used No (0 pt) Altered Elimination No (0 pt) Score/Fall Risk Level 0 - 2 = Low Risk Oriented to surroundings. Abuse screen: Denies threats or abuse. Denies injuries from another. Nutritional screening: No deficits noted. Tuberculosis screening: No symptoms or risk factors identified. Assessment: 05:51 Reassessment: Patient appears in no apparent distress at this time. Patient and/or bm8 family updated on plan of care and expected duration. Pain level reassessed. Patient is alert, oriented x 3, equal unlabored respirations, skin warm/dry/pink. Patient states feeling better. Patient states symptoms have improved. General: Appears in no apparent distress. comfortable, Behavior is calm, cooperative, appropriate for age. Pain: Complains of pain in left leg and pelvis Pain currently is 7 out of 10 on a pain scale. Neuro: No deficits noted. Level of Consciousness is awake, alert, obeys commands, Oriented to person, place, time, situation, Appropriate for age. Cardiovascular: Capillary refill < 3 seconds in bilateral fingers Patient's skin is warm and dry. Cardiovascular: Rhythm is sinus rhythm. Respiratory: Airway is patent Respiratory effort is even, unlabored, Breath sounds are diminished bilaterally. GI: No deficits noted. No signs and/or symptoms were reported involving the gastrointestinal system. : No deficits noted. No signs and/or symptoms were reported regarding the genitourinary system. EENT: No deficits noted. No signs and/or symptoms were reported regarding the EENT system. Derm: No deficits noted. No signs and/or symptoms reported regarding the dermatologic system. Musculoskeletal: Reports pain in left leg and pelvis. 06:40 Reassessment: Patient appears in no apparent distress at this time. No changes from vc1 previously documented assessment. Patient and/or family updated on plan of care and expected duration. Pain level reassessed. Patient is alert, oriented x 3, equal unlabored respirations, skin warm/dry/pink. 07:15 Reassessment: Patient and/or family updated on plan of care and expected duration. Pain ar8 level reassessed. Patient is alert, oriented x 3, equal unlabored respirations, skin warm/dry/pink. Vital Signs: 02:34 BP 132 / 84; Pulse 88; Resp 18; Pulse Ox 94% on 3 lpm NC; Weight 96.62 kg; Height 5 ft. br2 4 in. ; Pain 10/10; 04:14 BP 99 / 56; Pulse 80; Resp 16; Temp 98.2; Pulse Ox 94% on 2 lpm NC; Pain 7/10; bm8 05:51 BP 133 / 72; Pulse 86; Resp 18; Temp 98.2; Pulse Ox 96% on 2 lpm NC; Pain 7/10; bm8 06:40 BP 170 / 99; Pulse 80; Resp 18; Pulse Ox 95% on 2 lpm NC; vc1 08:00 BP 155 / 73; Pulse 81; Resp 20 S; Pulse Ox 96% on R/A; Pain 6/10; ar8 09:00 BP 168 / 73; Pulse 95; Resp 16; Pulse Ox 95% ; db 10:00 BP 155 / 87; Pulse 90; Resp 20 S; Pulse Ox 93% on 4 lpm NC; Pain 0/10; ar8 02:34 Body Mass Index 36.56 (96.62 kg, 162.56 cm) br2 02:34 Pain Scale: Adult br2 04:14 Pain Scale: Adult bm8 05:51 Pain Scale: Adult bm8 08:00 Pain Scale: Adult ar8 10:00 Pain Scale: Adult ar8 [place] Coma Score: 04:14 Eye Response: spontaneous(4). Motor Response: obeys commands(6). Verbal Response: bm8 oriented(5). Total: 15. 05:51 Eye Response: spontaneous(4). Motor Response: obeys commands(6). Verbal Response: bm8 oriented(5). Total: 15. ED Course: 02:23 Patient arrived in ED. mr 02:26 [facility]. cp 02:26 Usman Vazquez MD is Attending Physician. cp 02:36 Triage completed. br2 02:36 Arm band placed on right wrist. br2 02:38 Patient has correct armband on for positive identification. Bed in low position. Call br2 light in reach. Side rails up X 1. Provided Education on: PLAN OF CARE. 02:46 Marquita Andrews URSULA is Primary Nurse. vc1 03:08 Basic Metabolic Panel Sent. vc1 03:08 CBC with Diff Sent. vc1 03:08 LFT's Sent. vc1 03:08 Magnesium Sent. vc1 03:08 NT PRO-BNP Sent. vc1 03:08 PT-INR Sent. vc1 03:08 Troponin HS Sent. vc1 03:08 Group A Streptococcus Rapid Sent. vc1 03:08 COVID-19 Ag + Flu A+B Ag Sent. vc1 03:09 Inserted saline lock: 22 gauge in right forearm, using aseptic technique. vc1 03:10 XRAY Chest (1 view) In Process Unspecified. EDMS 04:13 No provider procedures requiring assistance completed. Lab(s) recollected, by me, sent bm8 to lab. EKG done, by ED staff, reviewed by Usman Barnes PA-C. Inserted saline lock: 20 gauge in left forearm, using aseptic technique. Blood collected. Flushed with 10 mL NS. Oxygen administration via nasal cannula \T\ 2L/min Response to oxygen therapy: symptoms improved. 04:14 Client placed on continuous cardiac and pulse oximetry monitoring. NIBP monitoring bm8 applied. security monitor on. Pulse ox on. NIBP on. Door closed. Noise minimized. Warm blanket given. Pillow given. Verbal reassurance given. Head of bed elevated. 05:30 Reuben Brunson RN is Hospitalizing Provider. cp 05:57 Sridhar Wynn MD is Hospitalizing Provider. cp 10:30 Patient admitted, IV remains in place. ar8 Administered Medications: 03:08 Drug: Levalbuterol Inhalation 1.25 mg Inhalation once Route: Inhalation; vc1 05:51 Follow up: Response: No adverse reaction bm8 03:08 Drug: Ipratropium Inhalation Aerosol 0.5 mg Inhalation once Route: Inhalation; vc1 05:51 Follow up: Response: No adverse reaction bm8 04:12 Drug: HYDROcodone-acetaminophen PO 10 mg-325 mg 1 tabs PO once Route: PO; bm8 05:50 Follow up: Response: No adverse reaction bm8 04:13 Drug: Ketorolac IVP 15 mg IVP once Route: IVP; Site: left forearm; bm8 05:50 Follow up: Response: No adverse reaction bm8 05:18 Drug: NS 0.9% IV 500 ml 500 ml IV at 1 bolus once; to be given as a bolus over 60 bm8 minutes Volume: 500 ml; Route: IV; Rate: 1 bolus; Site: left forearm; 05:50 Follow up: Response: No adverse reaction; IV Status: Completed infusion bm8 05:18 Drug: MethylPrednisoLONE IVP 125 mg IVP once Route: IVP; Site: left forearm; bm8 05:50 Follow up: Response: No adverse reaction bm8 05:50 Drug: Magnesium Sulfate IVPB 1 grams IVPB once over 1 hrs Route: IVPB; Infused Over: 1 bm8 hrs; Site: left forearm; 07:00 Follow up: Response: No adverse reaction; IV Status: Completed infusion ar8 08:43 Drug: [place] PO 10 mg-325 mg 1 tabs PO once Route: PO; ar8 09:30 Follow up: Response: No adverse reaction; Pain is decreased ar8 Medication: 04:14 VIS not applicable for this client. bm8 Outcome: 05:31 Decision to Hospitalize by Provider. cp 10:30 Admitted to Med/surg accompanied by tech, via stretcher, room 412, with oxygen, with ar8 chart, 10:30 Condition: stable 10:30 Discharge instructions given to patient was instructed on reason for admission. 10:32 Patient left the ED. ar8 Signatures: Dispatcher [employer] EDTN AsaKatt, Reg Reg Usman Cross, PA-Joseph PAMarquita Garcia cp RN RN vc1 Varsha Olguin, RN RN db Everett Peace RN RN bm8 Patito Cotton RN RN br2 Britton Barker RN RN ar8
[2025-01-19] MEDS ORDERED: MAGNESIUM SULFATE 1 gm IVPB 1 GM/100 ML BAG IV ONE (05:44)
[2025-01-19 06:03] LABS: Blood O2 Saturation 94.2 % (92.0-98.5)
--- NOTE | 2025-01-19 06:22 | RAD REPORT ---
EXAM DESCRIPTION: Chest Single View CLINICAL HISTORY: Cough;SOB COMPARISON: None. FINDINGS: 1 view(s) of the chest. Tubes and lines: None. Cardiomediastinal silhouette: Atherosclerotic calcification of the thoracic aorta. Cardiomegaly. Lungs: Pulmonary vascular congestion. Bilateral interstitial opacities. No pneumothorax or large effu leo. Bones: No acute osseous abnormality. Degenerative change of the spine and shoulders. Upper abdomen: No abnormality identified. IMPRESSION: Cardiomegaly with pulmonary edema pattern. Electronically signed by: Kendell Cha DO 01/19/2025 05:00 AM CDT RP [id number] Due to temporary technical issues with the [employer] reporting system, reports are being lashanda d by the in-house radiologist without review as a courtesy to ensure prompt reporting the interpreting radiologist is fully responsible for the content of the report. Transcribed Date/Time: 01/19/2025 6:22 AM
[2025-01-19] MEDS ORDERED: ACETAMINOPHEN 500 MG TAB PO PRN (08:56)
[2025-01-19] MEDS: ALBUTEROL 2.5 MG/3 ML NEB SOL NEB SCH ×2 (11:00→19:43)
[2025-01-19] MEDS: IPRATROPIUM BROM 0.5MG/2.5ML NEB SCH ×2 (11:00→19:42)
[2025-01-19 11:27] LABS: PT Prothrombin Time 13.2 SECONDS (10-13.0); Protime INR 1.17
[2025-01-19] MEDS ORDERED: BACLOFEN 10 MG TAB PO PRN (14:08)
[2025-01-19] MEDS ORDERED: SENOSIDES 8.6 MG TAB PO PRN (14:08)
[2025-01-19 14:14] LABS: Anion Gap 4.5 mEq/L (5.0-15.0); BUN Blood Urea Nitrogen 15.0 mg/dL (7-18); Glucose Level 210.0 mg/dL (74-106); Potassium 3.5 mEq/L (3.5-5.1)
[2025-01-19] MEDS ORDERED: GLUCAGON 1 MG/VIAL IM PRN (14:18)
[2025-01-19] MEDS ORDERED: D10W 125 ML IV PRN (14:18)
[2025-01-19] MEDS ORDERED: D50W 25 GM/50 ML SYRINGE IV PRN (14:22)
--- NOTE | 2025-01-19 14:32 | P.HP ---
Certification for Inpatient With expected LOS: <2 Midnights Patient will require the following post-hospital care: None Practitioner: I am a practitioner with admitting privileges, knowledge of patient current condition, hospital course, and medical plan of care. Services: Services provided to patient in accordance with Admission requirements found in Title 42 Section 412.3 of the Code of Federal Regulations Patient History Date of Service: 01/19/25 Reason for admission: COPD exacerbation History of Present Illness: Patient is a 69-year-old female with past medical history of COPD, [place], hypertension, chronic back pain, and GERD who presents to the ED with worsening shortness of breath x 1 day. Patient reports that she typically uses 3 L nasal cannula at home during the day and occasionally wears CPAP at night, however she noticed that her O2 sat dropped below her baseline of 92% and she became more short of breath with increased oxygen demand. Denies chest pain and other related symptoms. ED workup showed ABG with pCO2 of 80, BMP-CO2 43, BNP 344, COVID/flu/strep; negative and chest x-ray with pulmonary edema patient now being admitted for COPD exacerbation with pulmonary edema. Allergies ANGEL Inhibitors Allergy (Severe, Verified 08/24/20 08:25) Anaphylaxis lisinopril Adverse Reaction (Severe, Verified 09/09/23 05:44) Anaphylaxis ARB-Angiotensin Receptor Ant Allergy (Uncoded 08/24/20 08:25) Unknown Home medications list reviewed: Yes Home Medications: Albuterol Inhaler [Ventolin Inhaler*] 2 puff IH Q6H PRN 08/24/20 Amlodipine [Norvasc*] 10 mg PO DAILY 08/24/20 Atorvastatin Calcium [Lipitor] 40 mg PO BEDTIME 08/24/20 Fluticasone/Umeclidin/Vilanter [Trelegy Ellipta 100-62.5-25] 1 each IH DAILY 08/24/20 Medroxyprogesterone Acetate [Provera] 2.5 mg PO DAILY 08/24/20 oxyBUTYnin chloride [Ditropan*] 10 mg PO TID 08/24/20 Amitriptyline [Elavil*] 10 mg PO BEDTIME 07/18/23 Baclofen [Lioresal*] 10 mg PO TIDP PRN 07/18/23 Duloxetine HCl [Cymbalta] 60 mg PO DAILY 07/18/23 Metoprolol Succinate [Toprol Xl*] 25 mg PO DAILY 07/18/23 Tizanidine [Zanaflex*] 4 mg PO BID 07/18/23 Theophylline Anhydrous [Theophylline ER] 400 mg PO DAILY 09/09/23 Ipratropium/Albuterol Sulfate [Iprat-Albut 0.5-3(2.5) mg/3 ml] 3 ml IH Q6H PRN #120 amp 07/09/24 Albuterol Sulfate [Albuterol Sulfate 0.083% Neb Soln] 2.5 mg IH Q6H PRN 30 Days #1 box 09/16/24 Ipratropium Neb [Atrovent*] 0.5 mg NEB [id number] PRN 30 Days #1 box 09/16/24 Senosides [Senokot] 2 tab PO DAILY PRN 15 Days #30 tab 09/16/24 predniSONE [Deltasone] 20 mg PO BID 5 Days #10 tab 09/16/24 Oxycodone HCl/Acetaminophen [Percocet 5/325 Tab] 1 tab PO Q24H PRN #20 tab 09/17/24 Oxycodone HCl/Acetaminophen [Percocet 5/325 Tab] 1 tab PO Q24H PRN #20 tab 09/17/24 - Past Medical/Surgical History Diabetic: No -: chronic back pain -: copd -: htn -: mi -: 02 at 3l nc prn night time -: GERD -: Colon cancer status post resection -: Cholecystectomy -: Colectomy 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, 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 moist/pink, EOMI, Sclerae nonicteric Neck: Supple, 2+ carotid pulse no bruit, No LAD, Without JVD or thyroid abnormality Respiratory: Expiratory wheezes, Inspiratory wheezes Cardiovascular: No edema, Regular rate/rhythm, Normal S1 S2 Capillary refill: <2 Seconds Gastrointestinal: Normal bowel sounds, No tenderness Musculoskeletal: No tenderness Integumentary: No rashes Neurological: Normal gait, Normal speech, Normal strength at 5/5 x4 extr, Normal tone, Normal affect Lymphatics: No axilla or inguinal lymphadenopathy - Studies Laboratory Data (last 24 hrs) 01/19/25 01/19/25 01/19/25 02:58 02:58 02:58 WBC 4.20 L Hgb 15.1 H Hct 47.6 H Plt Count 149 L PT 13.7 H INR 1.22 Sodium 142 Potassium 3.5 BUN 8 Creatinine 0.46 L Glucose 86 Magnesium 2.1 Total Bilirubin 0.5 AST 12 L ALT < 14 Alkaline Phosphatase 82 Assessment and Plan - Plan COPD exacerbation Pulmonary edema - BNP 344, ABG with pCO2 of 80, CO2 43, WBC 4.2, PLT 149, continue to monitor - Required BiPAP while in the ED, weaned to 5 L nasal cannula at 94% prior to admission to medicine floor - DuoNeb every 4 hours scheduled for now - IV methylprednisone 40 mg Q8h - Strep/COVID/flu; negative - Repeat ABG ordered, follow-up needed - Continue home med theophylline - Chest x-ray with pulmonary edema - Continue to monitor respiratory status close - CPAP at night and baseline O2 3 L nasal cannula. Wean oxygen as tolerated to baseline - Pulmonology consulted, appreciate recommendations History of hypertension - Continue home amlodipine and metoprolol - Monitor blood pressure per unit protocol - Cardiac diet History of chronic back/right hip pain - Patient reports Percocet, baclofen and tizanidine, cymbalta, at home, continue all as needed for now - Monitor for oversedation - Reports needing a hip replacement - PT/OT consult ordered, appreciate recommendations Elevated blood sugar - Patient received IV steroids while in the ED - Moderate sliding scale for now as patient remains on IV steroids Overactive bladder with incontinence - Continue home med oxybutynin - Continue external catheter/PureWick, if needed DVT Ppx: SCD's/Ambulation for now- Hx of GI bleeding and anemia. PLT 149 Code Status: Full code Discharge Plan: Home Plan to discharge in: 48 Hours - Advance Directives Does patient have a Living Will: No Does patient have a Durable POA for Healthcare: No - Code Status/Comfort Care Code Status Assessed: Yes (Full code) Critical Care: No
[2025-01-19] MEDS: METHYLPREDNISOLONE 40 MG INJ IV SCH (16:19)
[2025-01-19] MEDS: INSULIN REGULAR (HUMAN) 100 UNIT/ML SQ SCH (16:19)
[2025-01-19] MEDS: Oxycodone HCl/Acetaminophen 5/325 MG TAB PO PRN (16:21)
[2025-01-19] MEDS ORDERED: METHYLPREDNISOLONE 40 MG INJ IV SCH (17:00)
[2025-01-19] MEDS ORDERED: ALBUTEROL 2.5 MG/3 ML NEB SOL NEB PRN (17:48)
[2025-01-19] MEDS ORDERED: IPRATROPIUM BROM 0.5MG/2.5ML NEB PRN (17:49)
[2025-01-19 20:13] VITALS: BMI 36.6
[2025-01-19] MEDS: ATORVASTATIN 40 MG TAB PO SCH (21:11)
[2025-01-19] MEDS: AMITRIPTYLINE 10 MG TAB PO SCH (21:11)
[2025-01-19] MEDS: TIZANIDINE 4 MG TABLET PO PRN (21:11)
[2025-01-20 06:25] LABS: Absolute Lymphocytes (CBC) 0.4 K/uL (0.7-4.9); Hematocrit 42.0 % (36.0-45.0); Hemoglobin 13.5 g/dL (12.0-15.0); MCH 28.3 pg (27.0-35.0); MCHC 32.2 g/dL (32.0-36.0); MCV 87.8 fL (80-100); MPV 7.4 fL (7.6-11.3); Nucleated RBC Absolute Count 0.0 (0-0); Nucleated Red Blood Cells % 0.1 % (0-0); RBC Red Blood Cell Count 4.78 M/uL (3.86-4.86); White Blood Count 6.40 thou/uL (4.3-10.9)
[2025-01-20 06:52] LABS: AST/SGOT 13 U/L (15-37); Albumin 2.8 g/dL (3.4-5.0); Albumin/Globulin Ratio 0.9 (1.1-1.8); Alkaline Phosphatase 77 U/L (45-117); Anion Gap 5.5 mEq/L (5.0-15.0); BUN Blood Urea Nitrogen 18 mg/dL (7-18); Globulin 3.2 g/dL (2.3-3.5); Glucose Level 188 mg/dL (74-106); Potassium 3.5 mEq/L (3.5-5.1)
[2025-01-20 06:58] LABS: ALT/SGPT < 14 U/L (13-56)
[2025-01-20] MEDS: ARFORMOTEROL TARTRATE 15 MCG/2 ML VIAL.NEB NEB SCH (08:04)
--- NOTE | 2025-01-20 08:07 | P.CNS ---
Date of Consult: 01/20/25 Reason for Consult: COPD exacerbation Chief Complaint: COPD exacerbation History of Present Illness: Patient is 69 years of age well-known to me recurrent hospitalization for COPD exacerbation became worse over the past 2 to 3 days increasing cough shortness of breath patient is compliant with her inhalers at home does not sure what exactly happened patient also has a BiPAP at home Allergies ANGEL Inhibitors Allergy (Severe, Verified 08/24/20 08:25) Anaphylaxis lisinopril Adverse Reaction (Severe, Verified 09/09/23 05:44) Anaphylaxis ARB-Angiotensin Receptor Ant Allergy (Uncoded 08/24/20 08:25) Unknown Home Medications: Albuterol Inhaler [Ventolin Inhaler*] 2 puff IH Q6H PRN 08/24/20 Amlodipine [Norvasc*] 10 mg PO DAILY 08/24/20 Atorvastatin Calcium [Lipitor] 40 mg PO BEDTIME 08/24/20 Fluticasone/Umeclidin/Vilanter [Trelegy Ellipta 100-62.5-25] 1 each IH DAILY 08/24/20 Medroxyprogesterone Acetate [Provera] 2.5 mg PO DAILY 08/24/20 oxyBUTYnin chloride [Ditropan*] 10 mg PO TID 08/24/20 Amitriptyline [Elavil*] 10 mg PO BEDTIME 07/18/23 Baclofen [Lioresal*] 10 mg PO TIDP PRN 07/18/23 Duloxetine HCl [Cymbalta] 60 mg PO DAILY 07/18/23 Metoprolol Succinate [Toprol Xl*] 25 mg PO DAILY 07/18/23 Tizanidine [Zanaflex*] 4 mg PO BID 07/18/23 Theophylline Anhydrous [Theophylline ER] 400 mg PO DAILY 09/09/23 Ipratropium/Albuterol Sulfate [Iprat-Albut 0.5-3(2.5) mg/3 ml] 3 ml IH Q6H PRN #120 amp 07/09/24 Albuterol Sulfate [Albuterol Sulfate 0.083% Neb Soln] 2.5 mg IH Q6H PRN 30 Days #1 box 09/16/24 Ipratropium Neb [Atrovent*] 0.5 mg NEB [id number] PRN 30 Days #1 box 09/16/24 Senosides [Senokot] 2 tab PO DAILY PRN 15 Days #30 tab 09/16/24 predniSONE [Deltasone] 20 mg PO BID 5 Days #10 tab 09/16/24 Oxycodone HCl/Acetaminophen [Percocet 5/325 Tab] 1 tab PO Q24H PRN #20 tab 09/07 05/03 Oxycodone HCl/Acetaminophen [Percocet 5/325 Tab] 1 tab PO Q24H PRN #20 tab 09/17/24 - Past Medical/Surgical History Diabetic: No -: chronic back pain -: copd -: htn -: mi -: 02 at 3l nc prn night time -: GERD -: Colon cancer status post resection -: Cholecystectomy -: Colectomy 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, 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, 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 Medical History: Cancer Sister Medical History: Heart disease, Hypertension, Lung disease, GI disease, Diabetes, Stroke, Kidney disease - Social History Smoking Status: Current every day smoker Alcohol use: No CD- Drugs: No Caffeine use: Yes Review of Systems 10-point ROS is otherwise unremarkable General: Weakness Respiratory: Cough, Shortness of Breath Physical Examination Temp Pulse Resp BP Pulse Ox 98 F 71 16 118/62 97 01/20/25 07:59 01/20/25 07:59 01/20/25 07:59 01/20/25 07:59 01/20/25 07:59 General: Alert, Oriented x3 Respiratory: Clear to auscultation bilaterally, Diminished Cardiovascular: No edema, Regular rate/rhythm, Normal S1 S2 Gastrointestinal: Normal bowel sounds, Soft and benign - Problems (1) Acute and chronic respiratory failure Current Visit: No Status: Acute Plan: Patient is 69 years of age admitted with acute on chronic respiratory failure patient is hypoxic hypercapnic her bicarbonate is significantly elevated started on IV Diamox and IV fluids probably due to contraction alkalosis vital signs are stable
[2025-01-20] MEDS: POTASSIUM CL SA 10 MEQ TAB PO ONE (08:43)
[2025-01-20] MEDS: METOPROLOL XL 25 MG TAB PO SCH (08:43)
[2025-01-20] MEDS: AMLODIPINE 10 MG TAB PO SCH (08:44)
[2025-01-20] MEDS: DULOXETINE 30 MG CAP PO SCH (08:44)
[2025-01-20] MEDS: NA CHLORIDE 0.9% 1,000 ML IV SCH (08:45)
[2025-01-20] MEDS: MEDROXYPROGESTERONE ACETATE PO SCH (08:46)
[2025-01-20] MEDS ORDERED: HOME MED 1 EA UNK (Duloxetine Hcl [Cymbalta] 60 MG Capsule.Dr) PO SCH (09:00)
[2025-01-20] MEDS ORDERED: THEOPHYLLINE ANHYDROUS 400 MG PO SCH (09:00)
[2025-01-20] MEDS ORDERED: THEOPHYLLINE SR 100 MG TAB PO SCH (09:00)
[2025-01-20] MEDS: ACETAZOLAMIDE 500 MG IV IV SCH (10:51)
[2025-01-20] MEDS: HYDROCODONE/APAP 10/325 TAB PO PRN (12:19)
--- NOTE | 2025-01-20 13:28 | P.PN ---
Subjective Date of Service: 01/20/25 Chief Complaint: COPD exacerbation Subjective: C/O voiced (Uncontrolled Hip Pain) Patient was examined while sitting in bed prior to breakfast. Patient states that she feels slightly better with her breathing from yesterday however her pain has not been controlled overnight with current pain regimen. Patient states that hydrocodone 10 325 is what works best for her. Discussed new treatment plan recommended by pulmonology and that patient will stay another night and hopes to discharge tomorrow if symptoms have greatly improved. Review of Systems 10-point ROS is otherwise unremarkable General: Weakness Respiratory: SOB with Excertion Cardiovascular: Orthopnea Musculoskeletal: Other (Right hip pain ) Physical Examination - Vital Signs Temperature: 98 F Blood Pressure: 121/71 Pulse: 98 Respirations: 17 Pulse Ox (%): 96 - Physical Exam General: Alert, In no apparent distress HEENT: Atraumatic, PERRLA, EOMI Neck: Supple, JVD not distended Respiratory: Diminished, Expiratory wheezes Cardiovascular: Regular rate/rhythm, Normal S1 S2 Capillary refill: <2 Seconds Gastrointestinal: Normal bowel sounds, No tenderness Musculoskeletal: No tenderness Integumentary: No rashes Neurological: Normal speech, Normal tone, Normal affect Lymphatics: No axilla or inguinal lymphadenopathy Assessment And Plan - Plan COPD exacerbation Pulmonary edema - Initial labs BNP 344, ABG with pCO2 of 80, CO2 43, WBC 4.2, PLT 149, continue to monitor - Required BiPAP while in the ED, weaned to 5 L nasal cannula at 94% prior to admission to medicine floor - DuoNeb every 4 hours scheduled for now - IV methylprednisone 40 mg Q8h - Strep/COVID/flu; negative -Continue home tamsulosin 0.4 mg once daily - home med theophylline discontinued by pulmonology - Chest x-ray with pulmonary edema - Continue to monitor respiratory status close - CPAP at night and baseline O2 3 L nasal cannula. Wean oxygen as tolerated to baseline - Pulmonology consulted with recommendations for Diamox, Brovana, and IV fluids probably; due to contraction alkalosis History of hypertension - Continue home amlodipine and metoprolol - Monitor blood pressure per unit protocol - Cardiac diet History of chronic back/right hip pain - Patient reports hydrocodone/acetaminophen, baclofen and tizanidine, cymbalta, at home, continue all as needed for now - Monitor for oversedation - Reports needing a hip replacement - PT/OT consulted; OT recs for home with home health. PT recs pending Elevated blood sugar - Patient received IV steroids while in the ED - Moderate sliding scale for now as patient remains on IV steroids Overactive bladder with incontinence - Continue home med oxybutynin - Continue external catheter/PureWick, if needed DVT Ppx: SCD's/Ambulation for now- Hx of GI bleeding and anemia Code Status: Full code Discharge Plan: Home Plan to discharge in: 48 Hours - Code Status/Comfort Care Code Status Assessed: Yes (Full code) Critical Care: No Time Spent Managing PTS Care (In Minutes): 26
[2025-01-20] MEDS: HYDROCODONE/APAP 10/325 TAB PO SCH (17:54)
[2025-01-21 05:54] LABS: Absolute Lymphocytes (CBC) 0.5 K/uL (0.7-4.9); Hematocrit 44.9 % (36.0-45.0); Hemoglobin 14.3 g/dL (12.0-15.0); MCH 28.3 pg (27.0-35.0); MCHC 31.8 g/dL (32.0-36.0); MCV 89.0 fL (80-100); MPV 9.0 fL (7.6-11.3); Nucleated RBC Absolute Count 0.0 (0-0); Nucleated Red Blood Cells % 0.1 % (0-0); RBC Red Blood Cell Count 5.05 M/uL (3.86-4.86); White Blood Count 9.50 thou/uL (4.3-10.9)
[2025-01-21 06:00] LABS: Base Excess, VBG 16.9 mmol/L (-2.0-3.0); O2 Saturation, VBG 57.3 % (40.0-70.0); PH, Venous Blood Gas 7.26 (7.32-7.42); PO2, Venous Blood Gas 35 mmHg (25-40)
[2025-01-21 06:04] LABS: HCO3, Venous Blood Gas 44.0 mmol/L (21.0-29.0); PCO2, Venous Blood Gas 98 mmHg (41-51)
[2025-01-21 06:07] LABS: ALT/SGPT 15.0 U/L (13-56); AST/SGOT 15.0 U/L (15-37); Albumin 3.1 g/dL (3.4-5.0); Albumin/Globulin Ratio 0.9 (1.1-1.8); Alkaline Phosphatase 76.0 U/L (45-117); Anion Gap 4.7 mEq/L (5.0-15.0); BUN Blood Urea Nitrogen 18.0 mg/dL (7-18); Globulin 3.3 g/dL (2.3-3.5); Glucose Level 121.0 mg/dL (74-106); Potassium 3.7 mEq/L (3.5-5.1)
[2025-01-21 09:37] LABS: Blood Morphology Comment NOT SEEN (NOT SEEN); Differential Total Cells Count 100; Segmented Neutrophils 95 % (40-80)
--- NOTE | 2025-01-21 12:52 | P.PN ---
Subjective Date of Service: 01/21/25 Chief Complaint: COPD exacerbation Subjective: No new changes Patient was examined while sitting in bed prior to breakfast. Patient states that she feels slightly better with her breathing from yesterday and pain is better controlled today. Review of Systems 10-point ROS is otherwise unremarkable Respiratory: Shortness of Breath, SOB with Excertion Physical Examination - Vital Signs Temperature: 98.2 F Blood Pressure: 143/75 Pulse: 72 Respirations: 18 Pulse Ox (%): 98 Assessment And Plan - Plan COPD exacerbation Pulmonary edema - Initial labs BNP 344, ABG with pCO2 of 80, CO2 43, WBC 4.2, PLT 149, continue to monitor - Required BiPAP while in the ED, weaned to 5 L nasal cannula at 94% prior to admission to medicine floor - DuoNeb every 4 hours scheduled for now - IV methylprednisone 40 mg Q8h - Strep/COVID/flu; negative -Continue home tamsulosin 0.4 mg once daily - home med theophylline discontinued by pulmonology - Chest x-ray with pulmonary edema - Continue to monitor respiratory status close - CPAP at night and baseline O2 3 L nasal cannula. Wean oxygen as tolerated to baseline - Pulmonology consulted with recommendations for Diamox, Brovana, and IV fluids probably; due to contraction alkalosis History of hypertension - Continue home amlodipine and metoprolol - Monitor blood pressure per unit protocol - Cardiac diet History of chronic back/right hip pain - Patient reports hydrocodone/acetaminophen, baclofen and tizanidine, cymbalta, at home, continue all as needed for now - Monitor for oversedation - Reports needing a hip replacement - PT/OT consulted; OT recs for home with home health. PT recs pending - Consult to SW/CM ordered for Home with home health Elevated blood sugar - Patient received IV steroids while in the ED - Moderate sliding scale for now as patient remains on IV steroids Overactive bladder with incontinence - Continue home med oxybutynin - Continue external catheter/PureWick, if needed DVT Ppx: SCD's/Ambulation for now- Hx of GI bleeding and anemia Code Status: Full code Discharge Plan: Home Plan to discharge in: 24 Hours - Code Status/Comfort Care Code Status Assessed: Yes (Full code) Critical Care: No Time Spent Managing PTS Care (In Minutes): 27
[2025-01-21 14:42] LABS: Base Excess, VBG 8.9 mmol/L (-2.0-3.0); HCO3, Venous Blood Gas 34.8 mmol/L (21.0-29.0); O2 Saturation, VBG 99.0 % (40.0-70.0); PCO2, Venous Blood Gas 66 mmHg (41-51); PH, Venous Blood Gas 7.33 (7.32-7.42); PO2, Venous Blood Gas 142 mmHg (25-40)
[2025-01-22 07:36] LABS: Absolute Lymphocytes (CBC) 0.5 K/uL (0.7-4.9); Hematocrit 42.6 % (36.0-45.0); Hemoglobin 13.7 g/dL (12.0-15.0); MCH 28.5 pg (27.0-35.0); MCHC 32.2 g/dL (32.0-36.0); MCV 88.6 fL (80-100); MPV 8.8 fL (7.6-11.3); Nucleated RBC Absolute Count 0.0 (0-0); Nucleated Red Blood Cells % 0.3 % (0-0); RBC Red Blood Cell Count 4.81 M/uL (3.86-4.86); White Blood Count 6.00 thou/uL (4.3-10.9)
[2025-01-22 07:49] LABS: ALT/SGPT 20 U/L (13-56); Albumin 3.1 g/dL (3.4-5.0); Albumin/Globulin Ratio 1.0 (1.1-1.8); Alkaline Phosphatase 66 U/L (45-117); Anion Gap 5.9 mEq/L (5.0-15.0); BUN Blood Urea Nitrogen 23 mg/dL (7-18); Globulin 3.0 g/dL (2.3-3.5); Glucose Level 136 mg/dL (74-106); Potassium 3.9 mEq/L (3.5-5.1)
[2025-01-22 07:50] LABS: AST/SGOT < 10 U/L (15-37)
[2025-01-22 08:22] VITALS: O2SAT 32
--- NOTE | 2025-01-22 08:46 | P.DS ---
Admission Date: 01/20/25 Discharge Date: 01/22/25 Reason for Admission: COPD exacerbation Brief History of Present Illness: 69-year-old female with a past medical history of COPD, [place], hypertension, chronic back pain, and GERD who was admitted for a COPD exacerbation with pulmonary edema. She presented to the emergency department with a one-day history of worsening shortness of breath and an oxygen saturation drop below her baseline of 92%. Initial workup revealed a pCO2 of 80, elevated BNP of 344, and chest x-ray findings of pulmonary edema. Hospital Course: During patients hospitalization, she required BiPAP initially and was weaned to baseline o2 @ 3 L nasal cannula during the day and BIPAP at night. Treatment included scheduled DuoNeb nebulizers and IV methylprednisone. Management of her chronic conditions continued, including home medications for hypertension, chronic pain, and overactive bladder. Due to steroid-induced hyperglycemia, she was started on a moderate sliding scale insulin regimen, however this will not be continued outpatient as patient had steriods discontinued. Physical and occupational therapy were consulted for her chronic back and hip pain and she was offered home health services but declined this offer. A pulmonology consultation resulted in a recommendation to discontinue theophylline and to start Diamox 250 mg daily as an outpatient. <Charlene Wilson - Last Filed: 01/22/25 08:42> Admission Date: 01/20/25 Discharge Date: 01/25/25 Hospital Course: Diagnosis COPD exacerbation Acute diastolic heart failure History of hypertension History of chronic back/right hip pain Elevated blood sugar Overactive bladder with incontinence <ayden robins - Last Filed: 01/25/25 18:33> Disposition: ROUTINE DISCHARGE Discharge Condition: GOOD Vital Signs/Physical Exam: Temp Pulse Resp BP Pulse Ox 98.3 F 68 14 119/60 99 01/22/25 08:00 01/22/25 08:00 01/22/25 08:00 01/22/25 08:00 01/22/25 08:00 General: Alert, In no apparent distress HEENT: Atraumatic, PERRLA, EOMI Neck: Supple, JVD not distended Respiratory: Normal air movement, Diminished, Other (On 3 L nasal cannula) Cardiovascular: No edema, Regular rate/rhythm, Normal S1 S2 Capillary refill: <2 Seconds Gastrointestinal: Normal bowel sounds, No tenderness Musculoskeletal: No tenderness Integumentary: No rashes Neurological: Normal speech, Normal tone, Normal affect Lymphatics: No axilla or inguinal lymphadenopathy Laboratory Data at Discharge: WBC 6.00 thou/uL (4.3-10.9) 01/22/25 07:21 Hgb 13.7 g/dL (12.0-15.0) 01/22/25 07:21 Hct 42.6 % (36.0-45.0) 01/22/25 07:21 Plt Count 169 thou/uL (152-406) 01/22/25 07:21 PT 13.2 SECONDS (10-13.0) H 01/19/25 11:08 INR 1.17 01/19/25 11:08 Sodium 141 mEq/L (136-145) 01/22/25 07:21 Potassium 3.9 mEq/L (3.5-5.1) 01/22/25 07:21 BUN 23 mg/dL (7-18) H 01/22/25 07:21 Creatinine 0.53 mg/dL (0.55-1.02) L 01/22/25 07:21 Glucose 136 mg/dL (74-106) H 01/22/25 07:21 Magnesium 2.1 mg/dL (1.6-2.4) 01/19/25 02:58 Total Bilirubin 0.2 mg/dL (0.2-1.0) 01/22/25 07:21 AST < 10 U/L (15-37) L 01/22/25 07:21 ALT 20 U/L (13-56) 01/22/25 07:21 Alkaline Phosphatase 66 U/L (45-117) 01/22/25 07:21 <Charlene Wilson - Last Filed: 01/22/25 08:42> Vital Signs/Physical Exam: Temp Pulse Resp BP Pulse Ox 98.1 F 70 16 108/56 L 99 01/22/25 12:00 01/22/25 12:00 01/22/25 12:00 01/22/25 12:00 01/22/25 12:00 Laboratory Data at Discharge: WBC 6.00 thou/uL (4.3-10.9) 01/22/25 07:21 Hgb 13.7 g/dL (12.0-15.0) 01/22/25 07:21 Hct 42.6 % (36.0-45.0) 01/22/25 07:21 Plt Count 169 thou/uL (152-406) 01/22/25 07:21 PT 13.2 SECONDS (10-13.0) H 01/19/25 11:08 INR 1.17 01/19/25 11:08 Sodium 141 mEq/L (136-145) 01/22/25 07:21 Potassium 3.9 mEq/L (3.5-5.1) 01/22/25 07:21 BUN 23 mg/dL (7-18) H 01/22/25 07:21 Creatinine 0.53 mg/dL (0.55-1.02) L 01/22/25 07:21 Glucose 136 mg/dL (74-106) H 01/22/25 07:21 Magnesium 2.1 mg/dL (1.6-2.4) 01/19/25 02:58 Total Bilirubin 0.2 mg/dL (0.2-1.0) 01/22/25 07:21 AST < 10 U/L (15-37) L 01/22/25 07:21 ALT 20 U/L (13-56) 01/22/25 07:21 Alkaline Phosphatase 66 U/L (45-117) 01/22/25 07:21 <ayden robins - Last Filed: 01/25/25 18:33> Diet: Diabetic Activity: No restrictions <Charlene Wilson - Last Filed: 01/22/25 08:42> <ayden robins - Last Filed: 01/25/25 18:33> Home Medications: Albuterol Inhaler [Ventolin Inhaler*] 2 puff IH Q6H PRN 08/24/20 Amlodipine [Norvasc*] 10 mg PO DAILY 08/24/20 Fluticasone/Umeclidin/Vilanter [Trelegy Ellipta 100-62.5-25] 1 each IH DAILY 08/24/20 Medroxyprogesterone Acetate [Provera] 2.5 mg PO DAILY 08/24/20 oxyBUTYnin chloride [Ditropan*] 10 mg PO TID 08/24/20 Amitriptyline [Elavil*] 10 mg PO BEDTIME 07/18/23 Duloxetine HCl [Cymbalta] 60 mg PO DAILY 07/18/23 Tizanidine [Zanaflex*] 4 mg PO BID 07/18/23 Ipratropium/Albuterol Sulfate [Iprat-Albut 0.5-3(2.5) mg/3 ml] 3 ml IH Q6H PRN #120 amp 07/09/24 Oxycodone HCl/Acetaminophen [Percocet 5/325 Tab*] 1 tab PO Q24H PRN #20 tab 09/17/24 Hydrocodone Bit/Acetaminophen [Hydrocodon-Acetaminophn 10-325] 1 tab PO TIDP PRN 01/24/25 Albuterol Neb [Proventil 0.083% Neb Soln] 2.5 mg NEB [id number] amp 01/25/25 acetaZOLAMIDE [Acetazolamide] 250 mg PO BID #30 tab 01/25/25 predniSONE [Deltasone] 20 mg PO BID 5 Days #10 tab 01/25/25 Physician Discharge Instructions: Patient to follow-up with pulmonology within 3 to 5 days. Continue with home oxygen. Continue with new medication Diamox. Monitor respiratory status/oxygenation at home. Followup: Jayden José MD [ACTIVE - CAN ADMIT] - 1 Week Gerald Thurston DO [Primary Care Provider] -
[2025-01-22 12:09] VITALS: BP 108/56; TEMP 98.1
== END 2025-01-22 16:24 | disposition home or self-care (01) | DRG 291 ==
LOC: ER 02:22 → ERHOLD 08:54 → 4TH 10:03 → OBSVTOIN 01-20 18:43
PROVIDERS: ADMIT Hospitalist; ATTEND Internal Medicine
PROC: 4A033R1 Measurement of Arterial Saturation, Peripheral, Percutaneous Approach (ICD-10-PCS; principal; 2025-01-20)
DX: I11.0 Hypertensive heart disease with heart failure (principal); I50.31 Acute diastolic (congestive) heart failure; J96.21 Acute and chronic respiratory failure with hypoxia; J96.22 Acute and chronic respiratory failure with hypercapnia; J44.1 Chronic obstructive pulmonary disease with (acute) exacerbation; E87.3 Alkalosis; N32.81 Overactive bladder; M25.551 Pain in right hip; G89.29 Other chronic pain; M54.9 Dorsalgia, unspecified; K21.9 Gastro-esophageal reflux disease without esophagitis; I25.2 Old myocardial infarction; F17.200 Nicotine dependence, unspecified, uncomplicated; R32 Unspecified urinary incontinence; R73.9 Hyperglycemia, unspecified; T38.0X5A Adverse effect of glucocorticoids and synthetic analogues, initial encounter; Z88.8 Allergy status to other drugs, medicaments and biological substances; Z11.52 Encounter for screening for COVID-19; Z79.52 Long term (current) use of systemic steroids; Z90.49 Acquired absence of other specified parts of digestive tract; Z79.899 Other long term (current) drug therapy; Z85.038 Personal history of other malignant neoplasm of large intestine
CPT/HCPCS: 36415; 36600; 71045; 80048; 80053; 80076; 82803; 82805; 82947; 83605; 83735; 83880; 84484; 85025; 85610; 87070; 87428; 93005; 94640; 94760; 96361; 96365; 96375; 97116; 97161; 97165; 97530; 99285; G0378; J1120; J1815; J1885; J2919; J3010; J3475; J7030; J7040; J7605; J7613; J7614; J7644

== ENCOUNTER 2025-01-24 15:22 | Inpatient (IN) | payer OTHER ==
--- NOTE | 2025-01-24 15:54 | RAD REPORT ---
EXAMINATION: ONE VIEW CHEST XR CLINICAL INDICATION: DYSPNEA TECHNIQUE: Frontal chest projection is submitted. Examination is limited by patient positioning and t echnique. COMPARISON: 01/19/2025 FINDINGS: Mild/moderate bilateral pulmonary opacities may represent pulmonary edema. The heart is moderately en larged. Trace left pleural effusion. No displaced fractures identified. IMPRESSION: Moderate CHF versus volume overload pattern.
[2025-01-24] MEDS ORDERED: ALBUTEROL 2.5 MG/3 ML NEB SOL ONE ×2 (16:19→16:23)
[2025-01-24] MEDS ORDERED: IPRATROPIUM BROM 0.5MG/2.5ML ONE (16:23)
[2025-01-24 17:06] LABS: Absolute Lymphocytes (CBC) 1.0 K/uL (0.7-4.9); Hematocrit 44.0 % (36.0-45.0); Hemoglobin 14.1 g/dL (12.0-15.0); MCH 28.5 pg (27.0-35.0); MCHC 32.1 g/dL (32.0-36.0); MCV 88.6 fL (80-100); MPV 7.8 fL (7.6-11.3); Nucleated RBC Absolute Count 0.0 (0-0); Nucleated Red Blood Cells % 0.2 % (0-0); RBC Red Blood Cell Count 4.97 M/uL (3.86-4.86); White Blood Count 5.10 thou/uL (4.3-10.9)
[2025-01-24 17:35] LABS: ALT/SGPT 56.0 U/L (13-56); Albumin 2.8 g/dL (3.4-5.0); Albumin/Globulin Ratio 0.8 (1.1-1.8); Alkaline Phosphatase 67.0 U/L (45-117); Anion Gap 4.5 mEq/L (5.0-15.0); BUN Blood Urea Nitrogen 13.0 mg/dL (7-18); Globulin 3.3 g/dL (2.3-3.5); Glucose Level 105.0 mg/dL (74-106); NT PRO-BNP 242.0 pg/mL (<125); Troponin High Sensitivity 38.1 pg/mL (<58.9)
[2025-01-24 17:36] LABS: AST/SGOT 52.0 U/L (15-37); Potassium 4.5 mEq/L (3.5-5.1)
[2025-01-24 17:59] LABS: PT Prothrombin Time 13.3 SECONDS (10-13.0); PTT, Activated Partial Thromb 28.2 SECONDS (27.2-37.4); Protime INR 1.18
--- NOTE | 2025-01-24 18:40 | RAD REPORT ---
EXAM: CT CHEST, ABDOMEN WITH CONTRAST CLINICAL INDICATION: abd pain, nausea;Dyspnea TECHNIQUE: CT chest, abdomen and pelvis was performed, following the administration of contrast, as p er department protocol. Axial, sagittal and coronal reconstructions were obtained. One or more of the following dose reduction techniques were used: Automated exposure control, adjustment of the mA a nd/or kV according to patient size, and/or iterative reconstruction. Unless otherwise specified, incidental findings do not require dedicated imaging follow-up. COMPARISON: No prior exam. FINDINGS: LUNGS: Diffuse emphysema is present. Linear atelectasis in both lung bases, greater on the right. PLEURA: No pleural effusion. No pneumothorax. MEDIASTINUM AND LYMPH NODES: No mediastinal mass or fluid collection. Normal size mediastinal, hilar, and axillary lymph nodes. OSSEOUS STRUCTURES AND CHEST WALL: Intact. LIVER: The liver demonstrates mild fatty infiltration. No focal lesion or biliary dilatation is seen. Cholecystectomy clips. PANCREAS: No mass, ductal dilation, or joss-pancreatic fluid. SPLEEN: Normal size. No focal lesion. ADRENALS: Normal; no mass. KIDNEYS: Small calculi are present in both kidneys. No hydronephrosis. Bilateral renal lesions which are either benign in appearance or too small to accurately characterize but statistically benign. Large 6 cm cyst anterior right kidney. GASTROINTESTINAL TRACT: No bowel obstruction, free air, significant free fluid or abscess. Postsurg ical changes about the stomach. LYMPH NODES: No lymphadenopathy. MUSCULOSKELETAL: Mild lumbar levoscoliosis. OTHER: Aortoiliac atherosclerosis. IMPRESSION: No acute abnormalities seen in the chest or abdomen.
--- NOTE | 2025-01-24 18:51 | ER ---
Nurse's Notes [facility] Name: Iman Huggins Age: 69 yrs Sex: Female : 1955 Arrival Date: 01/24/2025 Time: 15:22 Bed 4 Private MD: Diagnosis: Dyspnea;Acute and chronic respiratory failure with hypercapnia Presentation: 01/24 15:28 Chief complaint: Patient states: she was discharged from the hospital 2 days ago for me1 COPD exacerbation and is becoming more SOB again. Reports nausea and diarrhea that started last night. Coronavirus screen: Vaccine status: Patient reports receiving the 2nd dose of the covid vaccine. Ebola Screen: No symptoms or risks identified at this time. Initial Sepsis Screen: Does the patient meet any 2 criteria? No. Patient's initial sepsis screen is negative. Does the patient have a suspected source of infection? No. Patient's initial sepsis screen is negative. Risk Assessment: Do you want to hurt yourself or someone else? Patient reports no desire to harm self or others. Onset of symptoms was January 23, 2025. 15:28 Method Of Arrival: Wheelchair me1 15:28 Acuity: RAD 3 me1 Historical: - Allergies: 15:31 ANGEL INHIBITORS; me1 15:31 ARB-Angiotensin Receptor Antagonist; me1 15:31 Lisinopril; me1 - PMHx: 15:31 chronic back pain; COPD; Hypertension; Myocardial infarction; me1 - PSHx: 15:31 Cholecystectomy; colon cancer tumor removal; RT HIP SX; me1 - Immunization history:: Adult Immunizations up to date. - Infectious Disease History:: Denies. - Social history:: Smoking status: Patient/guardian denies using tobacco, but has a distant history of tobacco abuse. Screenin:42 Abuse screen: Denies threats or abuse. Nutritional screening: No deficits noted. ap3 Tuberculosis screening: No symptoms or risk factors identified. 21:59 [facility] ED Fall Risk Assessment (Adult) History of falling in the last 3 months, cp4 including since admission No falls in past 3 months (0 pts) Confusion or Disorientation No (0 pts) Intoxicated or Sedated No (0 pts) Impaired Gait No (0 pts) Mobility Assist Device Used No (0 pt) Altered Elimination No (0 pt) Score/Fall Risk Level 0 - 2 = Low Risk Oriented to surroundings, Maintained a safe environment, Assessed \T\ reinforced patient's understanding of fall precautions, Hourly rounding (assess needs \T\ fall precautionary measures) done. Assessment: 16:41 General: Appears in no apparent distress. Behavior is calm, cooperative, appropriate ap3 for age. Pain: Complains of pain in generalized pain. Neuro: Level of Consciousness is awake, alert, obeys commands, Oriented to person, place, time, situation, Appropriate for age. Cardiovascular: Patient's skin is warm and dry. Respiratory: Reports shortness of breath since one week Airway is patent. 17:27 Reassessment: Pt cleaned of loose stool, brown stool that is mucus like noted, clean aa5 brief applied. . Neuro: Level of Consciousness is awake, alert, obeys commands, Oriented to person, place, time, situation. Respiratory: Airway is patent Respiratory effort is even, unlabored, Respiratory pattern is regular, symmetrical. Derm: Skin is dry, Skin is normal, Skin temperature is warm. 19:15 Reassessment: Patient appears in no apparent distress at this time. No changes from cp4 previously documented assessment. Patient and/or family updated on plan of care and expected duration. Pain level reassessed. Patient is alert, oriented x 3, equal unlabored respirations, skin warm/dry/pink. Cardiovascular: Rhythm is sinus rhythm. Respiratory: Breath sounds are clear bilaterally. Vital Signs: 15:28 BP 141 / 59; Pulse 83; Resp 22; Temp 98.6; Pulse Ox 99% on 6 lpm NC; Weight 96.62 kg; me1 Height 5 ft. 4 in. ; Pain 7/10; 16:41 BP 129 / 62; Pulse 82; Resp 19; Pulse Ox 99% on Nebulizer Mask; ap3 19:00 BP 136 / 57; Pulse 81; Resp 18; Pulse Ox 97% on 2 lpm NC; af3 20:00 BP 137 / 60; Pulse 85; Resp 18; Pulse Ox 97% on 2 lpm NC; af3 21:00 BP 136 / 58; Pulse 84; Resp 19; Pulse Ox 97% on 2 lpm NC; cp4 15:28 Body Mass Index 36.56 (96.62 kg, 162.56 cm) nd1 15:28 Pain Scale: Adult nd1 ED Course: 15:26 Patient arrived in ED. im 15:27 Brown, Luisa, PA-C [facility]. sb4 15:27 Usman Vazquez MD is Attending Physician. sb4 15:31 Triage completed. me1 15:31 Arm band placed on Patient placed in waiting room. me1 15:49 Chest Single View XRAY In Process Unspecified. EDMS 16:39 Initial lab(s) drawn, by me, sent to lab. Inserted saline lock: 22 gauge in right ap3 wrist, using aseptic technique. Blood collected. Flushed with 10 mL NS. 16:42 Patient has correct armband on for positive identification. Bed in low position. Call ap3 light in reach. Side rails up X2. Provided Education on: medications prior to administration . Door closed. Noise minimized. 17:25 One-on-one care X 30 minutes. kb4 18:16 Chest Abdomen W/ Con CT In Process Unspecified. EDMS 18:51 William Villarreal MD is Hospitalizing Provider. sb4 21:59 No provider procedures requiring assistance completed. Patient admitted, IV remains in cp4 place. Administered Medications: 16:40 Drug: DuoNeb Nebulize (3:1) (2.5 mg - 0.5 mg) 3 ml Nebulizer once Route: Nebulizer; ap3 17:24 Follow up: Response: No adverse reaction kb4 19:25 Drug: Furosemide IVP 20 mg IVP once; give over 2 minutes Route: IVP; Site: right wrist; cp4 20:02 Follow up: Response: No adverse reaction cp4 Medication: 21:59 VIS not applicable for this client. cp4 Outcome: 18:51 Decision to Hospitalize by Provider. sb4 21:59 Admitted to Med/surg accompanied by tech, via stretcher, room 210, with oxygen, with cp4 chart, 21:59 Condition: stable 21:59 Instructed on the need for admit, 22:01 Patient left the ED. cp4 Signatures: Dispatcher [employer] EDTN Geetha Carmen, URSULA RN aa5 Hemalatha Cedeño RN RN ap3 Luisa Saunders PA-C PA-C sb4 Priti Tang Chantelle Mancini RN RN me1 Aracelis Johnson cp4 Sakina Rockwell RN RN af3 Linda Loza RN RN kb4 Corrections: (The following items were deleted from the chart) 16:59 16:10 Linda Loza RN is Primary Nurse. kb4 kb4
--- NOTE | 2025-01-24 18:51 | EDPHYS ---
Physician Documentation [facility] Name: Iman Huggins Age: 69 yrs Sex: Female : 1955 Arrival Date: 01/24/2025 Time: 15:22 Bed 4 Private MD: ED Physician Usman Vazquez HPI: 01/24 15:44 This 69 yrs old Black Female presents to ER via Wheelchair with complaints of Shortness sb4 Of Breath. 15:44 Patient presents today with complaints of shortness of breath, nausea, and right hip sb4 pain. States that she was recently hospitalized for COPD exacerbation, daughter states the only medication changed was acetazolamide. Was not treated with any antibiotics or steroids. Patient states that she was feeling better on discharge but started feeling worse yesterday. Does wear oxygen at home, BiPAP at night, and takes hydrocodone 3 times daily for her chronic pain. Historical: - Allergies: 15:31 ANGEL INHIBITORS; me1 15:31 ARB-Angiotensin Receptor Antagonist; me1 15:31 Lisinopril; me1 - PMHx: 15:31 chronic back pain; COPD; Hypertension; Myocardial infarction; me1 - PSHx: 15:31 Cholecystectomy; colon cancer tumor removal; RT HIP SX; me1 - Immunization history:: Adult Immunizations up to date. - Infectious Disease History:: Denies. - Social history:: Smoking status: Patient/guardian denies using tobacco, but has a distant history of tobacco abuse. ROS: 15:44 Constitutional: Negative for fever, chills, and weight loss, sb4 15:44 Respiratory: Positive for dyspnea on exertion, shortness of breath, at rest. 15:44 Abdomen/GI: Positive for nausea, 15:44 All other systems are negative, Exam: 16:06 Head/Face: Normocephalic, atraumatic. Eyes: Extra-ocular motions intact. Periorbital sb4 areas with no swelling, redness, or edema. ENT: Mucous membranes moist. Cardiovascular: Regular rate and rhythm with a normal S1 and S2. Abdomen/GI: Soft, non-tender, no distension. Skin: Warm, dry with normal turgor. Normal color with no rashes, no lesions, and no evidence of cellulitis. 16:06 Constitutional: The patient appears in no acute distress, alert, awake, 16:06 Respiratory: the patient does not display signs of respiratory distress, Respirations: tachypnea, that is mild, Breath sounds: rales, that are moderate, are located in both bases, Vital Signs: 15:28 BP 141 / 59; Pulse 83; Resp 22; Temp 98.6; Pulse Ox 99% on 6 lpm NC; Weight 96.62 kg; me1 Height 5 ft. 4 in. ; Pain 7/10; 16:41 BP 129 / 62; Pulse 82; Resp 19; Pulse Ox 99% on Nebulizer Mask; ap3 19:00 BP 136 / 57; Pulse 81; Resp 18; Pulse Ox 97% on 2 lpm NC; af3 20:00 BP 137 / 60; Pulse 85; Resp 18; Pulse Ox 97% on 2 lpm NC; af3 21:00 BP 136 / 58; Pulse 84; Resp 19; Pulse Ox 97% on 2 lpm NC; cp4 15:28 Body Mass Index 36.56 (96.62 kg, 162.56 cm) me1 15:28 Pain Scale: Adult me1 MDM: 15:27 Medical Screening Exam initiated sb4 16:07 Differential diagnosis: asthma, Bronchitis CHF exacerbation, Chronic Obstructive sb4 Pulmonary Disease pneumonia, pulmonary edema. 18:51 Antibiotic administration: Not indicated, the patient does not have an appreciated sb4 infiltrate. Data reviewed: vital signs, nurses notes, lab test result(s), EKG, radiologic studies, and as a result, I will admit patient. Consideration of Admission/Observation Patient was admitted/placed on observation. Historians other than the Patient: Daughter/Son: daughter. Counseling: I had a detailed discussion with the patient and/or guardian regarding the historical points, exam findings, and any diagnostic results supporting the discharge/admit diagnosis, lab results, radiology results, the need for further work-up and treatment in the hospital. 01/24 15:39 Order name: BNP; Complete Time: 17:36 sb4 01/24 15:39 Order name: Blood Culture Adult (2) sb4 01/24 15:39 Order name: CBC with Diff; Complete Time: 17:11 sb4 01/24 15:39 Order name: CMP; Complete Time: 17:36 sb4 01/24 15:39 Order name: Lactate w/ 2H reflex if indic.; Complete Time: 17:36 sb4 01/24 15:39 Order name: Protime (+inr); Complete Time: 18:01 sb4 01/24 15:39 Order name: Ptt, Activated; Complete Time: 18:01 sb4 01/24 15:39 Order name: Troponin HS; Complete Time: 17:36 sb4 01/24 18:52 Order name: UA Rfx Melquiades Cult if indicated; Complete Time: 20:07 sb4 01/24 20:00 Order name: CBC with Automated Diff EDMS 01/24 20:00 Order name: CBC with Automated Diff EDMS 01/24 20:00 Order name: Comprehensive Metabolic Panel EDMS 01/24 20:00 Order name: Comprehensive Metabolic Panel EDMS 01/24 15:39 Order name: Chest Single View XRAY; Complete Time: 15:56 sb4 01/24 17:36 Order name: Chest Abdomen W/ Con CT; Complete Time: 18:41 sb4 01/24 15:39 Order name: Accucheck; Complete Time: 16:40 sb4 01/24 15:39 Order name: Cardiac monitoring; Complete Time: 16:17 sb4 01/24 15:39 Order name: EKG - Nurse/Tech; Complete Time: 16:17 sb4 01/24 15:39 Order name: IV Saline Lock - Large Bore; Complete Time: 16:40 sb4 01/24 15:39 Order name: Labs collected and sent; Complete Time: 16:40 sb4 01/24 15:39 Order name: O2 Per Protocol; Complete Time: 16:17 sb4 01/24 15:39 Order name: O2 Sat Monitoring; Complete Time: 16:17 sb4 01/24 15:39 Order name: Vital Signs; Complete Time: 15:55 sb4 EC:24 Rate is 80 beats/min. Rhythm is regular, Sinus Rhythm. LA interval is normal at 157 sb4 msec. QRS interval is normal at 81 msec. QT interval is normal at 360 msec. No Q waves. T waves are Normal. No ST changes noted. Clinical impression: No evidence of ischemia. Interpreted by me. Reviewed by me. Administered Medications: 16:40 Drug: DuoNeb Nebulize (3:1) (2.5 mg - 0.5 mg) 3 ml Nebulizer once Route: Nebulizer; ap3 17:24 Follow up: Response: No adverse reaction kb4 19:25 Drug: Furosemide IVP 20 mg IVP once; give over 2 minutes Route: IVP; Site: right wrist; 4 20:02 Follow up: Response: No adverse reaction cp4 Disposition Summary: 01/24/25 18:51 Hospitalization Ordered Notes: Hospitalization Status: Inpatient Admission sb4 Provider: William Villarreal Location: Telemetry/MedSurg (Inpatient) sb4 Condition: Fair sb4 Problem: new sb4 Symptoms: are unchanged sb4 Bed/Room Type: Standard sb4 Room Assignment: 210(01/24/25 20:32) kmf Diagnosis - Dyspnea sb4 - Acute and chronic respiratory failure with hypercapnia sb4 Forms: - Medication Reconciliation Form sb4 - SBAR form sb4 - Leadership Thank You Letter sb4 Signatures: Dispatcher [employer] EDMS Hemalatha Cedeño, RN RN ap3 Luisa Saunders PA-C PALeander sb4 Chantelle Mancini RN RN me1 Aracelis Johnson cp4 Salma Torre [facility] Linda Loza RN kb4 Corrections: (The following items were deleted from the chart) 15:40 15:40 PROBNP+C.LAB.BRZ ordered. EDMS EDMS 15:40 15:40 BLOOD CULTURE*+BA.LAB.BRZ ordered. EDMS EDMS 15:40 15:40 CBC+H.LAB.BRZ ordered. EDMS EDMS 15:40 15:40 COMPREHENSIVE METABOLIC PANEL+C.LAB.BRZ ordered. EDMS EDMS 15:40 15:40 LACTATE+C.LAB.BRZ ordered. EDMS EDMS 15:40 15:40 PROTIME (+INR)+COAG.LAB.BRZ ordered. EDMS EDMS 15:40 15:40 PTT, ACTIVATED+COAG.LAB.BRZ ordered. EDMS EDMS 15:40 15:40 Troponin High Sensitivity+C.LAB.BRZ ordered. EDMS EDMS 15:40 15:40 Chest Single View+RAD.RAD.BRZ ordered. EDMS EDMS 20:05 18:51 sb4 kmf 20:31 20:05 201 kmf kmf 20:32 20:31 211 kmf kmf
[2025-01-24] MEDS ORDERED: FUROSEMIDE 20 MG/ 2ML VIAL ONE (19:19)
[2025-01-24] MEDS ORDERED: ONDANSETRON 4 MG/2 ML VIAL IV PRN (19:53)
[2025-01-24] MEDS ORDERED: ALBUTEROL 2.5 MG/3 ML NEB SOL NEB PRN (19:53)
[2025-01-24] MEDS ORDERED: ACETAMINOPHEN 325 MG TABLET PO PRN (19:53)
--- NOTE | 2025-01-24 19:53 | P.HP ---
Certification for Inpatient Patient admitted to: Inpatient With expected LOS: >2 Midnights Practitioner: I am a practitioner with admitting privileges, knowledge of patient current condition, hospital course, and medical plan of care. Services: Services provided to patient in accordance with Admission requirements found in Title 42 Section 412.3 of the Code of Federal Regulations Patient History Date of Service: 01/24/25 Reason for admission: SOB History of Present Illness: 69-year-old female with past medical history of COPD, CAD s/p [place], hypertension, chronic back pain, and GERD who presents with worsening shortness of breath . Patient reports that she typically uses 3 L nasal cannula at home during the day . Patient was recently admitted to the hospital, started having shortness of breath which was progressively worsening and was brought back to the ER. Denies any fever or chills. No nausea vomiting or diarrhea Patient was assessed in the ER and is admitted for further management of COPD exacerbation and CHF . Allergies ANGEL Inhibitors Allergy (Severe, Verified 08/24/20 08:25) Anaphylaxis lisinopril Adverse Reaction (Severe, Verified 09/09/23 05:44) Anaphylaxis ARB-Angiotensin Receptor Ant Allergy (Uncoded 08/24/20 08:25) Unknown Home medications list reviewed: Yes Home Medications: Albuterol Inhaler [Ventolin Inhaler*] 2 puff IH Q6H PRN 08/24/20 Amlodipine [Norvasc*] 10 mg PO DAILY 08/24/20 Fluticasone/Umeclidin/Vilanter [Trelegy Ellipta 100-62.5-25] 1 each IH DAILY 08/24/20 Medroxyprogesterone Acetate [Provera] 2.5 mg PO DAILY 08/24/20 oxyBUTYnin chloride [Ditropan*] 10 mg PO TID 08/24/20 Amitriptyline [Elavil*] 10 mg PO BEDTIME 07/18/23 Duloxetine HCl [Cymbalta] 60 mg PO DAILY 07/18/23 Tizanidine [Zanaflex*] 4 mg PO BID 07/18/23 Ipratropium/Albuterol Sulfate [Iprat-Albut 0.5-3(2.5) mg/3 ml] 3 ml IH Q6H PRN #120 amp 07/09/24 Oxycodone HCl/Acetaminophen [Percocet 5/325 Tab*] 1 tab PO Q24H PRN #20 tab 09/17/24 acetaZOLAMIDE [Acetazolamide] 250 mg PO DAILY #30 tab 01/22/25 Hydrocodone Bit/Acetaminophen [Hydrocodon-Acetaminophn 10-325] 1 tab PO TIDP PRN 01/24/25 - Past Medical/Surgical History Diabetic: No Past Medical History: Reviewed- Non-Contributory -: chronic back pain -: copd -: htn -: mi -: 02 at 3l nc prn night time -: GERD -: Colon cancer status post resection Past Surgical History: Reviewed- Non-Contributory -: Cholecystectomy -: Colectomy 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, 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, 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 History Family History: Reviewed- Non-Contributory - Family History Mother -: Cancer Sister -: Heart disease, Hypertension, Lung disease, GI disease, Diabetes, Stroke, Kidney disease - Social History Smoking Status: Former smoker Alcohol use: No CD- Drugs: No Caffeine use: Yes Review of Systems 10-point ROS is otherwise unremarkable Physical Examination - Vital Signs Temperature: 97.7 F Blood Pressure: 137/60 Pulse: 86 Respirations: 17 Pulse Ox (%): 94 - Physical Exam General: Alert, Oriented x3, Mild distress HEENT: Atraumatic, Normocephalic Neck: Supple Respiratory: Diminished, Crackles/rales, Expiratory wheezes Cardiovascular: Regular rate/rhythm, Normal S1 S2 Capillary refill: <2 Seconds Gastrointestinal: Soft and benign, W/out hepatosplenomegaly Musculoskeletal: No clubbing, No swelling Integumentary: No rashes Neurological: Other (Alert , Awake , Non focal ) Lymphatics: No axilla or inguinal lymphadenopathy - Studies Laboratory Data (last 24 hrs) 01/24/25 01/24/25 01/24/25 16:32 16:32 16:32 WBC 5.10 Hgb 14.1 Hct 44.0 Plt Count 172 PT 13.3 H INR 1.18 APTT 28.2 Sodium 143 Potassium 4.5 BUN 13 Creatinine 0.58 Glucose 105 Total Bilirubin 0.5 AST 52 H ALT 56 Alkaline Phosphatase 67 Assessment and Plan - Plan 69-year-old [place] female who is being admitted for COPD exacerbation complicated by respiratory failure with CHF exacerbation Acute on chronic respiratory failure COPD exacerbation Diastolic CHF Coronary disease status post PCI Hypertension Tobacco smoking Plan: COPD exacerbation Monitor closely on telemetry Started on bronchodilators Oxygen supplementation Steroids added Chest x-ray findings noted Acute on chronic CHF diastolic Monitor closely on telemetry Started on diuresis Oxygen supplementation Will try to wean down oxygen requirement Continue home medications Titrate as needed CAD Hypertension Antihypertensives titrated Continue home medications and titrate as needed Hyperlipidemia Continue statin GI/DVT prophylaxis Advanced directive full code Discharge Plan: Home Plan to discharge in: 48 Hours - Advance Directives Does patient have a Living Will: No Does patient have a Durable POA for Healthcare: No - Code Status/Comfort Care Code Status: Full Code Time Spent Managing Pts Care (In Minutes): 48
[2025-01-24 20:07] LABS: Sqamous Epithelial None Seen /HPF (None Seen); Urine Crystals Unidentified Few /HPF (None Seen); Urine Culture Reflex Order NOT NEEDED; Urine Microscopic Reflex YN ORDER UMIC
[2025-01-24 21:58] VITALS: BMI 36.5
[2025-01-24] MEDS: TIZANIDINE 4 MG TABLET PO SCH (22:10)
[2025-01-24] MEDS: HYDROCODONE/APAP 10/325 TAB PO PRN (22:32)
[2025-01-24] MEDS: AMITRIPTYLINE 10 MG TAB PO SCH (22:32)
[2025-01-24] MEDS: METHYLPREDNISOLONE 40 MG INJ IV SCH (22:37)
[2025-01-25] MEDS: IPRATROPIUM BROM 0.5MG/2.5ML NEB SCH (00:50)
[2025-01-25] MEDS: ALBUTEROL 2.5 MG/3 ML NEB SOL NEB SCH (00:50)
[2025-01-25 06:31] LABS: Absolute Lymphocytes (CBC) 0.4 K/uL (0.7-4.9); Hematocrit 43.5 % (36.0-45.0); Hemoglobin 14.0 g/dL (12.0-15.0); MCH 28.2 pg (27.0-35.0); MCHC 32.1 g/dL (32.0-36.0); MCV 87.7 fL (80-100); MPV 8.5 fL (7.6-11.3); Nucleated RBC Absolute Count 0.0 (0-0); Nucleated Red Blood Cells % 0.1 % (0-0); RBC Red Blood Cell Count 4.96 M/uL (3.86-4.86); White Blood Count 4.10 thou/uL (4.3-10.9)
[2025-01-25 06:54] LABS: ALT/SGPT 45.0 U/L (13-56); AST/SGOT 17.0 U/L (15-37); Albumin 2.9 g/dL (3.4-5.0); Albumin/Globulin Ratio 1.0 (1.1-1.8); Alkaline Phosphatase 75.0 U/L (45-117); Anion Gap 5.0 mEq/L (5.0-15.0); BUN Blood Urea Nitrogen 11.0 mg/dL (7-18); Globulin 3.0 g/dL (2.3-3.5); Glucose Level 150.0 mg/dL (74-106); Potassium 3.0 mEq/L (3.5-5.1)
[2025-01-25] MEDS: FUROSEMIDE 20 MG/ 2ML VIAL IV ONE ×2 (08:22→09:18)
[2025-01-25] MEDS: METHYLPREDNISOLONE 40 MG INJ IV SCH (09:18)
[2025-01-25] MEDS: ALBUTEROL INHALER 200 PUFF/6.7 GM IH PRN (09:19)
[2025-01-25] MEDS: AMLODIPINE 10 MG TAB PO SCH (09:19)
[2025-01-25] MEDS: DULOXETINE 30 MG CAP PO SCH (09:19)
[2025-01-25] MEDS: acetaZOLAMIDE 250 MG TAB PO SCH (09:19)
[2025-01-25] MEDS: ENOXAPARIN 40 MG/0.4 ML SQ SCH (09:19)
[2025-01-25] MEDS: POTASSIUM CL SA 10 MEQ TAB PO ONE (11:53)
[2025-01-25] MEDS: POTASSIUM 25 MEQ EFFERV TAB ONE (12:04)
[2025-01-25] MEDS: POTASSIUM 25 MEQ EFFERV TAB PO ONE (12:05)
--- NOTE | 2025-01-25 13:44 | P.PN ---
Subjective Date of Service: 01/25/25 Chief Complaint: SOB Subjective: Improving Patient on 3 liter nasal cannula at baseline O2 requirements, endorsing improved shortness of breath. Review of Systems 10-point ROS is otherwise unremarkable Physical Examination - Vital Signs Temperature: 98.0 F Blood Pressure: 129/71 Pulse: 80 Respirations: 16 Pulse Ox (%): 98 - Physical Exam General: Alert, In no apparent distress, Oriented x3, Obese HEENT: Atraumatic, Normocephalic, Mucous membr. moist/pink, Other (Corrective lenses) Neck: Supple, 2+ carotid pulse no bruit, JVD not distended, No Thyromegaly Respiratory: Clear to auscultation bilaterally, Normal air movement, Diminished (Lung bases diminished) Cardiovascular: Normal pulses, Regular rate/rhythm, Normal S1 S2, No gallops, No rubs, No murmurs, Edema (+1) Capillary refill: <2 Seconds Gastrointestinal: Normal bowel sounds, Soft and benign, Non-distended, W/out hepatosplenomegaly Musculoskeletal: No clubbing, No contractures, No erythema, No tenderness Integumentary: No rashes, No breakdown, No significant lesion Neurological: Normal speech, Normal tone, Sensation intact, Cranial nerves 3-12 intact, Normal affect - Studies Laboratory Data (last 24 hrs) 01/24/25 01/24/25 01/24/25 16:32 16:32 16:32 WBC 5.10 Hgb 14.1 Hct 44.0 Plt Count 172 PT 13.3 H INR 1.18 APTT 28.2 Sodium 143 Potassium 4.5 BUN 13 Creatinine 0.58 Glucose 105 Total Bilirubin 0.5 AST 52 H ALT 56 Alkaline Phosphatase 67 Assessment And Plan - Plan Assessment: 69-year-old female admitted for shortness of breath for management of acute on chronic COPD and CHF exacerbations. Plan: COPD exacerbation - Monitor closely on telemetry - Bronchodilators and nebulizer treatments Q6 hours PRN - Supplemental O2 as needed, baseline 3 liters - Methylprednisolone 40 milligrams Q8 hours, will transition to prednisone 40 milligrams daily and assess response overnight Acute on chronic CHF diastolic - Monitor on telemetry - Diuresis with IV Lasix 20 milligrams (one time dose given AM January 25) - Supplemental O2, wean oxygen to baseline requirement as tolerated - Continue home medications and titrate as needed, on Diamox 250 daily at home - PT ordered Coronary artery disease and hypertension - Continue home medications, titrate antihypertensives as needed Hyperlipidemia - Continue statin Hypokalemia - Replete potassium and recheck levels Medication/therapy noncompliance - Reinforced importance of wearing CPAP every night for adequate oxygenation to prevent CO2 buildup and improve daytime comfort - Reinforced need to take medications as prescribed daily Dispo: Anticipate home with no needs Likely 01/26/25 Discharge Plan: Home Plan to discharge in: 24 Hours - Code Status/Comfort Care Code Status Assessed: No Critical Care: No
[2025-01-25] MEDS: predniSONE 20 MG TAB PO SCH (20:51)
--- NOTE | 2025-01-26 09:39 | P.DS ---
Admission Date: 01/24/25 Discharge Date: 01/26/25 Reason for Admission: SOB Consultations: None Procedures: None Brief History of Present Illness: A 69-year-old female with a history of COPD, CAD, and hypertension presented with worsening shortness of breath, leading to her admission for management of a COPD exacerbation and acute on chronic heart failure. She was treated with bronchodilators, steroids, and diuretics, with plans to monitor her oxygen levels and adjust her medications as needed. The patient was advised on the importance of nightly CPAP use and adherence to her prescribed medication regimen. Hospital Course: COPD exacerbation: The patient presented with worsening dyspnea on a background of COPD and recent admission for similar symptoms. She was monitored on telemetry and treated with bronchodilators via nebulizer every 6 hours as needed and systemic steroids (methylprednisolone 40 mg every 8 hours, transitioned to prednisone 40 mg daily). She remained on supplemental oxygen with goals to wean toward her home requirement of 3-4 L/min as tolerated. Symptoms improved with therapy, and she maintained stable oxygenation on 4 L/min nasal cannula for 24 hours prior to discharge. Acute on chronic diastolic congestive heart failure: Chest X?ray demonstrated a moderate CHF versus volume overload pattern. She was monitored on telemetry and received diuresis with a one-time dose of IV furosemide 20 mg on the morning of January 25, with clinical improvement in dyspnea. She continued her home regimen, including Diamox 250 mg daily, and supplemental oxygen was titrated with plans to wean toward baseline as tolerated. Physical therapy was ordered to assist with conditioning and safe mobility. She remained hemodynamically stable and clinically improved at the time of discharge. Coronary artery disease and hypertension: With a history of CAD status post PCI and prior MT, her home cardiac medications were continued and antihypertensives were titrated as needed while under telemetry monitoring. No acute coronary syndrome was suspected during this admission. Hyperlipidemia: Her home statin therapy was continued without complication. Hypokalemia: Admission labs showed potassium of 3.0 mmol/L. Potassium was repleted and levels were rechecked, with clinical stabilization prior to discharge. Medication/therapy noncompliance: The importance of nightly CPAP use was emanuel nforced to optimize oxygenation, reduce CO2 retention, and improve daytime comfort. Adherence to daily medications was emphasized, and discharge counseling was provided. Disposition: Blood cultures showed no growth to date; CT chest/abdomen (01/24) revealed no acute abnormalities; CBC was unremarkable; UA without evidence of infection. The patient returned to stable respiratory status, maintaining oxygenation on 4 L/min nasal cannula for 24 hours, and was cleared for discharge home with family with instructions to continue home therapies and follow up as scheduled. <WilsonAquiles - Last Filed: 01/26/25 09:38> Admission Date: 01/24/25 Discharge Date: 01/26/25 <Ramiro De Leon - Last Filed: 01/26/25 16:42> Disposition: ROUTINE DISCHARGE Discharge Condition: GOOD Vital Signs/Physical Exam: Temp Pulse Resp BP Pulse Ox 97.8 F 69 14 128/78 99 01/26/25 08:00 01/26/25 09:25 01/26/25 09:25 01/26/25 09:25 01/26/25 08:00 General: Alert, In no apparent distress, Oriented x3, Obese HEENT: Atraumatic, Normocephalic, Other (Nasal cannula) Neck: Supple, JVD not distended, No Thyromegaly Respiratory: Clear to auscultation bilaterally, Normal air movement, Diminished (A 69-year-old female with a history of COPD, CAD, and hypertension presented with worsening shortness of breath, leading to her admission for management of a COPD exacerbation and acute on chronic heart failure. She was treated with bronchodilators, steroids, and diuretics, with plans to monitor her) Cardiovascular: Normal pulses, Regular rate/rhythm, Normal S1 S2 Capillary refill: <2 Seconds Gastrointestinal: Normal bowel sounds, Soft and benign, Non-distended Musculoskeletal: No clubbing, No contractures, No erythema, No tenderness Integumentary: No rashes, No breakdown, No significant lesion Neurological: Normal speech, Normal tone, Sensation intact, Cranial nerves 3-12 intact, Normal affect Laboratory Data at Discharge: WBC 4.10 thou/uL (4.3-10.9) L 01/25/25 05:42 Hgb 14.0 g/dL (12.0-15.0) 01/25/25 05:42 Hct 43.5 % (36.0-45.0) 01/25/25 05:42 Plt Count 190 thou/uL (152-406) 01/25/25 05:42 PT 13.3 SECONDS (10-13.0) H 01/24/25 16:32 INR 1.18 01/24/25 16:32 APTT 28.2 SECONDS (27.2-37.4) 01/24/25 16:32 Sodium 143 mEq/L (136-145) 01/25/25 05:42 Potassium 3.5 mEq/L (3.5-5.1) D 01/25/25 18:24 BUN 11 mg/dL (7-18) 01/25/25 05:42 Creatinine 0.37 mg/dL (0.55-1.02) L 01/25/25 05:42 Glucose 150 mg/dL (74-106) H 01/25/25 05:42 Total Bilirubin 0.3 mg/dL (0.2-1.0) 01/25/25 05:42 AST 17 U/L (15-37) 01/25/25 05:42 ALT 45 U/L (13-56) 01/25/25 05:42 Alkaline Phosphatase 75 U/L (45-117) 01/25/25 05:42 <Aquiles Wilson - Last Filed: 01/26/25 09:38> Vital Signs/Physical Exam: Temp Pulse Resp BP Pulse Ox 97.9 F 85 16 123/57 L 96 01/26/25 16:00 01/26/25 16:00 01/26/25 16:00 01/26/25 16:00 01/26/25 16:00 Laboratory Data at Discharge: WBC 4.10 thou/uL (4.3-10.9) L 01/25/25 05:42 Hgb 14.0 g/dL (12.0-15.0) 01/25/25 05:42 Hct 43.5 % (36.0-45.0) 01/25/25 05:42 Plt Count 190 thou/uL (152-406) 01/25/25 05:42 PT 13.3 SECONDS (10-13.0) H 01/24/25 16:32 INR 1.18 01/24/25 16:32 APTT 28.2 SECONDS (27.2-37.4) 01/24/25 16:32 Sodium 143 mEq/L (136-145) 01/25/25 05:42 Potassium 3.5 mEq/L (3.5-5.1) D 01/25/25 18:24 BUN 11 mg/dL (7-18) 01/25/25 05:42 Creatinine 0.37 mg/dL (0.55-1.02) L 01/25/25 05:42 Glucose 150 mg/dL (74-106) H 01/25/25 05:42 Total Bilirubin 0.3 mg/dL (0.2-1.0) 01/25/25 05:42 AST 17 U/L (15-37) 01/25/25 05:42 ALT 45 U/L (13-56) 01/25/25 05:42 Alkaline Phosphatase 75 U/L (45-117) 01/25/25 05:42 <Ramiro De Leon - Last Filed: 01/26/25 16:42> Diet: AHA Activity: Fall precautions Time spent managing pt's care (in minutes): 35 <Aquiles Wilson - Last Filed: 01/26/25 09:38> Physician Review: Patient Assessed, Agree with Above Assessment and Plan <Ramiro De Leon - Last Filed: 01/26/25 16:42> Home Medications: Albuterol Inhaler [Ventolin Inhaler*] 2 puff IH Q6H PRN 08/24/20 Amlodipine [Norvasc*] 10 mg PO DAILY 08/24/20 Fluticasone/Umeclidin/Vilanter [Trelegy Ellipta 100-62.5-25] 1 each IH DAILY 08/24/20 Medroxyprogesterone Acetate [Provera] 2.5 mg PO DAILY 08/24/20 oxyBUTYnin chloride [Ditropan*] 10 mg PO TID 08/24/20 Amitriptyline [Elavil*] 10 mg PO BEDTIME 07/18/23 Duloxetine HCl [Cymbalta] 60 mg PO DAILY 07/18/23 Tizanidine [Zanaflex*] 4 mg PO BID 07/18/23 Ipratropium/Albuterol Sulfate [Iprat-Albut 0.5-3(2.5) mg/3 ml] 3 ml IH Q6H PRN #120 amp 07/09/24 Oxycodone HCl/Acetaminophen [Percocet 5/325 Tab*] 1 tab PO Q24H PRN #20 tab 09/17/24 Hydrocodone Bit/Acetaminophen [Hydrocodon-Acetaminophn 10-325] 1 tab PO TIDP PRN 01/24/25 Albuterol Neb [Proventil 0.083% Neb Soln] 2.5 mg NEB [id number] amp 01/25/25 acetaZOLAMIDE [Acetazolamide] 250 mg PO BID #30 tab 01/25/25 predniSONE [Deltasone] 20 mg PO BID 5 Days #10 tab 01/25/25 New Medications: acetaZOLAMIDE [Acetazolamide] 250 mg PO BID #30 tab predniSONE [Deltasone] 20 mg PO BID 5 Days #10 tab Physician Discharge Instructions: PROBLEM: Shortness of breath GOAL: Clear understanding of disease process INSTRUCTIONS: Take all your medications as prescribed. A new prescription for Diamox has been sent to your pharmacy that includes twice daily dosing. A new prescription has been sent to your pharmacy for prednisone that you can take it daily to help with his shortness of breath. Follow-up with your primary care physician within the next 2 to 3 days. Diet: Heart healthy diet Activity: Resume activities as tolerated Followup: Gerald Thurston DO [Primary Care Provider] - 2-3 Days
[2025-01-26 10:16] VITALS: O2SAT 98
[2025-01-26 16:25] VITALS: BP 123/57; TEMP 97.9
== END 2025-01-26 15:00 | disposition home or self-care (01) | DRG 291 ==
LOC: ER 15:22 → ERHOLD 19:53 → 2ND 20:39
PROVIDERS: ADMIT Family Medicine; ATTEND Family Medicine
PROC: 5A09357 Assistance with Respiratory Ventilation, Less than 24 Consecutive Hours, Continuous Positive Airway Pressure (ICD-10-PCS; principal; 2025-01-25)
DX: I11.0 Hypertensive heart disease with heart failure (principal); I50.33 Acute on chronic diastolic (congestive) heart failure; J96.21 Acute and chronic respiratory failure with hypoxia; J96.22 Acute and chronic respiratory failure with hypercapnia; J44.1 Chronic obstructive pulmonary disease with (acute) exacerbation; E78.5 Hyperlipidemia, unspecified; E87.6 Hypokalemia; G89.29 Other chronic pain; M54.9 Dorsalgia, unspecified; I25.2 Old myocardial infarction; K21.9 Gastro-esophageal reflux disease without esophagitis; I25.10 Atherosclerotic heart disease of native coronary artery without angina pectoris; Z88.8 Allergy status to other drugs, medicaments and biological substances; Z99.81 Dependence on supplemental oxygen; Z90.49 Acquired absence of other specified parts of digestive tract; Z85.038 Personal history of other malignant neoplasm of large intestine; Z87.891 Personal history of nicotine dependence; Z79.899 Other long term (current) drug therapy; Z68.36 Body mass index [BMI] 36.0-36.9, adult; Z91.148 Patient's other noncompliance with medication regimen for other reason
CPT/HCPCS: 36415; 71045; 71260; 74160; 80053; 81001; 83605; 83880; 84132; 84484; 85025; 85610; 85730; 87040; 93005; 94640; 94660; 94760; 96374; 99285; J1650; J1938; J2919; J7512; J7613; J7644; Q9967